=== PATIENT | male | born 1965 | race Caucasian/White ===

== ENCOUNTER 2016-10-09 14:49 | Emergency (ER) | payer OTHER ==
[~2016-10-09 14:49] MED LIST: *ANUSOI RE; /CELE20CA PO; /DIVA50TA PO; /OXAZ10CA OR; /QUET10TA PO; /QUET25TA PO; ACET65TA OR; ADVI200C5 PO; ADVI200T PO; ALBU17IN INH; ALBU17IN2 INH; ALBU83IN INH; ALBU83IN NEB; ALDA25TA2 PO; ASPI324T PO; ASPI325T OR; ASPI81TA85 PO; ASTE137S; ATIV0.5T3 PO; AUGM875T27 PO; BABY81CH OR; BACT800T5 PO; BACTDSTA PO; BREO1INH INH; CETI10TA PO; CHLO125TA PO; CHLO25TA PO; CHLO25TA3 PO; CIPR250T2 PO; COLACE PO; CYMB1CAP PO; DEMA20TA6 PO; DEPA250T32 PO; DEPA500T2 PO; DULE100A IN; EFFEXOR PO; EFFEXOR XR PO; FLUT1SPR2; FOLI1TAB2 PO; FOLI1TAB86 PO; FOLITAB11 PO; FURO20TA2 PO; GABA-283 PO; HYDR10EL PO; HYDRO50TAB PO; IBUP600T OR; IMODIUM PO; K-TA1TAB PO; KETO0.05 TOP; LASI20TA PO; LIDO1DIS2 TD; LISI2.5T OR; LISI40TA OR; LISI5TAB PO; LISIPOW PO; LOPR50TA OR; LORA2TA PO; MAG-400T7 PO; MAGN200T3 PO; METO25TA2 PO; METO50TA2 PO; MICR10CA PO; MOTR200T44 PO; NEOSOINT EXT; NEUR300C PO; NICO4LOZ MT; NIZO2SHA TOP; OMEP20CA3 PO; OXAZ15CA2 OR; OXAZ30CA OR; PERCOCET 10-325MG PO; PERCOCET FT; PERCOCET PO; PRIL20CA PO; PRIL40CA PO; QUET1TAB9 PO; REME15TA OR; SERO200T PO; SOMA250T OR; SOMA250T PO; SOMA350T PO; SPIR25TA2 PO; SYMB16INH INH; THERTAB30 PO; THIA100T PO; TOPR25TA PO; TRAZ100T2 PO; TRAZODONE PO; TYLE500T78 PO; TYLETAB15 PO; ULTR50TA PO; VENL50TA2 PO; VENL75CA PO; VENL75TA2 PO; VENL75TA3 PO; VICO5TA PO; VIST50CA PO; VITA100T2 PO; VITMTA PO; ZOLO100T PO; ZOLO25TA OR; ZOLO50TA OR; ZOLOFT PO; [UNRECOGNIZED DRUG - OTHER] PO; [UNRECOGNIZED DRUG - OTHER] PO
[2016-10-09] MEDS ORDERED: MORPHINE 4 MG/ML 1ML SYRINGE As Ordered ONE ×3 (17:52→20:24)
[2016-10-09] MEDS ORDERED: GASTROGRAFIN SOLUTION 30ML (Q9963) As Ordered ONE (17:52)
[2016-10-09] MEDS ORDERED: ONDANSETRON 4MG/2ML VIAL (J2405) As Ordered ONE (17:52)
[2016-10-09 18:17] LABS: BASO # 0.1 K/mm3 (0.0-0.2); BASO % 1.1 % (0.0-1.0); EOS # 0.5 K/mm3 (0.0-0.50); EOS % 5.9 % (0.0-3.0); LARGE UNSTAINED CELL # 0.2 K/mm3 (0.0-0.4); LARGE UNSTAINED CELL % 2.3 % (0.0-4.0); LYMPH # 1.9 K/mm3 (1.5-4.5); LYMPH % 21.1 % (24.0-44.0); MEAN CORPUSCULAR HEMOGLOBIN 34.9 pg (27.0-33.0); MEAN CORPUSCULAR HGB CONC 35.4 g/dl (32.0-36.5); MEAN CORPUSCULAR VOLUME 98.4 fl (80.0-96.0); MONO # 0.8 K/mm3 (0.0-0.8); MONO % 8.8 % (0.0-5.0); NEUTROPHILS # 5.3 K/mm3 (1.8-7.7); NEUTROPHILS % 60.8 % (36.0-66.0); PLATELET COUNT, AUTOMATED 220 k/mm3 (150-450); RED CELL DISTRIBUTION WIDTH 12.5 % (11.5-14.5); WHITE BLOOD COUNT 8.8 K/mm3 (4.0-10.0)
[2016-10-09 18:31] LABS: ALBUMIN 4.1 GM/DL (3.2-5.2); ALBUMIN/GLOBULIN RATIO 1.05 (1.00-1.93); ALKALINE PHOSPHATASE 97 U/L (45-117); ALT/SGPT 288 U/L (12-78); ANION GAP 10 MEQ/L (8-16); AST/SGOT 136 U/L (15-37); BILIRUBIN,DIRECT 0.4 MG/DL (0.0-0.2); BILIRUBIN,TOTAL 0.8 MG/DL (0.2-1.0); BLOOD UREA NITROGEN 14 MG/DL (7-18); CALCIUM LEVEL 9.4 MG/DL (8.5-10.1); CARBON DIOXIDE LEVEL 25 MEQ/L (21-32); CHLORIDE LEVEL 107 MEQ/L (98-107); CREATININE FOR GFR 0.85 MG/DL (0.70-1.30); GLOMERULAR FILTRATION RATE > 60.0 (>56); GLUCOSE, FASTING 99 MG/DL (70-105); POTASSIUM SERUM 4.1 MEQ/L (3.5-5.1); SODIUM LEVEL 142 MEQ/L (136-145)
[2016-10-09] MEDS ORDERED: ISOVUE-370 76% 100ML VIAL (Q9967) As Ordered ONE (19:19)
--- NOTE | 2016-10-09 20:30 | REPUSA ---
CT of the abdomen and pelvis with contrast Clinical statement: Pain. Technique: Multiple axial CT images were obtained from the base of the lungs through the floor of the pelvis utilizing 5 mm axial slices after administration of oral and nonionic intravenous contrast. C oronal and sagittal reconstructions were also obtained. Comparison: 07/12/2016. Findings: Chest: The visualized lung bases are clear. Abdomen: The spleen, pancreas, kidneys, gallbladder, and adrenal glands are unremarkable. There is an enhancing solid lesion in segment IV of the liver measuring 3.7 x 2.5 cm, which is stable since the prior study. Mild fatty infiltration of the liver remains. The liver is otherwise unremarkable. The a carline is within normal limits. There is no evidence of abdominal lymphadenopathy or ascites. Pelvis: The bowel is unremarkable, with no obstructive or inflammatory changes. The urinary bladder i s within normal limits. The other pelvic structures appear grossly intact. There is no evidence of pe lvic lymphadenopathy or ascites. Bones: There are no suspicious osseous abnormalities seen. Moderate degenerative disc disease is appr eciated at L4/L5 and L5/S1. Bilateral hip arthroplasties are intact. Impression: 1. No acute abnormality to explain the patient's pain. 2. Stable enhancing lesion in the liver consistent with a hepatic hemangioma. Stable fatty infiltrati on of the liver. 3. No obstructive or inflammatory bowel changes.
--- NOTE | 2016-10-09 21:24 | EDDOCDS ---
Physician Documentation [facility] Name: Donato Collier Age: 50 yrs Sex: Male : 1965 Arrival Date: 10/09/2016 Time: 14:49 Bed I7 Private MD: [facility] Disposition: 10/09/16 21:10 Discharged to Home/Self Care. Impression: Upper abdominal pain, unspecified - unclear etiology. - Condition is Stable. - Discharge Instructions: Abdominal Pain, Adult, Pain Without a Known Cause. - Medication Reconciliation, Local Pharmacy Hours form. - Follow up: [facility]; When: Call to arrange an appointment; Reason: Recheck today's complaints, Continuance of care. - Problem is an ongoing problem. - Symptoms have improved. - Notes: Keep hydrated Return to the ED For any further concerns Historical: - Allergies: Diflucan PO; - Home Meds: 1. albuterol sulfate 2.5 mg /3 mL (0.083 %) Inhl nebu as needed (Last dose: 10/05/2016) 2. aspirin 81 mg Oral tab 1 tab once daily (Last dose: 10/09/2016) 3. Gabapentin 300mg in am, afternoon and 600mg at hs Oral (Last dose: 10/09/2016 08:00) 4. Lasix 20 mg Oral tab 1 tab 2 times per day (Last dose: 10/09/2016) 5. metoprolol tartrate 25 mg Oral tab 1 tab 2 times per day (Last dose: 10/09/2016 08:00) 6. Motrin 800 mg Oral tab as needed (Last dose: 10/08/2016 20:00) 7. potassium chloride 20 mEq Oral TbER 1 tab 2 times per day (Last dose: 10/09/2016 08:00) 8. Prilosec 20 mg Oral cpDR 1 cap once daily (Last dose: 10/09/2016 08:00) 9. Proventil Inhl 2.5 mg as needed (Last dose: 10/09/2016) 10. Seroquel 400 mg oral tab 1 tab hs 11. spironolactone 25 mg Oral tab 1 tab once daily (Last dose: 10/09/2016 08:00) 12. venlafaxine 225 mg oral tr24 once daily (Last dose: 10/09/2016 08:00) 13. Zyrtec 10 mg Oral tab 1 tab once daily (Last dose: 10/09/2016 08:00) 14. nicotine lozenges as needed - PMHx: Asthma; Bipolar disorder; CHF; Depression; GERD; Hepatitis C; Hypertension; Left knee pain; - PSHx: Diaphramatic hernia repair 2013; Appendectomy; Vasectomy; Inguinal hernia repair; - Social history: Smoking status: Patient uses tobacco products, light tobacco smoker. No barriers to communication noted, The patient speaks fluent Zimbabwean. - Family history: Not pertinent. - : The pt / caregiver states he / she is not on anticoagulants. Home medication list is obtained from the patient. - Exposure Risk Screening:: None identified. Vital Signs: 10/09 14:51 BP 165 / 98; Pulse 66; Resp 16; Temp 97.5(O); Pulse Ox 98% ; Weight 131.09 kg / 289 cmb lbs; Height 6 ft. 0 in. (182.88 cm); Pain 5/10; 18:41 BP 147 / 86; Pulse 66; Resp 20; Temp 98.0; Pulse Ox 98% ; Pain 7/10; jam1 20:05 BP 124 / 72; Pulse 72; Resp 18; Temp 98.6; Pulse Ox 96% ; Pain 8/10; ajs 21:18 BP 136 / 99; Pulse 70; Resp 20; Temp 97.5(O); Pulse Ox 95% on R/A; Pain 5/10; dsf 21:20 Pain 5/10; dsf 14:51 Body Mass Index 39.20 (131.09 kg, 182.88 cm) cmb MDM: 17:26 NS 0.9% 1000 ml IV at 100 mL/hr continuous ordered. le 17:26 Ondansetron 4 mg IVP once ordered. le 17:26 morphine 4 mg IVP every 30 minutes; Document pain score/vitals after each dose (Hold if le SBP < 90mmHg) x2 ordered. 17:26 IV Saline Lock ordered. le 17:26 Undress patient appropriately for examination ordered. le 17:27 Basic Metabolic Profile Ordered. EDMS 17:27 CBC with Diff Ordered. EDMS 17:27 Lipase Ordered. EDMS 17:27 Liver Profile Ordered. EDMS 17:28 CT ABD & PELVIS: IV and Oral Contrast Ordered. EDMS 17:28 NOTHING BY MOUTH+DIET ordered. EDMS 17:28 Lactic Acid (Claudio tube on ice) Ordered. EDMS 17:50 Diatrizoate Meglumine & Sodium Liquid 10 ml PO once; mix in 290cc of water 1st cup 1800 dsf 1830 ordered. 17:50 Diatrizoate Meglumine & Sodium Liquid 10 ml PO once; mix in 290cc of water 1st cup 1800 dsf 1830 ordered. 18:19 Financial registration complete. [email or web address] 18:19 [facility] [place] Agreement was scanned into [employer] and attached to record. [email or web address] 18:39 CBC with Diff Reviewed. le 18:39 Lipase Reviewed. le 18:39 Liver Profile Reviewed. le 18:39 Basic Metabolic Profile Reviewed. le 20:10 morphine 4 mg IVP every 15 minutes; Document pain score/vitals after each dose (Hold if le SBP < 90mmHg) x2 ordered. 20:10 Lactic Acid (Claudio tube on ice) Reviewed. le Administered Medications: 18:00 Drug: Diatrizoate Meglumine & Sodium 10 ml [diatrizoate meglumine and diat.sodium 66 dsf %-10 % oral solution (10 mL)] Route: PO; 18:01 Drug: NS 0.9% 1000 ml [sodium chloride 0.9 % injection solution] Route: IV; Rate: 100 dsf mL/hr; Site: right antecubital; 18:01 Drug: Ondansetron 4 mg [ondansetron HCl 2 mg/mL intravenous solution (2 mL)] Route: dsf IVP; Site: right antecubital; 18:01 Drug: morphine 4 mg [morphine 4 mg/mL intravenous cartridge (1 mL)] Route: IVP; Site: dsf right antecubital; 18:30 Drug: Diatrizoate Meglumine & Sodium 10 ml [diatrizoate meglumine and diat.sodium 66 dsf %-10 % oral solution (10 mL)] Route: PO; 20:26 Drug: morphine 4 mg [morphine 4 mg/mL intravenous cartridge (1 mL)] Route: IVP; Site: dsf right antecubital; 21:20 Follow up: Pain 5/10 Adult; Response: Confirmed pt not driving.; see charted VS dsf Signatures: Dispatcher [employer] EDMS Yrn Russ, RN RN Lois Tyler, CHUCKING AND BORING MACHINE OPERATOR CHUCKING AND BORING MACHINE OPERATOROlga Shipley RN RN dsBelem Patrick, Reg Reg [email or web address] The chart was reviewed and I authenticate all verbal orders and agree with the evaluation and treatment provided.Attachments: 18:19 [facility] Payment Agreement [email or web address] MTDD
--- NOTE | 2016-10-09 21:24 | EDDOCDS ---
Nurse's Notes [facility] Name: Donato Collier Age: 50 yrs Sex: Male : 1965 Arrival Date: 10/09/2016 Time: 14:49 Bed I7 / 29 Private MD: [facility] Diagnosis: Upper abdominal pain, unspecified-unclear etiology Presentation: 10/09 14:52 Presenting complaint: Patient states: LUQ pain for 3 days, no injury. Adult Sepsis dwg Screening: The patient does not have new or worsening altered mentation. Patient's respiratory rate is less than 22. Systolic blood pressure is greater than 100. Patient has a qSOFA score of 0- Negative Sepsis Screen. Suicide/Homicide risk assessment- the patient denies having any suicidal and/or homicidal ideations and does not present with any other emotional, behavioral or mental health complaints. Status: Patient is not a director of career services or dependent. Transition of care: patient was not received from another setting of care. 14:52 Acuity: ABEL Level 3 dwg 14:52 Method Of Arrival: Walkin/Carried/Asstd dwg Triage Assessment: 14:58 General: Appears in no apparent distress. Pain: Pain currently is 7 out of 10 on a pain dwg scale. HIV screening NA for this visit Offered previously. Historical: - Allergies: Diflucan PO; - Home Meds: 1. albuterol sulfate 2.5 mg /3 mL (0.083 %) Inhl nebu as needed (Last dose: 10/05/2016) 2. aspirin 81 mg Oral tab 1 tab once daily (Last dose: 10/09/2016) 3. Gabapentin 300mg in am, afternoon and 600mg at hs Oral (Last dose: 10/09/2016 08:00) 4. Lasix 20 mg Oral tab 1 tab 2 times per day (Last dose: 10/09/2016) 5. metoprolol tartrate 25 mg Oral tab 1 tab 2 times per day (Last dose: 10/09/2016 08:00) 6. Motrin 800 mg Oral tab as needed (Last dose: 10/08/2016 20:00) 7. potassium chloride 20 mEq Oral TbER 1 tab 2 times per day (Last dose: 10/09/2016 08:00) 8. Prilosec 20 mg Oral cpDR 1 cap once daily (Last dose: 10/09/2016 08:00) 9. Proventil Inhl 2.5 mg as needed (Last dose: 10/09/2016) 10. Seroquel 400 mg oral tab 1 tab hs 11. spironolactone 25 mg Oral tab 1 tab once daily (Last dose: 10/09/2016 08:00) 12. venlafaxine 225 mg oral tr24 once daily (Last dose: 10/09/2016 08:00) 13. Zyrtec 10 mg Oral tab 1 tab once daily (Last dose: 10/09/2016 08:00) 14. nicotine lozenges as needed - PMHx: Asthma; Bipolar disorder; CHF; Depression; GERD; Hepatitis C; Hypertension; Left knee pain; - PSHx: Diaphramatic hernia repair 2013; Appendectomy; Vasectomy; Inguinal hernia repair; - Social history: Smoking status: Patient uses tobacco products, light tobacco smoker. No barriers to communication noted, The patient speaks fluent Burkinan. - Family history: Not pertinent. - : The pt / caregiver states he / she is not on anticoagulants. Home medication list is obtained from the patient. - Exposure Risk Screening:: None identified. Screenin:18 Screening information is obtained from the patient. Fall risk: No risks identified. dsf Assistance ADL's: requires no assistance with activities of daily living. Abuse/DV Screen: The patient / caregiver reports he/she is: not in a situation that causes fear, pain or injury. Nutritional screening: No deficits noted. Advance Directives: Currently, there is no health care proxy. home support is adequate. Assessment: 18:01 Adult Sepsis Screening: The patient does not have new or worsening altered mentation. dsf Patient's respiratory rate is less than 22. Systolic blood pressure is greater than 100. Patient has a qSOFA score of 0- Negative Sepsis Screen. General: Appears in no apparent distress, uncomfortable, Behavior is appropriate for age, cooperative. Pain: Location: epigastric area and left upper quadrant Pain currently is 8 out of 10 on a pain scale. Quality of pain is described as sharp. Neurological: Level of Consciousness is awake, alert, Oriented to person, place, time. Cardiovascular: Capillary refill < 3 seconds Heart tones S1 S2 present. Respiratory: Airway is patent Respiratory effort is even, unlabored, Respiratory pattern is regular, symmetrical, Breath sounds are clear bilaterally. GI: Abdomen is obese, Bowel sounds hyperactive in right upper quadrant, left upper quadrant, right lower quadrant and left lower quadrant Abd is soft X 4 quads Abd is tender to palpation in epigastric area and left upper quadrant bulge LUQ. Derm: Skin is pink, warm & dry. 19:41 General: Appears uncomfortable, Behavior is appropriate for age, cooperative. Pain: dsf Pain currently is 8 out of 10 on a pain scale. Neurological: Level of Consciousness is awake, alert. Cardiovascular: Capillary refill < 3 seconds. Respiratory: Airway is patent Respiratory effort is even, unlabored, Respiratory pattern is regular, symmetrical. Derm: Skin is pink, warm & dry. 19:56 General: pt ambulated back from CT without difficulty . af2 21:19 General: Appears in no apparent distress, comfortable, Behavior is appropriate for age, dsf cooperative. Pain: Location: left upper quadrant and epigastric area Pain currently is 5 out of 10 on a pain scale. Neurological: Level of Consciousness is awake, alert. Cardiovascular: No deficits noted. Respiratory: No deficits noted. Derm: Skin is pink, warm & dry. Vital Signs: 14:51 BP 165 / 98; Pulse 66; Resp 16; Temp 97.5(O); Pulse Ox 98% ; Weight 131.09 kg; Height 6 cmb ft. 0 in. (182.88 cm); Pain 5/10; 18:41 BP 147 / 86; Pulse 66; Resp 20; Temp 98.0; Pulse Ox 98% ; Pain 7/10; jam1 20:05 BP 124 / 72; Pulse 72; Resp 18; Temp 98.6; Pulse Ox 96% ; Pain 8/10; ajs 21:18 BP 136 / 99; Pulse 70; Resp 20; Temp 97.5(O); Pulse Ox 95% on R/A; Pain 5/10; dsf 21:20 Pain 5/10; dsf 14:51 Body Mass Index 39.20 (131.09 kg, 182.88 cm) [facility] Vitals: 14:51 Log In Time: October 09, 2016 at 14:49. [facility] ED Course: 14:51 Patient visited by Luz Thompson. b 14:51 [facility] is Private Physician. cmb 14:51 Patient moved to Waiting cmb 14:52 Patient moved to Pre RCE cmb 14:54 Triage Initiated dwg 16:24 Patient moved to Triage 1 srm 17:16 [facility] le 17:19 Patient visited by Lois Rubio FNP. le 17:28 Patient visited by Lois Rubio FNP. le 17:42 Patient moved to I6 / 28 srm 17:44 Patient moved to I7 / 29 srm 17:50 Inserted saline lock: 20 gauge in right antecubital area The patient tolerated the kcs procedure well. 18:00 Lactic Acid (Claudio tube on ice) Sent. kcs 18:00 Basic Metabolic Profile Sent. kcs 18:00 CBC with Diff Sent. kcs 18:00 Lipase Sent. kcs 18:00 Liver Profile Sent. kcs 18:03 Patient visited by Olga Deutsch RN. dsf 18:19 [facility] Payment Agreement was scanned into [employer] and attached to record. ks16 19:42 Patient visited by Olga Deutsch RN. dsf 20:00 Patient visited by Dania Ortiz RN. af2 20:06 Patient visited by Sarah Murrell. ajs 21:10 [facility] is Referral Physician. le 21:13 Patient visited by Sarah Murrell. ajs 21:13 CT ABD & PELVIS: IV and Oral Contrast Returned. EDMS 21:18 Discontinued lock intact, bleeding controlled, pressure dressing applied, No dsf redness/swelling at site. No procedures done that require assistance. 21:19 The patient / caregiver is instructed regarding the plan of care and ED course. Patient dsf has correct armband on for positive identification. Administered Medications: 18:00 Drug: Diatrizoate Meglumine & Sodium 10 ml [diatrizoate meglumine and diat.sodium 66 dsf %-10 % oral solution (10 mL)] Route: PO; 18:01 Drug: NS 0.9% 1000 ml [sodium chloride 0.9 % injection solution] Route: IV; Rate: 100 dsf mL/hr; Site: right antecubital; 18:01 Drug: Ondansetron 4 mg [ondansetron HCl 2 mg/mL intravenous solution (2 mL)] Route: dsf IVP; Site: right antecubital; 18:01 Drug: morphine 4 mg [morphine 4 mg/mL intravenous cartridge (1 mL)] Route: IVP; Site: dsf right antecubital; 18:30 Drug: Diatrizoate Meglumine & Sodium 10 ml [diatrizoate meglumine and diat.sodium 66 dsf %-10 % oral solution (10 mL)] Route: PO; 20:26 Drug: morphine 4 mg [morphine 4 mg/mL intravenous cartridge (1 mL)] Route: IVP; Site: dsf right antecubital; 21:20 Follow up: Pain 01/30 Adult; Response: Confirmed pt not driving.; see charted VS dsf Intake: Order Results: Lab Order: Basic Metabolic Profile; SPEC'M 10/09/16 17:56 Test: GLUCOSE, FASTING; Value: 99; Range: 70-105; Units: MG/DL; Status: F Test: BLOOD UREA NITROGEN; Value: 14; Range: 7-18; Units: MG/DL; Status: F Test: CREATININE FOR GFR; Value: 0.85; Range: 0.70-1.30; Units: MG/DL; Status: F Test: GLOMERULAR FILTRATION RATE; Value: > 60.0; Range: >56; Status: F Test: SODIUM LEVEL; Value: 142; Range: 136-145; Units: MEQ/L; Status: F Test: POTASSIUM SERUM; Value: 4.1; Range: 3.5-5.1; Units: MEQ/L; Status: F Test: CHLORIDE LEVEL; Value: 107; Range: 98-107; Units: MEQ/L; Status: F Test: CARBON DIOXIDE LEVEL; Value: 25; Range: 21-32; Units: MEQ/L; Status: F Test: ANION GAP; Value: 10; Range: 8-16; Units: MEQ/L; Status: F Test: CALCIUM LEVEL; Value: 9.4; Range: 8.5-10.1; Units: MG/DL; Status: F Test Note: ; Units are mL/min/1.73 m2 Chronic Kidney Disease Staging per NKF: Stage I & II GFR >=60 Normal to Mildly Decreased Stage III GFR 30-59 Moderately Decreased Stage IV GFR 15-29 Severely Decreased Stage V GFR <15 Very Little GFR Left ESRD GFR <15 on DEVICE ENGINEER Lab Order: CBC with Diff; SPEC'M 10/09/16 17:56 Test: WHITE BLOOD COUNT; Value: 8.8; Range: 4.0-10.0; Units: K/mm3; Status: F Test: RED BLOOD COUNT; Value: 4.52; Range: 4.30-6.10; Units: M/mm3; Status: F Test: HEMOGLOBIN; Value: 15.8; Range: 14.0-18.0; Units: g/dl; Status: F Test: HEMATOCRIT; Value: 44.5; Range: 42.0-52.0; Units: %; Status: F Test: MEAN CORPUSCULAR VOLUME; Value: 98.4; Range: 80.0-96.0; Abnormal: Above high normal; Units: fl; Status: F Test: MEAN CORPUSCULAR HEMOGLOBIN; Value: 34.9; Range: 27.0-33.0; Abnormal: Above high normal; Units: pg; Status: F Test: MEAN CORPUSCULAR HGB CONC; Value: 35.4; Range: 32.0-36.5; Units: g/dl; Status: F Test: RED CELL DISTRIBUTION WIDTH; Value: 12.5; Range: 11.5-14.5; Units: %; Status: F Test: PLATELET COUNT, AUTOMATED; Value: 220; Range: 150-450; Units: k/mm3; Status: F Test: NEUTROPHILS %; Value: 60.8; Range: 36.0-66.0; Units: %; Status: F Test: LYMPH %; Value: 21.1; Range: 24.0-44.0; Abnormal: Below low normal; Units: %; Status: F Test: MONO %; Value: 8.8; Range: 0.0-5.0; Abnormal: Above high normal; Units: %; Status: F Test: EOS %; Value: 5.9; Range: 0.0-3.0; Abnormal: Above high normal; Units: %; Status: F Test: BASO %; Value: 1.1; Range: 0.0-1.0; Abnormal: Above high normal; Units: %; Status: F Test: LARGE UNSTAINED CELL %; Value: 2.3; Range: 0.0-4.0; Units: %; Status: F Test: NEUTROPHILS #; Value: 5.3; Range: 1.8-7.7; Units: K/mm3; Status: F Test: LYMPH #; Value: 1.9; Range: 1.5-4.5; Units: K/mm3; Status: F Test: MONO #; Value: 0.8; Range: 0.0-0.8; Units: K/mm3; Status: F Test: EOS #; Value: 0.5; Range: 0.0-0.50; Units: K/mm3; Status: F Test: BASO #; Value: 0.1; Range: 0.0-0.2; Units: K/mm3; Status: F Test: LARGE UNSTAINED CELL #; Value: 0.2; Range: 0.0-0.4; Units: K/mm3; Status: F Lab Order: Lipase; SPEC'M 10/09/16:56 Test: LIPASE; Value: 889; Range: 73-393; Abnormal: Above high normal; Units: U/L; Status: F Lab Order: Liver Profile; SPEC'M 10/09/16 17:56 Test: AST/SGOT; Value: 136; Range: 15-37; Abnormal: Above high normal; Units: U/L; Status: F Test: ALT/SGPT; Value: 288; Range: 12-78; Abnormal: Above high normal; Units: U/L; Status: F Test: ALKALINE PHOSPHATASE; Value: 97; Range: 45-117; Units: U/L; Status: F Test: BILIRUBIN,TOTAL; Value: 0.8; Range: 0.2-1.0; Units: MG/DL; Status: F Test: BILIRUBIN,DIRECT; Value: 0.4; Range: 0.0-0.2; Abnormal: Above high normal; Units: MG/DL; Status: F Test: TOTAL PROTEIN; Value: 8.0; Range: 6.4-8.2; Units: GM/DL; Status: F Test: ALBUMIN; Value: 4.1; Range: 3.2-5.2; Units: GM/DL; Status: F Test: ALBUMIN/GLOBULIN RATIO; Value: 1.05; Range: 1.00-1.93; Status: F Lab Order: Lactic Acid (Claudio tube on ice); SPEC'M 01/17/17 17:56 Test: LACTIC ACID LEVEL, LACTATE; Value: 1.2; Range: 0.4-2.0; Units: MMOL/L; Status: F Radiology Order: CT ABD & PELVIS: IV and Oral Contrast Test: CT ABD & PELVIS: IV and Oral Contrast REASON FOR EXAMINATION: LUQ abdominal pain, hernia; ; CT of the abdomen and pelvis with contrast; Clinical statement: Pain.; Technique: Multiple axial CT images were obtained from the base of the lungs through the floor of the; pelvis utilizing 5 mm axial slices after administration of oral and nonionic intravenous contrast. C; oronal and sagittal reconstructions were also obtained.; Comparison: 07/12/2016.; Findings:; Chest: The visualized lung bases are clear.; Abdomen: The spleen, pancreas, kidneys, gallbladder, and adrenal glands are unremarkable. There is an; enhancing solid lesion in segment IV of the liver measuring 3.7 x 2.5 cm, which is stable since the; prior study. Mild fatty infiltration of the liver remains. The liver is otherwise unremarkable. The a; carline is within normal limits. There is no evidence of abdominal lymphadenopathy or ascites.; Pelvis: The bowel is unremarkable, with no obstructive or inflammatory changes. The urinary bladder i; s within normal limits. The other pelvic structures appear grossly intact. There is no evidence of pe; lvic lymphadenopathy or ascites.; Bones: There are no suspicious osseous abnormalities seen. Moderate degenerative disc disease is appr; eciated at L4/L5 and L5/S1. Bilateral hip arthroplasties are intact.; Impression:; 1. No acute abnormality to explain the patient's pain.; 2. Stable enhancing lesion in the liver consistent with a hepatic hemangioma. Stable fatty infiltrati; on of the liver.; 3. No obstructive or inflammatory bowel changes.; ; Outcome: 21:10 Discharge ordered by Provider. le 21:19 Discharge Assessment: Patient awake, alert and oriented x 3. No cognitive and/or dsf functional deficits noted. Patient verbalized understanding of disposition instructions. patient administered narcotics - yes. Pt provided with safe discharge. The following High Risk Discharge criteria are identified: None. Discharged to home ambulatory. Condition: stable. Discharge instructions given to patient, Instructed on discharge instructions, follow up and referral plans. Demonstrated understanding of instructions, Pt was receptive of discharge instructions/ teaching. CT Study completed. Property sent home with patient. 21:23 Patient left the ED. dsf Signatures: Dispatcher [employer] EDDivya Griffith, RN RN Yrn Moody RN RN dwg Michelson, Staci RN RN blanca Anuradha Palomo, HISTOTECHNICIAN HISTOTECHNICIAN [email or web address] Lois Rubio, WINCH RUNNER WINCH RUNNER Olga Whitaker RN RN dsf Sarah Murrell [place] cmb [place], Amber, RN RN af2 Belem Sandhu, Reg Reg [email or web address] Corrections: (The following items were deleted from the chart) 19:23 18:54 morphine 4 mg IVP in right antecubital dsf dsf 21:13 21:12 BP 126 / 80; Pulse 60bpm; Resp 18bpm; Pulse Ox 99%; Temp 98.8F; Pain 2/10; ajs karin MTDD
--- NOTE | 2016-10-11 22:24 | EDDOCDS ---
Physician Documentation [facility] Name: Donato Collier Age: 50 yrs Sex: Male : 1965 Arrival Date: 10/09/2016 Time: 14:49 Bed I7 Private MD: [facility] - Adults Disposition: 10/09/16 21:10 Discharged to Home/Self Care. Impression: Upper abdominal pain, unspecified - unclear etiology. - Condition is Stable. - Discharge Instructions: Abdominal Pain, Adult, Pain Without a Known Cause. - Medication Reconciliation, Local Pharmacy Hours form. - Follow up: [facility] - Adults; When: Call to arrange an appointment; Reason: Recheck today's complaints, Continuance of care. - Problem is an ongoing problem. - Symptoms have improved. - Notes: Keep hydrated Return to the ED For any further concerns Historical: - Allergies: Diflucan PO; - Home Meds: 1. albuterol sulfate 2.5 mg /3 mL (0.083 %) Inhl nebu as needed (Last dose: 10/05/2016) 2. aspirin 81 mg Oral tab 1 tab once daily (Last dose: 10/09/2016) 3. Gabapentin 300mg in am, afternoon and 600mg at hs Oral (Last dose: 10/09/2016 08:00) 4. Lasix 20 mg Oral tab 1 tab 2 times per day (Last dose: 10/09/2016) 5. metoprolol tartrate 25 mg Oral tab 1 tab 2 times per day (Last dose: 10/09/2016 08:00) 6. Motrin 800 mg Oral tab as needed (Last dose: 10/08/2016 20:00) 7. potassium chloride 20 mEq Oral TbER 1 tab 2 times per day (Last dose: 10/09/2016 08:00) 8. Prilosec 20 mg Oral cpDR 1 cap once daily (Last dose: 10/09/2016 08:00) 9. Proventil Inhl 2.5 mg as needed (Last dose: 10/09/2016) 10. Seroquel 400 mg oral tab 1 tab hs 11. spironolactone 25 mg Oral tab 1 tab once daily (Last dose: 10/09/2016 08:00) 12. venlafaxine 225 mg oral tr24 once daily (Last dose: 10/09/2016 08:00) 13. Zyrtec 10 mg Oral tab 1 tab once daily (Last dose: 10/09/2016 08:00) 14. nicotine lozenges as needed - PMHx: Asthma; Bipolar disorder; CHF; Depression; GERD; Hepatitis C; Hypertension; Left knee pain; - PSHx: Diaphramatic hernia repair 2013; Appendectomy; Vasectomy; Inguinal hernia repair; - Social history: Smoking status: Patient uses tobacco products, light tobacco smoker. No barriers to communication noted, The patient speaks fluent Ethiopian. - Family history: Not pertinent. - : The pt / caregiver states he / she is not on anticoagulants. Home medication list is obtained from the patient. - Exposure Risk Screening:: None identified. Vital Signs: 10/09 14:51 BP 165 / 98; Pulse 66; Resp 16; Temp 97.5(O); Pulse Ox 98% ; Weight 131.09 kg / 289 cmb lbs; Height 6 ft. 0 in. (182.88 cm); Pain 5/10; 18:41 BP 147 / 86; Pulse 66; Resp 20; Temp 98.0; Pulse Ox 98% ; Pain 7/10; jam1 20:05 BP 124 / 72; Pulse 72; Resp 18; Temp 98.6; Pulse Ox 96% ; Pain 8/10; ajs 21:18 BP 136 / 99; Pulse 70; Resp 20; Temp 97.5(O); Pulse Ox 95% on R/A; Pain 5/10; dsf 21:20 Pain 5/10; dsf 14:51 Body Mass Index 39.20 (131.09 kg, 182.88 cm) cmb MDM: 17:26 NS 0.9% 1000 ml IV at 100 mL/hr continuous ordered. le 17:26 Ondansetron 4 mg IVP once ordered. le 17:26 morphine 4 mg IVP every 30 minutes; Document pain score/vitals after each dose (Hold if le SBP < 90mmHg) x2 ordered. 17:26 IV Saline Lock ordered. le 17:26 Undress patient appropriately for examination ordered. le 17:27 Basic Metabolic Profile Ordered. EDMS 17:27 CBC with Diff Ordered. EDMS 17:27 Lipase Ordered. EDMS 17:27 Liver Profile Ordered. EDMS 17:28 CT ABD & PELVIS: IV and Oral Contrast Ordered. EDMS 17:28 NOTHING BY MOUTH+DIET ordered. EDMS 17:28 Lactic Acid (Claudio tube on ice) Ordered. EDMS 17:50 Diatrizoate Meglumine & Sodium Liquid 10 ml PO once; mix in 290cc of water 1st cup 1800 dsf 1830 ordered. 17:50 Diatrizoate Meglumine & Sodium Liquid 10 ml PO once; mix in 290cc of water 1st cup 1800 dsf 1830 ordered. 18:19 Financial registration complete. [email or web address] 18:19 [place] [place] Agreement was scanned into [employer] and attached to record. [email or web address] 18:39 CBC with Diff Reviewed. le 18:39 Lipase Reviewed. le 18:39 Liver Profile Reviewed. le 18:39 Basic Metabolic Profile Reviewed. le 20:10 morphine 4 mg IVP every 15 minutes; Document pain score/vitals after each dose (Hold if le SBP < 90mmHg) x2 ordered. 20:10 Lactic Acid (Claudio tube on ice) Reviewed. le 10/10 11:53 T-Sheet-- Draft Copy was scanned into [employer] and attached to record. gb Administered Medications: 10/09 18:00 Drug: Diatrizoate Meglumine & Sodium 10 ml [diatrizoate meglumine and diat.sodium 66 dsf %-10 % oral solution (10 mL)] Route: PO; 18:01 Drug: NS 0.9% 1000 ml [sodium chloride 0.9 % injection solution] Route: IV; Rate: 100 dsf mL/hr; Site: right antecubital; 18:01 Drug: Ondansetron 4 mg [ondansetron HCl 2 mg/mL intravenous solution (2 mL)] Route: dsf IVP; Site: right antecubital; 18:01 Drug: morphine 4 mg [morphine 4 mg/mL intravenous cartridge (1 mL)] Route: IVP; Site: dsf right antecubital; 18:30 Drug: Diatrizoate Meglumine & Sodium 10 ml [diatrizoate meglumine and diat.sodium 66 dsf %-10 % oral solution (10 mL)] Route: PO; 20:26 Drug: morphine 4 mg [morphine 4 mg/mL intravenous cartridge (1 mL)] Route: IVP; Site: dsf right antecubital; 21:20 Follow up: Pain 5/10 Adult; Response: Confirmed pt not driving.; see charted VS dsf Signatures: Dispatcher [employer] Yrn Merida, RN RN dwg Vaishnavi Urias, Reg Reg gb Lois Rubio, LOGISTICS CLERK LOGISTICS CLERKOlga Shipley RN RN dsf Belem Sandhu, Reg Reg [email or web address] The chart was reviewed and I authenticate all verbal orders and agree with the evaluation and treatment provided.Attachments: 18:19 [facility] Payment Agreement [email or web address] 10/10 11:53 T-Sheet-- Draft Copy gb Chart Complete MTDD
--- NOTE | 2016-10-11 22:24 | EDDOCDS ---
Physician Documentation [facility] Name: Donato Collier Age: 50 yrs Sex: Male : 1965 Arrival Date: 10/09/2016 Time: 14:49 Bed I7 Private MD: [facility] - Adults Disposition: 10/09/16 21:10 Discharged to Home/Self Care. Impression: Upper abdominal pain, unspecified - unclear etiology. - Condition is Stable. - Discharge Instructions: Abdominal Pain, Adult, Pain Without a Known Cause. - Medication Reconciliation, Local Pharmacy Hours form. - Follow up: [facility] - Adults; When: Call to arrange an appointment; Reason: Recheck today's complaints, Continuance of care. - Problem is an ongoing problem. - Symptoms have improved. - Notes: Keep hydrated Return to the ED For any further concerns Historical: - Allergies: Diflucan PO; - Home Meds: 1. albuterol sulfate 2.5 mg /3 mL (0.083 %) Inhl nebu as needed (Last dose: 10/05/2016) 2. aspirin 81 mg Oral tab 1 tab once daily (Last dose: 10/09/2016) 3. Gabapentin 300mg in am, afternoon and 600mg at hs Oral (Last dose: 10/09/2016 08:00) 4. Lasix 20 mg Oral tab 1 tab 2 times per day (Last dose: 10/09/2016) 5. metoprolol tartrate 25 mg Oral tab 1 tab 2 times per day (Last dose: 10/09/2016 08:00) 6. Motrin 800 mg Oral tab as needed (Last dose: 10/08/2016 20:00) 7. potassium chloride 20 mEq Oral TbER 1 tab 2 times per day (Last dose: 10/09/2016 08:00) 8. Prilosec 20 mg Oral cpDR 1 cap once daily (Last dose: 10/09/2016 08:00) 9. Proventil Inhl 2.5 mg as needed (Last dose: 10/09/2016) 10. Seroquel 400 mg oral tab 1 tab hs 11. spironolactone 25 mg Oral tab 1 tab once daily (Last dose: 10/09/2016 08:00) 12. venlafaxine 225 mg oral tr24 once daily (Last dose: 10/09/2016 08:00) 13. Zyrtec 10 mg Oral tab 1 tab once daily (Last dose: 10/09/2016 08:00) 14. nicotine lozenges as needed - PMHx: Asthma; Bipolar disorder; CHF; Depression; GERD; Hepatitis C; Hypertension; Left knee pain; - PSHx: Diaphramatic hernia repair 2013; Appendectomy; Vasectomy; Inguinal hernia repair; - Social history: Smoking status: Patient uses tobacco products, light tobacco smoker. No barriers to communication noted, The patient speaks fluent Algerian. - Family history: Not pertinent. - : The pt / caregiver states he / she is not on anticoagulants. Home medication list is obtained from the patient. - Exposure Risk Screening:: None identified. Vital Signs: 10/09 14:51 BP 165 / 98; Pulse 66; Resp 16; Temp 97.5(O); Pulse Ox 98% ; Weight 131.09 kg / 289 cmb lbs; Height 6 ft. 0 in. (182.88 cm); Pain 5/10; 18:41 BP 147 / 86; Pulse 66; Resp 20; Temp 98.0; Pulse Ox 98% ; Pain 7/10; jam1 20:05 BP 124 / 72; Pulse 72; Resp 18; Temp 98.6; Pulse Ox 96% ; Pain 8/10; ajs 21:18 BP 136 / 99; Pulse 70; Resp 20; Temp 97.5(O); Pulse Ox 95% on R/A; Pain 5/10; dsf 21:20 Pain 5/10; dsf 14:51 Body Mass Index 39.20 (131.09 kg, 182.88 cm) cmb MDM: 17:26 NS 0.9% 1000 ml IV at 100 mL/hr continuous ordered. le 17:26 Ondansetron 4 mg IVP once ordered. le 17:26 morphine 4 mg IVP every 30 minutes; Document pain score/vitals after each dose (Hold if le SBP < 90mmHg) x2 ordered. 17:26 IV Saline Lock ordered. le 17:26 Undress patient appropriately for examination ordered. le 17:27 Basic Metabolic Profile Ordered. EDMS 17:27 CBC with Diff Ordered. EDMS 17:27 Lipase Ordered. EDMS 17:27 Liver Profile Ordered. EDMS 17:28 CT ABD & PELVIS: IV and Oral Contrast Ordered. EDMS 17:28 NOTHING BY MOUTH+DIET ordered. EDMS 17:28 Lactic Acid (Claudio tube on ice) Ordered. EDMS 17:50 Diatrizoate Meglumine & Sodium Liquid 10 ml PO once; mix in 290cc of water 1st cup 1800 dsf 1830 ordered. 17:50 Diatrizoate Meglumine & Sodium Liquid 10 ml PO once; mix in 290cc of water 1st cup 1800 dsf 1830 ordered. 18:19 Financial registration complete. [email or web address] 18:19 [facility] [place] Payment Agreement was scanned into [employer] and attached to record. [email or web address] 18:39 CBC with Diff Reviewed. le 18:39 Lipase Reviewed. le 18:39 Liver Profile Reviewed. le 18:39 Basic Metabolic Profile Reviewed. le 20:10 morphine 4 mg IVP every 15 minutes; Document pain score/vitals after each dose (Hold if le SBP < 90mmHg) x2 ordered. 20:10 Lactic Acid (Claudio tube on ice) Reviewed. le 10/10 11:53 T-Sheet-- Draft Copy was scanned into [employer] and attached to record. gb Administered Medications: 10/09 18:00 Drug: Diatrizoate Meglumine & Sodium 10 ml [diatrizoate meglumine and diat.sodium 66 dsf %-10 % oral solution (10 mL)] Route: PO; 18:01 Drug: NS 0.9% 1000 ml [sodium chloride 0.9 % injection solution] Route: IV; Rate: 100 dsf mL/hr; Site: right antecubital; 18:01 Drug: Ondansetron 4 mg [ondansetron HCl 2 mg/mL intravenous solution (2 mL)] Route: dsf IVP; Site: right antecubital; 18:01 Drug: morphine 4 mg [morphine 4 mg/mL intravenous cartridge (1 mL)] Route: IVP; Site: dsf right antecubital; 18:30 Drug: Diatrizoate Meglumine & Sodium 10 ml [diatrizoate meglumine and diat.sodium 66 dsf %-10 % oral solution (10 mL)] Route: PO; 20:26 Drug: morphine 4 mg [morphine 4 mg/mL intravenous cartridge (1 mL)] Route: IVP; Site: dsf right antecubital; 21:20 Follow up: Pain 5/10 Adult; Response: Confirmed pt not driving.; see charted VS dsf Signatures: Dispatcher [employer] Yrn Merida, RN RN dwg Vaishnavi Urias, Reg Reg gb Lois Rubio, COMMERCIAL REAL ESTATE PARALEGAL COMMERCIAL REAL ESTATE PARALEGALOlga Shipley RN RN dsf Belem Sandhu, Reg Reg [email or web address] The chart was reviewed and I authenticate all verbal orders and agree with the evaluation and treatment provided.Attachments: 18:19 [facility] Payment Agreement [email or web address] 10/10 11:53 T-Sheet-- Draft Copy gb Chart Complete MTDD
--- NOTE | 2016-10-11 22:24 | EDDOCDS ---
Nurse's Notes [facility] Name: Donato Collier Age: 50 yrs Sex: Male : 1965 Arrival Date: 10/09/2016 Time: 14:49 Bed I7 / 29 Private MD: [facility] Diagnosis: Upper abdominal pain, unspecified-unclear etiology Presentation: 10/09 14:52 Presenting complaint: Patient states: LUQ pain for 3 days, no injury. Adult Sepsis dwg Screening: The patient does not have new or worsening altered mentation. Patient's respiratory rate is less than 22. Systolic blood pressure is greater than 100. Patient has a qSOFA score of 0- Negative Sepsis Screen. Suicide/Homicide risk assessment- the patient denies having any suicidal and/or homicidal ideations and does not present with any other emotional, behavioral or mental health complaints. Status: Patient is not a environmental services tech or dependent. Transition of care: patient was not received from another setting of care. 14:52 Acuity: ABEL Level 3 dwg 14:52 Method Of Arrival: Walkin/Carried/Asstd dwg Triage Assessment: 14:58 General: Appears in no apparent distress. Pain: Pain currently is 7 out of 10 on a pain dwg scale. HIV screening NA for this visit Offered previously. Historical: - Allergies: Diflucan PO; - Home Meds: 1. albuterol sulfate 2.5 mg /3 mL (0.083 %) Inhl nebu as needed (Last dose: 10/05/2016) 2. aspirin 81 mg Oral tab 1 tab once daily (Last dose: 10/09/2016) 3. Gabapentin 300mg in am, afternoon and 600mg at hs Oral (Last dose: 10/09/2016 08:00) 4. Lasix 20 mg Oral tab 1 tab 2 times per day (Last dose: 10/09/2016) 5. metoprolol tartrate 25 mg Oral tab 1 tab 2 times per day (Last dose: 10/09/2016 08:00) 6. Motrin 800 mg Oral tab as needed (Last dose: 10/08/2016 20:00) 7. potassium chloride 20 mEq Oral TbER 1 tab 2 times per day (Last dose: 10/09/2016 08:00) 8. Prilosec 20 mg Oral cpDR 1 cap once daily (Last dose: 10/09/2016 08:00) 9. Proventil Inhl 2.5 mg as needed (Last dose: 10/09/2016) 10. Seroquel 400 mg oral tab 1 tab hs 11. spironolactone 25 mg Oral tab 1 tab once daily (Last dose: 10/09/2016 08:00) 12. venlafaxine 225 mg oral tr24 once daily (Last dose: 10/09/2016 08:00) 13. Zyrtec 10 mg Oral tab 1 tab once daily (Last dose: 10/09/2016 08:00) 14. nicotine lozenges as needed - PMHx: Asthma; Bipolar disorder; CHF; Depression; GERD; Hepatitis C; Hypertension; Left knee pain; - PSHx: Diaphramatic hernia repair 2013; Appendectomy; Vasectomy; Inguinal hernia repair; - Social history: Smoking status: Patient uses tobacco products, light tobacco smoker. No barriers to communication noted, The patient speaks fluent Lebanese. - Family history: Not pertinent. - : The pt / caregiver states he / she is not on anticoagulants. Home medication list is obtained from the patient. - Exposure Risk Screening:: None identified. Screenin:18 Screening information is obtained from the patient. Fall risk: No risks identified. dsf Assistance ADL's: requires no assistance with activities of daily living. Abuse/DV Screen: The patient / caregiver reports he/she is: not in a situation that causes fear, pain or injury. Nutritional screening: No deficits noted. Advance Directives: Currently, there is no health care proxy. home support is adequate. Assessment: 18:01 Adult Sepsis Screening: The patient does not have new or worsening altered mentation. dsf Patient's respiratory rate is less than 22. Systolic blood pressure is greater than 100. Patient has a qSOFA score of 0- Negative Sepsis Screen. General: Appears in no apparent distress, uncomfortable, Behavior is appropriate for age, cooperative. Pain: Location: epigastric area and left upper quadrant Pain currently is 8 out of 10 on a pain scale. Quality of pain is described as sharp. Neurological: Level of Consciousness is awake, alert, Oriented to person, place, time. Cardiovascular: Capillary refill < 3 seconds Heart tones S1 S2 present. Respiratory: Airway is patent Respiratory effort is even, unlabored, Respiratory pattern is regular, symmetrical, Breath sounds are clear bilaterally. GI: Abdomen is obese, Bowel sounds hyperactive in right upper quadrant, left upper quadrant, right lower quadrant and left lower quadrant Abd is soft X 4 quads Abd is tender to palpation in epigastric area and left upper quadrant bulge LUQ. Derm: Skin is pink, warm & dry. 19:41 General: Appears uncomfortable, Behavior is appropriate for age, cooperative. Pain: dsf Pain currently is 8 out of 10 on a pain scale. Neurological: Level of Consciousness is awake, alert. Cardiovascular: Capillary refill < 3 seconds. Respiratory: Airway is patent Respiratory effort is even, unlabored, Respiratory pattern is regular, symmetrical. Derm: Skin is pink, warm & dry. 19:56 General: pt ambulated back from CT without difficulty . af2 21:19 General: Appears in no apparent distress, comfortable, Behavior is appropriate for age, dsf cooperative. Pain: Location: left upper quadrant and epigastric area Pain currently is 5 out of 10 on a pain scale. Neurological: Level of Consciousness is awake, alert. Cardiovascular: No deficits noted. Respiratory: No deficits noted. Derm: Skin is pink, warm & dry. Vital Signs: 14:51 BP 165 / 98; Pulse 66; Resp 16; Temp 97.5(O); Pulse Ox 98% ; Weight 131.09 kg; Height 6 cmb ft. 0 in. (182.88 cm); Pain 5/10; 18:41 BP 147 / 86; Pulse 66; Resp 20; Temp 98.0; Pulse Ox 98% ; Pain 7/10; jam1 20:05 BP 124 / 72; Pulse 72; Resp 18; Temp 98.6; Pulse Ox 96% ; Pain 8/10; ajs 21:18 BP 136 / 99; Pulse 70; Resp 20; Temp 97.5(O); Pulse Ox 95% on R/A; Pain 5/10; dsf 21:20 Pain 5/10; dsf 14:51 Body Mass Index 39.20 (131.09 kg, 182.88 cm) [facility] Vitals: 14:51 Log In Time: October 09, 2016 at 14:49. [facility] ED Course: 14:51 Patient visited by Luz Thompson. b 14:51 [facility] is Private Physician. cmb 14:51 Patient moved to Waiting cmb 14:52 Patient moved to Pre RCE cmb 14:54 Triage Initiated dwg 16:24 Patient moved to Triage 1 srm 17:16 [facility] Rubio FNP [facility]. le 17:19 Patient visited by Lois Rubio FNP. le 17:28 Patient visited by Lois Rubio FNP. le 17:42 Patient moved to I6 / 28 srm 17:44 Patient moved to I7 / 29 srm 17:50 Inserted saline lock: 20 gauge in right antecubital area The patient tolerated the kcs procedure well. 18:00 Lactic Acid (Claudio tube on ice) Sent. kcs 18:00 Basic Metabolic Profile Sent. kcs 18:00 CBC with Diff Sent. kcs 18:00 Lipase Sent. kcs 18:00 Liver Profile Sent. kcs 18:03 Patient visited by Olga Deutsch RN. dsf 18:19 [facility] Payment Agreement was scanned into [employer] and attached to record. ks16 19:42 Patient visited by Olga Deutsch RN. dsf 20:00 Patient visited by Dania Ortiz RN. af2 20:06 Patient visited by Sarah Murrell. ajs 21:10 [facility] is Referral Physician. le 21:13 Patient visited by Sarah Murrell. ajs 21:13 CT ABD & PELVIS: IV and Oral Contrast Returned. EDMS 21:18 Discontinued lock intact, bleeding controlled, pressure dressing applied, No dsf redness/swelling at site. No procedures done that require assistance. 21:19 The patient / caregiver is instructed regarding the plan of care and ED course. Patient dsf has correct armband on for positive identification. 10/10 11:53 T-Sheet-- Draft Copy was scanned into [employer] and attached to record. gb Administered Medications: 10/09 18:00 Drug: Diatrizoate Meglumine & Sodium 10 ml [diatrizoate meglumine and diat.sodium 66 dsf %-10 % oral solution (10 mL)] Route: PO; 18:01 Drug: NS 0.9% 1000 ml [sodium chloride 0.9 % injection solution] Route: IV; Rate: 100 dsf mL/hr; Site: right antecubital; 18:01 Drug: Ondansetron 4 mg [ondansetron HCl 2 mg/mL intravenous solution (2 mL)] Route: dsf IVP; Site: right antecubital; 18:01 Drug: morphine 4 mg [morphine 4 mg/mL intravenous cartridge (1 mL)] Route: IVP; Site: dsf right antecubital; 18:30 Drug: Diatrizoate Meglumine & Sodium 10 ml [diatrizoate meglumine and diat.sodium 66 dsf %-10 % oral solution (10 mL)] Route: PO; 20:26 Drug: morphine 4 mg [morphine 4 mg/mL intravenous cartridge (1 mL)] Route: IVP; Site: dsf right antecubital; 21:20 Follow up: Pain 01/30 Adult; Response: Confirmed pt not driving.; see charted VS dsf Intake: Order Results: Lab Order: Basic Metabolic Profile; SPEC'M 10/09/16 17:56 Test: GLUCOSE, FASTING; Value: 99; Range: 70-105; Units: MG/DL; Status: F Test: BLOOD UREA NITROGEN; Value: 14; Range: 7-18; Units: MG/DL; Status: F Test: CREATININE FOR GFR; Value: 0.85; Range: 0.70-1.30; Units: MG/DL; Status: F Test: GLOMERULAR FILTRATION RATE; Value: > 60.0; Range: >56; Status: F Test: SODIUM LEVEL; Value: 142; Range: 136-145; Units: MEQ/L; Status: F Test: POTASSIUM SERUM; Value: 4.1; Range: 3.5-5.1; Units: MEQ/L; Status: F Test: CHLORIDE LEVEL; Value: 107; Range: 98-107; Units: MEQ/L; Status: F Test: CARBON DIOXIDE LEVEL; Value: 25; Range: 21-32; Units: MEQ/L; Status: F Test: ANION GAP; Value: 10; Range: 8-16; Units: MEQ/L; Status: F Test: CALCIUM LEVEL; Value: 9.4; Range: 8.5-10.1; Units: MG/DL; Status: F Test Note: ; Units are mL/min/1.73 m2 Chronic Kidney Disease Staging per NKF: Stage I & II GFR >=60 Normal to Mildly Decreased Stage III GFR 30-59 Moderately Decreased Stage IV GFR 15-29 Severely Decreased Stage V GFR <15 Very Little GFR Left ESRD GFR <15 on CLINICAL OPERATIONS SPECIALIST Lab Order: CBC with Diff; SPEC'M 10/09/16 17:56 Test: WHITE BLOOD COUNT; Value: 8.8; Range: 4.0-10.0; Units: K/mm3; Status: F Test: RED BLOOD COUNT; Value: 4.52; Range: 4.30-6.10; Units: M/mm3; Status: F Test: HEMOGLOBIN; Value: 15.8; Range: 14.0-18.0; Units: g/dl; Status: F Test: HEMATOCRIT; Value: 44.5; Range: 42.0-52.0; Units: %; Status: F Test: MEAN CORPUSCULAR VOLUME; Value: 98.4; Range: 80.0-96.0; Abnormal: Above high normal; Units: fl; Status: F Test: MEAN CORPUSCULAR HEMOGLOBIN; Value: 34.9; Range: 27.0-33.0; Abnormal: Above high normal; Units: pg; Status: F Test: MEAN CORPUSCULAR HGB CONC; Value: 35.4; Range: 32.0-36.5; Units: g/dl; Status: F Test: RED CELL DISTRIBUTION WIDTH; Value: 12.5; Range: 11.5-14.5; Units: %; Status: F Test: PLATELET COUNT, AUTOMATED; Value: 220; Range: 150-450; Units: k/mm3; Status: F Test: NEUTROPHILS %; Value: 60.8; Range: 36.0-66.0; Units: %; Status: F Test: LYMPH %; Value: 21.1; Range: 24.0-44.0; Abnormal: Below low normal; Units: %; Status: F Test: MONO %; Value: 8.8; Range: 0.0-5.0; Abnormal: Above high normal; Units: %; Status: F Test: EOS %; Value: 5.9; Range: 0.0-3.0; Abnormal: Above high normal; Units: %; Status: F Test: BASO %; Value: 1.1; Range: 0.0-1.0; Abnormal: Above high normal; Units: %; Status: F Test: LARGE UNSTAINED CELL %; Value: 2.3; Range: 0.0-4.0; Units: %; Status: F Test: NEUTROPHILS #; Value: 5.3; Range: 1.8-7.7; Units: K/mm3; Status: F Test: LYMPH #; Value: 1.9; Range: 1.5-4.5; Units: K/mm3; Status: F Test: MONO #; Value: 0.8; Range: 0.0-0.8; Units: K/mm3; Status: F Test: EOS #; Value: 0.5; Range: 0.0-0.50; Units: K/mm3; Status: F Test: BASO #; Value: 0.1; Range: 0.0-0.2; Units: K/mm3; Status: F Test: LARGE UNSTAINED CELL #; Value: 0.2; Range: 0.0-0.4; Units: K/mm3; Status: F Lab Order: Lipase; SPEC'M 10/09/16 17:56 Test: LIPASE; Value: 889; Range: 73-393; Abnormal: Above high normal; Units: U/L; Status: F Lab Order: Liver Profile; SPEC'M 10/09/16 17:56 Test: AST/SGOT; Value: 136; Range: 15-37; Abnormal: Above high normal; Units: U/L; Status: F Test: ALT/SGPT; Value: 288; Range: 12-78; Abnormal: Above high normal; Units: U/L; Status: F Test: ALKALINE PHOSPHATASE; Value: 97; Range: 45-117; Units: U/L; Status: F Test: BILIRUBIN,TOTAL; Value: 0.8; Range: 0.2-1.0; Units: MG/DL; Status: F Test: BILIRUBIN,DIRECT; Value: 0.4; Range: 0.0-0.2; Abnormal: Above high normal; Units: MG/DL; Status: F Test: TOTAL PROTEIN; Value: 8.0; Range: 6.4-8.2; Units: GM/DL; Status: F Test: ALBUMIN; Value: 4.1; Range: 3.2-5.2; Units: GM/DL; Status: F Test: ALBUMIN/GLOBULIN RATIO; Value: 1.05; Range: 1.00-1.93; Status: F Lab Order: Lactic Acid (Claudio tube on ice); SPEC'M 10/09/16 17:56 Test: LACTIC ACID LEVEL, LACTATE; Value: 1.2; Range: 0.4-2.0; Units: MMOL/L; Status: F Radiology Order: CT ABD & PELVIS: IV and Oral Contrast Test: CT ABD & PELVIS: IV and Oral Contrast REASON FOR EXAMINATION: LUQ abdominal pain, hernia; ; CT of the abdomen and pelvis with contrast; Clinical statement: Pain.; Technique: Multiple axial CT images were obtained from the base of the lungs through the floor of the; pelvis utilizing 5 mm axial slices after administration of oral and nonionic intravenous contrast. C; oronal and sagittal reconstructions were also obtained.; Comparison: 07/12/2016.; Findings:; Chest: The visualized lung bases are clear.; Abdomen: The spleen, pancreas, kidneys, gallbladder, and adrenal glands are unremarkable. There is an; enhancing solid lesion in segment IV of the liver measuring 3.7 x 2.5 cm, which is stable since the; prior study. Mild fatty infiltration of the liver remains. The liver is otherwise unremarkable. The a; carline is within normal limits. There is no evidence of abdominal lymphadenopathy or ascites.; Pelvis: The bowel is unremarkable, with no obstructive or inflammatory changes. The urinary bladder i; s within normal limits. The other pelvic structures appear grossly intact. There is no evidence of pe; lvic lymphadenopathy or ascites.; Bones: There are no suspicious osseous abnormalities seen. Moderate degenerative disc disease is appr; eciated at L4/L5 and L5/S1. Bilateral hip arthroplasties are intact.; Impression:; 1. No acute abnormality to explain the patient's pain.; 2. Stable enhancing lesion in the liver consistent with a hepatic hemangioma. Stable fatty infiltrati; on of the liver.; 3. No obstructive or inflammatory bowel changes.; ; Outcome: 21:10 Discharge ordered by Provider. le 21:19 Discharge Assessment: Patient awake, alert and oriented x 3. No cognitive and/or dsf functional deficits noted. Patient verbalized understanding of disposition instructions. patient administered narcotics - yes. Pt provided with safe discharge. The following High Risk Discharge criteria are identified: None. Discharged to home ambulatory. Condition: stable. Discharge instructions given to patient, Instructed on discharge instructions, follow up and referral plans. Demonstrated understanding of instructions, Pt was receptive of discharge instructions/ teaching. CT Study completed. Property sent home with patient. 21:23 Patient left the ED. dsf Signatures: Dispatcher [employer] EDDivya Griffith RN RN kcs Greene, Daniel, RN RN dwg Michelson, Staci, RN RN srm Anuradha Palomo, CAN REFORMING MACHINE OPERATOR CAN REFORMING MACHINE OPERATOR [email or web address] Vaishnavi Urias, Reg Reg gb Lois Rubio, SIZING MACHINE OPERATOR SIZING MACHINE OPERATOR Olga Whitaker RN RN dsf Sarah Murrell Chelsea cmDania Ansari RN RN af2 Belem Sandhu, Reg Reg [email or web address] Corrections: (The following items were deleted from the chart) 19:23 18:54 morphine 4 mg IVP in right antecubital dsf dsf 21:13 21:12 BP 126 / 80; Pulse 60bpm; Resp 18bpm; Pulse Ox 99%; Temp 98.8F; Pain 2/10; ajs ajs Chart Complete MTDD
== END 2016-10-09 21:23 | disposition home or self-care (01) ==
LOC: M ED 14:49
DX: I10 Essential (primary) hypertension (principal); I50.9 Heart failure, unspecified; J45.909 Unspecified asthma, uncomplicated; B19.20 Unspecified viral hepatitis C without hepatic coma; K21.9 Gastro-esophageal reflux disease without esophagitis; F31.9 Bipolar disorder, unspecified; M25.562 Pain in left knee; F17.200 Nicotine dependence, unspecified, uncomplicated; Z79.899 Other long term (current) drug therapy; Z79.82 Long term (current) use of aspirin; Z88.3 Allergy status to other anti-infective agents
CPT/HCPCS: 74177; 80048; 80076; 83605; 83690; 85025; 96374; 96375; 96376; 99284; J2405; Q9963; Q9967

== ENCOUNTER 2016-12-01 00:29 | Inpatient (IN) | payer OTHER ==
[~2016-12-01] VITALS: Ht 182.9 cm; Wt 127.0 kg
[2016-12-01] MEDS ORDERED: ONDANSETRON 4MG/2ML VIAL (J2405) IV ONE (01:30)
[2016-12-01 01:40] LABS: BASO # 0.1 K/mm3 (0.0-0.2); BASO % 0.8 % (0.0-1.0); EOS # 0.2 K/mm3 (0.0-0.50); EOS % 2.4 % (0.0-3.0); LARGE UNSTAINED CELL # 0.2 K/mm3 (0.0-0.4); LARGE UNSTAINED CELL % 3.2 % (0.0-4.0); LYMPH % 27.5 % (24.0-44.0); MEAN CORPUSCULAR HEMOGLOBIN 33.4 pg (27.0-33.0); MEAN CORPUSCULAR HGB CONC 34.1 g/dl (32.0-36.5); MEAN CORPUSCULAR VOLUME 97.9 fl (80.0-96.0); MONO # 0.4 K/mm3 (0.0-0.8); MONO % 6.1 % (0.0-5.0); NEUTROPHILS # 4.3 K/mm3 (1.8-7.7); NEUTROPHILS % 59.9 % (36.0-66.0); PLATELET COUNT, AUTOMATED 119 k/mm3 (150-450); RED CELL DISTRIBUTION WIDTH 12.5 % (11.5-14.5); WHITE BLOOD COUNT 7.2 K/mm3 (4.0-10.0)
[2016-12-01] MEDS: MORPHINE 4 MG/ML 1ML SYRINGE IV PRN ×2 (01:46→02:12)
[2016-12-01 01:53] LABS: ANION GAP 14 MEQ/L (8-16); BLOOD UREA NITROGEN 12 MG/DL (7-18); CALCIUM LEVEL 8.7 MG/DL (8.5-10.1); CARBON DIOXIDE LEVEL 21 MEQ/L (21-32); CHLORIDE LEVEL 104 MEQ/L (98-107); CREATININE FOR GFR 0.92 MG/DL (0.70-1.30); GLOMERULAR FILTRATION RATE > 60.0 (>56); GLUCOSE, FASTING 108 MG/DL (70-105); POTASSIUM SERUM 3.5 MEQ/L (3.5-5.1); SODIUM LEVEL 139 MEQ/L (136-145)
[2016-12-01] MEDS ORDERED: ISOVUE-370 76% 100ML VIAL (Q9967) As Ordered ONE (02:34)
--- NOTE | 2016-12-01 03:30 | REPUSA ---
CLINICAL HISTORY: Dyspnea, exclude PE. TECHNIQUE: Multiple incremental axial, coronal and oblique images are obtained from the thoracic inle t to the upper abdomen. Intravenous contrast material was administered as per pulmonary embolism prot ocol. COMMENTS: Bilateral basilar atelectatic pulmonary changes. Moderate centrilobular pulmonary emphysema. Moderate changes of chronic bronchitis. There is excellent opacification of pulmonary arterial system without evidence for pulmonary embolism . Aorta is of normal caliber without evidence for dissection or aneurysm. There is no evidence of pleural or parenchymal mass. There are no pleural effusions. There is no evid ence of hilar or mediastinal lymphadenopathy. The heart and great vessels are within normal limits. Images of the upper abdomen demonstrate no evidence of adrenal mass. The bony structures are free of lytic or blastic lesions. Multilevel degenerative changes are seen in volving the visualized thoracolumbar spine. Scattered calcifications are seen involving the aorta and major branches compatible with atherosclero sis. Chronic deformities of the ribs from healed fractures. IMPRESSION: No evidence for pulmonary embolism. Chronic bronchitis. Pulmonary emphysema. Findings deformities of the ribs from healed fractures. Thank you for your kind referral of this patient.
--- NOTE | 2016-12-01 04:00 | REPUSA ---
CLINICAL HISTORY: Abdominal pain. TECHNIQUE: Multiple axial, sagittal and coronal CT images were obtained through the abdomen and pelvi s after administration of oral and intravenous contrast material. COMMENTS: 1.3 cm enhancing lesion in the segment 4B of the liver. Moderate hepatomegaly with fatty liver infilt ration. Fluid-filled distended stomach suggestive of gastroparesis. Bilateral perinephric fat strandi ng. There is no intra or extrahepatic biliary ductal dilatation. The spleen is normal. The gallbladder is within normal limits. The pancreas is of normal contour and attenuation characteristics. There is no evidence of adrenal mass. Both kidneys demonstrate prompt and equal nephrograms. The kidneys are normal in size, shape and conf iguration. There is no evidence of renal or ureteral mass. No renal or ureteral calculi are identifie d. There is no hydroureter or hydronephrosis. No evidence for appendicitis. There is no bowel wall thickening. No evidence for small or large bowel obstruction. There is no evidence of abdominal ascites or lymphadenopathy. There is no evidence of intrinsic or extrinsic bladder mass. There is no pelvic ascites or lymphadeno jimmy. Mild diffuse thickening of the wall of the bladder. Fluid-filled small bowels. Images of the lung bases show no evidence of pleural or parenchymal mass. There are no pleural effusi ons. The bony structures are free of lytic or blastic lesions. Multilevel degenerative changes are seen in volving the thoracolumbar spine. Scattered calcifications are seen involving the aorta and major bran ches compatible with atherosclerosis. IMPRESSION: Gastroparesis. Fluid-filled bowel suspicious for mild antritis. Enhancing lesion in the segment IVb of the liver. This is unchanged since prior exam on 10/09/2016. Hepatomegaly with fatty liver infiltration. Mild irregularity of hepatic contour. Bilateral perinephric fat stranding. Nonspecific finding which can be secondary to patient's age, abn ormal renal function or an infection. Please correlate with creatinine level and urinalysis. Thank you for your kind referral of this patient.
[2016-12-01] MEDS ORDERED: GI COCKTAIL 50ML BTL(HYOSCYAMINE/MAALOX/LIDOCAINE VISCOUS)(1:3:1) PO ONE (04:45)
[2016-12-01] MEDS ORDERED: HYDROmorphone HCL 1 MG/ML SYRINGE (J1170) IV PRN (05:30)
[2016-12-01] MEDS ORDERED: NICOTINE POLACRILEX 2 MG GUM PO PRN (06:00)
[2016-12-01] MEDS ORDERED: QUET1TAB11 PO (06:05)
[2016-12-01] MEDS ORDERED: VITMTA PO (06:05)
[2016-12-01] MEDS ORDERED: FOLI1TAB2 PO (06:05)
[2016-12-01] MEDS ORDERED: METO12TA PO (06:05)
[2016-12-01] MEDS ORDERED: ALBUTEROL SULFATE 2.5 MG/0.5 ML INH NEB SOLN NEB PRN ×2 (06:15→20:15)
[2016-12-01] MEDS ORDERED: ACETAMINOPHEN TAB 650MG DOSE (2X325MG) PO PRN (06:15)
[2016-12-01] MEDS ORDERED: METOCLOPRAMIDE 5 MG TAB PO PRN (06:15)
[2016-12-01] MEDS ORDERED: ONDANSETRON 4MG/2ML VIAL (J2405) IV PRN (06:15)
[2016-12-01] MEDS ORDERED: BISACODYL 5 MG TAB PO PRN (06:15)
[2016-12-01] MEDS ORDERED: ALBUTEROL 90 MCG/ACT 8GM HFA INHALER INH PRN (06:15)
[2016-12-01] MEDS: PERCOCET 5MG/325MG TAB PO PRN ×3 (06:23→20:49)
[2016-12-01] MEDS: HEPARIN SOD (PORCINE) 5000 UNITS/ML VIAL SC SCH ×3 (06:38→22:03)
--- NOTE | 2016-12-01 07:21 | HPE ---
DATE OF ADMISSION: 12/01/2016 PRIMARY CARE PROVIDER: Dr. Jackson NURSING MANAGER: Dr. Mendoza CHIEF COMPLAINT: Left-sided chest pain. HISTORY OF PRESENT ILLNESS: The patient is a 50-year-old man with a long history of chronic pain on the left side of his chest and left upper quadrant of his abdomen. He has a history of diaphragmatic hernia status post repair. He has had also a pneumothorax after an episode trauma in the past and required chest tube placement in the left side in the same area as well. 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 The patient says that he was in his usual state of health but for the last 2 days he has noticed progressively worsening pain in his left upper quadrant and left side of his chest radiating to his shoulder. He was worried that it was his heart. He has had a cardiac catheterization many years ago. emergency room. The patient denies lightheadedness, shortness of breath, fevers , chills, sick contacts, change in diet or appetite. At the present time, he is feeling better with intravenous (IV) narcotics, which he has received in the emergency room. He is not having any associated nausea or vomiting. PAST MEDICAL HISTORY: 1. Asthma. 2. Bipolar. 3. Posttraumatic stress disorder (PTSD). 4. Depression. 5. Documented diastolic congestive heart failure. 6. Gastroesophageal reflux disease. 7. Hepatitis C believed to be secondary needlestick at work versus tattoos. 8. Hypertension. 9. Alcohol abuse. 10. Obstructive sleep apnea on continuous positive airway pressure (CPAP). 11. Tetrahydrocannabinol (THC) abuse. 12. Subarachnoid hemorrhage after fall 13. Tobacco abuse. 14. Medical noncompliance. PAST SURGICAL HISTORY: 1. Bilateral hip replacement. 2. Appendectomy. 3. Repair of diaphragmatic hernia. SOCIAL HISTORY: The patient is an active drinker and active tobacco user. FAMILY HISTORY: Noncontributory. REVIEW OF SYSTEMS: Negative other than history of present illness (HPI). ALLERGIES: BEE VENOM and FLUCONAZOLE. HOME MEDICATIONS: - folic acid 1 mg daily - Neurontin 300 mg twice a day and 600 mg nightly - metoprolol tartrate 25 mg twice a day - multivitamin one tablet daily - omeprazole 20 mg daily - potassium chloride 20 mEq twice a day - Seroquel 400 mg nightly - venlafaxine 225 mg daily - albuterol sulfate 2.5 mg nebulizer every 6 hours as needed, shortness of breath - Proventil HFA one puff inhaled every 6 hours as needed, shortness of breath - aspirin 81 mg daily - cetirizine 10 mg daily - Lasix 20 mg by mouth twice a day - aldactone 25 mg daily PHYSICAL EXAMINATION: Temperature 97.8, pulse 88, respiratory rate 18, blood pressure (BP) 159/106, oxygen saturation 92% on room air. General: He was a somewhat disheveled, middle aged, obese, man laying on a stretcher. He appears to be comfortable, in no distress whatsoever. HEENT: He is disheveled. He has moist mucous membranes. No elevation in central venous pressure (CVP). Cranial nerves II-XII are grossly intact. Cardiovascular exam: S1, S2. Regular. He is not tachycardic. Respiratory exam is clear: Abdominal exam: His chest pain is not reproducible in the intercostal areas; however, he describes it as pleuritic in nature, is into the left upper quadrant. Patient has a well-healed surgical scar. Extremities: No clubbing, cyanosis or edema. LABORATORY STUDIES: WBC 7.2, hemoglobin 16.7, hematocrit 49, platelet count 119. Chemistry panel: Sodium 139, potassium 3.5, chloride 104, bicarbonate 21, BUN 12, creatinine 0.9. IMAGING: The patient did have a CT angiography of the chest that revealed no pulmonary embolism (PE), chronic bronchitis, pulmonary emphysema, deformities of healed rib fractures. Patient also had a CT of the abdomen and pelvis, which revealed gastroparesis, fluid filled bowel suspicious for mild enteritis, and enhancing lesion in the liver unchanged from the prior exam, hepatomegaly with fatty liver infiltrate. No perinephric fat stranding. ASSESSMENT AND PLAN: This is a 50-year-old man with left upper quadrant and left-sided chest pain of unclear etiology. PROBLEMS: 1. Left upper quadrant and left-sided chest pain. The patient has a long history of pain and trauma to this area from his diaphragmatic hernia repair to his chest placement. He carries a diagnosis of intercostal neuralgia. He also has a history of coronary artery disease and has had a cardiac catheterization in the past. For the time being, we are going to admit him to the progressive care unit. We will chest a lipase, leave him nothing by mouth, provide him with oral and intravenous (IV) narcotics as needed. We will place a pain management consult, trend his cardiac enzymes and see if his symptoms do karen. The patient is chronically on gabapentin for his pain in the left side. We will continue with this. Gastroparesis is documented on the scan of his abdomen and pelvis. We will provide him Reglan, keep him nothing by mouth and see if this improve. 2. Tobacco abuse. Smoking cessation offered. We will provide him Nicorette gum. 3. Alcohol abuse. The patient is on folic acid and a multivitamin. We will provide him with thiamine and monitor for withdrawal symptoms. He is not exhibiting any at this time. 4. Diastolic congestive heart failure. Continue with his home diuretic, continue with his Lasix. Continue with antihypertensives, including metoprolol and spironolactone. 5. Coronary artery disease. The patient is on aspirin and a beta-edna. He follows with Dr. Mendoza. He is not a statin likely related to his hepatitis C. 7. Chronic constipation. Use his home bowel regimen. 8. Perinephric stranding. We will check a urinalysis (UA). 9. Tetrahydrocannabinol abuse. Cessation counseling offered. We will check a urine toxicology. 10. Hypertension. He will be continued on aldactone, metoprolol and Lasix. 11. Asthma. Continue with his home inhalers and nebulizers. 12. Deep venous thrombosis (DVT) prophylaxis. The patient is on heparin. DISPOSITION: The patient is admitted to the progressive care unit to Dr. Coughlin's service, who will continue following the patient at 7 a.m. [facility]
[2016-12-01] MEDS: SENOKOT S TAB PO SCH ×2 (09:00→21:56)
[2016-12-01] MEDS ORDERED: PANTOPRAZOLE 40MG INJ (PROTONIX) (C9113) IV SCH (09:00)
--- NOTE | 2016-12-01 09:14 | ECGEPIP ---
Stationary ECG Study [facility] - ED Test Date: 2016-12-01 Pat Name: ARTHUR BLANC Department: Room: [place] [address] Gender: M Claim Review Medical Director: trini : 1965 Requested By: MILTON Fink Order Number: [id number] Reading MD: Dennise Tinoco Measurements Intervals [place] Rate: 101 P: 76 VA: 183 QRS: -75 QRSD: 102 T: 51 QT: 322 QTc: 418 Interpretive Statements SINUS TACHYCARDIA PATTERN CONSISTENT WITH PULMONARY DISEASE INFERIOR MYOCARDIAL INFARCTION, OF INDETERMINATE AGE PRWP INCREASED RATE Electronically Signed On 12-01-2016 9:14:04 EST by Dennise Tinoco
[2016-12-01] MEDS: GABAPENTIN 300 MG CAP PO SCH ×3 (10:38→21:56)
[2016-12-01] MEDS: ASPIRIN 81 MG ENTERIC TAB PO SCH (10:39)
[2016-12-01] MEDS: SPIRONOLACTONE 25 MG TAB PO SCH (10:39)
[2016-12-01] MEDS: VENLAFAXINE **XR** 75MG CAPSULE PO SCH (10:40)
[2016-12-01] MEDS: FUROSEMIDE 20 MG TAB PO SCH ×2 (10:41→17:43)
[2016-12-01] MEDS: FOLIC ACID 1 MG TAB PO SCH (10:41)
[2016-12-01] MEDS: METOPROLOL TART 25 MG TABLET PO SCH ×2 (10:42→21:58)
[2016-12-01] MEDS: POTASSIUM CHLORIDE 10 MEQ SR TABLET PO SCH ×2 (10:43→21:57)
[2016-12-01] MEDS: OMEPRAZOLE 20 MG CAP PO SCH (10:44)
[2016-12-01] MEDS: THIAMINE 100 MG TAB PO SCH (10:46)
[2016-12-01] MEDS: MULTIVITAMINS/MINERALS THERAP 1 TAB PO SCH (10:46)
[2016-12-01] MEDS: CETIRIZINE (ZyrTEC) 10 MG TAB PO SCH (10:46)
[2016-12-01] MEDS: MORPHINE 2 MG/ML 1ML SYRINGE IV PRN ×2 (10:47→17:40)
[2016-12-01 16:31] LABS: INR 1.04
[2016-12-01 16:55] LABS: ALBUMIN 3.8 GM/DL (3.2-5.2); ALKALINE PHOSPHATASE 118 U/L (45-117); ALT/SGPT 476 U/L (12-78); AST/SGOT 383 U/L (15-37); BILIRUBIN,DIRECT 0.2 MG/DL (0.0-0.2); BILIRUBIN,TOTAL 0.7 MG/DL (0.2-1.0); ERYTHROCYTE SEDIMENTATION RATE 4 mm/hr (0-20)
[2016-12-01 18:00] VITALS: BP 133/90
[2016-12-01 20:00] VITALS: BP 164/99
--- NOTE | 2016-12-01 20:29 | IPNPDOC ---
Subjective Date Seen The patient was seen on 12/01/16. Subjective Chief Complaint/HPI The patient is a 50-year-old male admitted with a reason for visit of Intractable Abdominal Pain. Events since last encounter complaining of persistent cough , congestion and shortness of breath along with severe left sided chest pain dull and intermittently sharp radiating from front to back worse with coughing and deep breaths. Objective Physical Examination General Exam: Positive: Alert, No Acute Distress Eye Exam: Positive: Conjunctiva & lids normal, EOMI, PERRLA, Negative: Sclera icteric ENT Exam: Positive: Atraumatic, Mucous membr. moist/pink, Pharynx Normal Neck Exam: Positive: Supple, Negative: JVD, thyromegaly Chest Exam: Positive: Rhonchi, Wheezing Heart Exam: Positive: Normal S1, Normal S2, Rate Normal, Regular Rhythm, Negative: Murmurs, Rubs Telemetry: Positive: No significant arrhythmia Abdomen Exam: Positive: Normal bowel sounds, Soft, Tenderness Extremity Exam: Positive: Normal pulses, Negative: Clubbing, Cyanosis, Edema Skin Exam: Positive: Nl turgor and temperature, Negative: Breakdown, Rash Assessment /Plan Problems (1) Chest pain Status: Acute Problem Text: History of traumatic rib fracture in jul 2014 after he slipped and fell in his kitchen with pneumothorax and diaphragmatic hernia requiring chest tube and hernia repair. Since then has chronic chest pain. diagnosed with intercostal neuralgia and has seen pain management in the past. non cardiac , no abnormality in cardiac markers of ekg. seems like intercostal neuralgia now worse due to excessive coughing for the past few days. will continue pain control with Percocet. (2) COPD with emphysema Status: Chronic Response to Treatment: Worse Problem Text: now seems to have some exacerbation will give routine nebulizations, tiotropium , albuterol, budesonide and cefuroxime . (3) Hepatitis C Status: Chronic (4) Transaminitis Status: Chronic Problem Text: possibly due to chronic hepatitis C , however may also have some hepatic congestion from chronic CHF. May have pulmonary hypertension and corpulmonale form copd and emphysema will check echo. (5) Liver hemangioma Status: Chronic Problem Text: liver mass unchanged from last year. (6) GERD (gastroesophageal reflux disease) Status: Chronic Problem Text: has history of diagrammatic hernia repair in the past. will continue ppi, gi cocktail, reglan (7) HTN (hypertension) Status: Chronic (8) Hx of bipolar disorder Status: Chronic (9) History of depression Status: Chronic (10) History of alcohol abuse Status: Chronic Problem Text: went to rehab in sep 2014. (11) Obesity Status: Chronic (12) Diastolic CHF Status: Chronic Plan/VTE VTE Prophylaxis Ordered?: Yes VS, I&O, 24H, Fishbone Vital Signs/I&O Vital Signs Date Time Temp Pulse Resp B/P Pulse Ox O2 Delivery O2 Flow Rate FiO2 12/01/16 18:00 Nasal Cannula 2.0 12/01/16 18:00 96.0 84 20 133/90 96 Laboratory Data 24H LABS Laboratory Tests 2 12/01/16 00:59: Aspartate Amino Transf (AST/SGOT) 383H, Alanine Aminotransferase (ALT/SGPT) 476H , Alkaline Phosphatase 118H, Total Bilirubin 0.7, Direct Bilirubin 0.2, Albumin 3.8, Albumin/Globulin Ratio 0.90L, Anion Gap 14, White Blood Count 7.2, Red Blood Count 5.01, Hemoglobin 16.7, Hematocrit 49.0, Mean Corpuscular Volume 97.9H, Mean Corpuscular Hemoglobin 33.4H, Mean Corpuscular Hemoglobin Concent 34.1, Red Cell Distribution Width 12.5, Platelet Count 119L, Neutrophils (%) ( Auto) 59.9, Lymphocytes (%) (Auto) 27.5, Monocytes (%) (Auto) 6.1H, Eosinophils (%) (Auto) 2.4, Basophils (%) (Auto) 0.8, Neutrophils # (Auto) 4.3, Lymphocytes # (Auto) 2.0, Monocytes # (Auto) 0.4, Eosinophils # (Auto) 0.2, Basophils # ( Auto) 0.1, C-Reactive Protein, Quantitative 1.23H, Calcium Level 8.7, Creatine Kinase MB 5.6H, Creatine Kinase MB Relative Index 1.97, Erythrocyte Sedimentation Rate 4, Glomerular Filtration Rate > 60.0, Large Unclassified Cells # 0.2, Large Unclassified Cells % 3.2, Lipase 459H, Prothromb Time International Ratio 1.04, Prothrombin Time 13.7, Total Creatine Kinase 283, Total Protein 8.0, Troponin I 0.02 CBC/BMP Laboratory Tests 12/01/16 00:59 Red Blood Count 5.01, Mean Corpuscular Volume 97.9 H, Mean Corpuscular Hemoglobin 33.4 H, Mean Corpuscular Hemoglobin Concent 34.1, Red Cell Distribution Width 12.5, Neutrophils (%) (Auto) 59.9, Lymphocytes (%) (Auto) 27.5, Monocytes (%) (Auto) 6.1 H, Eosinophils (%) (Auto) 2.4, Basophils (%) ( Auto) 0.8, Neutrophils # (Auto) 4.3, Lymphocytes # (Auto) 2.0, Monocytes # (Auto ) 0.4, Eosinophils # (Auto) 0.2, Basophils # (Auto) 0.1 TAMIA PORTER MD Dec 01, 2016 20:28
[2016-12-01] MEDS: BUDESONIDE 0.5 MG/2 ML INHALATION SUSPENSION INH SCH (20:44)
[2016-12-01] MEDS ORDERED: DOXYCYCLINE HYCLATE 100 MG TAB PO SCH (21:00)
[2016-12-01] MEDS: QUEtiapine FUMARATE 200 MG TAB PO SCH (21:56)
[2016-12-01] MEDS: amLODIPine 5 MG TAB PO SCH (21:57)
[2016-12-01] MEDS: METOCLOPRAMIDE 5 MG TAB PO SCH (21:57)
[2016-12-01] MEDS: CEFUROXIME 500 MG TAB PO SCH (22:38)
[2016-12-01 23:59] VITALS: BP 103/56
[2016-12-02] MEDS: IPRATROPIUM 0.5MG/ALBUTEROL 2.5MG INH SOL UD 3ML (DUONEB)(J7620) NEB SCH ×4 (02:00→19:47)
[2016-12-02 04:00] VITALS: BP 133/95
[2016-12-02 05:33] LABS: MEAN CORPUSCULAR HEMOGLOBIN 35.4 pg (27.0-33.0); MEAN CORPUSCULAR HGB CONC 34.9 g/dl (32.0-36.5); MEAN CORPUSCULAR VOLUME 101.4 fl (80.0-96.0); WHITE BLOOD COUNT 6.7 K/mm3 (4.0-10.0)
[2016-12-02 05:48] LABS: ALBUMIN 3.5 GM/DL (3.2-5.2); ALBUMIN/GLOBULIN RATIO 0.83 (1.00-1.93); ALKALINE PHOSPHATASE 106 U/L (45-117); ALT/SGPT 478 U/L (12-78); ANION GAP 7 MEQ/L (8-16); AST/SGOT 304 U/L (15-37); BILIRUBIN,TOTAL 1.1 MG/DL (0.2-1.0); BLOOD UREA NITROGEN 15 MG/DL (7-18); CALCIUM LEVEL 8.3 MG/DL (8.5-10.1); CARBON DIOXIDE LEVEL 29 MEQ/L (21-32); CHLORIDE LEVEL 103 MEQ/L (98-107); CREATININE FOR GFR 0.96 MG/DL (0.70-1.30); GLOMERULAR FILTRATION RATE > 60.0 (>56); GLUCOSE, FASTING 91 MG/DL (70-105); POTASSIUM SERUM 4.4 MEQ/L (3.5-5.1); SODIUM LEVEL 139 MEQ/L (136-145); TOTAL PROTEIN 7.7 GM/DL (6.4-8.2)
[2016-12-02] MEDS: HEPARIN SOD (PORCINE) 5000 UNITS/ML VIAL SC SCH ×2 (06:19→13:27)
[2016-12-02] MEDS: TIOTROPIUM INHALER/CAPSULE (SPIRIVA) INH SCH (07:06)
[2016-12-02] MEDS: BUDESONIDE 0.5 MG/2 ML INHALATION SUSPENSION INH SCH ×2 (07:06→19:47)
[2016-12-02] MEDS: PERCOCET 5MG/325MG TAB PO PRN ×4 (07:21→20:56)
[2016-12-02] MEDS: METOCLOPRAMIDE 5 MG TAB PO SCH ×4 (07:23→20:58)
[2016-12-02] MEDS: GABAPENTIN 300 MG CAP PO SCH ×3 (07:23→20:58)
[2016-12-02 07:30] VITALS: BP 133/94
[2016-12-02] MEDS: amLODIPine 5 MG TAB PO SCH ×2 (08:56→20:59)
[2016-12-02] MEDS: CEFUROXIME 500 MG TAB PO SCH ×2 (08:56→20:59)
[2016-12-02] MEDS: MULTIVITAMINS/MINERALS THERAP 1 TAB PO SCH (08:56)
[2016-12-02] MEDS: POTASSIUM CHLORIDE 10 MEQ SR TABLET PO SCH ×2 (08:56→20:57)
[2016-12-02] MEDS: SENOKOT S TAB PO SCH ×2 (08:56→20:58)
[2016-12-02] MEDS: SPIRONOLACTONE 25 MG TAB PO SCH (08:56)
[2016-12-02] MEDS: METOPROLOL TART 25 MG TABLET PO SCH ×2 (08:57→20:59)
[2016-12-02] MEDS: OMEPRAZOLE 20 MG CAP PO SCH (08:57)
[2016-12-02] MEDS: VENLAFAXINE **XR** 75MG CAPSULE PO SCH (08:57)
[2016-12-02] MEDS: THIAMINE 100 MG TAB PO SCH (08:57)
[2016-12-02] MEDS: CETIRIZINE (ZyrTEC) 10 MG TAB PO SCH (08:57)
[2016-12-02] MEDS: ASPIRIN 81 MG ENTERIC TAB PO SCH (08:57)
[2016-12-02] MEDS: FOLIC ACID 1 MG TAB PO SCH (08:57)
[2016-12-02] MEDS: FUROSEMIDE 20 MG TAB PO SCH ×2 (08:57→17:21)
--- NOTE | 2016-12-02 10:24 | IPNPDOC ---
Subjective Date Seen The patient was seen on 12/02/16. Subjective Chief Complaint/HPI The patient is a 50-year-old male admitted with a reason for visit of Intractable Abdominal Pain. Events since last encounter still with left lower chest wall pain and epigastric pain and left upper quadrant abdominal pain worse with coughing or deep breaths, no fever or chills , no nausea or vomiting or diarrhea, cough and SOB improving. Objective Physical Examination General Exam: Positive: Alert, No Acute Distress Eye Exam: Positive: Conjunctiva & lids normal, EOMI, PERRLA, Negative: Sclera icteric ENT Exam: Positive: Atraumatic, Mucous membr. moist/pink, Pharynx Normal Neck Exam: Positive: Supple, Negative: JVD, thyromegaly Chest Exam: Positive: Diminished, Rales, Rhonchi, Wheezing Heart Exam: Positive: Normal S1, Normal S2, Rate Normal, Regular Rhythm, Negative: Murmurs, Rubs Telemetry: Positive: No significant arrhythmia Abdomen Exam: Positive: Normal bowel sounds, Soft, Tenderness Extremity Exam: Positive: Normal pulses, Negative: Clubbing, Cyanosis, Edema Skin Exam: Negative: Breakdown, Lesion, Nl turgor and temperature, Other skin issue, Pruritus, Rash Assessment /Plan Problems (1) Chest pain Status: Acute Problem Text: History of traumatic rib fracture in jul 2014 after he slipped and fell in his kitchen with pneumothorax and diaphragmatic hernia requiring chest tube and hernia repair. Since then has chronic chest pain. diagnosed with intercostal neuralgia and has seen pain management in the past. non cardiac , no abnormality in cardiac markers of ekg. seems like intercostal neuralgia now worse due to excessive coughing for the past few days. will continue pain control with Percocet. (2) COPD with emphysema Status: Chronic Response to Treatment: Worse Problem Text: now seems to have some exacerbation will give routine nebulizations, tiotropium , albuterol, budesonide and cefuroxime . (3) Hepatitis C Status: Chronic (4) Transaminitis Status: Chronic Problem Text: possibly due to chronic hepatitis C , however may also have some hepatic congestion from chronic CHF. May have pulmonary hypertension and corpulmonale form copd and emphysema will check echo. (5) Liver hemangioma Status: Chronic Problem Text: liver mass unchanged from last year. (6) GERD (gastroesophageal reflux disease) Status: Chronic Problem Text: has history of diagrammatic hernia repair in the past. will continue ppi, gi cocktail, reglan (7) HTN (hypertension) Status: Chronic (8) Hx of bipolar disorder Status: Chronic (9) History of depression Status: Chronic (10) History of alcohol abuse Status: Chronic Problem Text: went to rehab in sep 2014. (11) Obesity Status: Chronic (12) Diastolic CHF Status: Chronic Plan/VTE VTE Prophylaxis Ordered?: Yes VS, I&O, 24H, Fishbone Vital Signs/I&O Vital Signs Date Time Temp Pulse Resp B/P Pulse Ox O2 Delivery O2 Flow Rate FiO2 12/02/16 08:57 62 133/94 12/02/16 07:51 18 12/02/16 07:35 Room Air 12/02/16 07:30 96.5 90 12/02/16 00:00 2.0 I&O- Last 24 Hours up to 6 AM 12/02/16 06:00 Intake Total 400 ml Output Total 500 ml Balance -100 ml Laboratory Data 24H LABS Laboratory Tests 2 12/02/16 05:02: Blood Urea Nitrogen 15, Creatinine 0.96, Sodium Level 139, Potassium Level 4.4# , Chloride Level 103, Carbon Dioxide Level 29, Calcium Level 8.3L, Aspartate Amino Transf (AST/SGOT) 304H, Alanine Aminotransferase (ALT/SGPT) 478H, Alkaline Phosphatase 106, Total Bilirubin 1.1#H, Total Protein 7.7, Albumin 3.5 , Albumin/Globulin Ratio 0.83L, Anion Gap 7L, B-Type Natriuretic Peptide 13.9, Glomerular Filtration Rate > 60.0 CBC/BMP Laboratory Tests 12/02/16 05:02 Calcium Level 8.3 L, Aspartate Amino Transf (AST/SGOT) 304 H, Alanine Aminotransferase (ALT/SGPT) 478 H, Alkaline Phosphatase 106, Total Bilirubin 1.1 #H, Total Protein 7.7, Albumin 3.5, Red Blood Count 4.56, Mean Corpuscular Volume 101.4 H, Mean Corpuscular Hemoglobin 35.4 H, Mean Corpuscular Hemoglobin Concent 34.9, Red Cell Distribution Width 13.0 TAMIA PORTER MD Dec 02, 2016 10:24
--- NOTE | 2016-12-02 14:02 | ECHO ---
DATE OF PROCEDURE: 12/02/2016 HEIGHT: 72 inches. WEIGHT: 289 pounds. BODY SURFACE AREA: 2.49 meters squared REFERRING PHYSICIAN: Dr. Naomy Coughlin. INDICATION: Dyspnea. MEASUREMENTS: 2D Measurements: RV - 4.8 cm LV - 5.5 cm Septum - 1.2 cm Posterior wall - 1.2 cm Aortic root - 3.9 cm LA - 5.1 cm LVEF - 55% Doppler Measurements: AV - 1.4 meters per second LVOT - 1.2 meters per second LVOT diameter 2.3 cm MV - E 49, A 60, E/A ratio 0.8 Early mitral deceleration time - 271 milliseconds E prime 7.5, A prime 12, E/E prime ratio 6.5 PV - 0.95 meters per second Pulmonary artery acceleration time - 123 milliseconds RVSP - 37 mmHg IVC - 2.0 cm COMMENTS: Normal sinus rhythm without intraventricular conduction disturbance. Somewhat challenging study in light of the patient's body habitus but diagnostically useful information was still obtained. Prominently dilated left atrium with left ventricle upper limits of normal in size. Right heart chamber sizes were at least mild to moderately dilated. LV wall thickness was borderline increased symmetrically. On real-time imaging from the parasternal and apical projections, there was localized inferoseptal/inferior hypo to akinesis but other wall motion was normal. Normal-appearing mitral valvular apparatus and leaflet thickness and excursion with no posterior systolic buckling. Three equal size aortic cusps of normal thickness and cusp separation. Mildly dilated aortic root but normal proximal ascending aortic diameter. No apparent intracardiac mass or pericardial effusion. Color flow Doppler study taken from the parasternal and apical projection showed trace mitral and mild tricuspid with a very mild pulmonic insufficiency but no aortic insufficiency. Guided continuous wave Doppler of his aortic valve showed a normal peak systolic velocity against LV outflow tract obstruction. Pulsed and continuous wave Doppler of his LV inflow tract taken from the apical four-chamber projection showed normal diastolic filling velocities against mitral stenosis. There was more prominent late diastolic/atrial dependent filling pattern. Diastolic dysfunction was further confirmed by a prolonged early mitral deceleration time and tissue Doppler of his mitral annulus. However, his current estimated mean left atrial pressure was within normal limits. Pulsed and continuous wave Doppler of his pulmonary trunk showed a normal peak systolic velocity. His pulmonary artery acceleration time was also normal against an elevated pulmonary vascular resistance. Guided continuous wave Doppler of his tricuspid valve allowed our estimation of his right ventricular systolic pressure (mildly increased). His inferior vena cava was upper limits of normal in size with normal respiratory collapse against an elevated central venous pressure. CONCLUSIONS: Borderline dilated and mildly hypertrophied left ventricle with localized inferior wall motion abnormality in keeping with prior infarction. Preserved global resting systolic function. Prominently dilated left atrium with Doppler evidence of an impairment of LV diastolic function but currently normal estimated mean left atrial pressure. Mild to moderately dilated right heart chambers with current Doppler evidence of no more than mild pulmonary hypertension. IVC size upper limits of normal with normal respiratory collapse against an elevated central venous pressure at this time.
[2016-12-02 15:55] VITALS: BP 139/83
[2016-12-02] MEDS: QUEtiapine FUMARATE 200 MG TAB PO SCH (20:58)
[2016-12-02 22:00] VITALS: BP 154/88
[2016-12-03] MEDS: IPRATROPIUM 0.5MG/ALBUTEROL 2.5MG INH SOL UD 3ML (DUONEB)(J7620) NEB SCH ×2 (01:30→08:10)
[2016-12-03] MEDS: PERCOCET 5MG/325MG TAB PO PRN ×2 (01:38→08:04)
[2016-12-03 06:00] VITALS: BP 127/80
[2016-12-03 06:09] LABS: MEAN CORPUSCULAR HEMOGLOBIN 32.9 pg (27.0-33.0); MEAN CORPUSCULAR HGB CONC 33.3 g/dl (32.0-36.5); MEAN CORPUSCULAR VOLUME 98.7 fl (80.0-96.0); RED CELL DISTRIBUTION WIDTH 12.7 % (11.5-14.5); WHITE BLOOD COUNT 4.2 K/mm3 (4.0-10.0)
[2016-12-03 06:16] LABS: ALBUMIN 3.1 GM/DL (3.2-5.2); ALBUMIN/GLOBULIN RATIO 0.84 (1.00-1.93); ALKALINE PHOSPHATASE 108 U/L (45-117); ALT/SGPT 406 U/L (12-78); ANION GAP 8 MEQ/L (8-16); AST/SGOT 195 U/L (15-37); BILIRUBIN,TOTAL 0.5 MG/DL (0.2-1.0); BLOOD UREA NITROGEN 14 MG/DL (7-18); CALCIUM LEVEL 8.3 MG/DL (8.5-10.1); CARBON DIOXIDE LEVEL 29 MEQ/L (21-32); CHLORIDE LEVEL 103 MEQ/L (98-107); CREATININE FOR GFR 0.81 MG/DL (0.70-1.30); GLOMERULAR FILTRATION RATE > 60.0 (>56); GLUCOSE, FASTING 142 MG/DL (70-105); POTASSIUM SERUM 3.6 MEQ/L (3.5-5.1); SODIUM LEVEL 140 MEQ/L (136-145); TOTAL PROTEIN 6.8 GM/DL (6.4-8.2)
[2016-12-03] MEDS: MULTIVITAMINS/MINERALS THERAP 1 TAB PO SCH (08:01)
[2016-12-03] MEDS: SPIRONOLACTONE 25 MG TAB PO SCH (08:01)
[2016-12-03] MEDS: THIAMINE 100 MG TAB PO SCH (08:01)
[2016-12-03] MEDS: GABAPENTIN 300 MG CAP PO SCH ×2 (08:01→11:13)
[2016-12-03] MEDS: FOLIC ACID 1 MG TAB PO SCH (08:01)
[2016-12-03] MEDS: FUROSEMIDE 20 MG TAB PO SCH (08:02)
[2016-12-03] MEDS: OMEPRAZOLE 20 MG CAP PO SCH (08:02)
[2016-12-03] MEDS: POTASSIUM CHLORIDE 10 MEQ SR TABLET PO SCH (08:02)
[2016-12-03] MEDS: ASPIRIN 81 MG ENTERIC TAB PO SCH (08:02)
[2016-12-03] MEDS: METOCLOPRAMIDE 5 MG TAB PO SCH ×2 (08:02→11:12)
[2016-12-03] MEDS: SENOKOT S TAB PO SCH (08:03)
[2016-12-03] MEDS: CETIRIZINE (ZyrTEC) 10 MG TAB PO SCH (08:03)
[2016-12-03] MEDS: VENLAFAXINE **XR** 75MG CAPSULE PO SCH (08:03)
[2016-12-03] MEDS: CEFUROXIME 500 MG TAB PO SCH (08:03)
[2016-12-03 08:06] VITALS: BP 121/71
[2016-12-03] MEDS: METOPROLOL TART 25 MG TABLET PO SCH (08:06)
[2016-12-03] MEDS: amLODIPine 5 MG TAB PO SCH (08:06)
[2016-12-03] MEDS: BUDESONIDE 0.5 MG/2 ML INHALATION SUSPENSION INH SCH (08:10)
[2016-12-03] MEDS: TIOTROPIUM INHALER/CAPSULE (SPIRIVA) INH SCH (08:10)
[2016-12-03 10:20] LABS: FOLATE 13.6 NG/ML (>5.4)
[2016-12-03] MEDS ORDERED: DULE100A IN (10:43)
[2016-12-03] MEDS ORDERED: CEFT500T3 PO (10:43)
[2016-12-03] MEDS ORDERED: AMLO5TAB2 PO (10:43)
[2016-12-03] MEDS ORDERED: IPRA2IN INH (10:43)
[2016-12-03] MEDS ORDERED: ROXI1TAB2 PO (10:43)
[2016-12-03] MEDS ORDERED: INCR1INH IN (10:43)
--- NOTE | 2016-12-04 10:16 | DSES ---
DATE OF ADMISSION: 12/01/2016 DATE OF DISCHARGE: 12/03/2016 PRIMARY CARE PROVIDER: Dr. Jackson. INSURANCE LAW SPECIALIST: Dr. Mendoza. DISCHARGE DIAGNOSES: 1. Intercostal neuralgia. 2. Chronic obstructive pulmonary disease (COPD) with emphysema with exacerbation. 3. Chronic hepatitis C. 4. Transaminitis. 5. Liver hemangioma. 6. Gastroesophageal reflux disease (GERD). 7. Hypertension. 8. Bipolar disorder. 9. Depression. 10. Obesity. 11. Diastolic congestive heart failure. 12. History of alcohol abuse, went to rehabilitation in September 2014. 13. History of traumatic rib fractures, pneumothorax and diaphragmatic hernia requiring chest tube and hernia repair in July 2014 after a fall in his kitchen. 14. Obstructive sleep apnea (EUGENIA) uses CPAP at home. 15. Gastroparesis. DISCHARGE MEDICATIONS: - amlodipine 5 mg by mouth twice daily - cefuroxime 500 mg by mouth twice daily - Dulera 100/5 one inhalation twice daily - Incruse Ellipta 62.5 mcg one inhalation daily - ipratropium nebulizer solution one four times daily as needed - albuterol nebulizer solution one four times daily as needed - oxycodone 5 mg tablet one to two tablets by mouth every 8 hours as needed chest pain - albuterol sulfate HFA one puff inhalation every 6 hours as needed - aspirin 81 mg daily - cetirizine 10 mg daily - folic acid 1 mg daily - Lasix 20 mg twice daily - gabapentin 300 mg by mouth twice daily - gabapentin 600 mg at bedtime - metoprolol 25 mg by mouth twice daily - multivitamins one tablet by mouth daily - omeprazole 20 mg by mouth daily - potassium 20 mg by mouth twice daily - quetiapine 400 mg at bedtime - spironolactone 25 mg by mouth daily - venlafaxine 225 mg by mouth daily HOSPITAL COURSE: This is a 50-year-old male who has long history of chronic pain on his left lower chest since his traumatic injury to the left ribs causing rib fractures, pneumothorax and diaphragmatic hernia in 2013 which at that time was repaired. Patient was diagnosed with intercostal neuralgia and had pain management in the past, presented to the hospital with worsening pain in the left upper chest and the left shoulder which made him concerned about cardiac related pain, who presented to the hospital. In the ED, patient had an EKG which did not show any signs of acute ischemia. He also had three sets of cardiac enzymes which were negative. However, patient was noted to be mildly tachypneic, short of breath and wheezy and coughing and it was felt that patient's chest pain had worsened due to his cough and tachypnea which was related to his chronic obstructive pulmonary disease (COPD) exacerbation. In the hospital, patient was started on oxycodone. His gabapentin was continued. He had moderately good response to oxycodone. He was also started on treatment for chronic obstructive pulmonary disease (COPD) exacerbation with nebulizers, albuterol, ipratropium, budesonide and Spiriva with good response to treatment. Patient had an echocardiogram done which showed severe diastolic dysfunction, mild pulmonary hypertension. Patient had a normal left ventricular ejection fraction. Patient responded well to treatment. On the day of discharge, his pain was well controlled. He was functionally at baseline. Vitals were stable. PHYSICAL EXAMINATION: Vital signs: Temperature 97.8, pulse 74, respiratory rate 18, blood pressure 121/71, pulse oximetry 96% on room air. General: Patient awake, alert, oriented times three, sitting up in bed in no acute distress. HEENT: Normocephalic, atraumatic. Moist mucous membranes. Anicteric eyes. Chest: Mild diffuse rhonchi present but good air entry. Cardiovascular: S1, S2, regular. No rales, murmur or gallop. Abdomen: Obese, soft, nontender. Bowel sounds present. Extremities: No edema. LABORATORY DATA: WBC 4.2, hemoglobin 13.4, platelets 87. Sodium 140, potassium 3.6, chloride 103, bicarbonate 29, BUN 14, creatinine 0.8. Glucose 142. Calcium 8.3, total bilirubin 0.5, AST 195, ALT 406. Albumin 3.1. CT abdomen and pelvis showed gastroparesis, possible mild enteritis, enhancing in the segment 4b of liver, unchanged from prior exam in 2016. Hepatomegaly with fatty infiltration with mild irregularity of hepatic contour. Nonspecific bilateral perinephric stranding. CT angio of the chest was negative for pulmonary embolism. It did show chronic bronchitis, pulmonary emphysema, deformity of the ribs from healed fractures. DISPOSITION: Patient is discharged home in stable condition. DISCHARGE INSTRUCTIONS: Patient to followup with primary care provider in 1-2 weeks. Regular diet. Activity as tolerated.
== END 2016-12-03 12:38 | disposition home or self-care (01) | DRG 48 ==
LOC: M ED 02:29 → M ED INP 06:02 → M PCU 17:55 → M MSPAV 12-02 15:52
PROVIDERS: ADMIT Internal Medicine; ATTEND Internal Medicine Nephrology
DX: G58.0 Intercostal neuropathy (principal); I50.30 Unspecified diastolic (congestive) heart failure; J44.1 Chronic obstructive pulmonary disease with (acute) exacerbation; K21.9 Gastro-esophageal reflux disease without esophagitis; I10 Essential (primary) hypertension; E66.9 Obesity, unspecified; G47.33 Obstructive sleep apnea (adult) (pediatric); B18.2 Chronic viral hepatitis C; D18.00 Hemangioma unspecified site; F10.10 Alcohol abuse, uncomplicated; K31.84 Gastroparesis; I25.10 Atherosclerotic heart disease of native coronary artery without angina pectoris; J45.909 Unspecified asthma, uncomplicated; K59.09 Other constipation; F31.9 Bipolar disorder, unspecified; R74.0 Nonspecific elevation of levels of transaminase and lactic acid dehydrogenase [LDH]; Z99.89 Dependence on other enabling machines and devices; Z79.82 Long term (current) use of aspirin; Z79.899 Other long term (current) drug therapy; Z72.0 Tobacco use; Z96.643 Presence of artificial hip joint, bilateral; Z88.8 Allergy status to other drugs, medicaments and biological substances; Z91.030 Bee allergy status

== ENCOUNTER 2017-02-11 10:36 | Emergency (ER) | payer OTHER ==
[~2017-02-11] VITALS: Ht 182.9 cm; Wt 129.3 kg
[~2017-02-11 10:36] MED LIST changes: +AMLO5TAB2 PO; +CEFT500T3 PO; +INCR1INH IN; +IPRA2IN INH; +METO12TA PO; +QUET1TAB11 PO; +ROXI1TAB2 PO
[2017-02-11] MEDS ORDERED: ASPIRIN 81 MG CHEW TABLET PO ONE (11:00)
[2017-02-11 11:16] LABS: BASO % 0.7 % (0.0-1.0); EOS # 0.2 K/mm3 (0.0-0.50); EOS % 3.2 % (0.0-3.0); LARGE UNSTAINED CELL # 0.1 K/mm3 (0.0-0.4); LARGE UNSTAINED CELL % 1.7 % (0.0-4.0); LYMPH # 0.9 K/mm3 (1.5-4.5); LYMPH % 13.8 % (24.0-44.0); MEAN CORPUSCULAR HEMOGLOBIN 35.1 pg (27.0-33.0); MEAN CORPUSCULAR HGB CONC 34.7 g/dl (32.0-36.5); MEAN CORPUSCULAR VOLUME 101.2 fl (80.0-96.0); MONO # 0.5 K/mm3 (0.0-0.8); MONO % 8.2 % (0.0-5.0); NEUTROPHILS # 4.3 K/mm3 (1.8-7.7); NEUTROPHILS % 72.3 % (36.0-66.0); PLATELET COUNT, AUTOMATED 134 k/mm3 (150-450); WHITE BLOOD COUNT 5.9 K/mm3 (4.0-10.0)
--- NOTE | 2017-02-11 11:19 | REP ---
Clinical: Chest pain. Comparison: 07/11/2016. Findings: Blunting of the left costophrenic angle and subpleural density along the lateral aspect affect of the left mid lung zone is unchanged and corresponds to pleural thickening and old rib fractures along with prior postoperative changes. The lung roland are clear and without acute consolidation, effusion, or pneumothorax. Mediastinum and cardiac silhouette normal. Impression: No acute cardiopulmonary process appreciated. Signed by Faheem Nassar MD 02/11/2017 11:11 A
[2017-02-11 11:24] LABS: INR 1.06
[2017-02-11 11:55] LABS: ALBUMIN 2.8 GM/DL (3.2-5.2); ALBUMIN/GLOBULIN RATIO 0.74 (1.00-1.93); ALKALINE PHOSPHATASE 117 U/L (45-117); ALT/SGPT 275 U/L (12-78); ANION GAP 9 MEQ/L (8-16); AST/SGOT 183 U/L (15-37); BILIRUBIN,TOTAL 1.6 MG/DL (0.2-1.0); BLOOD UREA NITROGEN 4 MG/DL (7-18); CALCIUM LEVEL 8.5 MG/DL (8.5-10.1); CARBON DIOXIDE LEVEL 28 MEQ/L (21-32); CHLORIDE LEVEL 101 MEQ/L (98-107); GLOMERULAR FILTRATION RATE > 60.0 (>56); GLUCOSE, FASTING 137 MG/DL (70-105); POTASSIUM SERUM 3.1 MEQ/L (3.5-5.1); SODIUM LEVEL 138 MEQ/L (136-145); TOTAL PROTEIN 6.6 GM/DL (6.4-8.2)
[2017-02-11] MEDS ORDERED: POTASSIUM CHLORIDE 10 MEQ SR TABLET PO ONE (12:15)
[2017-02-11] MEDS: NITROGLYCERIN 0.4 MG SUBL TABLET SL PRN ×3 (12:19→12:39)
[2017-02-11] MEDS ORDERED: ISOVUE-370 76% 100ML VIAL (Q9967) As Ordered ONE (12:24)
[2017-02-11 12:39] VITALS: BP 158/83
[2017-02-11] MEDS ORDERED: GI COCKTAIL 50ML BTL(HYOSCYAMINE/MAALOX/LIDOCAINE VISCOUS)(1:3:1) PO ONE (12:45)
--- NOTE | 2017-02-11 12:56 | REP ---
Clinical: Acute chest pain. Technique: Axial contrast enhanced images from the thoracic inlet to the upper abdomen using 100 ml Isovue 370 intravenous contrast material with coronal and sagittal re-formations. Findings: Satisfactory enhancement of the pulmonary vasculature is achieved and no filling defects are identified to suggest pulmonary embolus. Chronic stable pleuroparenchymal changes involving the left hemithorax and left base are unchanged from prior examination. Thoracic aorta is normal caliber without aneurysm or dissection. Heart and pericardium are normal. Bilateral lung roland are well aerated and clear without acute pulmonary parenchymal consolidation or atelectasis. No nodule or mass lesion. No pleural effusion/reaction. No pneumothorax. No adenopathy. Impression: No evidence for pulmonary embolus. No acute pleuroparenchymal or mediastinal process. Stable chronic pleuroparenchymal changes involving the left hemithorax. Signed by Faheem Nassar MD 02/11/2017 12:47 P
--- NOTE | 2017-02-11 13:02 | REP ---
Clinical: Acute epigastric pain. Technique: Axial contrast enhanced images from the lung bases to the pubic symphysis using 100 ml Isovue 370 intravenous contrast material with coronal and sagittal re-formations. Comparison: 07/12/2016, 02/10/2008. Findings: Fatty infiltration to the liver is appreciated with stable 3 cm hemangioma in the medial segment left lobe. Spleen, pancreas, gallbladder, bilateral adrenal glands and kidneys are normal. The enteric system is without obstruction or acute inflammatory process. Evidence for prior appendectomy noted. Pelvis demonstrates normal bladder and prostate gland. No ascites. No free air. No adenopathy. Abdominal aorta demonstrates mild atherosclerotic changes without aneurysm. Surrounding musculoskeletal structures demonstrate multiple bilateral rib fractures and postsurgical changes at the left lateral chest wall. Bilateral hip prosthesis noted. Impression: 1. Fatty infiltration to the liver with 3 cm stable benign hemangioma. 2. No further acute intra-abdominal or pelvic pathology appreciated. Signed by Faheem Nassar MD 02/11/2017 12:54 P
[2017-02-11] MEDS ORDERED: MORPHINE 4 MG/ML 1ML SYRINGE IV ONE (14:45)
--- NOTE | 2017-02-11 15:01 | ECGEPIP ---
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
--- NOTE | 2017-02-11 15:02 | ECGEPIP ---
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
[2017-02-11 16:01] VITALS: BP 145/78
[2017-02-12] MEDS ORDERED: ALBU17IN INH (17:34)
[2017-02-12] MEDS ORDERED: AMLO5TAB2 PO (17:34)
[2017-02-12] MEDS ORDERED: ASPI81TA7 PO (17:34)
[2017-02-12] MEDS ORDERED: INCR1INH INH (17:37)
[2017-02-12] MEDS ORDERED: LASI20TA PO (17:37)
[2017-02-12] MEDS ORDERED: GABA-282 PO ×2 (17:37)
[2017-02-12] MEDS ORDERED: CETI10TA PO (17:37)
[2017-02-12] MEDS ORDERED: FOLI1TAB2 PO (17:37)
[2017-02-12] MEDS ORDERED: VITMTA PO (17:40)
[2017-02-12] MEDS ORDERED: ALBU83IN INH (17:40)
[2017-02-12] MEDS ORDERED: EXCETAB81 PO (17:40)
[2017-02-12] MEDS ORDERED: FLON1SPR (17:40)
[2017-02-12] MEDS ORDERED: METO25TAB PO (17:40)
[2017-02-12] MEDS ORDERED: IPRA2IN INH (17:40)
[2017-02-12] MEDS ORDERED: SPIR25TA2 PO (17:44)
[2017-02-12] MEDS ORDERED: POTA20TA PO (17:44)
[2017-02-12] MEDS ORDERED: SERO400T PO (17:44)
[2017-02-12] MEDS ORDERED: VENL75CA PO (17:44)
[2017-02-12] MEDS ORDERED: OMEP20CA3 PO (17:44)
== END 2017-02-11 16:22 | disposition home or self-care (01) ==
LOC: M ED 13:07
DX: R10.9 Unspecified abdominal pain (principal); I50.9 Heart failure, unspecified; I10 Essential (primary) hypertension; F10.10 Alcohol abuse, uncomplicated; K21.9 Gastro-esophageal reflux disease without esophagitis; F32.9 Major depressive disorder, single episode, unspecified; J45.909 Unspecified asthma, uncomplicated; F43.10 Post-traumatic stress disorder, unspecified; G47.30 Sleep apnea, unspecified; Z98.61 Coronary angioplasty status; Z86.19 Personal history of other infectious and parasitic diseases; F17.200 Nicotine dependence, unspecified, uncomplicated; K76.0 Fatty (change of) liver, not elsewhere classified; Z79.82 Long term (current) use of aspirin; Z79.899 Other long term (current) drug therapy; Z91.030 Bee allergy status; Z88.8 Allergy status to other drugs, medicaments and biological substances

== ENCOUNTER 2017-02-12 15:12 | Inpatient (IN) | payer OTHER ==
[~2017-02-12] VITALS: Ht 182.9 cm; Wt 132.9 kg
[2017-02-12] MEDS ORDERED: PERCOCET 5MG/325MG TAB PO ONE (15:30)
[2017-02-12 15:54] LABS: MEAN CORPUSCULAR HGB CONC 34.9 g/dl (32.0-36.5); MEAN CORPUSCULAR VOLUME 103.3 fl (80.0-96.0); RED CELL DISTRIBUTION WIDTH 13.9 % (11.5-14.5); WHITE BLOOD COUNT 5.5 K/mm3 (4.0-10.0)
[2017-02-12 16:14] LABS: METHADONE URINE NEGATIVE (NEGATIVE)
[2017-02-12 16:25] LABS: ALBUMIN/GLOBULIN RATIO 0.91 (1.00-1.93); ALKALINE PHOSPHATASE 119 U/L (45-117); ALT/SGPT 334 U/L (12-78); ANION GAP 8 MEQ/L (8-16); AST/SGOT 305 U/L (15-37); BILIRUBIN,TOTAL 1.4 MG/DL (0.2-1.0); BLOOD UREA NITROGEN 6 MG/DL (7-18); CALCIUM LEVEL 8.2 MG/DL (8.5-10.1); CARBON DIOXIDE LEVEL 26 MEQ/L (21-32); CHLORIDE LEVEL 105 MEQ/L (98-107); CREATININE FOR GFR 0.82 MG/DL (0.70-1.30); GLOMERULAR FILTRATION RATE > 60.0 (>56); GLUCOSE, FASTING 220 MG/DL (70-105); POTASSIUM SERUM 3.9 MEQ/L (3.5-5.1); SODIUM LEVEL 139 MEQ/L (136-145); TOTAL PROTEIN 6.3 GM/DL (6.4-8.2)
[2017-02-12] MEDS ORDERED: MOM 30ML SUSPENSION UDC PO PRN (17:15)
[2017-02-12] MEDS ORDERED: ALBUTEROL 90 MCG/ACT 8GM HFA INHALER INH PRN (17:15)
[2017-02-12] MEDS ORDERED: IPRATROPIUM 0.02% SOLN 0.5MG/2.5 ML NEB INH PRN (17:15)
[2017-02-12] MEDS ORDERED: ACETAMINOPHEN TAB 650MG DOSE (2X325MG) PO PRN (17:15)
[2017-02-12] MEDS ORDERED: ASPI81TA7 PO (17:34)
[2017-02-12] MEDS ORDERED: AMLO5TAB2 PO (17:34)
[2017-02-12] MEDS ORDERED: ALBU17IN INH (17:34)
[2017-02-12] MEDS ORDERED: INCR1INH INH (17:37)
[2017-02-12] MEDS ORDERED: GABA-282 PO ×2 (17:37)
[2017-02-12] MEDS ORDERED: FOLI1TAB2 PO (17:37)
[2017-02-12] MEDS ORDERED: CETI10TA PO (17:37)
[2017-02-12] MEDS ORDERED: LASI20TA PO (17:37)
[2017-02-12] MEDS ORDERED: FLON1SPR (17:40)
[2017-02-12] MEDS ORDERED: METO25TAB PO (17:40)
[2017-02-12] MEDS ORDERED: ALBU83IN INH (17:40)
[2017-02-12] MEDS ORDERED: IPRA2IN INH (17:40)
[2017-02-12] MEDS ORDERED: VITMTA PO (17:40)
[2017-02-12] MEDS ORDERED: EXCETAB81 PO (17:40)
[2017-02-12] MEDS ORDERED: SPIR25TA2 PO (17:44)
[2017-02-12] MEDS ORDERED: POTA20TA PO (17:44)
[2017-02-12] MEDS ORDERED: OMEP20CA3 PO (17:44)
[2017-02-12] MEDS ORDERED: SERO400T PO (17:44)
[2017-02-12] MEDS ORDERED: VENL75CA PO (17:44)
[2017-02-12 17:58] VITALS: BP 137/92
[2017-02-12] MEDS: IBUPROFEN 600 MG TAB PO PRN (18:54)
[2017-02-12] MEDS: FUROSEMIDE 20 MG TAB PO SCH (18:54)
[2017-02-12] MEDS: POTASSIUM CHLORIDE 10 MEQ SR TABLET PO SCH (21:35)
[2017-02-12] MEDS: QUEtiapine FUMARATE 200 MG TAB PO SCH (21:35)
[2017-02-12] MEDS: METOPROLOL TART 25 MG TABLET PO SCH (21:35)
[2017-02-12] MEDS: GABAPENTIN 300 MG CAP PO SCH (21:35)
[2017-02-12] MEDS: amLODIPine 5 MG TAB PO SCH (21:35)
[2017-02-12] MEDS: PERCOCET 5MG/325MG TAB PO PRN (21:37)
[2017-02-13] MEDS: PERCOCET 5MG/325MG TAB PO PRN ×3 (04:08→16:47)
[2017-02-13 06:39] VITALS: BP 121/77
[2017-02-13] MEDS ORDERED: IPRATROPIUM 0.5MG/ALBUTEROL 2.5MG INH SOL UD 3ML (DUONEB)(J7620) NEB SCH (08:00)
[2017-02-13] MEDS: VENLAFAXINE **XR** 75MG CAPSULE PO SCH (08:39)
[2017-02-13] MEDS: MULTIVITAMINS/MINERALS THERAP 1 TAB PO SCH (08:39)
[2017-02-13] MEDS: OMEPRAZOLE 20 MG CAP PO SCH (08:39)
[2017-02-13] MEDS: FOLIC ACID 1 MG TAB PO SCH (08:39)
[2017-02-13] MEDS: GABAPENTIN 300 MG CAP PO SCH ×3 (08:40→20:05)
[2017-02-13] MEDS: FUROSEMIDE 20 MG TAB PO SCH ×2 (08:40→16:00)
[2017-02-13] MEDS: METOPROLOL TART 25 MG TABLET PO SCH ×2 (08:40→20:07)
[2017-02-13] MEDS: POTASSIUM CHLORIDE 10 MEQ SR TABLET PO SCH ×2 (08:40→20:06)
[2017-02-13] MEDS: amLODIPine 5 MG TAB PO SCH ×2 (08:40→20:05)
[2017-02-13] MEDS: ASPIRIN 81 MG ENTERIC TAB PO SCH (08:40)
[2017-02-13] MEDS: CETIRIZINE (ZyrTEC) 10 MG TAB PO SCH (08:40)
[2017-02-13] MEDS: SPIRONOLACTONE 25 MG TAB PO SCH (08:41)
[2017-02-13] MEDS: NICOTINE 21MG/24HR 1 EA TRANSDERMAL TD SCH (08:43)
--- NOTE | 2017-02-13 08:45 | HPEPDOC ---
Medical History and Physical Date of Admission February 12, 2017 at 17:02 History and Physical PCP: Dr Jackson Doctor Of Medicine Dr Mendoza ATTENDING: Dr. Raul Christopher HPI: 51yoM admitted to COUNTS IN[facility] 234 BEDS AT THE [facility] for unspecified depressive disorder, being medically examined today. Patient reports some shortness of breath however he reports he has been out of incruse ellipta for the past week. He also reports some hoarseness which typically comes in the afternoon. He also reports he had been out of his Prilosec as well. He complains of dry mouth related to his Seroquel. He reports persistent chronic rib pain around his previous incisional site. He states he follows with [facility] pain management for this issue. He was admitted to [facility] from 12/01/16-12/03/16 also for treatment of intercostal neuralgia. He has a history of chronic pain in the left lower chest since previous traumatic injury to the left ribs resulting in rib fractures, pneumothorax, and related to diaphragmatic hernia repair in 2013. Denies any fevers, chills, weakness, fatigue, GALICIA, cough, palpitations, abdominal pain, N/V/D or changes in bowel or bladder habits. PMHx: Chronic pain/chronic intercostal pain left side. Intercostal neuralgia. Follows with [facility] pain management. COPD/emphysema Chronic hepatitis C. Follows with Dr Mcgrath. Liver hemangioma GERD Hypertension Bipolar disorder Depression Obesity. BMI 39.5. Diastolic CHF TTE 12/07 severe diastolic dysfunction, mild pulmonary hypertension, normal EF. History of alcohol use, status post rehabilitation September 2014. History of traumatic rib fracture (after a fall in his kitchen), pneumothorax, diaphragmatic hernia requiring chest tube and hernia repair 08/06. EUGENIA/CPAP Gastroparesis Allergic rhinitis Transaminitis PSHX: Tonsillectomy and adenoidectomy at age 7 Vasectomy 1996 Left total hip replacement 2012 Right hip resurfacing 2010 Chest tube and diaphragmatic hernia repair 08/06 SOCHX: Resides in: [place] Marital Status: 2 Kids: 3 Employment: Disabled. 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 Tobacco use: 5 per day ETOH: States he drinks a few times per week 1-2 drinks Illicit Drugs: Marijuana 2 times per week IV Drug Use: Denies Tattoos done unprofessionally: Denies FAMHX: Mother: Alive, history of lung cancer Maternal grandmother with history of stomach cancer Maternal great-grandmother with history of pancreatic cancer. Children: Alive, well Unexpected deaths due to medical reasons: None. ROS: As noted in HPI, otherwise 11pt ROS of systems reviewed and unremarkable. PE: GEN: 51yoM, appears stated age. Well-nourished, well developed. No acute distress. Alert and oriented x 3. Pleasant, interactive. HEENT: Normocephalic, atraumatic. Pupils are equal, round, and reactive to light. Extraocular movements are intact. No nystagmus appreciated. Sclera are nonicteric. Conjunctiva without injection. Nose midline. Nasal turbinates without bogginess. EACs both patent BL. TMs both visualized and [place] with good cone of light, no bulging or erythema. No facial asymmetry. Moist mucous membranes. Dentition fair. Pharynx pink and moist, no cobblestoning. Neck supple , trachea midline. No lymphadenopathy or thyromegaly appreciated. CHEST: Regular rate and rhythm, +S1, +S2 LUNGS: Get her to expiratory wheezes bilaterally. No rales, or rhonchi. Breathing appears symmetric and easy. Patient is speaking in full sentences. No accessory muscle use. ABD: Round, soft, non-tender, non-distended. +Bowel sounds throughout. No rebound or guarding. No costovertebral angle tenderness. EXT: Pulses 2+ bilaterally dorsalis pedis and radial. No lower extremity edema appreciated. SKIN: [place], dry, warm. Capillary refill <2sec. No rashes. NEURO: Alert and oriented x 3. Cranial nerves III-XII are intact. No focal deficits appreciated. There is TTP Left upper abdomen/rib area and around previous surgical scar left chest. EK02/11/17 SINUS RHYTHM WITH OCCASIONAL VENTRICULAR PREMATURE COMPLEXES LEFT AXIS DEVIATION PATTERN CONSISTENT WITH PULMONARY DISEASE PRWP SIMILAR TO 12/01/16 CXR 02/11/17 No acute cardiopulmonary process appreciated CTA 02/11/17 No evidence for pulmonary embolus. No acute pleuroparenchymal or mediastinal process. Stable chronic pleuroparenchymal changes involving the left hemithorax. CT A/P 02/11/17 Fatty infiltration to the liver with 3 cm stable benign hemangioma. 2. No further acute intra-abdominal or pelvic pathology appreciated. A&P: 51yoM admitted to COUNTS INCLUDE 234 BEDS AT THE [facility] for unspecified depressive disorder 1. Psych. Plan per Psychiatry. EKG on file. 2. Nicotine dependence. Patch available. 3. Borderline EKG. No cardiac signs or symptoms appreciated on exam, follow with PCP/cardiology. 4. Follow up with PCP on discharge. 5. Substance use. Per psychiatry. 6. COPD. DuoNeb every 2 hours as needed. Albuterol HFA Q4h as needed. Advair 250 /50 1 inhalation BID. 7. Chronic pain/intercostal neuralgia. Continue gabapentin 300 mg twice a day, 600 at bedtime. Percocet 5/325 every 6 hours as needed was added at admission. Advil 600 mg every 6 hours as needed. Will request opinion from pain management. ISTOP accessed with no results. 8. Hypertension. Continue aspirin 81 mg daily. Continue Lopressor 25 mg twice a day, Norvasc 5 mg twice a day. Blood pressure is noted to be 121/77. 9. Diastolic CHF. Continue Lasix 20 mg twice a day, potassium supplement 20 mEq twice a day, and Aldactone 25 mg daily. Patient appears compensated at this time. 10. EUGENIA. Continue CPAP from home. 11. GERD. Continue Prilosec 20 mg daily. 12. Allergic rhinitis. Continue Zyrtec 10 mg daily. 13. Chronic hepatitis C. Follows with Dr. Mcgrath. 14. Transaminitis. Recheck CMP in a.m. CT abdomen and pelvis indicates hemangioma which is stable from previous study. Fatty infiltration. Monitor. 15. Willian Staff member present throughout exam. Vital Signs Vital Signs Date Time Temp Pulse Resp B/P (MAP) Pulse Ox O2 Delivery O2 Flow Rate FiO2 02/13/17 06:39 96.6 82 18 121/77 (92) 02/12/17 17:11 94 02/12/17 15:13 Room Air Laboratory Data Labs 24H Laboratory Tests 2 02/12/17 15:40: Anion Gap 8, Glomerular Filtration Rate > 60.0, Calcium Level 8.2L, Aspartate Amino Transf (AST/SGOT) 305H, Alanine Aminotransferase (ALT/SGPT) 334H, Alkaline Phosphatase 119H, Total Bilirubin 1.4H, Direct Bilirubin 1.0H, Total Protein 6.3L, Albumin 3.0L, Albumin/Globulin Ratio 0.91L, Thyroid Stimulating Hormone (TSH) 0.383, Salicylates Level 2.5L, Urine Amphetamines Screen NEGATIVE , Urine Benzodiazepines Screen NEGATIVE, Urine Opiates Screen NEGATIVE, Urine Methadone Screen NEGATIVE, Acetaminophen Level 3.1L, Urine Barbiturates Screen NEGATIVE, Urine Phencyclidine Screen NEGATIVE, Urine Cocaine Metabolite Screen NEGATIVE, Urine Cannabinoids Screen POSITIVEH, Ethyl Alcohol Level 0.057H CBC/BMP Laboratory Tests 02/12/17 15:40 Red Blood Count 4.25 L, Mean Corpuscular Volume 103.3 H, Mean Corpuscular Hemoglobin 36.0 H, Mean Corpuscular Hemoglobin Concent 34.9, Red Cell Distribution Width 13.9 Home Medications Scheduled (Incruse Ellipta) 62.5 Mcg/Inh Inh, 62.5 MCG INH DAILY for . HAS BEEN OUT FOR ABOUT 1 MONTH (Flonase Allergy Relief) 50 Mcg/Act Spr, 1 SPRAY NA DAILY for NASAL CONGESTION Amlodipine Besylate (Amlodipine Besylate) 5 Mg Tab, 5 MG PO BID for BLOOD PRESSURE Aspirin (Aspirin) 81 Mg Tab, 81 MG PO DAILY for PROPHYLAXIS Cetirizine HCl (Cetirizine HCl) 10 Mg Tab, 10 MG PO DAILY for ALLERGIES Folic Acid (Folic Acid) 1 Mg Tab, 1 MG PO DAILY for . Furosemide (Lasix) 20 Mg Tab, 20 MG PO BID for . Gabapentin (Gabapentin) 300 Mg Cap, 300 MG PO BID for . Gabapentin (Gabapentin) 300 Mg Cap, 600 MG PO QHS for . Metoprolol Tartrate (Metoprolol Tartrate) 25 Mg Tab, 25 MG PO BID for BLOOD PRESSURE Multivitamins *[facility] STOCKED* (Thera M Plus *[facility] STOCKED*) 1 Tab Tab, 1 TAB PO DAILY for SUPPLEMENT Omeprazole (Omeprazole) 20 Mg Cap, 20 MG PO DAILY for GERD Potassium Chloride (Klor-Con M20) 20 Meq Tabcr, 20 MEQ PO BID for KCL DEFICIENCY Quetiapine Fumerate (Seroquel) 400 Mg Tab, 400 MG PO QHS for . Spironolactone (Spironolactone) 25 Mg Tab, 25 MG PO DAILY for . Venlafaxine HCl (Venlafaxine HCl ER) 75 Mg Cap, 225 MG PO DAILY for . Scheduled PRN (Excedrin Extra Strength 250-250-65 mg) 1 Tab Tab, 2 TAB PO BID PRN for PAIN Albuterol Sulfate (Ventolin Hfa) 200 Puff/8 Gm Aers, 2 PUFF INH QID PRN for SHORTNESS OF BREATH Albuterol Sulfate (Albuterol Sulfate) 2.5 Mg/3 Ml Nebu, 2.5 MG INH QID PRN for SHORTNESS OF BREATH MIXES WITH IPRATROPIUM IF REALLY NEEDED Ipratropium [place] (Ipratropium [place]) 0.5 Mg/2.5 Ml Soln, 0.5 MG INH QID PRN for SHORTNESS OF BREATH MIXES WITH ALBUTEROL IF REALLY NEEDED Allergies Coded Allergies: Bee Venom (Verified Allergy, Severe, ANAPHYLAXIS, 02/12/17) Fluconazole (Verified Allergy, Intermediate, REDNESS AND HIVES, 02/12/17) REDNESS ASSICIATED WUTH COMBO FLUCONAZOLE AND CEFPAHELIN QUESTIONABLE ALLERGY PER PATIENT 08/20/14 Jillian Guerra February 13, 2017 08:45
[2017-02-13] MEDS: ADVAIR DISKUS 250/50 INH PWD INH SCH ×2 (12:09→20:05)
--- NOTE | 2017-02-13 15:09 | MHHPEPDOC ---
[facility] History & Physical History and Physical DATE OF ADMISSION: February 12, 2017 at 17:02 LEGAL STATUS AT ADMISSION: 9.39 CHIEF COMPLAINT: 51 year old male with history of suicidal ideation and increased anxiety levels because he received a 30 days notice for him to leave his apartment. HISTORY OF THE PRESENT ILLNESS: Patient is a 51-year-old male, who is alert, oriented x3, cooperative with interview in no major distress who reports he is very anxious over a 30 days notice he received, to leave his apartment. He says his comp field case manager told him that he had received that notice because his landlord didn't like the way he has kept his home and he said "my home is not filthy, is cluttered but is not dirty....and, I'm not a hoarder." He also states he is sad because he feels alone since he lost both parents and he doesn't any close relative. he interacts mainly with his neighbor who comes to his house to watch TV and drink beer. Pt. minimizes his alcohol intake and he says "I don't drink beer everyday, it's only when we watch races". States that he has a sister but she lives 4.5 hours away from here and he has been willing to contact her over the phone, but she hasn't called back. He has three children from his frist marriage but he doesn't see them/talk to them often. He says he has dealt with anxiety and depression for a long time, he takes Venlafaxine and is the only medication that has been ab le to decrease some of his anxiety/depression symptoms. He attempted suicide several years ago by cutting himself over eeling lonely. PSYCHIATRIC REVIEW OF SYSTEMS: Affective: Helpless. Endorses passive suicidal ideation Anxiety: He states he has high levels of anxiety . Trauma: Denies. Psychosis: Denies. Personally: Nees further assessment, but probably, dependent/antisocial traits. PAST PSYCHIATRIC HISTORY: Prior Psychiatric Disorder: History of depression/anxiety treated with Zoloft, Paxil and other medications (couldn't recall its names). Currently treated with Venlafaxine 225 mgs. PO QD. Outpatient Treatment: . Suicidal/Self injurious: States that approximately 6 years ago he tried to kill himself by cutting his veins. He attempted this twice. States that he has suicidal ideation (passive) and he thinks when he wakes up: " I wish I would " or " I wish I wouldn't wake up". Psychotropic Medication History: History of taking Zoloft, Paxil and other antidepressants without a very good response. ALLERGIES: Please see below. FAMILY PSYCHIATRIC HISTORY: Denies SOCIAL HISTORY: Early Relations/development: Describes it as normal, happy. Sibling order: He has a sister. Paternal relationships: Describes it as good, he states both of them are and he misses them. Education: HS. Occupational: He lives on his SSI. Legal: he had to face legal problems in the past, but he denies current legal problems. Martial: twice. First marriage lasted 6 years and second 1.5 years. Economic: Financial strains. Supports: Poor family/social support. Abuse/trauma: Denies. SUBSTANCE ABUSE HISTORY: History of alcohol abuse and marijuana. PAST MEDICAL/SURGICAL HISTORY: 1. Bilateral hip replacement 2. Diaphragmatic hernia repair. VITAL SIGNS: Stable MENTAL STATUS EXAMINATION: General appearance: Patient is a 51-year old male, who is alert, dressed in hospital clothes, good eye contact, disheveled.. Speech: Raspy voice, normal speech. Thought processes: Intact. Thought content: Perseverates about feeling anxious, requests pain/anxiety medications several times. Abstract reasoning and computation: Intact. Description of associations: Not loose. Description of abnormal or psychotic thoughts: Not present. Judgment: Poor. Insight: Poor. Orientation: Oriented x 3. Recent and remote memory: Intact. Attention span and concentration: Fair. Fund of knowledge: Adequate. Mood: "I'm very anxious." Affect: Slightly anxious. DIAGNOSES: 1. Unspecified Depressive D/O. 2. Anxiety. 3. Substance abuse. ASSESSMENT: Patient has medication seeking behavior ( for benzodiazepines and opioid based painkillers), housing situation is a major concern and he's not coping well with that situation. He is not severely depressed although he says he has passive suicidal thoughts. PROBLEM LIST: 1. Risk for suicide. 2. Depression. 3. Anxiety 4. Ineffective coping 5. Substance abuse INITIAL TREATMENT PLAN: 1. Patient was admitted on a 9.39 2. Complete history was obtained. 3. With patients permission, family will be contacted and database will be expanded. 4. Patients medication regimen will be reviewed and changed accordingly. 5. Patient will be provided with protected environment. 6. Patient will be treated with individual, group, and milieu therapies. 7. Patient will receive supportive psych-education. 8. Discharge planning will commence immediately. 9. Outpatient follow-up treatment will be strongly recommended. 10. The initial treatment plan will focus initially on: * Depression. * Risk for suicide. * Substance abuse. ESTIMATED LENGTH OF STAY: 5-7 DAYS. TIME SPENT COUNSELING AND COORDINATING INITIAL CARE: 50 minutes. Laboratory Data 24H Labs Laboratory Tests 2 02/12/17 15:40: Anion Gap 8, Glomerular Filtration Rate > 60.0, Calcium Level 8.2L, Aspartate Amino Transf (AST/SGOT) 305H, Alanine Aminotransferase (ALT/SGPT) 334H, Alkaline Phosphatase 119H, Total Bilirubin 1.4H, Direct Bilirubin 1.0H, Total Protein 6.3L, Albumin 3.0L, Albumin/Globulin Ratio 0.91L, Thyroid Stimulating Hormone (TSH) 0.383, Salicylates Level 2.5L, Urine Amphetamines Screen NEGATIVE , Urine Benzodiazepines Screen NEGATIVE, Urine Opiates Screen NEGATIVE, Urine Methadone Screen NEGATIVE, Acetaminophen Level 3.1L, Urine Barbiturates Screen NEGATIVE, Urine Phencyclidine Screen NEGATIVE, Urine Cocaine Metabolite Screen NEGATIVE, Urine Cannabinoids Screen POSITIVEH, Ethyl Alcohol Level 0.057H CBC/BMP Laboratory Tests 02/12/17 15:40 Red Blood Count 4.25 L, Mean Corpuscular Volume 103.3 H, Mean Corpuscular Hemoglobin 36.0 H, Mean Corpuscular Hemoglobin Concent 34.9, Red Cell Distribution Width 13.9 Medications Scheduled (Incruse Ellipta) 62.5 Mcg/Inh Inh, 62.5 MCG INH DAILY for . , (Reported) HAS BEEN OUT FOR ABOUT 1 MONTH (Flonase Allergy Relief) 50 Mcg/Act Spr, 1 SPRAY NA DAILY for NASAL CONGESTION, (Reported) Amlodipine Besylate (Amlodipine Besylate) 5 Mg Tab, 5 MG PO BID for BLOOD PRESSURE, (Reported) Aspirin (Aspirin) 81 Mg Tab, 81 MG PO DAILY for PROPHYLAXIS, (Reported) Cetirizine HCl (Cetirizine HCl) 10 Mg Tab, 10 MG PO DAILY for ALLERGIES, ( Reported) Folic Acid (Folic Acid) 1 Mg Tab, 1 MG PO DAILY for . , (Reported) Furosemide (Lasix) 20 Mg Tab, 20 MG PO BID for . , (Reported) Gabapentin (Gabapentin) 300 Mg Cap, 300 MG PO BID for . , (Reported) Gabapentin (Gabapentin) 300 Mg Cap, 600 MG PO QHS for . , (Reported) Metoprolol Tartrate (Metoprolol Tartrate) 25 Mg Tab, 25 MG PO BID for BLOOD PRESSURE, (Reported) Multivitamins *[facility] STOCKED* (Thera M Plus *[facility] STOCKED*) 1 Tab Tab, 1 TAB PO DAILY for SUPPLEMENT, (Reported) Omeprazole (Omeprazole) 20 Mg Cap, 20 MG PO DAILY for GERD, (Reported) Potassium Chloride (Klor-Con M20) 20 Meq Tabcr, 20 MEQ PO BID for KCL DEFICIENCY , (Reported) Quetiapine Fumerate (Seroquel) 400 Mg Tab, 400 MG PO QHS for . , (Reported) Spironolactone (Spironolactone) 25 Mg Tab, 25 MG PO DAILY for . , (Reported) Venlafaxine HCl (Venlafaxine HCl ER) 75 Mg Cap, 225 MG PO DAILY for . , ( Reported) Scheduled PRN (Excedrin Extra Strength 250-250-65 mg) 1 Tab Tab, 2 TAB PO BID PRN for PAIN, ( Reported) Albuterol Sulfate (Ventolin Hfa) 200 Puff/8 Gm Aers, 2 PUFF INH QID PRN for SHORTNESS OF BREATH, (Reported) Albuterol Sulfate (Albuterol Sulfate) 2.5 Mg/3 Ml Nebu, 2.5 MG INH QID PRN for SHORTNESS OF BREATH, (Reported) MIXES WITH IPRATROPIUM IF REALLY NEEDED Ipratropium [place] (Ipratropium [place]) 0.5 Mg/2.5 Ml Soln, 0.5 MG INH QID PRN for SHORTNESS OF BREATH, (Reported) MIXES WITH ALBUTEROL IF REALLY NEEDED Allergies Coded Allergies: Bee Venom (Verified Allergy, Severe, ANAPHYLAXIS, 02/12/17) Fluconazole (Verified Allergy, Intermediate, REDNESS AND HIVES, 02/12/17) REDNESS ASSICIATED WUTH COMBO FLUCONAZOLE AND CEFPAHELIN QUESTIONABLE ALLERGY PER PATIENT 08/20/14 JENISE MCDONNELL MD February 13, 2017 15:09
[2017-02-13 18:00] VITALS: BP 129/71
--- NOTE | 2017-02-13 18:18 | CR.PDOC ---
[facility] Pain [facility] Consultation General Date of Consultation: 02/13/17 Consultation Report For: Jillian Guerra Chief Complaint The patient is a 51-year-old male admitted with a reason for visit of Unspecified Depressive Disorder. Pain management is asked to see for left ribs and upper abdominal pain History of Present Illness Donato Collier is a 51-year-old gentleman known to our practice with his last visit to the clinic on 07/21/2016. He has had a long-standing history of left upper quadrant abdominal and left rib pain status post multiple rib fractures and abdominal surgery. States that his pain has been slowly increasing over the last several months, but that the only medication he has been taking has been his gabapentin. He did come to the hospital for further evaluation and treatment of his increasing anxiety. He states he has not been drinking much alcohol at all, stating he has only had one beer in the last several days. Home Medications Scheduled (Incruse Ellipta) 62.5 Mcg/Inh Inh, 62.5 MCG INH DAILY for . , (Reported) HAS BEEN OUT FOR ABOUT 1 MONTH (Flonase Allergy Relief) 50 Mcg/Act Spr, 1 SPRAY NA DAILY for NASAL CONGESTION, (Reported) Amlodipine Besylate (Amlodipine Besylate) 5 Mg Tab, 5 MG PO BID for BLOOD PRESSURE, (Reported) Aspirin (Aspirin) 81 Mg Tab, 81 MG PO DAILY for PROPHYLAXIS, (Reported) Cetirizine HCl (Cetirizine HCl) 10 Mg Tab, 10 MG PO DAILY for ALLERGIES, ( Reported) Folic Acid (Folic Acid) 1 Mg Tab, 1 MG PO DAILY for . , (Reported) Furosemide (Lasix) 20 Mg Tab, 20 MG PO BID for . , (Reported) Gabapentin (Gabapentin) 300 Mg Cap, 300 MG PO BID for . , (Reported) Gabapentin (Gabapentin) 300 Mg Cap, 600 MG PO QHS for . , (Reported) Metoprolol Tartrate (Metoprolol Tartrate) 25 Mg Tab, 25 MG PO BID for BLOOD PRESSURE, (Reported) Multivitamins *[facility] STOCKED* (Thera M Plus *[facility] STOCKED*) 1 Tab Tab, 1 TAB PO DAILY for SUPPLEMENT, (Reported) Omeprazole (Omeprazole) 20 Mg Cap, 20 MG PO DAILY for GERD, (Reported) Potassium Chloride (Klor-Con M20) 20 Meq Tabcr, 20 MEQ PO BID for KCL DEFICIENCY , (Reported) Quetiapine Fumerate (Seroquel) 400 Mg Tab, 400 MG PO QHS for . , (Reported) Spironolactone (Spironolactone) 25 Mg Tab, 25 MG PO DAILY for . , (Reported) Venlafaxine HCl (Venlafaxine HCl ER) 75 Mg Cap, 225 MG PO DAILY for . , ( Reported) Scheduled PRN (Excedrin Extra Strength 250-250-65 mg) 1 Tab Tab, 2 TAB PO BID PRN for PAIN, ( Reported) Albuterol Sulfate (Ventolin Hfa) 200 Puff/8 Gm Aers, 2 PUFF INH QID PRN for SHORTNESS OF BREATH, (Reported) Albuterol Sulfate (Albuterol Sulfate) 2.5 Mg/3 Ml Nebu, 2.5 MG INH QID PRN for SHORTNESS OF BREATH, (Reported) MIXES WITH IPRATROPIUM IF REALLY NEEDED Ipratropium [place] (Ipratropium [place]) 0.5 Mg/2.5 Ml Soln, 0.5 MG INH QID PRN for SHORTNESS OF BREATH, (Reported) MIXES WITH ALBUTEROL IF REALLY NEEDED Allergies Coded Allergies: Bee Venom (Verified Allergy, Severe, ANAPHYLAXIS, 02/12/17) Fluconazole (Verified Allergy, Intermediate, REDNESS AND HIVES, 02/12/17) REDNESS ASSICIATED WUTH COMBO FLUCONAZOLE AND CEFPAHELIN QUESTIONABLE ALLERGY PER PATIENT 08/20/14 Past Medical History Medical History Past medical history includes COPD and emphysema, chronic hepatitis C following with Dr. Mcgrath, anxiety, depression and bipolar disorder, hypertension, obesity Social History Social History Lives alone. States has been using minimal alcohol. Has history of marijuana use. Review of Systems Subjective HEENT: Reports: nose congestion, difficulty swallowing, other (raspy voice) Skin: Reports: dryness, bruising Pulmonary: Reports: cough, shortness of breath, wheezing, dyspnea Cardiovascular: Reports: edema, Denies: chest pain, palpitations Gastrointestinal: Reports: normal bowel movements, abdominal pain (significant right upper quadrant abdominal pain), other (abdominal bloating), Denies: loss of bowel control Genitourinary: Denies: dysuria, hematuria, loss of bladder control Hematologic: Reports: easy bruising, other (history of hepatitis C) Neurological: Reports: seizures (denies) Psych: Reports: mood normal, anxiety (extreme anxiety reported), Denies: thoughts of self harm Physical Examination Physical Examination Vital Signs/I&O Vital Signs Date Time Temp Pulse Resp B/P (MAP) Pulse Ox O2 Delivery O2 Flow Rate FiO2 02/13/17 17:35 16 02/13/17 09:46 70 02/13/17 08:40 121/77 02/13/17 06:39 96.6 02/12/17 17:11 94 02/12/17 15:13 Room Air General Exam: Positive: alert, attentive, talkative, oriented times three ENT EXAM: Positive: other (raspy voice, sclera icteric) Neck Exam: Negative: Lymphadenopathy, Thyromegaly Chest Exam: Positive: Wheezing, Diminished, Other (tender with palpation over the lower rib and intercostal spaces from midaxillary line to the sternum.), Decreased resp. excursion Heart Exam: Positive: Regular rate and rhythm Abdominal Exam: Positive: Other (abdomen is firm, distended. Exquisite was tender along the left upper quadrant incision.) Extremity Exam: Positive: Edema (2+ bilateral lower extremities) Skin Exam: Positive: Warm, Dry, Negative: Rashes, Lesions Neuro Exam: Positive: Muscle Strength U/L Ext., Normal Tone, Reflexes 2+ Psych Exam: Positive: Mental status NL, Mood NL, Alert and oriented x [address] Studies CT scan of the abdomen and pelvis without IV contrast completed on 02/10/2017 demonstrates that he infiltration to the liver with a 3 cm stable benign hemangioma. No ascites, no free air. No adenopathy surrounding musculoskeletal structures demonstrate multiple bilateral rib fractures and postsurgical changes at the left lateral chest wall. Bilateral hip prosthesis is also noted. Assessment 1. Left intercostal neuralgia. 2. 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 3. Left upper quadrant abdominal distention and probable hernia. 4. Multiple medical problems including history of chronic hepatitis C, elevated liver enzymes, history of polysubstance use, COPD and emphysema, obesity Recommendation and Plan Currently Donato is being given small doses of Percocet which she is finding helpful. This is not a good medicine for him to be on at home and he is understanding of that. Would have him continue with his gabapentin as Thaddeus ordered. Would recommend that he come back to the clinic and we look to do some trigger point injections versus scar neuroma to the painful area. We'll plan to see him as outpatient. Thank you Jillian CONNOR , for allowing us to participate in the care of your patient, Donato Collier. Should you have any questions we will be glad to discuss this with you at any time please contact us here at the pain center at [phone]. Zoe Correa February 13, 2017 18:18
[2017-02-13] MEDS: oxyCODONE 5MG TAB PO PRN (20:06)
[2017-02-13] MEDS: QUEtiapine FUMARATE 200 MG TAB PO SCH (20:07)
[2017-02-13] MEDS: IPRATROPIUM 0.5MG/ALBUTEROL 2.5MG INH SOL UD 3ML (DUONEB)(J7620) NEB PRN (21:33)
[2017-02-14] MEDS: oxyCODONE 5MG TAB PO PRN ×3 (05:28→17:59)
[2017-02-14] MEDS: MAALOX 30 ML SUSP *UDC PO PRN (05:49)
[2017-02-14 06:30] VITALS: BP 116/65
[2017-02-14 08:22] LABS: ALBUMIN 2.9 GM/DL (3.2-5.2); ALBUMIN/GLOBULIN RATIO 0.94 (1.00-1.93); ALKALINE PHOSPHATASE 131 U/L (45-117); ALT/SGPT 287 U/L (12-78); ANION GAP 7 MEQ/L (8-16); AST/SGOT 215 U/L (15-37); BILIRUBIN,TOTAL 0.8 MG/DL (0.2-1.0); BLOOD UREA NITROGEN 8 MG/DL (7-18); CALCIUM LEVEL 8.4 MG/DL (8.5-10.1); CARBON DIOXIDE LEVEL 29 MEQ/L (21-32); CHLORIDE LEVEL 100 MEQ/L (98-107); CREATININE FOR GFR 0.89 MG/DL (0.70-1.30); GLOMERULAR FILTRATION RATE > 60.0 (>56); GLUCOSE, FASTING 280 MG/DL (70-105); POTASSIUM SERUM 3.9 MEQ/L (3.5-5.1); SODIUM LEVEL 136 MEQ/L (136-145)
[2017-02-14] MEDS: ADVAIR DISKUS 250/50 INH PWD INH SCH ×2 (09:31→20:49)
[2017-02-14] MEDS: FUROSEMIDE 20 MG TAB PO SCH ×2 (09:32→16:40)
[2017-02-14] MEDS: CETIRIZINE (ZyrTEC) 10 MG TAB PO SCH (09:32)
[2017-02-14] MEDS: ASPIRIN 81 MG ENTERIC TAB PO SCH (09:32)
[2017-02-14] MEDS: OMEPRAZOLE 20 MG CAP PO SCH (09:33)
[2017-02-14] MEDS: amLODIPine 5 MG TAB PO SCH ×2 (09:33→20:51)
[2017-02-14] MEDS: MULTIVITAMINS/MINERALS THERAP 1 TAB PO SCH (09:33)
[2017-02-14] MEDS: VENLAFAXINE **XR** 75MG CAPSULE PO SCH (09:34)
[2017-02-14] MEDS: GABAPENTIN 300 MG CAP PO SCH ×3 (09:35→20:50)
[2017-02-14] MEDS: POTASSIUM CHLORIDE 10 MEQ SR TABLET PO SCH ×2 (09:36→20:50)
[2017-02-14] MEDS: SPIRONOLACTONE 25 MG TAB PO SCH (09:38)
[2017-02-14] MEDS: FOLIC ACID 1 MG TAB PO SCH (09:38)
[2017-02-14] MEDS: NICOTINE 21MG/24HR 1 EA TRANSDERMAL TD SCH (09:39)
[2017-02-14] MEDS: METOPROLOL TART 25 MG TABLET PO SCH ×2 (09:40→20:50)
[2017-02-14 18:00] VITALS: BP 129/73
[2017-02-14] MEDS: IBUPROFEN 600 MG TAB PO PRN (19:04)
--- NOTE | 2017-02-14 19:52 | IPN ---
DATE: 02/14/2017 51-year-old male on his second day at the inpatient mental health unit after he came to the emergency room stating that he felt suicidal after he received a 30 day notice to leave his apartment. He was brought by his child welfare caseworker to the emergency room and he said that he felt extremely depressed and had thoughts about harming himself. According to history, his landlord walked into his room and realized that his place was very messy and for that reason he decided to ask him to leave. He says that he is not messy, that he is not filthy, just that he has a lot of things and his apartment is cluttered. But, he states "I am not a hoarder." The patient has medication seeking behavior, he has been at the unit several times and he is well known for seeking benzodiazepines and pain medications. On 02/12, the pain management team came to see him, recommended him some Percocet, and it was discontinued on 02/13. He has complaining of severe anxiety and that he is not able to sleep and for that reason today it was ordered Rozerem 8 mg by mouth at bedtime for him to help him with insomnia. The patient was seen today at the office, dressed in hospital clothes, with good eye contact, slight shortness of breath, disheveled, cooperative with medical seeking behavior. He is alert and oriented times three. His speech is normal, his thought process is intact, his thought content is redundant about his housing problem. His recent and remote memory are good, his attention and concentration are fair, his judgment, insight and impulse control are limited. He is not actively psychotic, he denies homicidal thoughts, suicidal thoughts, visual or auditory hallucinations or thought delusions. The patient has substance abuse besides his anxiety and depression, and this has been an ongoing problem. He seems to have poor control over his impulses about drinking and using marijuana. This afternoon, he received education about to control his thoughts, how to avoid negative thinking in order to be able to overcome symptoms of depression. We will follow up. SERGEY
[2017-02-14] MEDS: RAMELTEON 8 MG TAB (ROZEREM) PO SCH (20:50)
[2017-02-14] MEDS: QUEtiapine FUMARATE 200 MG TAB PO SCH (20:50)
[2017-02-15] MEDS: oxyCODONE 5MG TAB PO PRN ×4 (00:01→18:52)
[2017-02-15] MEDS: IPRATROPIUM 0.5MG/ALBUTEROL 2.5MG INH SOL UD 3ML (DUONEB)(J7620) NEB PRN ×2 (00:28→14:54)
[2017-02-15] MEDS: IBUPROFEN 600 MG TAB PO PRN ×2 (06:19→21:59)
[2017-02-15 06:45] VITALS: BP 127/79
[2017-02-15 07:35] LABS: ALBUMIN 2.9 GM/DL (3.2-5.2); ALBUMIN/GLOBULIN RATIO 0.94 (1.00-1.93); ALKALINE PHOSPHATASE 131 U/L (45-117); ALT/SGPT 290 U/L (12-78); ANION GAP 5 MEQ/L (8-16); AST/SGOT 244 U/L (15-37); BLOOD UREA NITROGEN 9 MG/DL (7-18); CALCIUM LEVEL 8.1 MG/DL (8.5-10.1); CARBON DIOXIDE LEVEL 30 MEQ/L (21-32); CHLORIDE LEVEL 104 MEQ/L (98-107); CREATININE FOR GFR 0.84 MG/DL (0.70-1.30); GLOMERULAR FILTRATION RATE > 60.0 (>56); GLUCOSE, FASTING 248 MG/DL (70-105); POTASSIUM SERUM 4.1 MEQ/L (3.5-5.1); SODIUM LEVEL 139 MEQ/L (136-145)
[2017-02-15] MEDS: VENLAFAXINE **XR** 75MG CAPSULE PO SCH (08:16)
[2017-02-15] MEDS: NICOTINE 21MG/24HR 1 EA TRANSDERMAL TD SCH (08:16)
[2017-02-15] MEDS: MULTIVITAMINS/MINERALS THERAP 1 TAB PO SCH (08:17)
[2017-02-15] MEDS: METOPROLOL TART 25 MG TABLET PO SCH ×2 (08:17→21:59)
[2017-02-15] MEDS: FUROSEMIDE 20 MG TAB PO SCH ×2 (08:17→17:31)
[2017-02-15] MEDS: GABAPENTIN 300 MG CAP PO SCH ×3 (08:17→22:00)
[2017-02-15] MEDS: SPIRONOLACTONE 25 MG TAB PO SCH (08:17)
[2017-02-15] MEDS: ASPIRIN 81 MG ENTERIC TAB PO SCH (08:17)
[2017-02-15] MEDS: POTASSIUM CHLORIDE 10 MEQ SR TABLET PO SCH ×2 (08:17→21:58)
[2017-02-15] MEDS: CETIRIZINE (ZyrTEC) 10 MG TAB PO SCH (08:17)
[2017-02-15] MEDS: OMEPRAZOLE 20 MG CAP PO SCH (08:18)
[2017-02-15] MEDS: amLODIPine 5 MG TAB PO SCH ×2 (08:18→21:58)
[2017-02-15] MEDS: FOLIC ACID 1 MG TAB PO SCH (08:18)
[2017-02-15] MEDS: ADVAIR DISKUS 250/50 INH PWD INH SCH ×2 (08:18→22:00)
[2017-02-15] MEDS: MAALOX 30 ML SUSP *UDC PO PRN (14:27)
--- NOTE | 2017-02-15 14:30 | MHIPNPDOC ---
[facility] Progress Note Progress Note DATE OF SERVICE: 02/15/17 INTERVAL HISTORY: Medication Side effects: Patient states he was able to sleep better last night after medication was changed. Behavior: He hasn't been violent or aggressive, has complied with rules, complies with medications, interacts appropriately with peers and staff Group Attendance: Has been attending groups Psychiatric Symptom change: Has been able to sleep better VITAL SIGNS: See below. NEW TEST RESULTS: See below CURRENT MEDICATIONS: See below. MENTAL STATUS EXAMINATION: General: Dressed in hospital clothes, disheveled, good eye contact, cooperative Speech: Normal Thought processes: Intact Thought content: Redundant about anxiety. Abstract reasoning, and computation: Fair Description of associations: Not loose Description of abnormal or psychotic thoughts: Denies homicidal ideation, denies auditory and visual hallucinations, denies paranoid, persecutory, grandiose delusional thoughts but admits to passive suicidal ideation Judgment: Poor Insight: Poor Orientation: Oriented 3 Recent and remote memory: Intact Attention span and concentration: Fair Fund of knowledge: Adequate Mood: "An anxious"' Affect: Slightly anxious DIAGNOSES: 1. Major depressive disorder. 2. Generalized anxiety disorder. 3. Insomnia. ASSESSMENT: Patient seems less anxious than yesterday although he continues seeking for stronger medications such as benzodiazepines and pain killers. His mood is slightly brighter. MANAGEMENT PLAN: Medications: Will continue with current medications Psychotherapy: Will continue to encourage him to attend groups Social: -- Misc: -- Disposition: The patient is to stay a little bit longer to decrease his levels of anxiety and then he will be able to go home. His outsole caser is working on his housing issues. TIME SPENT: 25 minutes. Vital Signs Vital Signs Date Time Temp Pulse Resp B/P (MAP) Pulse Ox O2 Delivery O2 Flow Rate FiO2 02/15/17 13:40 18 02/15/17 08:17 81 131/74 02/15/17 06:45 97.5 02/13/17 18:00 Room Air 02/12/17 17:11 94 Laboratory Data 24H Labs Laboratory Tests 2 02/15/17 06:55: Anion Gap 5L, Glomerular Filtration Rate > 60.0, Blood Urea Nitrogen 9, Creatinine 0.84, Sodium Level 139, Potassium Level 4.1, Chloride Level 104, Carbon Dioxide Level 30, Calcium Level 8.1L, Aspartate Amino Transf (AST/SGOT) 244H, Alanine Aminotransferase (ALT/SGPT) 290H, Alkaline Phosphatase 131H, Total Bilirubin 1.0, Total Protein 6.0L, Albumin 2.9L, Albumin/Globulin Ratio 0.94L CBC/BMP Laboratory Tests 02/15/17 06:55 Calcium Level 8.1 L, Aspartate Amino Transf (AST/SGOT) 244 H, Alanine Aminotransferase (ALT/SGPT) 290 H, Alkaline Phosphatase 131 H, Total Bilirubin 1.0, Total Protein 6.0 L, Albumin 2.9 L Current Medications Current Medications Acetaminophen (Tylenol Tab) 650 mg Q6HP PRN PO HEADACHE or DISCOMFORT; Start at 17:15; Stop 02/12/17 at 18:47; Status DC Al Hydrox/Mg Hydrox/Simethicone (Mylanta) 30 ml Q4HP PRN PO HEARTBURN/ INDIGESTION Last administered on 02/14/17 05:49; Start 02/12/17 at 17:15; Stop 03/14/17 at 17:14 Albuterol Sulfate (Proventil, Ventolin Hfa) 1 puff Q6HP PRN INH SHORTNESS OF BREATH Last administered on 02/12/17 21:33; Start 02/12/17 at 17:15; Stop 03/14 at 17:14 Albuterol/ Ipratropium (Duoneb (Ipr 0.5mg/Alb 2.5mg)) 3 ml Q2HP PRN NEB SOB/ WHEEZING Last administered on 02/15/17 00:28; Start 02/13/17 at 08:45; Stop at 08:44 Albuterol/ Ipratropium (Duoneb (Ipr 0.5mg/Alb 2.5mg)) 3 ml RQ6H NEB Last administered on 02/13/17 08:00; Start 02/13/17 at 08:00; Stop 02/13/17 at 11:03 ; Status DC Amlodipine Besylate (Norvasc) 5 mg BID PO Last administered on 02/15/17 08:18 ; Start 02/12/17 at 21:00; Stop 03/14/17 at 20:59 Aspirin (Ecotrin) 81 mg DAILY PO Last administered on 02/15/17 08:17; Start at 09:00; Stop 03/15/17 at 08:59 Cetirizine HCl (ZyrTEC) 10 mg DAILY PO Last administered on 02/15/17 08:17; Start 02/13/17 at 09:00; Stop 03/15/17 at 08:59 Folic Acid (Folic Acid) 1 mg DAILY PO Last administered on 02/15/17 08:18; Start 02/13/17 at 09:00; Stop 03/15/17 at 08:59 Furosemide (Lasix) 20 mg BID@0900,1700 PO Last administered on 02/15/17 08:17 ; Start 02/12/17 at 17:00; Stop 03/14/17 at 16:59 Gabapentin (Neurontin) 300 mg BID@0900,1200 PO Last administered on 02/15/17 12:29; Start 02/13/17 at 09:00; Stop 03/15/17 at 08:59 Gabapentin (Neurontin) 600 mg QHS PO Last administered on 02/14/17 20:50; Start 02/12/17 at 21:00; Stop 03/14/17 at 20:59 Home Med (Med Rec Complete!) ASDIRECTED XX ; Start 02/12/17 at 17:45; Stop at 17:57; Status DC Ibuprofen (Advil) 600 mg Q6HP PRN PO MODERATE PAIN (PS 5-7) Last administered on 02/15/17 06:19; Start 02/12/17 at 18:45; Stop 03/14/17 at 18:44 Ipratropium [place] (Atrovent 0.02%) 0.5 mg QIDP PRN INH SHORTNESS OF BREATH; Start 02/12/17 at 17:15; Stop 02/13/17 at 08:43; Status DC Magnesium Hydroxide (Milk Of Magnesia) 30 ml DAILYPRN PRN PO CONSTIPATION; Start 02/12/17 at 17:15; Stop 03/14/17 at 17:14 Metoprolol Tartrate (Lopressor) 25 mg BID PO Last administered on 02/15/17 08: 17; Start 02/12/17 at 21:00; Stop 03/14/17 at 20:59 Multivitamins (Theragram-M) 1 tab DAILY PO Last administered on 02/15/17 08:17 ; Start 02/13/17 at 09:00; Stop 03/15/17 at 08:59 Nicotine (Nicoderm Cq 21mg) 1 patch DAILY TD Last administered on 02/15/17 08: 16; Start 02/13/17 at 09:00; Stop 03/15/17 at 08:59 Omeprazole (PriLOSEC) 20 mg DAILY PO Last administered on 02/15/17 08:18; Start 02/13/17 at 09:00; Stop 03/15/17 at 08:59 Oxycodone HCl (Roxicodone, Oxyir) 5 mg Q6HP PRN PO PAIN Last administered on 12:45; Start 02/13/17 at 18:30; Stop 02/20/17 at 18:29 Oxycodone/ Acetaminophen (Percocet 5mg/ 325mg Tablet) 1 tab Q6HP PRN PO MILD/ MODERATE PAIN (PS 1-7) Last administered on 02/13/17 16:47; Start 02/12/17 at 18:45; Stop 02/13/17 at 18:21; Status DC Potassium Chloride (Micro-K Extencaps) 20 meq BID PO Last administered on 08:17; Start 02/12/17 at 21:00; Stop 03/14/17 at 20:59 Quetiapine Fumarate (SEROquel) 400 mg QHS PO Last administered on 02/14/17 20: 50; Start 02/12/17 at 21:00; Stop 03/14/17 at 20:59 Ramelteon (Rozerem) 8 mg QHS PO Last administered on 02/14/17 20:50; Start at 21:00; Stop 03/16/17 at 20:59 Salmeterol Xinafoate/ Fluticasone (Advair Diskus 250/50) 1 puff BID INH Last administered on 02/15/17 08:18; Start 02/13/17 at 09:00; Stop 03/15/17 at 08:59 Spironolactone (Aldactone) 25 mg DAILY PO Last administered on 02/15/17 08:17 ; Start 02/13/17 at 09:00; Stop 03/15/17 at 08:59 Venlafaxine HCl (Effexor Xr) 225 mg DAILY PO Last administered on 09:34; Start 02/13/17 at 09:00; Stop 02/14/17 at 16:59; Status DC Venlafaxine HCl (Effexor Xr) 300 mg DAILY PO Last administered on 08:16; Start 02/15/17 at 09:00; Stop 03/17/17 at 08:59 Allergies Coded Allergies: Bee Venom (Verified Allergy, Severe, ANAPHYLAXIS, 02/12/17) Fluconazole (Verified Allergy, Intermediate, REDNESS AND HIVES, 02/12/17) REDNESS ASSICIATED WUTH COMBO FLUCONAZOLE AND CEFPAHELIN QUESTIONABLE ALLERGY PER PATIENT 08/20/14 JENISE MCDONNELL MD February 15, 2017 14:30
[2017-02-15 18:00] VITALS: BP 125/73
[2017-02-15] MEDS: QUEtiapine FUMARATE 200 MG TAB PO SCH (22:00)
[2017-02-15] MEDS: RAMELTEON 8 MG TAB (ROZEREM) PO SCH (22:03)
[2017-02-16] MEDS: oxyCODONE 5MG TAB PO PRN ×3 (02:04→21:23)
[2017-02-16 06:21] VITALS: BP 112/68
[2017-02-16] MEDS: FOLIC ACID 1 MG TAB PO SCH (07:53)
[2017-02-16] MEDS: ADVAIR DISKUS 250/50 INH PWD INH SCH ×2 (07:53→21:19)
[2017-02-16] MEDS: FUROSEMIDE 20 MG TAB PO SCH ×2 (07:54→16:06)
[2017-02-16] MEDS: ASPIRIN 81 MG ENTERIC TAB PO SCH (07:54)
[2017-02-16] MEDS: METOPROLOL TART 25 MG TABLET PO SCH ×2 (07:55→21:22)
[2017-02-16] MEDS: OMEPRAZOLE 20 MG CAP PO SCH (07:55)
[2017-02-16] MEDS: GABAPENTIN 300 MG CAP PO SCH ×3 (07:55→21:20)
[2017-02-16] MEDS: CETIRIZINE (ZyrTEC) 10 MG TAB PO SCH (07:56)
[2017-02-16] MEDS: MULTIVITAMINS/MINERALS THERAP 1 TAB PO SCH (07:56)
[2017-02-16] MEDS: POTASSIUM CHLORIDE 10 MEQ SR TABLET PO SCH ×2 (07:56→21:23)
[2017-02-16] MEDS: VENLAFAXINE **XR** 75MG CAPSULE PO SCH (07:57)
[2017-02-16] MEDS: amLODIPine 5 MG TAB PO SCH ×2 (07:57→21:26)
[2017-02-16] MEDS: SPIRONOLACTONE 25 MG TAB PO SCH (07:59)
[2017-02-16] MEDS: NICOTINE 21MG/24HR 1 EA TRANSDERMAL TD SCH (09:11)
[2017-02-16 18:00] VITALS: BP 117/74
[2017-02-16] MEDS: RAMELTEON 8 MG TAB (ROZEREM) PO SCH (21:19)
[2017-02-16] MEDS: QUEtiapine FUMARATE 200 MG TAB PO SCH (21:20)
[2017-02-16] MEDS: IBUPROFEN 600 MG TAB PO PRN (21:21)
[2017-02-17] MEDS: IBUPROFEN 600 MG TAB PO PRN ×2 (05:39→21:48)
[2017-02-17] MEDS: oxyCODONE 5MG TAB PO PRN ×3 (05:40→21:45)
[2017-02-17 06:49] VITALS: BP 113/76
[2017-02-17] MEDS: ADVAIR DISKUS 250/50 INH PWD INH SCH ×2 (08:25→21:47)
[2017-02-17] MEDS: METOPROLOL TART 25 MG TABLET PO SCH ×2 (08:25→21:46)
[2017-02-17] MEDS: GABAPENTIN 300 MG CAP PO SCH ×3 (08:25→21:46)
[2017-02-17] MEDS: MULTIVITAMINS/MINERALS THERAP 1 TAB PO SCH (08:25)
[2017-02-17] MEDS: SPIRONOLACTONE 25 MG TAB PO SCH (08:25)
[2017-02-17] MEDS: VENLAFAXINE **XR** 75MG CAPSULE PO SCH (08:26)
[2017-02-17] MEDS: FOLIC ACID 1 MG TAB PO SCH (08:26)
[2017-02-17] MEDS: POTASSIUM CHLORIDE 10 MEQ SR TABLET PO SCH ×2 (08:26→21:46)
[2017-02-17] MEDS: FUROSEMIDE 20 MG TAB PO SCH ×2 (08:26→16:04)
[2017-02-17] MEDS: ASPIRIN 81 MG ENTERIC TAB PO SCH (08:26)
[2017-02-17] MEDS: OMEPRAZOLE 20 MG CAP PO SCH (08:27)
[2017-02-17] MEDS: NICOTINE 21MG/24HR 1 EA TRANSDERMAL TD SCH (08:27)
[2017-02-17] MEDS: CETIRIZINE (ZyrTEC) 10 MG TAB PO SCH (08:27)
[2017-02-17] MEDS: amLODIPine 5 MG TAB PO SCH ×2 (08:27→21:47)
[2017-02-17 18:00] VITALS: BP 147/85
[2017-02-17] MEDS: RAMELTEON 8 MG TAB (ROZEREM) PO SCH (21:44)
[2017-02-17 21:46] VITALS: BP 122/64
[2017-02-17] MEDS: QUEtiapine FUMARATE 200 MG TAB PO SCH (21:47)
[2017-02-18] MEDS: IBUPROFEN 600 MG TAB PO PRN ×2 (05:50→21:14)
[2017-02-18] MEDS: oxyCODONE 5MG TAB PO PRN ×3 (05:50→21:12)
[2017-02-18 06:00] VITALS: BP 112/70
[2017-02-18] MEDS: FUROSEMIDE 20 MG TAB PO SCH ×2 (08:24→17:06)
[2017-02-18] MEDS: MULTIVITAMINS/MINERALS THERAP 1 TAB PO SCH (08:24)
[2017-02-18] MEDS: CETIRIZINE (ZyrTEC) 10 MG TAB PO SCH (08:24)
[2017-02-18] MEDS: FOLIC ACID 1 MG TAB PO SCH (08:24)
[2017-02-18] MEDS: SPIRONOLACTONE 25 MG TAB PO SCH (08:24)
[2017-02-18] MEDS: ADVAIR DISKUS 250/50 INH PWD INH SCH ×2 (08:24→21:11)
[2017-02-18] MEDS: ASPIRIN 81 MG ENTERIC TAB PO SCH (08:24)
[2017-02-18] MEDS: POTASSIUM CHLORIDE 10 MEQ SR TABLET PO SCH ×2 (08:24→21:13)
[2017-02-18] MEDS: NICOTINE 21MG/24HR 1 EA TRANSDERMAL TD SCH (08:24)
[2017-02-18] MEDS: GABAPENTIN 300 MG CAP PO SCH ×3 (08:24→21:13)
[2017-02-18] MEDS: OMEPRAZOLE 20 MG CAP PO SCH (08:24)
[2017-02-18] MEDS: VENLAFAXINE **XR** 75MG CAPSULE PO SCH (08:24)
[2017-02-18 08:46] VITALS: BP 112/79
[2017-02-18 08:48] VITALS: BP 112/79
[2017-02-18] MEDS: amLODIPine 5 MG TAB PO SCH ×2 (09:25→21:13)
[2017-02-18] MEDS: METOPROLOL TART 25 MG TABLET PO SCH ×2 (09:25→21:12)
[2017-02-18 18:00] VITALS: BP 115/70
--- NOTE | 2017-02-18 19:52 | IPN ---
DATE: 02/18/2017 Evaluated 51-year-old male with history of unspecified depressive disorder who was admitted to the inpatient mental health unit on 02/12/2017, with history of suicidal ideation and increased anxiety because he received a 30 day notice for him to leave his apartment. According to history, patient has been several times at the inpatient mental health unit with always complaining of pain and history of medication seeking behavior (benzodiazepine and pain medication). MENTAL STATUS EXAMINATION: The patient was seen sleepy, cooperative, with poor eye contact, poor hygiene, disheveled, dressed in hospital clothes. His speech was soft spoken and sparse. His mood and affect were normal, euthymic. No anxiety or depression were observed today. His thought process is intact, his thought content is negative for suicidal ideation, negative for homicidal ideation, negative for auditory or visual hallucinations, and negative for delusional thoughts. His memory, recent and remote, are fair, his attention and concentration are fair. His insight and judgment are poor. His impulse control has been fair while he has been at the inpatient mental health unit. The patient denies current suicidal or homicidal thoughts. The pain management team has been taking care of him with oxycodone that he is supposed to receive until 02/20/2017, although this author's opinion about that is that he should have never received that type of medication because that is exactly what he comes in seeking at the hospital. In regards to his anxiety levels, they are lower at this time, he continues to be mildly to moderately depressed but he is not severely depressed, has no suicidal thoughts, and for that reason tomorrow we will make arrangements with psychiatric social worker (home health care case manager) to evaluate the possibility of discharge. At the time of this evaluation, the patient was stable and was not a danger to himself or others. Will followup.
[2017-02-18] MEDS: RAMELTEON 8 MG TAB (ROZEREM) PO SCH (21:13)
[2017-02-18] MEDS: QUEtiapine FUMARATE 200 MG TAB PO SCH (21:14)
[2017-02-19] MEDS: oxyCODONE 5MG TAB PO PRN ×3 (06:02→18:34)
[2017-02-19] MEDS: IBUPROFEN 600 MG TAB PO PRN ×3 (06:03→18:35)
[2017-02-19 06:22] VITALS: BP 102/64
[2017-02-19 07:00] LABS: ALBUMIN 2.9 GM/DL (3.2-5.2); ALBUMIN/GLOBULIN RATIO 0.81 (1.00-1.93); ALKALINE PHOSPHATASE 167 U/L (45-117); ALT/SGPT 429 U/L (12-78); ANION GAP 7 MEQ/L (8-16); AST/SGOT 279 U/L (15-37); BILIRUBIN,TOTAL 1.3 MG/DL (0.2-1.0); BLOOD UREA NITROGEN 11 MG/DL (7-18); CALCIUM LEVEL 8.2 MG/DL (8.5-10.1); CARBON DIOXIDE LEVEL 26 MEQ/L (21-32); CHLORIDE LEVEL 106 MEQ/L (98-107); GLOMERULAR FILTRATION RATE > 60.0 (>56); GLUCOSE, FASTING 220 MG/DL (70-105); POTASSIUM SERUM 4.4 MEQ/L (3.5-5.1); SODIUM LEVEL 139 MEQ/L (136-145); TOTAL PROTEIN 6.5 GM/DL (6.4-8.2)
[2017-02-19] MEDS: GABAPENTIN 300 MG CAP PO SCH ×3 (08:46→21:15)
[2017-02-19] MEDS: OMEPRAZOLE 20 MG CAP PO SCH (08:46)
[2017-02-19] MEDS: MULTIVITAMINS/MINERALS THERAP 1 TAB PO SCH (08:46)
[2017-02-19] MEDS: FOLIC ACID 1 MG TAB PO SCH (08:46)
[2017-02-19] MEDS: FUROSEMIDE 20 MG TAB PO SCH ×2 (08:46→17:02)
[2017-02-19] MEDS: VENLAFAXINE **XR** 75MG CAPSULE PO SCH (08:46)
[2017-02-19] MEDS: ASPIRIN 81 MG ENTERIC TAB PO SCH (08:46)
[2017-02-19] MEDS: ADVAIR DISKUS 250/50 INH PWD INH SCH ×2 (08:46→21:16)
[2017-02-19] MEDS: METOPROLOL TART 25 MG TABLET PO SCH ×2 (08:46→21:15)
[2017-02-19] MEDS: amLODIPine 5 MG TAB PO SCH ×2 (08:47→21:16)
[2017-02-19] MEDS: POTASSIUM CHLORIDE 10 MEQ SR TABLET PO SCH ×2 (08:47→21:16)
[2017-02-19] MEDS: NICOTINE 21MG/24HR 1 EA TRANSDERMAL TD SCH (08:47)
[2017-02-19] MEDS: SPIRONOLACTONE 25 MG TAB PO SCH (08:47)
[2017-02-19] MEDS: CETIRIZINE (ZyrTEC) 10 MG TAB PO SCH (08:47)
[2017-02-19 18:18] VITALS: BP 98/58
[2017-02-19] MEDS: RAMELTEON 8 MG TAB (ROZEREM) PO SCH (21:15)
[2017-02-19] MEDS: QUEtiapine FUMARATE 200 MG TAB PO SCH (21:15)
--- NOTE | 2017-02-19 21:46 | MHIPNPDOC ---
[facility] Progress Note Progress Note DATE OF SERVICE: 02/19/17 HISTORY: Evaluated 51 year old man with history of depression and personal problems regarding housing problems. The patient has medical problems and he has been receiving PRN medications (Oxycodone) for pain as it was recommended by the Pain Management Team. As of tomorrow the patient wont be taking it anymore because he has problems with substance abuse and he has displayed medication seeking behavior. he was seen extremely sleepy, like yesterday, is hard for him to maintain his eyes opened, but cooperates with interview. Speech is soft,sparse. Mood is slightly anxious. Thought process is organized, thought content is positive for anxious thoughts regarding housing- Attention and concentration are fair, memory , recent and remote, are fair. Insight and judgment are poor, impulse control is fair. DIAGNOSES: 1. Major Depression 2. Substance abuse. 3. . ASSESSMENT: Pt. is less depressed, less anxious. If he continues like this, he could be discharged home soon. MANAGEMENT PLAN: As above. TIME SPENT: 25 minutes. Vital Signs Vital Signs Date Time Temp Pulse Resp B/P (MAP) Pulse Ox O2 Delivery O2 Flow Rate FiO2 02/19/17 21:16 132/76 02/19/17 19:12 20 02/19/17 18:18 97.1 70 02/18/17 08:48 95 Room Air Laboratory Data 24H Labs Laboratory Tests 2 02/19/17 06:23: Anion Gap 7L, Glomerular Filtration Rate > 60.0, Blood Urea Nitrogen 11, Creatinine 0.80, Sodium Level 139, Potassium Level 4.4, Chloride Level 106, Carbon Dioxide Level 26, Calcium Level 8.2L, Aspartate Amino Transf (AST/SGOT) 279H, Alanine Aminotransferase (ALT/SGPT) 429H, Alkaline Phosphatase 167H, Total Bilirubin 1.3H, Total Protein 6.5, Albumin 2.9L, Albumin/Globulin Ratio 0.81L CBC/BMP Laboratory Tests 02/19/17 06:23 Calcium Level 8.2 L, Aspartate Amino Transf (AST/SGOT) 279 H, Alanine Aminotransferase (ALT/SGPT) 429 H, Alkaline Phosphatase 167 H, Total Bilirubin 1.3 H, Total Protein 6.5, Albumin 2.9 L Current Medications Current Medications Acetaminophen (Tylenol Tab) 650 mg Q6HP PRN PO HEADACHE or DISCOMFORT; Start at 17:15; Stop 02/12/17 at 18:47; Status DC Al Hydrox/Mg Hydrox/Simethicone (Mylanta) 30 ml Q4HP PRN PO HEARTBURN/ INDIGESTION Last administered on 02/15/17 14:27; Start 02/12/17 at 17:15; Stop 03/14/17 at 17:14 Albuterol Sulfate (Proventil, Ventolin Hfa) 1 puff Q6HP PRN INH SHORTNESS OF BREATH Last administered on 02/12/17 21:33; Start 02/12/17 at 17:15; Stop 03/14 at 17:14 Albuterol/ Ipratropium (Duoneb (Ipr 0.5mg/Alb 2.5mg)) 3 ml Q2HP PRN NEB SOB/ WHEEZING Last administered on 02/15/17 14:54; Start 02/13/17 at 08:45; Stop at 08:44 Albuterol/ Ipratropium (Duoneb (Ipr 0.5mg/Alb 2.5mg)) 3 ml RQ6H NEB Last administered on 02/13/17 08:00; Start 02/13/17 at 08:00; Stop 02/13/17 at 11:03 ; Status DC Amlodipine Besylate (Norvasc) 5 mg BID PO Last administered on 02/19/17 21:16 ; Start 02/12/17 at 21:00; Stop 03/14/17 at 20:59 Aspirin (Ecotrin) 81 mg DAILY PO Last administered on 02/19/17 08:46; Start at 09:00; Stop 03/15/17 at 08:59 Cetirizine HCl (ZyrTEC) 10 mg DAILY PO Last administered on 02/19/17 08:47; Start 02/13/17 at 09:00; Stop 03/15/17 at 08:59 Folic Acid (Folic Acid) 1 mg DAILY PO Last administered on 02/19/17 08:46; Start 02/13/17 at 09:00; Stop 03/15/17 at 08:59 Furosemide (Lasix) 20 mg BID@0900,1700 PO Last administered on 02/19/17 17:02 ; Start 02/12/17 at 17:00; Stop 03/14/17 at 16:59 Gabapentin (Neurontin) 300 mg BID@0900,1200 PO Last administered on 02/19/17 11:45; Start 02/13/17 at 09:00; Stop 03/15/17 at 08:59 Gabapentin (Neurontin) 600 mg QHS PO Last administered on 02/19/17 21:15; Start 02/12/17 at 21:00; Stop 03/14/17 at 20:59 Home Med (Med Rec Complete!) ASDIRECTED XX ; Start 02/12/17 at 17:45; Stop at 17:57; Status DC Ibuprofen (Advil) 600 mg Q6HP PRN PO MODERATE PAIN (PS 5-7) Last administered on 02/19/17 18:35; Start 02/12/17 at 18:45; Stop 03/14/17 at 18:44 Ipratropium [place] (Atrovent 0.02%) 0.5 mg QIDP PRN INH SHORTNESS OF BREATH; Start 02/12/17 at 17:15; Stop 02/13/17 at 08:43; Status DC Magnesium Hydroxide (Milk Of Magnesia) 30 ml DAILYPRN PRN PO CONSTIPATION; Start 02/12/17 at 17:15; Stop 03/14/17 at 17:14 Metoprolol Tartrate (Lopressor) 25 mg BID PO Last administered on 02/19/17 21: 15; Start 02/12/17 at 21:00; Stop 03/14/17 at 20:59 Multivitamins (Theragram-M) 1 tab DAILY PO Last administered on 02/19/17 08:46 ; Start 02/13/17 at 09:00; Stop 03/15/17 at 08:59 Nicotine (Nicoderm Cq 21mg) 1 patch DAILY TD Last administered on 02/19/17 08: 47; Start 02/13/17 at 09:00; Stop 03/15/17 at 08:59 Omeprazole (PriLOSEC) 20 mg DAILY PO Last administered on 02/19/17 08:46; Start 02/13/17 at 09:00; Stop 03/15/17 at 08:59 Oxycodone HCl (Roxicodone, Oxyir) 5 mg Q6HP PRN PO PAIN Last administered on 18:34; Start 02/13/17 at 18:30; Stop 02/19/17 at 18:58; Status DC Oxycodone/ Acetaminophen (Percocet 5mg/ 325mg Tablet) 1 tab Q6HP PRN PO MILD/ MODERATE PAIN (PS 1-7) Last administered on 02/13/17 16:47; Start 02/12/17 at 18:45; Stop 02/13/17 at 18:21; Status DC Potassium Chloride (Micro-K Extencaps) 20 meq BID PO Last administered on 21:16; Start 02/12/17 at 21:00; Stop 03/14/17 at 20:59 Quetiapine Fumarate (SEROquel) 400 mg QHS PO Last administered on 02/19/17 21: 15; Start 02/12/17 at 21:00; Stop 03/14/17 at 20:59 Ramelteon (Rozerem) 8 mg QHS PO Last administered on 02/19/17 21:15; Start at 21:00; Stop 03/16/17 at 20:59 Salmeterol Xinafoate/ Fluticasone (Advair Diskus 250/50) 1 puff BID INH Last administered on 02/19/17 21:16; Start 02/13/17 at 09:00; Stop 03/15/17 at 08:59 Spironolactone (Aldactone) 25 mg DAILY PO Last administered on 02/19/17 08:47 ; Start 02/13/17 at 09:00; Stop 03/15/17 at 08:59 Venlafaxine HCl (Effexor Xr) 225 mg DAILY PO Last administered on 09:34; Start 02/13/17 at 09:00; Stop 02/14/17 at 16:59; Status DC Venlafaxine HCl (Effexor Xr) 300 mg DAILY PO Last administered on 08:46; Start 02/15/17 at 09:00; Stop 03/17/17 at 08:59 Allergies Coded Allergies: Bee Venom (Verified Allergy, Severe, ANAPHYLAXIS, 02/12/17) Fluconazole (Verified Allergy, Intermediate, REDNESS AND HIVES, 02/12/17) REDNESS ASSICIATED WUTH COMBO FLUCONAZOLE AND CEFPAHELIN QUESTIONABLE ALLERGY PER PATIENT 08/20/14 JENISE MCDONNELL MD February 19, 2017 21:46
[2017-02-20] MEDS: IBUPROFEN 600 MG TAB PO PRN (06:17)
[2017-02-20 06:21] VITALS: BP 112/60
[2017-02-20] MEDS: GABAPENTIN 300 MG CAP PO SCH ×3 (09:13→21:21)
[2017-02-20] MEDS: POTASSIUM CHLORIDE 10 MEQ SR TABLET PO SCH ×2 (09:13→21:22)
[2017-02-20] MEDS: FOLIC ACID 1 MG TAB PO SCH (09:13)
[2017-02-20] MEDS: FUROSEMIDE 20 MG TAB PO SCH ×2 (09:14→16:59)
[2017-02-20] MEDS: amLODIPine 5 MG TAB PO SCH ×2 (09:14→21:22)
[2017-02-20] MEDS: ASPIRIN 81 MG ENTERIC TAB PO SCH (09:14)
[2017-02-20] MEDS: METOPROLOL TART 25 MG TABLET PO SCH ×2 (09:14→21:21)
[2017-02-20] MEDS: NICOTINE 21MG/24HR 1 EA TRANSDERMAL TD SCH (09:15)
[2017-02-20] MEDS: OMEPRAZOLE 20 MG CAP PO SCH (09:15)
[2017-02-20] MEDS: ADVAIR DISKUS 250/50 INH PWD INH SCH ×2 (09:15→21:21)
[2017-02-20] MEDS: MULTIVITAMINS/MINERALS THERAP 1 TAB PO SCH (09:15)
[2017-02-20] MEDS: CETIRIZINE (ZyrTEC) 10 MG TAB PO SCH (09:15)
[2017-02-20] MEDS: SPIRONOLACTONE 25 MG TAB PO SCH (09:15)
[2017-02-20] MEDS: VENLAFAXINE **XR** 75MG CAPSULE PO SCH (09:15)
[2017-02-20 18:41] VITALS: BP 135/75
--- NOTE | 2017-02-20 19:38 | MHIPNPDOC ---
[facility] Progress Note Progress Note DATE OF SERVICE: 02/20/17 HISTORY: Evaluate this 51-year-old male with history of depression who was admitted for suicidal ideation and who has been on venlafaxine 300 mg by mouth daily (when he was admitted he was on 225 mg of this medication). He is taking Rozerem for sleep and multiple medications for his medical problems. One of the major triggers for this episode was the 30 days notice to leave his apartment that he recently received. The patient has a history of medication seeking behavior especially benzodiazepines and pain killers. Pain management was consulted and they gave him oxycodone of these author has discontinued his medication. Patient was angry about the discontinuation of oxycodone. Patient will be discharged tomorrow because he is depression and anxiety have improved, he has no longer suicidal thoughts and he contracts for safety. His housing problem has been resolved because his case manager specialist has found him a place to live. He continues to be apathetic about life in general, he continues to be in denial of his alcohol abuse and minimizes the problem. His speech is normal, his thought process is intact, his thought content is negative for suicidal thoughts, negative for homicidal thoughts, negative for delusional thoughts and negative for auditory or visual hallucinations. His judgment has had little improvement and so has his insight. Patient is not really motivated to make positive changes in his life. His impulse control is fair DIAGNOSES: 1. Substance abuse. 2. Major depression, mild to moderate. 3. Rule out malingering. ASSESSMENT: Patient doesn't need hospitalization anymore, he is stable enough to go home, is not a danger to self or others. MANAGEMENT PLAN: As above. TIME SPENT: 20 minutes. Vital Signs Vital Signs Date Time Temp Pulse Resp B/P (MAP) Pulse Ox O2 Delivery O2 Flow Rate FiO2 02/20/17 18:41 98.6 67 20 135/75 (95) 02/18/17 08:48 95 Room Air Laboratory Data 24H Labs Laboratory Tests 2 02/20/17 17:01: Bedside Glucose (Misc Panel) 225H Current Medications Current Medications Acetaminophen (Tylenol Tab) 650 mg Q6HP PRN PO HEADACHE or DISCOMFORT; Start at 17:15; Stop 02/12/17 at 18:47; Status DC Al Hydrox/Mg Hydrox/Simethicone (Mylanta) 30 ml Q4HP PRN PO HEARTBURN/ INDIGESTION Last administered on 02/15/17 14:27; Start 02/12/17 at 17:15; Stop 03/14/17 at 17:14 Albuterol Sulfate (Proventil, Ventolin Hfa) 1 puff Q6HP PRN INH SHORTNESS OF BREATH Last administered on 02/12/17 21:33; Start 02/12/17 at 17:15; Stop 03/14 at 17:14 Albuterol/ Ipratropium (Duoneb (Ipr 0.5mg/Alb 2.5mg)) 3 ml Q2HP PRN NEB SOB/ WHEEZING Last administered on 02/15/17 14:54; Start 02/13/17 at 08:45; Stop at 08:44 Albuterol/ Ipratropium (Duoneb (Ipr 0.5mg/Alb 2.5mg)) 3 ml RQ6H NEB Last administered on 02/13/17 08:00; Start 02/13/17 at 08:00; Stop 02/13/17 at 11:03 ; Status DC Amlodipine Besylate (Norvasc) 5 mg BID PO Last administered on 02/20/17 09:14 ; Start 02/12/17 at 21:00; Stop 03/14/17 at 20:59 Aspirin (Ecotrin) 81 mg DAILY PO Last administered on 02/20/17 09:14; Start at 09:00; Stop 03/15/17 at 08:59 Cetirizine HCl (ZyrTEC) 10 mg DAILY PO Last administered on 02/20/17 09:15; Start 02/13/17 at 09:00; Stop 03/15/17 at 08:59 Folic Acid (Folic Acid) 1 mg DAILY PO Last administered on 02/20/17 09:13; Start 02/13/17 at 09:00; Stop 03/15/17 at 08:59 Furosemide (Lasix) 20 mg BID@0900,1700 PO Last administered on 02/20/17 16:59 ; Start 02/12/17 at 17:00; Stop 03/14/17 at 16:59 Gabapentin (Neurontin) 300 mg BID@0900,1200 PO Last administered on 02/20/17 12:15; Start 02/13/17 at 09:00; Stop 03/15/17 at 08:59 Gabapentin (Neurontin) 600 mg QHS PO Last administered on 02/19/17 21:15; Start 02/12/17 at 21:00; Stop 03/14/17 at 20:59 Home Med (Med Rec Complete!) ASDIRECTED XX ; Start 02/12/17 at 17:45; Stop at 17:57; Status DC Ibuprofen (Advil) 600 mg Q6HP PRN PO MODERATE PAIN (PS 5-7) Last administered on 02/20/17 06:17; Start 02/12/17 at 18:45; Stop 03/14/17 at 18:44 Ipratropium [place] (Atrovent 0.02%) 0.5 mg QIDP PRN INH SHORTNESS OF BREATH; Start 02/12/17 at 17:15; Stop 02/13/17 at 08:43; Status DC Magnesium Hydroxide (Milk Of Magnesia) 30 ml DAILYPRN PRN PO CONSTIPATION; Start 02/12/17 at 17:15; Stop 03/14/17 at 17:14 Metoprolol Tartrate (Lopressor) 25 mg BID PO Last administered on 02/20/17 09: 14; Start 02/12/17 at 21:00; Stop 03/14/17 at 20:59 Multivitamins (Theragram-M) 1 tab DAILY PO Last administered on 02/20/17 09:15 ; Start 02/13/17 at 09:00; Stop 03/15/17 at 08:59 Nicotine (Nicoderm Cq 21mg) 1 patch DAILY TD Last administered on 02/20/17 09: 15; Start 02/13/17 at 09:00; Stop 03/15/17 at 08:59 Omeprazole (PriLOSEC) 20 mg DAILY PO Last administered on 02/20/17 09:15; Start 02/13/17 at 09:00; Stop 03/15/17 at 08:59 Oxycodone HCl (Roxicodone, Oxyir) 5 mg Q6HP PRN PO PAIN Last administered on 18:34; Start 02/13/17 at 18:30; Stop 02/19/17 at 18:58; Status DC Oxycodone/ Acetaminophen (Percocet 5mg/ 325mg Tablet) 1 tab Q6HP PRN PO MILD/ MODERATE PAIN (PS 1-7) Last administered on 02/13/17 16:47; Start 02/12/17 at 18:45; Stop 02/13/17 at 18:21; Status DC Potassium Chloride (Micro-K Extencaps) 20 meq BID PO Last administered on 09:13; Start 02/12/17 at 21:00; Stop 03/14/17 at 20:59 Quetiapine Fumarate (SEROquel) 400 mg QHS PO Last administered on 02/19/17 21: 15; Start 02/12/17 at 21:00; Stop 03/14/17 at 20:59 Ramelteon (Rozerem) 8 mg QHS PO Last administered on 02/19/17 21:15; Start at 21:00; Stop 03/16/17 at 20:59 Salmeterol Xinafoate/ Fluticasone (Advair Diskus 250/50) 1 puff BID INH Last administered on 02/20/17 09:15; Start 02/13/17 at 09:00; Stop 03/15/17 at 08:59 Spironolactone (Aldactone) 25 mg DAILY PO Last administered on 02/20/17 09:15 ; Start 02/13/17 at 09:00; Stop 03/15/17 at 08:59 Venlafaxine HCl (Effexor Xr) 225 mg DAILY PO Last administered on 09:34; Start 02/13/17 at 09:00; Stop 02/14/17 at 16:59; Status DC Venlafaxine HCl (Effexor Xr) 300 mg DAILY PO Last administered on 09:15; Start 02/15/17 at 09:00; Stop 03/17/17 at 08:59 Allergies Coded Allergies: Bee Venom (Verified Allergy, Severe, ANAPHYLAXIS, 02/12/17) Fluconazole (Verified Allergy, Intermediate, REDNESS AND HIVES, 02/12/17) REDNESS ASSICIATED WUTH COMBO FLUCONAZOLE AND CEFPAHELIN QUESTIONABLE ALLERGY PER PATIENT 08/20/14 JENISE MCDONNELL MD February 20, 2017 19:38
[2017-02-20] MEDS ORDERED: ROZE8TAB9 PO (19:41)
[2017-02-20] MEDS ORDERED: QUET1TAB9 PO (19:41)
[2017-02-20] MEDS ORDERED: GABA-282 PO ×2 (19:59)
[2017-02-20] MEDS ORDERED: METO25TAB PO (19:59)
[2017-02-20] MEDS ORDERED: FURO20TA2 PO (19:59)
[2017-02-20] MEDS ORDERED: OMEP20CA3 PO (19:59)
[2017-02-20] MEDS ORDERED: ASPI81TAEC PO (19:59)
[2017-02-20] MEDS ORDERED: ADV250INH INH (19:59)
[2017-02-20] MEDS ORDERED: VENL75CA PO (19:59)
[2017-02-20] MEDS ORDERED: AMLO5TAB2 PO (19:59)
[2017-02-20] MEDS ORDERED: SPIR25TA2 PO (19:59)
[2017-02-20] MEDS ORDERED: ALBU17IN INH (19:59)
[2017-02-20] MEDS ORDERED: CETI10TA PO (19:59)
[2017-02-20] MEDS: RAMELTEON 8 MG TAB (ROZEREM) PO SCH (21:22)
[2017-02-20] MEDS: QUEtiapine FUMARATE 200 MG TAB PO SCH (21:22)
[2017-02-21 07:07] VITALS: BP 105/66
[2017-02-21] MEDS: MULTIVITAMINS/MINERALS THERAP 1 TAB PO SCH (08:10)
[2017-02-21] MEDS: CETIRIZINE (ZyrTEC) 10 MG TAB PO SCH (08:10)
[2017-02-21] MEDS: ADVAIR DISKUS 250/50 INH PWD INH SCH (08:10)
[2017-02-21] MEDS: FOLIC ACID 1 MG TAB PO SCH (08:10)
[2017-02-21] MEDS: VENLAFAXINE **XR** 75MG CAPSULE PO SCH (08:10)
[2017-02-21] MEDS: SPIRONOLACTONE 25 MG TAB PO SCH (08:10)
[2017-02-21] MEDS: OMEPRAZOLE 20 MG CAP PO SCH (08:10)
[2017-02-21 08:11] VITALS: BP 125/70
[2017-02-21] MEDS: METOPROLOL TART 25 MG TABLET PO SCH (08:11)
[2017-02-21] MEDS: ASPIRIN 81 MG ENTERIC TAB PO SCH (08:11)
[2017-02-21] MEDS: POTASSIUM CHLORIDE 10 MEQ SR TABLET PO SCH (08:11)
[2017-02-21] MEDS: GABAPENTIN 300 MG CAP PO SCH (08:11)
[2017-02-21] MEDS: amLODIPine 5 MG TAB PO SCH (08:11)
[2017-02-21] MEDS: FUROSEMIDE 20 MG TAB PO SCH (08:12)
[2017-02-21] MEDS: NICOTINE 21MG/24HR 1 EA TRANSDERMAL TD SCH (08:12)
--- NOTE | 2017-02-21 21:59 | MHDSPDOC ---
[facility] Discharge Summary Discharge Summary DATE OF ADMISSION: February 12, 2017 at 17:02 DATE OF DISCHARGE: Feb 21, 2017 at 09:10 DISCHARGE DIAGNOSES: 1. Unspecified Depressive Disorder 2. Generalized Anxiety Disorder REASON FOR ADMISSION: Patient came to the ER and stated that he had SI and felt very depressed because he had received a 30 days notice to leave his apartment. CONSULTANTS INVOLVED: Pain Management TREATMENT AND PROGRESS ON THE UNIT : received treatment with Oxycodone for pain, form the [facility]. Mr Guzman has been hospitalized previously at the [facility] and he has been noticed to have benzodiazepines and pain medication seeking behavior. During his stay, his dose of Gabapentin was increased to 300 mgs. po QD, received Rozerum 8 mgs. for sleep,received Gabapentin, that had been prescribed previously from an outside provider. HOSPITAL COURSE: The patients symptoms of anxiety and depression improved with the medications adjustments and with psychotherapy, because he attended some of the groups at the Unit. Unfortunately he continues to be in denial regarding his problem with alcohol abuse. His behavioral health case manager met with him and communicated that he could move to an apartment and she said that she had three options to present him and that his landlord had allowed him to stay at his previous apartment until the February 25. This notice helped him to calm down and reduce his anxiety levels. DISCHARGE ASSESSMENT: At the time of discharge, the patient was not in danger to self or others. He still was mildly depressed and mildly anxious but didnt have any suicidal thoughts. MENTAL STATUS EXAMINATION ON DISCHARGE: Patient is a -year old male, who is alert, cooperative with interview, dressed in hospital clothes, discheveled with fair eye contact. Speech is Normal. Language skills are Fair. Thought processes including: Intact. Thought content: About moving into his new apartment. Abstract reasoning, and computation: Fair Description of associations: Not loose. Description of abnormal or psychotic thoughts: Not present. Judgment: Improving. Insight: Improving. Orientation to Oriented x 3. Recent and remote memory: Fair. Attention span and concentration: Fair. Language: Normal. Fund of knowledge: Adequate. Mood: Anxious. Affect: Less anxious than when he was admitted. MEDICATIONS ON DISCHARGE: - Venlafaxine 300 mgs. Po QD for anxiety and depression for, Rozerem 8 mgs Po QHS for sleep, Seroquel 400 mgs. PO QHS, Gabapentin 1200 mgs. po QD in divided doses. PLAN/FOLLOWUP ARRANGEMENTS: Will follow up as an outpatient for medication control and psychotherapy The amount of time spent in the coordination of care for this patient was approximately 30 minutes. Vital Signs/I&Os Vital Signs Date Time Temp Pulse Resp B/P (MAP) Pulse Ox O2 Delivery O2 Flow Rate FiO2 02/21/17 08:11 72 125/70 02/21/17 07:07 98.1 16 Room Air 02/18/17 08:48 95 Laboratory Data Labs 24H Laboratory Tests 2 02/21/17 06:07: Bedside Glucose (Misc Panel) 143H Medications Scheduled (Flonase Allergy Relief) 50 Mcg/Act Spr, 1 SPRAY NA DAILY for NASAL CONGESTION, (Reported) Amlodipine Besylate (Amlodipine Besylate) 5 Mg Tab, 5 MG PO BID for BLOOD PRESSURE, (Reported) Amlodipine Besylate (Amlodipine Besylate) 5 Mg Tab, 5 MG PO BID for allergies, # 14 Aspirin (Aspirin) 81 Mg Tab, 81 MG PO DAILY for PROPHYLAXIS, (Reported) Aspirin (Aspirin EC) 81 Mg Tabec, 81 MG PO DAILY for CAD, #10 Cetirizine HCl (Cetirizine HCl) 10 Mg Tab, 10 MG PO DAILY for ALLERGIES, ( Reported) Cetirizine HCl (Cetirizine HCl) 10 Mg Tab, 10 MG PO DAILY for allergies, #10 Folic Acid (Folic Acid) 1 Mg Tab, 1 MG PO DAILY for . , (Reported) Furosemide (Lasix) 20 Mg Tab, 20 MG PO BID for . , (Reported) Furosemide (Furosemide) 20 Mg Tab, 20 MG PO BID@0900,1700 for diuretic, #10 Gabapentin (Gabapentin) 300 Mg Cap, 300 MG PO BID for . , (Reported) Gabapentin (Gabapentin) 300 Mg Cap, 600 MG PO QHS for . , (Reported) Gabapentin (Gabapentin) 300 Mg Cap, 300 MG PO BID@0900,1200 for MOOD, #14 Gabapentin (Gabapentin) 300 Mg Cap, 600 MG PO QHS for MOOD, #14 Metoprolol Tartrate (Metoprolol Tartrate) 25 Mg Tab, 25 MG PO BID for BLOOD PRESSURE, (Reported) Metoprolol Tartrate (Metoprolol Tartrate) 25 Mg Tab, 25 MG PO BID for hypertension, #14 Multivitamins *[facility] STOCKED* (Thera M Plus *[facility] STOCKED*) 1 Tab Tab, 1 TAB PO DAILY for SUPPLEMENT, (Reported) Omeprazole (Omeprazole) 20 Mg Cap, 20 MG PO DAILY for GERD, (Reported) Omeprazole (Omeprazole) 20 Mg Cap, 20 MG PO DAILY for GERD, #10 Potassium Chloride (Klor-Con M20) 20 Meq Tabcr, 20 MEQ PO BID for KCL DEFICIENCY , (Reported) Quetiapine Fumerate (Seroquel) 400 Mg Tab, 400 MG PO QHS for . , (Reported) Quetiapine Fumerate (Quetiapine Fumarate) 200 Mg Tab, 400 MG PO QHS for MOOD, # 14 Ramelteon (Rozerem) 8 Mg Tab, 8 MG PO QHS for Insomnia, #10 Salmeterol/Fluticasone (Advair Diskus 250-50 Mcg/Dose) 14 Puff/Inhaler Aerp, 1 PUFF INH BID for COPD, #1 Spironolactone (Spironolactone) 25 Mg Tab, 25 MG PO DAILY for . , (Reported) Spironolactone (Spironolactone) 25 Mg Tab, 25 MG PO DAILY for Diuretic, #10 Venlafaxine HCl (Venlafaxine HCl ER) 75 Mg Cap, 300 MG PO DAILY for Depression/ anxiety, #28 Scheduled PRN (Excedrin Extra Strength 250-250-65 mg) 1 Tab Tab, 2 TAB PO BID PRN for PAIN, ( Reported) Albuterol Sulfate (Ventolin Hfa) 200 Puff/8 Gm Aers, 2 PUFF INH QID PRN for SHORTNESS OF BREATH, (Reported) Albuterol Sulfate (Albuterol Sulfate) 2.5 Mg/3 Ml Nebu, 2.5 MG INH QID PRN for SHORTNESS OF BREATH, (Reported) MIXES WITH IPRATROPIUM IF REALLY NEEDED Albuterol Sulfate (Ventolin Hfa) 200 Puff/8 Gm Aers, 1 PUFF INH Q6HP PRN for SHORTNESS OF BREATH, #1 Ipratropium [place] (Ipratropium [place]) 0.5 Mg/2.5 Ml Soln, 0.5 MG INH QID PRN for SHORTNESS OF BREATH, (Reported) MIXES WITH ALBUTEROL IF REALLY NEEDED Allergies Coded Allergies: Bee Venom (Verified Allergy, Severe, ANAPHYLAXIS, 02/12/17) Fluconazole (Verified Allergy, Intermediate, REDNESS AND HIVES, 02/12/17) REDNESS ASSICIATED WUTH COMBO FLUCONAZOLE AND CEFPAHELIN QUESTIONABLE ALLERGY PER PATIENT 08/20/14 JENISE MCDONNELL MD Feb 21, 2017 21:59
== END 2017-02-21 09:10 | disposition home or self-care (01) | DRG 754 ==
LOC: M ED 16:04 → M ED INP 17:02 → M PSY 17:27
PROVIDERS: ADMIT Psychiatry & Neurology Psychiatry; ATTEND Psychiatry & Neurology Psychiatry
DX: F32.9 Major depressive disorder, single episode, unspecified (principal); I50.32 Chronic diastolic (congestive) heart failure; I27.2 Other secondary pulmonary hypertension; J44.9 Chronic obstructive pulmonary disease, unspecified; F41.1 Generalized anxiety disorder; Z79.899 Other long term (current) drug therapy; Z79.82 Long term (current) use of aspirin; Z88.8 Allergy status to other drugs, medicaments and biological substances; Z91.038 Other insect allergy status; K21.9 Gastro-esophageal reflux disease without esophagitis; I11.9 Hypertensive heart disease without heart failure; G47.33 Obstructive sleep apnea (adult) (pediatric); B18.2 Chronic viral hepatitis C; E66.9 Obesity, unspecified; Z68.39 Body mass index [BMI] 39.0-39.9, adult; F17.200 Nicotine dependence, unspecified, uncomplicated; M79.2 Neuralgia and neuritis, unspecified

== ENCOUNTER 2017-07-21 18:53 | Emergency (ER) | payer MEDICARE, MEDICAID ==
[~2017-07-21] VITALS: Ht 182.9 cm; Wt 129.5 kg
[~2017-07-21 18:53] MED LIST changes: +ADV250INH INH; +ASPI1TAB15 PO; +ASPI81TAEC PO; -AUGM875T27 PO; +AUGM875T28 PO; +EXCETAB81 PO; +FLON1SPR; -FOLI1TAB2 PO; +FOLI1TAB4 PO; +GABA-282 PO; +INCR1INH INH; -METO12TA PO; +METO1TAB87 PO; +METO25TA4 PO; +METO50TA7 PO; +POTA20TA PO; -QUET1TAB11 PO; +QUET400T PO; +ROZE8TAB16 PO; +SERO400T PO; +VENL75CA2 PO
--- NOTE | 2017-07-21 20:30 | REPUSA ---
CT of the facial bones without contrast Clinical history: Pain, injury. Technique: Multiple axial CT images were obtained through the facial bones and paranasal sinuses util izing 3 mm axial slices without administration of contrast. Coronal and sagittal reconstructions were also obtained. Findings: The visualized paranasal sinuses are clear. The osteomeatal complexes are patent bilaterall y. The nasal septum is midline. The visualized mastoid air cells are clear. Moderate soft tissue swel ling around the nasal region is noted. There are acute nondisplaced bilateral nasal bone fractures. T he other osseous structures do not demonstrate any acute abnormalities. Impression: Acute, nondisplaced bilateral nasal bone fractures.
--- NOTE | 2017-07-21 20:30 | REPUSA ---
CT of the abdomen and pelvis without contrast Clinical statement: Pain. Technique: Multiple axial CT images were obtained from the base of the lungs to the floor of the pelv is utilizing 5 mm axial slices without administration of contrast. Coronal and sagittal reconstructio ns were also obtained. Comparison: 12/01/2016. Findings: Chest: The visualized lung bases are clear. Abdomen: The kidneys are normal in size bilaterally. There is no evidence of hydronephrosis or nephro lithiasis. Vascular calcifications are seen in the renal arteries bilaterally. The liver, spleen, tripp creas, gallbladder and adrenal glands are unremarkable. The aorta demonstrates normal caliber and con tour. There is no abdominal lymphadenopathy or ascites. Pelvis: The bowel is unremarkable, with no obstructive or inflammatory changes. The urinary bladder i s within normal limits. There is no pelvic lymphadenopathy or ascites. The other pelvic structures ap pear unremarkable. Bones: There are no suspicious osseous abnormalities seen. Bilateral hip arthroplasties are in place. There is moderate degenerative disc disease with disc osteophyte complex at L5/S1. Impression: 1. No focal acute abnormality to explain the patient's pain. 2. The enhancing mass seen within the liver on the prior study is not seen on this noncontrast study. The fatty infiltration of the liver has resolved. 3. No evidence of hydronephrosis or nephrolithiasis. 4. No obstructive or inflammatory bowel changes. 5. Moderately severe degenerative disc disease at L5/S1, grossly stable.
[2017-07-21] MEDS ORDERED: NORCO 5/325MG TABLET (BULK FOR ED) PO ONE (20:45)
[2017-07-21] MEDS ORDERED: NORCO, ANEXSIA 5/325MG TABLET (HYDROcodone/ACETAMINOPHEN) PO ONE (20:45)
[2017-07-21] MEDS ORDERED: NORCOTAB PO (20:52)
[2017-07-21 23:11] VITALS: BP 129/81
== END 2017-07-21 23:12 | disposition home or self-care (01) ==
LOC: M ED 18:53 → EDBD 18:53 → M ED 23:12
DX: S02.2XXA Fracture of nasal bones, initial encounter for closed fracture (principal); Y04.8XXA Assault by other bodily force, initial encounter; Y92.099 Unspecified place in other non-institutional residence as the place of occurrence of the external cause; Y93.9 Activity, unspecified; Y99.9 Unspecified external cause status; I51.9 Heart disease, unspecified; I10 Essential (primary) hypertension; B17.10 Acute hepatitis C without hepatic coma; F17.200 Nicotine dependence, unspecified, uncomplicated; Z79.82 Long term (current) use of aspirin; Z79.899 Other long term (current) drug therapy; Z91.030 Bee allergy status; Z88.8 Allergy status to other drugs, medicaments and biological substances

== ENCOUNTER 2017-09-11 01:59 | Emergency (ER) | payer MEDICARE, MEDICAID ==
[~2017-09-11] VITALS: Ht 182.9 cm; Wt 113.0 kg
[~2017-09-11 01:59] MED LIST changes: +NORCOTAB PO
[2017-09-11 02:56] LABS: BASO # 0.1 10^3/uL (0.0-0.2); EOS # 0.2 10^3/uL (0.0-0.50); IMMATURE GRANULOCYTE % 0.3 % (0-0); LYMPH # 1.8 10^3/uL (1.5-4.5); LYMPH % 23.6 % (24.0-44.0); MEAN CORPUSCULAR HEMOGLOBIN 33.5 pg (27.0-33.0); MEAN CORPUSCULAR HGB CONC 35.2 g/dl (32.0-36.5); MEAN CORPUSCULAR VOLUME 95.3 fl (80.0-96.0); MONO # 1.3 10^3/uL (0.0-0.8); MONO % 16.5 % (0.0-5.0); NEUTROPHILS # 4.3 10^3/uL (1.8-7.7); NEUTROPHILS % 55.6 % (36.0-66.0); PLATELET COUNT, AUTOMATED 172 10^3/uL (150-450); RED CELL DISTRIBUTION WIDTH 13.1 % (11.5-14.5); WHITE BLOOD COUNT 7.7 10^3/uL (4.0-10.0)
[2017-09-11 03:26] LABS: ANION GAP 13 MEQ/L (8-16); BLOOD UREA NITROGEN 9 MG/DL (7-18); CALCIUM LEVEL 7.7 MG/DL (8.5-10.1); CARBON DIOXIDE LEVEL 21 MEQ/L (21-32); CHLORIDE LEVEL 100 MEQ/L (98-107); CREATININE FOR GFR 0.77 MG/DL (0.70-1.30); FREE T4 1.52 NG/DL (0.76-1.46); GLOMERULAR FILTRATION RATE > 60.0 (>56); GLUCOSE, FASTING 112 MG/DL (70-105); POTASSIUM SERUM 3.6 MEQ/L (3.5-5.1); SODIUM LEVEL 134 MEQ/L (136-145)
--- NOTE | 2017-09-11 04:00 | REPUSA ---
CLINICAL HISTORY: Edema. COMMENTS: Real time sonography with duplex doppler of the extremities bilaterally was performed with attention to the major deep venous structures. Evaluation reveals the common femoral, superficial femoral and popliteal veins bilaterally to be comp letely compressible without intraluminal thrombus. There is normal spontaneous phasic flow and augmen tation in all deep veins. The greater saphenous/common femoral vein junctions are patent bilaterally. IMPRESSION: No evidence of DVT in the lower extremities bilaterally. Thank you for your kind referral of this patient.
[2017-09-11 04:05] VITALS: BP 121/58
--- NOTE | 2017-09-11 04:10 | REPUSA ---
CLINICAL HISTORY: Neck pain. TECHNIQUE: Multiple axial images were obtained through the cervical spine. Images were also reconstru cted in coronal and sagittal planes. The study was performed without IV contrast. COMMENTS: Grade I anterolisthesis of C3 on C4. There is no fracture or spondylolisthesis visualized. The paraspinal soft tissues are unremarkable. T here are no lytic or blastic lesions. Straightening of cervical lordosis is seen, suggesting muscular spasm. There is evidence of moderate multilevel disk disease, demonstrated by osteophytosis and endplate sclerosis. Moderate multilevel degenerative disc disease. IMPRESSION: 1. No fracture or spondylolisthesis. 2. Straightening of cervical lordosis is seen, suggesting muscular spasm. 3. Multilevel spondylosis. Thank you for your kind referral of this patient.
[2017-09-11] MEDS ORDERED: SERO400T PO (10:55)
[2017-09-11] MEDS ORDERED: ASPI1TAB PO (13:52)
[2017-09-11] MEDS ORDERED: PATIENT COMMENT (13:52)
[2017-09-11] MEDS ORDERED: VENL150C43 PO (13:52)
--- NOTE | 2017-09-11 17:43 | REP ---
Chest x-ray: Two views. History: Lower extremity edema. Question CHF. Comparison study: February 11, 2017. Findings: There is benign pleural plaquing again noted bilaterally. On the left is associated with multiple displaced healed rib fractures. Post surgical sutures are seen in the rib cage inferiorly and laterally on the left. Many of these are interrupted. There are old healed rib fractures on the right as well. EKG monitoring electrodes overlie the chest. The heart is not enlarged. Pulmonary vasculature is not increased. No free pleural effusion or pulmonary edema is seen. There are degenerative disc changes in the thoracic spine. Impression: No active disease. Multiple old healed rib fractures bilaterally. Signed by Valentino Ogden MD 09/12/2017 08:02 A
--- NOTE | 2017-09-11 19:24 | ECGEPIP ---
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
== END 2017-09-11 04:18 | disposition home or self-care (01) ==
LOC: M ED 01:59
DX: S09.90XA Unspecified injury of head, initial encounter (principal); T76.11XA Adult physical abuse, suspected, initial encounter; Y04.8XXA Assault by other bodily force, initial encounter; Y92.009 Unspecified place in unspecified non-institutional (private) residence as the place of occurrence of the external cause; Y93.89 Activity, other specified; Y99.8 Other external cause status; I50.9 Heart failure, unspecified; I11.0 Hypertensive heart disease with heart failure; J44.9 Chronic obstructive pulmonary disease, unspecified; G47.33 Obstructive sleep apnea (adult) (pediatric); B18.2 Chronic viral hepatitis C; F33.9 Major depressive disorder, recurrent, unspecified; F41.9 Anxiety disorder, unspecified; F17.210 Nicotine dependence, cigarettes, uncomplicated; Z79.899 Other long term (current) drug therapy; Z79.82 Long term (current) use of aspirin; Z79.51 Long term (current) use of inhaled steroids; Z87.19 Personal history of other diseases of the digestive system

== ENCOUNTER 2017-09-11 10:40 | Inpatient (IN) | payer MEDICARE, MEDICAID ==
[2017-09-11] MEDS: NICOTINE 14 MG/24 HR TRANSDERMAL TD (09:00)
[2017-09-11 11:33] LABS: BEDSIDE GLUCOSE 107 MG/DL (70-105)
[2017-09-11 11:45] LABS: HEMOGLOBIN 14.5 g/dl (14.0-18.0); MEAN CORPUSCULAR HEMOGLOBIN 32.5 pg (27.0-33.0); MEAN CORPUSCULAR HGB CONC 34.5 g/dl (32.0-36.5); MEAN CORPUSCULAR VOLUME 94.2 fl (80.0-96.0); PLATELET COUNT, AUTOMATED 192 10^3/uL (150-450); RED BLOOD COUNT 4.46 10^6/uL (4.30-6.10); RED CELL DISTRIBUTION WIDTH 13.1 % (11.5-14.5); WHITE BLOOD COUNT 6.8 10^3/uL (4.0-10.0)
[2017-09-11 11:51] LABS: APPEARANCE, URINE CLEAR (CLEAR); BACTERIA, URINE AUTO NEGATIVE (NEGATIVE); BILIRUBIN, URINE AUTO NEGATIVE (NEGATIVE); BLOOD, URINE BLOOD NEGATIVE (NEGATIVE); COLOR, URINE YELLOW (YELLOW); GLUCOSE, URINE (UA) AUTO NEGATIVE (NEGATIVE); KETONE, URINE AUTO TRACE mg/dL (NEGATIVE); LEUKOCYTE ESTERASE, URINE AUTO NEGATIVE (NEGATIVE); NITRITE, URINE AUTO NEGATIVE (NEGATIVE); PROTEIN, URINE AUTO NEGATIVE (NEGATIVE); RBC, URINE AUTO 0 /HPF (0-3); SPECIFIC GRAVITY URINE AUTO 1.015 (1.002-1.035); SQUAMOUS EPITHELIAL CELL UR AU 1 /HPF (0-6); WBC, URINE AUTO 0 /HPF (0-3)
[2017-09-11 12:14] LABS: AMPHETAMINES LEVEL URINE POSITIVE (NEGATIVE); BARBITURATES URINE NEGATIVE (NEGATIVE); BENZODIAZEPINES URINE NEGATIVE (NEGATIVE); CANNABINOIDS URINE POSITIVE (NEGATIVE); COCAINE METABOLITE URINE NEGATIVE (NEGATIVE); METHADONE URINE NEGATIVE (NEGATIVE); OPIATES URINE NEGATIVE (NEGATIVE); PHENCYCLIDINE URINE NEGATIVE (NEGATIVE)
[2017-09-11 12:22] LABS: ALBUMIN 3.5 GM/DL (3.2-5.2); ALKALINE PHOSPHATASE 125 U/L (45-117); ALT/SGPT 255 U/L (12-78); ANION GAP 9 MEQ/L (8-16); AST/SGOT 272 U/L (7-37); BILIRUBIN,DIRECT 0.7 MG/DL (0.0-0.2); BILIRUBIN,TOTAL 1.3 MG/DL (0.2-1.0); BLOOD UREA NITROGEN 10 MG/DL (7-18); CALCIUM LEVEL 8.5 MG/DL (8.5-10.1); CARBON DIOXIDE LEVEL 24 MEQ/L (21-32); CHLORIDE LEVEL 107 MEQ/L (98-107); CREATININE FOR GFR 0.84 MG/DL (0.70-1.30); ETHYL ALCOHOL (ETHANOL) 0.026 % (0.000-0.010); GLOMERULAR FILTRATION RATE > 60.0 (>56); GLUCOSE, FASTING 98 MG/DL (70-105); POTASSIUM SERUM 4.1 MEQ/L (3.5-5.1); SALICYLATE LEVEL < 1.7 MG/DL (5.0-30.0); SODIUM LEVEL 140 MEQ/L (136-145); TOTAL PROTEIN 7.9 GM/DL (6.4-8.2)
[2017-09-11 12:27] LABS: ACETAMINOPHEN LEVEL < 2.0 UG/ML (10.0-30.0)
[2017-09-11] MEDS: OXAZEPAM 15 MG CAP PO (14:20)
[2017-09-11] MEDS ORDERED: MAALOX 30 ML SUSP *UDC PO (18:45)
[2017-09-11] MEDS ORDERED: ACETAMINOPHEN TAB 650MG DOSE (2X325MG) PO (18:45)
[2017-09-11] MEDS ORDERED: MOM 30ML SUSPENSION UDC PO (18:45)
[2017-09-11] MEDS: FOLIC ACID 1 MG TAB PO (22:32)
[2017-09-11] MEDS: MULTIVITAMINS/MINERALS THERAP 1 TAB PO (22:32)
[2017-09-11] MEDS: THIAMINE 100 MG TAB PO (22:32)
[2017-09-11] MEDS: ASPIRIN 81 MG ENTERIC TAB PO (22:32)
[2017-09-11] MEDS: QUEtiapine FUMARATE 200 MG TAB PO (22:32)
[2017-09-11] MEDS: VENLAFAXINE **XR** 75MG CAPSULE PO (22:32)
[2017-09-12] MEDS: VENLAFAXINE **XR** 75MG CAPSULE PO (08:31)
[2017-09-12] MEDS: NICOTINE 14 MG/24 HR TRANSDERMAL TD (08:31)
[2017-09-12] MEDS: ASPIRIN 81 MG ENTERIC TAB PO (08:31)
[2017-09-12] MEDS: FOLIC ACID 1 MG TAB PO (08:31)
[2017-09-12] MEDS: MULTIVITAMINS/MINERALS THERAP 1 TAB PO (08:31)
[2017-09-12] MEDS: THIAMINE 100 MG TAB PO ×2 (08:31→21:26)
[2017-09-12] MEDS ORDERED: IPRATROPIUM 0.5MG/ALBUTEROL 2.5MG INH SOL UD 3ML (DUONEB)(J7620) NEB (09:00)
[2017-09-12] MEDS: ADVAIR HFA 115/21MCG INHALER INH ×2 (09:00→21:00)
[2017-09-12] MEDS: FUROSEMIDE 20 MG TAB PO ×2 (09:00→17:00)
[2017-09-12] MEDS: AUGMENTIN 875 MG TAB PO ×2 (09:00→21:23)
[2017-09-12] MEDS: POTASSIUM CHLORIDE 10 MEQ SR TABLET PO ×2 (09:00→21:23)
[2017-09-12] MEDS ORDERED: ASPIRIN 81 MG ENTERIC TAB PO (09:00)
[2017-09-12] MEDS: METOPROLOL TART 25 MG TABLET PO ×2 (09:00→21:24)
[2017-09-12] MEDS: NYSTATIN 500,000 U/5 ML SUSP UDC SS ×4 (09:00→21:23)
[2017-09-12] MEDS: LORazepam 2 MG TAB PO (09:43)
[2017-09-12] MEDS: FLUTICASONE PROP 0.05% NASAL SPRAY 16 GM (FLONASE) (17:00)
[2017-09-12] MEDS: CETIRIZINE (ZyrTEC) 10 MG TAB PO (17:00)
[2017-09-12] MEDS: OMEPRAZOLE 20 MG CAP PO (17:00)
[2017-09-12] MEDS: QUEtiapine FUMARATE 200 MG TAB PO (21:23)
[2017-09-12] MEDS: GABAPENTIN 300 MG CAP PO (21:23)
[2017-09-12] MEDS: IBUPROFEN 400 MG TAB PO (21:24)
[2017-09-12] MEDS: PRAZOSIN 1 MG CAP PO (21:25)
[2017-09-13 08:31] LABS: HEMATOCRIT 41.5 % (42.0-52.0); MEAN CORPUSCULAR HEMOGLOBIN 33.1 pg (27.0-33.0); MEAN CORPUSCULAR HGB CONC 33.7 g/dl (32.0-36.5); MEAN CORPUSCULAR VOLUME 98.1 fl (80.0-96.0); PLATELET COUNT, AUTOMATED 173 10^3/uL (150-450); RED BLOOD COUNT 4.23 10^6/uL (4.30-6.10); WHITE BLOOD COUNT 5.3 10^3/uL (4.0-10.0)
[2017-09-13] MEDS: VENLAFAXINE **XR** 75MG CAPSULE PO (08:35)
[2017-09-13] MEDS: POTASSIUM CHLORIDE 10 MEQ SR TABLET PO ×2 (08:35→21:25)
[2017-09-13] MEDS: THIAMINE 100 MG TAB PO ×2 (08:35→21:26)
[2017-09-13] MEDS: ADVAIR HFA 115/21MCG INHALER INH ×2 (08:35→21:33)
[2017-09-13] MEDS: GABAPENTIN 300 MG CAP PO ×3 (08:35→21:22)
[2017-09-13] MEDS: MULTIVITAMINS/MINERALS THERAP 1 TAB PO (08:36)
[2017-09-13] MEDS: OMEPRAZOLE 20 MG CAP PO (08:36)
[2017-09-13] MEDS: NYSTATIN 500,000 U/5 ML SUSP UDC SS ×4 (08:36→21:27)
[2017-09-13] MEDS: CETIRIZINE (ZyrTEC) 10 MG TAB PO (08:36)
[2017-09-13] MEDS: ASPIRIN 81 MG ENTERIC TAB PO (08:36)
[2017-09-13] MEDS: METOPROLOL TART 25 MG TABLET PO ×2 (08:36→21:24)
[2017-09-13] MEDS: FUROSEMIDE 20 MG TAB PO ×2 (08:36→16:04)
[2017-09-13] MEDS: AUGMENTIN 875 MG TAB PO ×2 (08:36→21:22)
[2017-09-13] MEDS: FLUTICASONE PROP 0.05% NASAL SPRAY 16 GM (FLONASE) (08:36)
[2017-09-13] MEDS: FOLIC ACID 1 MG TAB PO (08:36)
[2017-09-13] MEDS: NICOTINE 14 MG/24 HR TRANSDERMAL TD (08:37)
[2017-09-13] MEDS: INFLUENZA QUADRIVALENT PF VACCINE 0.5ML SYRINGE (90686) IM (08:39)
[2017-09-13 09:00] LABS: ALBUMIN 3.2 GM/DL (3.2-5.2); ALBUMIN/GLOBULIN RATIO 0.74 (1.00-1.93); ALKALINE PHOSPHATASE 117 U/L (45-117); ALT/SGPT 251 U/L (12-78); ANION GAP 8 MEQ/L (8-16); AST/SGOT 227 U/L (7-37); BILIRUBIN,TOTAL 1.3 MG/DL (0.2-1.0); BLOOD UREA NITROGEN 17 MG/DL (7-18); CALCIUM LEVEL 8.3 MG/DL (8.5-10.1); CARBON DIOXIDE LEVEL 26 MEQ/L (21-32); CHLORIDE LEVEL 105 MEQ/L (98-107); CREATININE FOR GFR 1.17 MG/DL (0.70-1.30); GLOMERULAR FILTRATION RATE > 60.0 (>56); GLUCOSE, FASTING 194 MG/DL (70-105); POTASSIUM SERUM 4.1 MEQ/L (3.5-5.1); SODIUM LEVEL 139 MEQ/L (136-145); TOTAL PROTEIN 7.5 GM/DL (6.4-8.2)
[2017-09-13] MEDS: IBUPROFEN 400 MG TAB PO (14:29)
[2017-09-13] MEDS: QUEtiapine FUMARATE 200 MG TAB PO (21:22)
[2017-09-13] MEDS: PRAZOSIN 1 MG CAP PO (21:25)
[2017-09-14] MEDS: THIAMINE 100 MG TAB PO (08:32)
[2017-09-14] MEDS: FLUTICASONE PROP 0.05% NASAL SPRAY 16 GM (FLONASE) (08:32)
[2017-09-14] MEDS: ASPIRIN 81 MG ENTERIC TAB PO (08:32)
[2017-09-14] MEDS: VENLAFAXINE **XR** 75MG CAPSULE PO (08:32)
[2017-09-14] MEDS: OMEPRAZOLE 20 MG CAP PO (08:32)
[2017-09-14] MEDS: FOLIC ACID 1 MG TAB PO (08:32)
[2017-09-14] MEDS: MULTIVITAMINS/MINERALS THERAP 1 TAB PO (08:32)
[2017-09-14] MEDS: AUGMENTIN 875 MG TAB PO ×2 (08:33→21:02)
[2017-09-14] MEDS: POTASSIUM CHLORIDE 10 MEQ SR TABLET PO ×2 (08:33→21:02)
[2017-09-14] MEDS: CETIRIZINE (ZyrTEC) 10 MG TAB PO (08:33)
[2017-09-14] MEDS: NYSTATIN 500,000 U/5 ML SUSP UDC SS ×4 (08:33→21:02)
[2017-09-14] MEDS: METOPROLOL TART 25 MG TABLET PO ×2 (08:33→21:05)
[2017-09-14] MEDS: GABAPENTIN 300 MG CAP PO ×3 (08:33→21:27)
[2017-09-14] MEDS: FUROSEMIDE 20 MG TAB PO ×2 (08:33→16:05)
[2017-09-14] MEDS: NICOTINE 14 MG/24 HR TRANSDERMAL TD (08:34)
[2017-09-14] MEDS: ADVAIR HFA 115/21MCG INHALER INH ×2 (09:27→21:15)
[2017-09-14] MEDS: QUEtiapine FUMARATE 200 MG TAB PO (21:02)
[2017-09-14] MEDS: PRAZOSIN 1 MG CAP PO (21:25)
[2017-09-15] MEDS: FLUTICASONE PROP 0.05% NASAL SPRAY 16 GM (FLONASE) (09:16)
[2017-09-15] MEDS: ADVAIR HFA 115/21MCG INHALER INH ×2 (09:16→21:16)
[2017-09-15] MEDS: NYSTATIN 500,000 U/5 ML SUSP UDC SS ×4 (09:16→21:15)
[2017-09-15] MEDS: ASPIRIN 81 MG ENTERIC TAB PO (09:17)
[2017-09-15] MEDS: NICOTINE 14 MG/24 HR TRANSDERMAL TD (09:17)
[2017-09-15] MEDS: AUGMENTIN 875 MG TAB PO ×2 (09:17→21:18)
[2017-09-15] MEDS: OMEPRAZOLE 20 MG CAP PO (09:17)
[2017-09-15] MEDS: MULTIVITAMINS/MINERALS THERAP 1 TAB PO (09:17)
[2017-09-15] MEDS: FOLIC ACID 1 MG TAB PO (09:17)
[2017-09-15] MEDS: POTASSIUM CHLORIDE 10 MEQ SR TABLET PO ×2 (09:17→21:14)
[2017-09-15] MEDS: VENLAFAXINE **XR** 75MG CAPSULE PO (09:17)
[2017-09-15] MEDS: GABAPENTIN 300 MG CAP PO ×2 (09:18→21:14)
[2017-09-15] MEDS: METOPROLOL TART 25 MG TABLET PO ×2 (09:18→21:15)
[2017-09-15] MEDS: FUROSEMIDE 20 MG TAB PO ×2 (09:18→17:16)
[2017-09-15] MEDS: CETIRIZINE (ZyrTEC) 10 MG TAB PO (09:18)
[2017-09-15] MEDS: PRAZOSIN 1 MG CAP PO (21:15)
[2017-09-15] MEDS: QUEtiapine FUMARATE 200 MG TAB PO (21:15)
[2017-09-15] MEDS: IBUPROFEN 400 MG TAB PO (21:16)
[2017-09-16] MEDS: ADVAIR HFA 115/21MCG INHALER INH ×2 (08:26→21:15)
[2017-09-16] MEDS: FLUTICASONE PROP 0.05% NASAL SPRAY 16 GM (FLONASE) (08:26)
[2017-09-16] MEDS: NYSTATIN 500,000 U/5 ML SUSP UDC SS ×4 (08:26→21:12)
[2017-09-16] MEDS: MULTIVITAMINS/MINERALS THERAP 1 TAB PO (08:27)
[2017-09-16] MEDS: OMEPRAZOLE 20 MG CAP PO (08:27)
[2017-09-16] MEDS: ASPIRIN 81 MG ENTERIC TAB PO (08:27)
[2017-09-16] MEDS: CETIRIZINE (ZyrTEC) 10 MG TAB PO (08:27)
[2017-09-16] MEDS: FOLIC ACID 1 MG TAB PO (08:27)
[2017-09-16] MEDS: POTASSIUM CHLORIDE 10 MEQ SR TABLET PO ×2 (08:27→21:16)
[2017-09-16] MEDS: AUGMENTIN 875 MG TAB PO ×2 (08:27→21:13)
[2017-09-16] MEDS: VENLAFAXINE **XR** 75MG CAPSULE PO (08:28)
[2017-09-16] MEDS: METOPROLOL TART 25 MG TABLET PO ×2 (08:28→21:17)
[2017-09-16] MEDS: GABAPENTIN 300 MG CAP PO ×2 (08:28→21:15)
[2017-09-16] MEDS: FUROSEMIDE 20 MG TAB PO ×2 (08:28→16:04)
[2017-09-16] MEDS: NICOTINE 14 MG/24 HR TRANSDERMAL TD (08:29)
[2017-09-16] MEDS: QUEtiapine FUMARATE 200 MG TAB PO (21:13)
[2017-09-16] MEDS: traZODone 50 MG TAB PO (21:14)
[2017-09-16] MEDS: PRAZOSIN 1 MG CAP PO (21:17)
[2017-09-17] MEDS: FLUTICASONE PROP 0.05% NASAL SPRAY 16 GM (FLONASE) (09:18)
[2017-09-17] MEDS: NYSTATIN 500,000 U/5 ML SUSP UDC SS ×4 (09:18→21:31)
[2017-09-17] MEDS: VENLAFAXINE **XR** 75MG CAPSULE PO (09:19)
[2017-09-17] MEDS: ADVAIR HFA 115/21MCG INHALER INH ×2 (09:19→21:34)
[2017-09-17] MEDS: GABAPENTIN 300 MG CAP PO ×2 (09:19→21:33)
[2017-09-17] MEDS: CETIRIZINE (ZyrTEC) 10 MG TAB PO (09:19)
[2017-09-17] MEDS: FOLIC ACID 1 MG TAB PO (09:19)
[2017-09-17] MEDS: AUGMENTIN 875 MG TAB PO ×2 (09:19→21:32)
[2017-09-17] MEDS: METOPROLOL TART 25 MG TABLET PO ×2 (09:20→21:32)
[2017-09-17] MEDS: POTASSIUM CHLORIDE 10 MEQ SR TABLET PO ×2 (09:20→21:34)
[2017-09-17] MEDS: OMEPRAZOLE 20 MG CAP PO (09:20)
[2017-09-17] MEDS: NICOTINE 14 MG/24 HR TRANSDERMAL TD (09:20)
[2017-09-17] MEDS: MULTIVITAMINS/MINERALS THERAP 1 TAB PO (09:20)
[2017-09-17] MEDS: ASPIRIN 81 MG ENTERIC TAB PO (09:20)
[2017-09-17] MEDS: FUROSEMIDE 20 MG TAB PO ×2 (09:20→17:57)
[2017-09-17] MEDS: QUEtiapine FUMARATE 200 MG TAB PO (21:33)
[2017-09-17] MEDS: PRAZOSIN 1 MG CAP PO (21:34)
[2017-09-17] MEDS: traZODone 50 MG TAB PO (21:35)
[2017-09-18] MEDS: METOPROLOL TART 25 MG TABLET PO ×2 (09:29→21:05)
[2017-09-18] MEDS: ADVAIR HFA 115/21MCG INHALER INH ×2 (09:29→21:14)
[2017-09-18] MEDS: NYSTATIN 500,000 U/5 ML SUSP UDC SS ×4 (09:30→21:03)
[2017-09-18] MEDS: FLUTICASONE PROP 0.05% NASAL SPRAY 16 GM (FLONASE) (09:30)
[2017-09-18] MEDS: AUGMENTIN 875 MG TAB PO ×2 (09:30→21:04)
[2017-09-18] MEDS: ASPIRIN 81 MG ENTERIC TAB PO (09:30)
[2017-09-18] MEDS: FUROSEMIDE 20 MG TAB PO ×2 (09:30→17:54)
[2017-09-18] MEDS: FOLIC ACID 1 MG TAB PO (09:30)
[2017-09-18] MEDS: VENLAFAXINE **XR** 75MG CAPSULE PO (09:30)
[2017-09-18] MEDS: OMEPRAZOLE 20 MG CAP PO (09:30)
[2017-09-18] MEDS: CETIRIZINE (ZyrTEC) 10 MG TAB PO (09:30)
[2017-09-18] MEDS: MULTIVITAMINS/MINERALS THERAP 1 TAB PO (09:31)
[2017-09-18] MEDS: GABAPENTIN 300 MG CAP PO (09:31)
[2017-09-18] MEDS: POTASSIUM CHLORIDE 10 MEQ SR TABLET PO ×2 (11:39→21:09)
[2017-09-18] MEDS: NICOTINE 14 MG/24 HR TRANSDERMAL TD (11:44)
[2017-09-18] MEDS: PRAZOSIN 1 MG CAP PO (21:10)
[2017-09-18] MEDS: GABAPENTIN 400 MG CAP PO (21:10)
[2017-09-18] MEDS: QUEtiapine FUMARATE 200 MG TAB PO (21:10)
[2017-09-19] MEDS: FLUTICASONE PROP 0.05% NASAL SPRAY 16 GM (FLONASE) (08:07)
[2017-09-19] MEDS: OMEPRAZOLE 20 MG CAP PO (08:07)
[2017-09-19] MEDS: ADVAIR HFA 115/21MCG INHALER INH ×2 (08:07→21:32)
[2017-09-19] MEDS: AUGMENTIN 875 MG TAB PO ×2 (08:08→21:33)
[2017-09-19] MEDS: CETIRIZINE (ZyrTEC) 10 MG TAB PO (08:08)
[2017-09-19] MEDS: METOPROLOL TART 25 MG TABLET PO ×2 (08:08→21:33)
[2017-09-19] MEDS: FUROSEMIDE 20 MG TAB PO ×2 (08:08→16:02)
[2017-09-19] MEDS: MULTIVITAMINS/MINERALS THERAP 1 TAB PO (08:08)
[2017-09-19] MEDS: NYSTATIN 500,000 U/5 ML SUSP UDC SS ×4 (08:08→21:32)
[2017-09-19] MEDS: GABAPENTIN 400 MG CAP PO ×2 (08:08→21:33)
[2017-09-19] MEDS: ASPIRIN 81 MG ENTERIC TAB PO (08:08)
[2017-09-19] MEDS: POTASSIUM CHLORIDE 10 MEQ SR TABLET PO ×2 (08:08→21:34)
[2017-09-19] MEDS: VENLAFAXINE **XR** 75MG CAPSULE PO (08:08)
[2017-09-19] MEDS: FOLIC ACID 1 MG TAB PO (08:08)
[2017-09-19] MEDS: NICOTINE 14 MG/24 HR TRANSDERMAL TD (08:09)
[2017-09-19] MEDS: EUCERIN 120GM CREAM TOP (18:25)
[2017-09-19] MEDS: RAMELTEON 8 MG TAB (ROZEREM) PO (21:33)
[2017-09-19] MEDS: traZODone 50 MG TAB PO (21:33)
[2017-09-19] MEDS: QUEtiapine FUMARATE 200 MG TAB PO (21:34)
[2017-09-19] MEDS: PRAZOSIN 1 MG CAP PO (21:34)
[2017-09-20] MEDS: CETIRIZINE (ZyrTEC) 10 MG TAB PO (08:23)
[2017-09-20] MEDS: ADVAIR HFA 115/21MCG INHALER INH ×2 (08:23→21:15)
[2017-09-20] MEDS: FLUTICASONE PROP 0.05% NASAL SPRAY 16 GM (FLONASE) (08:23)
[2017-09-20] MEDS: NYSTATIN 500,000 U/5 ML SUSP UDC SS ×4 (08:23→21:12)
[2017-09-20] MEDS: AUGMENTIN 875 MG TAB PO ×2 (08:23→21:12)
[2017-09-20] MEDS: MULTIVITAMINS/MINERALS THERAP 1 TAB PO (08:24)
[2017-09-20] MEDS: FOLIC ACID 1 MG TAB PO (08:24)
[2017-09-20] MEDS: VENLAFAXINE **XR** 75MG CAPSULE PO (08:24)
[2017-09-20] MEDS: OMEPRAZOLE 20 MG CAP PO (08:24)
[2017-09-20] MEDS: ASPIRIN 81 MG ENTERIC TAB PO (08:24)
[2017-09-20] MEDS: METOPROLOL TART 25 MG TABLET PO ×2 (08:24→21:14)
[2017-09-20] MEDS: FUROSEMIDE 20 MG TAB PO ×2 (08:24→16:05)
[2017-09-20] MEDS: GABAPENTIN 400 MG CAP PO ×2 (08:24→21:16)
[2017-09-20] MEDS: NICOTINE 14 MG/24 HR TRANSDERMAL TD (08:24)
[2017-09-20] MEDS: POTASSIUM CHLORIDE 10 MEQ SR TABLET PO ×2 (08:25→21:15)
[2017-09-20 10:27] LABS: BASO # 0.1 10^3/uL (0.0-0.2); BASO % 1.1 % (0.0-1.0); EOS # 0.2 10^3/uL (0.0-0.50); EOS % 2.5 % (0.0-3.0); HEMATOCRIT 39.9 % (42.0-52.0); HEMOGLOBIN 13.5 g/dl (14.0-18.0); IMMATURE GRANULOCYTE % 0.3 % (0-0); LYMPH # 1.1 10^3/uL (1.5-4.5); LYMPH % 17.9 % (24.0-44.0); MEAN CORPUSCULAR HEMOGLOBIN 33.4 pg (27.0-33.0); MEAN CORPUSCULAR HGB CONC 33.8 g/dl (32.0-36.5); MEAN CORPUSCULAR VOLUME 98.8 fl (80.0-96.0); MONO # 0.8 10^3/uL (0.0-0.8); MONO % 12.8 % (0.0-5.0); NEUTROPHILS # 4.1 10^3/uL (1.8-7.7); NEUTROPHILS % 65.4 % (36.0-66.0); PLATELET COUNT, AUTOMATED 155 10^3/uL (150-450); RED BLOOD COUNT 4.04 10^6/uL (4.30-6.10); RED CELL DISTRIBUTION WIDTH 12.8 % (11.5-14.5); WHITE BLOOD COUNT 6.3 10^3/uL (4.0-10.0)
[2017-09-20 10:47] LABS: ALBUMIN 3.3 GM/DL (3.2-5.2); ALBUMIN/GLOBULIN RATIO 0.79 (1.00-1.93); ALKALINE PHOSPHATASE 128 U/L (45-117); ALT/SGPT 242 U/L (12-78); ANION GAP 6 MEQ/L (8-16); AST/SGOT 160 U/L (7-37); BILIRUBIN,TOTAL 0.8 MG/DL (0.2-1.0); BLOOD UREA NITROGEN 14 MG/DL (7-18); CALCIUM LEVEL 8.8 MG/DL (8.5-10.1); CARBON DIOXIDE LEVEL 30 MEQ/L (21-32); CHLORIDE LEVEL 100 MEQ/L (98-107); CREATININE FOR GFR 1.06 MG/DL (0.70-1.30); GLOMERULAR FILTRATION RATE > 60.0 (>56); MAGNESIUM LEVEL 1.9 MG/DL (1.8-2.4); POTASSIUM SERUM 4.3 MEQ/L (3.5-5.1); SODIUM LEVEL 136 MEQ/L (136-145); TOTAL PROTEIN 7.5 GM/DL (6.4-8.2)
[2017-09-20 10:58] LABS: GLUCOSE, FASTING 436 MG/DL (70-105)
[2017-09-20 11:32] LABS: ESTIMATED AVERAGE GLUCOSE 146 MG/DL (60-110); HEMOGLOBIN A1c 6.7 %
[2017-09-20] MEDS: QUEtiapine FUMARATE 200 MG TAB PO (21:14)
[2017-09-20] MEDS: traZODone 50 MG TAB PO (21:16)
[2017-09-20] MEDS: PRAZOSIN 1 MG CAP PO (21:16)
[2017-09-20] MEDS: RAMELTEON 8 MG TAB (ROZEREM) PO (21:17)
[2017-09-21 07:20] LABS: ALBUMIN 3.3 GM/DL (3.2-5.2); ALKALINE PHOSPHATASE 127 U/L (45-117); ALT/SGPT 242 U/L (12-78); ANION GAP 6 MEQ/L (8-16); AST/SGOT 151 U/L (7-37); BILIRUBIN,TOTAL 0.7 MG/DL (0.2-1.0); BLOOD UREA NITROGEN 13 MG/DL (7-18); CALCIUM LEVEL 8.7 MG/DL (8.5-10.1); CARBON DIOXIDE LEVEL 30 MEQ/L (21-32); CHLORIDE LEVEL 103 MEQ/L (98-107); CREATININE FOR GFR 0.93 MG/DL (0.70-1.30); GLOMERULAR FILTRATION RATE > 60.0 (>56); GLUCOSE, FASTING 332 MG/DL (70-105); POTASSIUM SERUM 4.2 MEQ/L (3.5-5.1); SODIUM LEVEL 139 MEQ/L (136-145); TOTAL PROTEIN 7.4 GM/DL (6.4-8.2)
[2017-09-21] MEDS: NICOTINE 14 MG/24 HR TRANSDERMAL TD (08:06)
[2017-09-21] MEDS: AUGMENTIN 875 MG TAB PO ×2 (08:06→20:49)
[2017-09-21] MEDS: POTASSIUM CHLORIDE 10 MEQ SR TABLET PO ×2 (08:06→20:49)
[2017-09-21] MEDS: CETIRIZINE (ZyrTEC) 10 MG TAB PO (08:06)
[2017-09-21] MEDS: MULTIVITAMINS/MINERALS THERAP 1 TAB PO (08:06)
[2017-09-21] MEDS: FLUTICASONE PROP 0.05% NASAL SPRAY 16 GM (FLONASE) (08:06)
[2017-09-21] MEDS: METOPROLOL TART 25 MG TABLET PO ×2 (08:06→20:49)
[2017-09-21] MEDS: GABAPENTIN 400 MG CAP PO ×2 (08:06→20:48)
[2017-09-21] MEDS: ASPIRIN 81 MG ENTERIC TAB PO (08:06)
[2017-09-21] MEDS: OMEPRAZOLE 20 MG CAP PO (08:07)
[2017-09-21] MEDS: VENLAFAXINE **XR** 75MG CAPSULE PO (08:07)
[2017-09-21] MEDS: FUROSEMIDE 20 MG TAB PO ×2 (08:07→17:06)
[2017-09-21] MEDS: FOLIC ACID 1 MG TAB PO (08:07)
[2017-09-21] MEDS: NYSTATIN 500,000 U/5 ML SUSP UDC SS ×4 (08:07→20:49)
[2017-09-21] MEDS: ADVAIR HFA 115/21MCG INHALER INH ×2 (08:07→20:49)
[2017-09-21] MEDS: traZODone 50 MG TAB PO (20:48)
[2017-09-21] MEDS: PRAZOSIN 1 MG CAP PO (20:48)
[2017-09-21] MEDS: QUEtiapine FUMARATE 200 MG TAB PO (20:49)
[2017-09-21] MEDS: RAMELTEON 8 MG TAB (ROZEREM) PO (20:49)
[2017-09-22] MEDS: IBUPROFEN 400 MG TAB PO (05:11)
[2017-09-22 06:45] LABS: BEDSIDE GLUCOSE 284 MG/DL (70-105)
[2017-09-22] MEDS: ADVAIR HFA 115/21MCG INHALER INH ×2 (09:09→21:29)
[2017-09-22] MEDS: FLUTICASONE PROP 0.05% NASAL SPRAY 16 GM (FLONASE) (09:09)
[2017-09-22] MEDS: OMEPRAZOLE 20 MG CAP PO (09:10)
[2017-09-22] MEDS: NICOTINE 14 MG/24 HR TRANSDERMAL TD (09:10)
[2017-09-22] MEDS: FUROSEMIDE 20 MG TAB PO ×2 (09:11→16:57)
[2017-09-22] MEDS: CETIRIZINE (ZyrTEC) 10 MG TAB PO (09:11)
[2017-09-22] MEDS: ASPIRIN 81 MG ENTERIC TAB PO (09:11)
[2017-09-22] MEDS: FOLIC ACID 1 MG TAB PO (09:12)
[2017-09-22] MEDS: MULTIVITAMINS/MINERALS THERAP 1 TAB PO (09:12)
[2017-09-22] MEDS: VENLAFAXINE **XR** 75MG CAPSULE PO (09:12)
[2017-09-22] MEDS: POTASSIUM CHLORIDE 10 MEQ SR TABLET PO ×2 (09:12→21:28)
[2017-09-22] MEDS: GABAPENTIN 400 MG CAP PO ×2 (09:12→21:27)
[2017-09-22] MEDS: METOPROLOL TART 25 MG TABLET PO ×2 (09:13→21:27)
[2017-09-22] MEDS: RAMELTEON 8 MG TAB (ROZEREM) PO (21:26)
[2017-09-22] MEDS: QUEtiapine FUMARATE 200 MG TAB PO (21:28)
[2017-09-22] MEDS: PRAZOSIN 1 MG CAP PO (21:28)
[2017-09-23 06:11] LABS: BEDSIDE GLUCOSE 312 MG/DL (70-105)
[2017-09-23] MEDS: FLUTICASONE PROP 0.05% NASAL SPRAY 16 GM (FLONASE) (08:09)
[2017-09-23] MEDS: NICOTINE 14 MG/24 HR TRANSDERMAL TD (08:10)
[2017-09-23] MEDS: MULTIVITAMINS/MINERALS THERAP 1 TAB PO (08:10)
[2017-09-23] MEDS: ADVAIR HFA 115/21MCG INHALER INH ×2 (08:10→21:10)
[2017-09-23] MEDS: FOLIC ACID 1 MG TAB PO (08:10)
[2017-09-23] MEDS: OMEPRAZOLE 20 MG CAP PO (08:10)
[2017-09-23] MEDS: GABAPENTIN 400 MG CAP PO ×2 (08:10→21:10)
[2017-09-23] MEDS: FUROSEMIDE 20 MG TAB PO ×2 (08:11→16:43)
[2017-09-23] MEDS: POTASSIUM CHLORIDE 10 MEQ SR TABLET PO ×2 (08:11→21:10)
[2017-09-23] MEDS: METOPROLOL TART 25 MG TABLET PO ×2 (08:11→21:10)
[2017-09-23] MEDS: CETIRIZINE (ZyrTEC) 10 MG TAB PO (08:11)
[2017-09-23] MEDS: ASPIRIN 81 MG ENTERIC TAB PO (08:11)
[2017-09-23] MEDS: VENLAFAXINE **XR** 75MG CAPSULE PO (08:12)
[2017-09-23] MEDS ORDERED: diphenhydrAMINE 50 MG CAP PO (12:00)
[2017-09-23 12:21] LABS: BEDSIDE GLUCOSE 339 MG/DL (70-105)
[2017-09-23 16:49] LABS: BEDSIDE GLUCOSE 328 MG/DL (70-105)
[2017-09-23] MEDS: RAMELTEON 8 MG TAB (ROZEREM) PO (21:09)
[2017-09-23] MEDS: PRAZOSIN 1 MG CAP PO (21:10)
[2017-09-23] MEDS: QUEtiapine FUMARATE 200 MG TAB PO (21:10)
[2017-09-23] MEDS: IBUPROFEN 400 MG TAB PO (21:11)
[2017-09-23 21:12] LABS: BEDSIDE GLUCOSE 259 MG/DL (70-105)
[2017-09-24 06:24] LABS: BEDSIDE GLUCOSE 216 MG/DL (70-105)
[2017-09-24] MEDS: ASPIRIN 81 MG ENTERIC TAB PO (08:31)
[2017-09-24] MEDS: FLUTICASONE PROP 0.05% NASAL SPRAY 16 GM (FLONASE) (08:31)
[2017-09-24] MEDS: ADVAIR HFA 115/21MCG INHALER INH ×2 (08:31→21:14)
[2017-09-24] MEDS: METOPROLOL TART 25 MG TABLET PO ×2 (08:31→21:19)
[2017-09-24] MEDS: GABAPENTIN 400 MG CAP PO ×2 (08:31→21:16)
[2017-09-24] MEDS: CETIRIZINE (ZyrTEC) 10 MG TAB PO (08:31)
[2017-09-24] MEDS: FOLIC ACID 1 MG TAB PO (08:31)
[2017-09-24] MEDS: OMEPRAZOLE 20 MG CAP PO (08:31)
[2017-09-24] MEDS: FUROSEMIDE 20 MG TAB PO ×2 (08:31→16:16)
[2017-09-24] MEDS: POTASSIUM CHLORIDE 10 MEQ SR TABLET PO ×2 (08:32→21:16)
[2017-09-24] MEDS: VENLAFAXINE **XR** 75MG CAPSULE PO (08:32)
[2017-09-24] MEDS: MULTIVITAMINS/MINERALS THERAP 1 TAB PO (08:32)
[2017-09-24] MEDS: NICOTINE 14 MG/24 HR TRANSDERMAL TD (08:32)
[2017-09-24] MEDS: IBUPROFEN 400 MG TAB PO (10:07)
[2017-09-24 12:07] LABS: BEDSIDE GLUCOSE 362 MG/DL (70-105)
[2017-09-24 16:32] LABS: BEDSIDE GLUCOSE 355 MG/DL (70-105)
[2017-09-24] MEDS: RAMELTEON 8 MG TAB (ROZEREM) PO (21:15)
[2017-09-24] MEDS: QUEtiapine FUMARATE 200 MG TAB PO (21:16)
[2017-09-24] MEDS: PRAZOSIN 1 MG CAP PO (21:19)
[2017-09-24 21:21] LABS: BEDSIDE GLUCOSE 366 MG/DL (70-105)
[2017-09-25 06:21] LABS: BEDSIDE GLUCOSE 239 MG/DL (70-105)
[2017-09-25] MEDS: FLUTICASONE PROP 0.05% NASAL SPRAY 16 GM (FLONASE) (09:02)
[2017-09-25] MEDS: ADVAIR HFA 115/21MCG INHALER INH (09:02)
[2017-09-25] MEDS: NICOTINE 14 MG/24 HR TRANSDERMAL TD (09:03)
[2017-09-25] MEDS: POTASSIUM CHLORIDE 10 MEQ SR TABLET PO (09:03)
[2017-09-25] MEDS: FOLIC ACID 1 MG TAB PO (09:03)
[2017-09-25] MEDS: MULTIVITAMINS/MINERALS THERAP 1 TAB PO (09:03)
[2017-09-25] MEDS: VENLAFAXINE **XR** 75MG CAPSULE PO (09:04)
[2017-09-25] MEDS: ASPIRIN 81 MG ENTERIC TAB PO (09:04)
[2017-09-25] MEDS: OMEPRAZOLE 20 MG CAP PO (09:04)
[2017-09-25] MEDS: FUROSEMIDE 20 MG TAB PO (09:04)
[2017-09-25] MEDS: CETIRIZINE (ZyrTEC) 10 MG TAB PO (09:04)
[2017-09-25] MEDS: GABAPENTIN 400 MG CAP PO (09:06)
[2017-09-25] MEDS: METOPROLOL TART 25 MG TABLET PO (09:06)
== END 2017-09-25 12:45 | disposition home or self-care (01) | DRG 885 ==
LOC: M PSY 09-13 16:11 → M ED 10:40 → M PSY 15:49
PROVIDERS: Psychiatry & Neurology Psychiatry
DX: F33.9 Major depressive disorder, recurrent, unspecified (principal); I50.32 Chronic diastolic (congestive) heart failure; S09.90XA Unspecified injury of head, initial encounter; F43.10 Post-traumatic stress disorder, unspecified; F10.10 Alcohol abuse, uncomplicated; J44.9 Chronic obstructive pulmonary disease, unspecified; G47.33 Obstructive sleep apnea (adult) (pediatric); B18.2 Chronic viral hepatitis C; F41.9 Anxiety disorder, unspecified; K21.9 Gastro-esophageal reflux disease without esophagitis; F17.210 Nicotine dependence, cigarettes, uncomplicated; I11.0 Hypertensive heart disease with heart failure; Y92.009 Unspecified place in unspecified non-institutional (private) residence as the place of occurrence of the external cause; Y93.89 Activity, other specified; Y99.8 Other external cause status; Z79.899 Other long term (current) drug therapy; Z79.82 Long term (current) use of aspirin; Z79.51 Long term (current) use of inhaled steroids; Z87.19 Personal history of other diseases of the digestive system; Y04.8XXA Assault by other bodily force, initial encounter; Z91.030 Bee allergy status; Z88.8 Allergy status to other drugs, medicaments and biological substances; Z98.52 Vasectomy status; Z96.642 Presence of left artificial hip joint

== ENCOUNTER 2017-10-01 07:45 | Inpatient (IN) | payer MEDICARE, MEDICAID ==
[2017-10-01 08:28] LABS: HEMATOCRIT 42.8 % (42.0-52.0); HEMOGLOBIN 14.5 g/dl (14.0-18.0); MEAN CORPUSCULAR HGB CONC 33.9 g/dl (32.0-36.5); MEAN CORPUSCULAR VOLUME 97.3 fl (80.0-96.0); PLATELET COUNT, AUTOMATED 100 10^3/uL (150-450); RED CELL DISTRIBUTION WIDTH 13.3 % (11.5-14.5); WHITE BLOOD COUNT 5.9 10^3/uL (4.0-10.0)
[2017-10-01] MEDS: NS 1,000 ML IV (08:36)
[2017-10-01 08:46] LABS: ALBUMIN 3.6 GM/DL (3.2-5.2); ALBUMIN/GLOBULIN RATIO 0.77 (1.00-1.93); ALKALINE PHOSPHATASE 146 U/L (45-117); ALT/SGPT 140 U/L (12-78); ANION GAP 14 MEQ/L (8-16); AST/SGOT 116 U/L (7-37); BILIRUBIN,DIRECT 0.5 MG/DL (0.0-0.2); BILIRUBIN,TOTAL 0.8 MG/DL (0.2-1.0); BLOOD UREA NITROGEN 8 MG/DL (7-18); CALCIUM LEVEL 8.1 MG/DL (8.5-10.1); CARBON DIOXIDE LEVEL 22 MEQ/L (21-32); CHLORIDE LEVEL 103 MEQ/L (98-107); CREATININE FOR GFR 0.89 MG/DL (0.70-1.30); ETHYL ALCOHOL (ETHANOL) 0.197 % (0.000-0.010); GLOMERULAR FILTRATION RATE > 60.0 (>56); GLUCOSE, FASTING 168 MG/DL (70-105); POTASSIUM SERUM 3.7 MEQ/L (3.5-5.1); SALICYLATE LEVEL 1.8 MG/DL (5.0-30.0); SODIUM LEVEL 139 MEQ/L (136-145); THYROID STIMULATING HORMONE 0.995 uIU/ML (0.358-3.740); TOTAL PROTEIN 8.3 GM/DL (6.4-8.2)
[2017-10-01 08:57] LABS: ACETAMINOPHEN LEVEL < 2.0 UG/ML (10.0-30.0)
[2017-10-01 09:55] LABS: AMPHETAMINES LEVEL URINE NEGATIVE (NEGATIVE); BARBITURATES URINE NEGATIVE (NEGATIVE); BENZODIAZEPINES URINE NEGATIVE (NEGATIVE); CANNABINOIDS URINE POSITIVE (NEGATIVE); COCAINE METABOLITE URINE NEGATIVE (NEGATIVE); METHADONE URINE NEGATIVE (NEGATIVE); OPIATES URINE NEGATIVE (NEGATIVE); PHENCYCLIDINE URINE NEGATIVE (NEGATIVE)
[2017-10-01 17:39] LABS: BEDSIDE GLUCOSE 131 MG/DL (70-105)
[2017-10-01] MEDS ORDERED: MOM 30ML SUSPENSION UDC PO (18:30)
[2017-10-01] MEDS: THIAMINE 100 MG TAB PO (18:55)
[2017-10-01] MEDS: FOLIC ACID 1 MG TAB PO (18:55)
[2017-10-01] MEDS: LORazepam 2 MG TAB PO (18:56)
[2017-10-01] MEDS: MULTIVITAMINS/MINERALS THERAP 1 TAB PO (18:56)
[2017-10-01] MEDS: FUROSEMIDE 20 MG TAB PO (18:56)
[2017-10-01] MEDS: GABAPENTIN 400 MG CAP PO (20:32)
[2017-10-01] MEDS: QUEtiapine FUMARATE 200 MG TAB PO (20:32)
[2017-10-01] MEDS: RAMELTEON 8 MG TAB (ROZEREM) PO (20:32)
[2017-10-01] MEDS: IBUPROFEN 400 MG TAB PO (20:32)
[2017-10-01] MEDS: PRAZOSIN 1 MG CAP PO (20:32)
[2017-10-01] MEDS: METOPROLOL TART 25 MG TABLET PO (20:33)
[2017-10-01] MEDS: ADVAIR HFA 230/21MCG INHALER INH (20:49)
[2017-10-01] MEDS: EUCERIN 120GM CREAM TOP (20:51)
[2017-10-01] MEDS ORDERED: QUEtiapine FUMARATE **XR** 200MG TABLET PO (21:00)
[2017-10-02 07:04] LABS: BEDSIDE GLUCOSE 215 MG/DL (70-105)
[2017-10-02] MEDS: EUCERIN 120GM CREAM TOP ×2 (08:37→20:28)
[2017-10-02] MEDS: ADVAIR HFA 230/21MCG INHALER INH ×2 (08:38→20:22)
[2017-10-02] MEDS: FUROSEMIDE 20 MG TAB PO ×2 (08:38→16:56)
[2017-10-02] MEDS: METOPROLOL TART 25 MG TABLET PO ×2 (08:38→20:22)
[2017-10-02] MEDS: THIAMINE 100 MG TAB PO ×2 (08:38→20:22)
[2017-10-02] MEDS: ASPIRIN 81 MG ENTERIC TAB PO (08:38)
[2017-10-02] MEDS: GABAPENTIN 400 MG CAP PO ×2 (08:38→20:19)
[2017-10-02] MEDS: VENLAFAXINE **XR** 75MG CAPSULE PO (08:38)
[2017-10-02] MEDS: FOLIC ACID 1 MG TAB PO (08:40)
[2017-10-02] MEDS: NICOTINE 21MG/24HR 1 EA TRANSDERMAL TD (08:40)
[2017-10-02] MEDS: MULTIVITAMINS/MINERALS THERAP 1 TAB PO (08:40)
[2017-10-02] MEDS ORDERED: IPRATROPIUM 0.5MG/ALBUTEROL 2.5MG INH SOL UD 3ML (DUONEB)(J7620) NEB (10:15)
[2017-10-02] MEDS: LIDOCAINE 5% (LIDODERM) PATCH TD (10:57)
[2017-10-02] MEDS: IBUPROFEN 400 MG TAB PO (13:21)
[2017-10-02 17:08] LABS: BEDSIDE GLUCOSE 134 MG/DL (70-105)
[2017-10-02] MEDS: QUEtiapine FUMARATE 200 MG TAB PO (20:19)
[2017-10-02] MEDS: RAMELTEON 8 MG TAB (ROZEREM) PO (20:19)
[2017-10-02] MEDS: PRAZOSIN 1 MG CAP PO (20:22)
[2017-10-02] MEDS: LORazepam 2 MG TAB PO (20:25)
[2017-10-02] MEDS: **NOTE PATIENT COMMENT** MISC XX (20:27)
[2017-10-03 06:21] LABS: BEDSIDE GLUCOSE 114 MG/DL (70-105)
[2017-10-03 07:43] LABS: HEMATOCRIT 39.2 % (42.0-52.0); HEMOGLOBIN 13.6 g/dl (14.0-18.0); MEAN CORPUSCULAR HEMOGLOBIN 32.9 pg (27.0-33.0); MEAN CORPUSCULAR HGB CONC 34.7 g/dl (32.0-36.5); MEAN CORPUSCULAR VOLUME 94.9 fl (80.0-96.0); PLATELET COUNT, AUTOMATED 100 10^3/uL (150-450); RED BLOOD COUNT 4.13 10^6/uL (4.30-6.10); RED CELL DISTRIBUTION WIDTH 13.2 % (11.5-14.5); WHITE BLOOD COUNT 6.4 10^3/uL (4.0-10.0)
[2017-10-03 08:03] LABS: ALBUMIN 3.2 GM/DL (3.2-5.2); ALBUMIN/GLOBULIN RATIO 0.73 (1.00-1.93); ALKALINE PHOSPHATASE 123 U/L (45-117); ALT/SGPT 130 U/L (12-78); ANION GAP 8 MEQ/L (8-16); AST/SGOT 110 U/L (7-37); BLOOD UREA NITROGEN 10 MG/DL (7-18); CALCIUM LEVEL 8.6 MG/DL (8.5-10.1); CARBON DIOXIDE LEVEL 28 MEQ/L (21-32); CHLORIDE LEVEL 104 MEQ/L (98-107); CREATININE FOR GFR 0.83 MG/DL (0.70-1.30); GLOMERULAR FILTRATION RATE > 60.0 (>56); GLUCOSE, FASTING 182 MG/DL (70-105); POTASSIUM SERUM 3.9 MEQ/L (3.5-5.1); SODIUM LEVEL 140 MEQ/L (136-145); TOTAL PROTEIN 7.6 GM/DL (6.4-8.2)
[2017-10-03] MEDS: ADVAIR HFA 230/21MCG INHALER INH ×2 (08:18→21:00)
[2017-10-03] MEDS: FOLIC ACID 1 MG TAB PO (08:19)
[2017-10-03] MEDS: MULTIVITAMINS/MINERALS THERAP 1 TAB PO (08:19)
[2017-10-03] MEDS: METOPROLOL TART 25 MG TABLET PO ×2 (08:19→20:03)
[2017-10-03] MEDS: VENLAFAXINE **XR** 75MG CAPSULE PO (08:19)
[2017-10-03] MEDS: FUROSEMIDE 20 MG TAB PO ×2 (08:19→17:07)
[2017-10-03] MEDS: GABAPENTIN 400 MG CAP PO ×2 (08:19→20:02)
[2017-10-03] MEDS: ASPIRIN 81 MG ENTERIC TAB PO (08:19)
[2017-10-03] MEDS: THIAMINE 100 MG TAB PO (08:19)
[2017-10-03] MEDS: NICOTINE 21MG/24HR 1 EA TRANSDERMAL TD (08:20)
[2017-10-03] MEDS: EUCERIN 120GM CREAM TOP ×2 (08:20→20:03)
[2017-10-03] MEDS: LIDOCAINE 5% (LIDODERM) PATCH TD (08:20)
[2017-10-03 09:17] LABS: ESTIMATED AVERAGE GLUCOSE 166 MG/DL (60-110); HEMOGLOBIN A1c 7.4 %
[2017-10-03] MEDS ORDERED: GLUCAGON FOR INJ 1 MG VIAL (J1610) SC (12:15)
[2017-10-03] MEDS ORDERED: GLUCOSE 4 GM CHEW TABLET PO (12:15)
[2017-10-03] MEDS ORDERED: DEXTROSE 50% 50 ML SYRINGE IV (12:15)
[2017-10-03] MEDS: HumaLOG INSULIN (NovoLOG) PER UNIT SC ×3 (12:25→21:00)
[2017-10-03 12:34] LABS: BEDSIDE GLUCOSE 194 MG/DL (70-105)
[2017-10-03 17:16] LABS: BEDSIDE GLUCOSE 108 MG/DL (70-105)
[2017-10-03] MEDS: IBUPROFEN 400 MG TAB PO (19:57)
[2017-10-03] MEDS: QUEtiapine FUMARATE 200 MG TAB PO (20:02)
[2017-10-03] MEDS: PRAZOSIN 1 MG CAP PO (20:03)
[2017-10-03] MEDS: RAMELTEON 8 MG TAB (ROZEREM) PO (20:03)
[2017-10-03 20:56] LABS: BEDSIDE GLUCOSE 188 MG/DL (70-105)
[2017-10-03] MEDS: **NOTE PATIENT COMMENT** MISC XX (21:00)
[2017-10-04 06:27] LABS: BEDSIDE GLUCOSE 126 MG/DL (70-105)
[2017-10-04] MEDS: HumaLOG INSULIN (NovoLOG) PER UNIT SC ×4 (07:07→21:00)
[2017-10-04 08:05] LABS: ALBUMIN 3.4 GM/DL (3.2-5.2); ALBUMIN/GLOBULIN RATIO 0.85 (1.00-1.93); ALKALINE PHOSPHATASE 130 U/L (45-117); ALT/SGPT 141 U/L (12-78); ANION GAP 8 MEQ/L (8-16); AST/SGOT 112 U/L (7-37); BLOOD UREA NITROGEN 12 MG/DL (7-18); CALCIUM LEVEL 8.6 MG/DL (8.5-10.1); CARBON DIOXIDE LEVEL 28 MEQ/L (21-32); CHLORIDE LEVEL 104 MEQ/L (98-107); CHOLESTEROL LEVEL 175 MG/DL (<200); CREATININE FOR GFR 0.86 MG/DL (0.70-1.30); GLOMERULAR FILTRATION RATE > 60.0 (>56); GLUCOSE, FASTING 133 MG/DL (70-105); HDL CHOLESTEROL 57 MG/DL (>40); LDL CHOLESTEROL 100.6 MG/DL (<100); NON-HDL-C 118 MG/DL; POTASSIUM SERUM 4.2 MEQ/L (3.5-5.1); SODIUM LEVEL 140 MEQ/L (136-145); TOTAL PROTEIN 7.4 GM/DL (6.4-8.2); TRIGLYCERIDES LEVEL 87 MG/DL (<150)
[2017-10-04] MEDS: ADVAIR HFA 230/21MCG INHALER INH ×2 (08:11→21:18)
[2017-10-04] MEDS: LIDOCAINE 5% (LIDODERM) PATCH TD (08:12)
[2017-10-04] MEDS: EUCERIN 120GM CREAM TOP ×2 (08:12→21:00)
[2017-10-04] MEDS: METOPROLOL TART 25 MG TABLET PO ×2 (08:13→21:13)
[2017-10-04] MEDS: NICOTINE 21MG/24HR 1 EA TRANSDERMAL TD (08:13)
[2017-10-04] MEDS: ASPIRIN 81 MG ENTERIC TAB PO (08:13)
[2017-10-04] MEDS: MULTIVITAMINS/MINERALS THERAP 1 TAB PO (08:13)
[2017-10-04] MEDS: FUROSEMIDE 20 MG TAB PO ×2 (08:14→17:08)
[2017-10-04] MEDS: FOLIC ACID 1 MG TAB PO (08:14)
[2017-10-04] MEDS: VENLAFAXINE **XR** 75MG CAPSULE PO (08:14)
[2017-10-04] MEDS: GABAPENTIN 400 MG CAP PO ×2 (08:14→21:13)
[2017-10-04 12:07] LABS: BEDSIDE GLUCOSE 144 MG/DL (70-105)
[2017-10-04 17:11] LABS: BEDSIDE GLUCOSE 192 MG/DL (70-105)
[2017-10-04] MEDS: RAMELTEON 8 MG TAB (ROZEREM) PO (21:12)
[2017-10-04] MEDS: PRAZOSIN 1 MG CAP PO (21:13)
[2017-10-04] MEDS: QUEtiapine FUMARATE 200 MG TAB PO (21:14)
[2017-10-04] MEDS: **NOTE PATIENT COMMENT** MISC XX (21:20)
[2017-10-04 21:21] LABS: BEDSIDE GLUCOSE 176 MG/DL (70-105)
[2017-10-05] MEDS: HumaLOG INSULIN (NovoLOG) PER UNIT SC ×4 (06:19→21:00)
[2017-10-05 06:21] LABS: BEDSIDE GLUCOSE 162 MG/DL (70-105)
[2017-10-05] MEDS: ADVAIR HFA 230/21MCG INHALER INH ×2 (08:38→21:10)
[2017-10-05] MEDS: LIDOCAINE 5% (LIDODERM) PATCH TD (08:38)
[2017-10-05] MEDS: NICOTINE 21MG/24HR 1 EA TRANSDERMAL TD (08:39)
[2017-10-05] MEDS: EUCERIN 120GM CREAM TOP ×2 (08:40→21:00)
[2017-10-05] MEDS: ASPIRIN 81 MG ENTERIC TAB PO (08:40)
[2017-10-05] MEDS: FUROSEMIDE 20 MG TAB PO ×2 (08:41→17:05)
[2017-10-05] MEDS: METOPROLOL TART 25 MG TABLET PO ×2 (08:41→21:08)
[2017-10-05] MEDS: GABAPENTIN 400 MG CAP PO ×2 (08:41→21:08)
[2017-10-05] MEDS: FOLIC ACID 1 MG TAB PO (08:41)
[2017-10-05] MEDS: MULTIVITAMINS/MINERALS THERAP 1 TAB PO (08:41)
[2017-10-05] MEDS: VENLAFAXINE **XR** 75MG CAPSULE PO (08:41)
[2017-10-05 12:12] LABS: BEDSIDE GLUCOSE 185 MG/DL (70-105)
[2017-10-05] MEDS: IBUPROFEN 400 MG TAB PO (17:06)
[2017-10-05 17:11] LABS: BEDSIDE GLUCOSE 204 MG/DL (70-105)
[2017-10-05] MEDS: QUEtiapine FUMARATE 200 MG TAB PO (21:08)
[2017-10-05] MEDS: RAMELTEON 8 MG TAB (ROZEREM) PO (21:08)
[2017-10-05] MEDS: PRAZOSIN 1 MG CAP PO (21:09)
[2017-10-05] MEDS: **NOTE PATIENT COMMENT** MISC XX (21:10)
[2017-10-05 21:11] LABS: BEDSIDE GLUCOSE 215 MG/DL (70-105)
[2017-10-06] MEDS: HumaLOG INSULIN (NovoLOG) PER UNIT SC ×4 (06:18→21:00)
[2017-10-06 06:23] LABS: BEDSIDE GLUCOSE 195 MG/DL (70-105)
[2017-10-06] MEDS: EUCERIN 120GM CREAM TOP ×2 (08:36→20:53)
[2017-10-06] MEDS: NICOTINE 21MG/24HR 1 EA TRANSDERMAL TD (08:36)
[2017-10-06] MEDS: LIDOCAINE 5% (LIDODERM) PATCH TD (08:37)
[2017-10-06] MEDS: METOPROLOL TART 25 MG TABLET PO ×2 (08:38→20:52)
[2017-10-06] MEDS: ADVAIR HFA 230/21MCG INHALER INH ×2 (08:38→20:52)
[2017-10-06] MEDS: MULTIVITAMINS/MINERALS THERAP 1 TAB PO (08:38)
[2017-10-06] MEDS: ASPIRIN 81 MG ENTERIC TAB PO (08:39)
[2017-10-06] MEDS: FOLIC ACID 1 MG TAB PO (08:39)
[2017-10-06] MEDS: VENLAFAXINE **XR** 75MG CAPSULE PO (08:39)
[2017-10-06] MEDS: GABAPENTIN 400 MG CAP PO ×2 (08:39→20:52)
[2017-10-06] MEDS: FUROSEMIDE 20 MG TAB PO ×2 (08:39→17:11)
[2017-10-06 11:56] LABS: BEDSIDE GLUCOSE 244 MG/DL (70-105)
[2017-10-06] MEDS: IBUPROFEN 400 MG TAB PO (16:02)
[2017-10-06 17:16] LABS: BEDSIDE GLUCOSE 124 MG/DL (70-105)
[2017-10-06] MEDS: RAMELTEON 8 MG TAB (ROZEREM) PO (20:52)
[2017-10-06] MEDS: QUEtiapine FUMARATE 200 MG TAB PO (20:52)
[2017-10-06] MEDS: PRAZOSIN 1 MG CAP PO (20:52)
[2017-10-06 20:56] LABS: BEDSIDE GLUCOSE 217 MG/DL (70-105)
[2017-10-06] MEDS: **NOTE PATIENT COMMENT** MISC XX (21:24)
[2017-10-07 06:31] LABS: BEDSIDE GLUCOSE 165 MG/DL (70-105)
[2017-10-07] MEDS: HumaLOG INSULIN (NovoLOG) PER UNIT SC ×4 (06:55→21:00)
[2017-10-07] MEDS: MULTIVITAMINS/MINERALS THERAP 1 TAB PO (08:50)
[2017-10-07] MEDS: FOLIC ACID 1 MG TAB PO (08:51)
[2017-10-07] MEDS: VENLAFAXINE **XR** 75MG CAPSULE PO (08:51)
[2017-10-07] MEDS: FUROSEMIDE 20 MG TAB PO ×2 (08:51→17:20)
[2017-10-07] MEDS: GABAPENTIN 400 MG CAP PO ×2 (08:51→21:20)
[2017-10-07] MEDS: ASPIRIN 81 MG ENTERIC TAB PO (08:51)
[2017-10-07] MEDS: METOPROLOL TART 25 MG TABLET PO ×2 (08:51→21:23)
[2017-10-07] MEDS: NICOTINE 21MG/24HR 1 EA TRANSDERMAL TD (08:52)
[2017-10-07] MEDS: LIDOCAINE 5% (LIDODERM) PATCH TD (08:55)
[2017-10-07] MEDS: ADVAIR HFA 230/21MCG INHALER INH ×2 (09:00→21:20)
[2017-10-07] MEDS: EUCERIN 120GM CREAM TOP ×2 (09:00→21:00)
[2017-10-07 11:59] LABS: BEDSIDE GLUCOSE 209 MG/DL (70-105)
[2017-10-07] MEDS: IBUPROFEN 400 MG TAB PO (14:34)
[2017-10-07 17:25] LABS: BEDSIDE GLUCOSE 206 MG/DL (70-105)
[2017-10-07] MEDS: RAMELTEON 8 MG TAB (ROZEREM) PO (21:20)
[2017-10-07] MEDS: QUEtiapine FUMARATE 200 MG TAB PO (21:22)
[2017-10-07] MEDS: PRAZOSIN 1 MG CAP PO (21:22)
[2017-10-07 21:27] LABS: BEDSIDE GLUCOSE 220 MG/DL (70-105)
[2017-10-07] MEDS: **NOTE PATIENT COMMENT** MISC XX (21:30)
[2017-10-08] MEDS: HumaLOG INSULIN (NovoLOG) PER UNIT SC ×4 (06:30→21:00)
[2017-10-08 06:46] LABS: BEDSIDE GLUCOSE 238 MG/DL (70-105)
[2017-10-08] MEDS: NICOTINE 21MG/24HR 1 EA TRANSDERMAL TD (08:49)
[2017-10-08] MEDS: ASPIRIN 81 MG ENTERIC TAB PO (08:50)
[2017-10-08] MEDS: VENLAFAXINE **XR** 75MG CAPSULE PO (08:50)
[2017-10-08] MEDS: LIDOCAINE 5% (LIDODERM) PATCH TD (08:50)
[2017-10-08] MEDS: FOLIC ACID 1 MG TAB PO (08:50)
[2017-10-08] MEDS: MULTIVITAMINS/MINERALS THERAP 1 TAB PO (08:50)
[2017-10-08] MEDS: ADVAIR HFA 230/21MCG INHALER INH ×2 (08:50→21:12)
[2017-10-08] MEDS: GABAPENTIN 400 MG CAP PO ×2 (08:50→21:08)
[2017-10-08] MEDS: FUROSEMIDE 20 MG TAB PO ×2 (08:53→17:11)
[2017-10-08] MEDS: METOPROLOL TART 25 MG TABLET PO ×2 (08:55→21:10)
[2017-10-08] MEDS: BACTRIM 160MG/800MG DS TAB PO ×3 (09:00→21:10)
[2017-10-08] MEDS: EUCERIN 120GM CREAM TOP ×2 (09:00→21:00)
[2017-10-08] MEDS: diphenhydrAMINE 50 MG CAP PO ×2 (09:32→21:11)
[2017-10-08] MEDS: PRAZOSIN 1 MG CAP PO (21:10)
[2017-10-08] MEDS: RAMELTEON 8 MG TAB (ROZEREM) PO (21:10)
[2017-10-08] MEDS: QUEtiapine FUMARATE 200 MG TAB PO (21:10)
[2017-10-08] MEDS: **NOTE PATIENT COMMENT** MISC XX (21:12)
[2017-10-08 21:15] LABS: BEDSIDE GLUCOSE 161 MG/DL (70-105)
[2017-10-08] MEDS ORDERED: CEPACOL LOZENGE PO (21:45)
[2017-10-09] MEDS: HumaLOG INSULIN (NovoLOG) PER UNIT SC ×4 (06:34→21:00)
[2017-10-09 06:36] LABS: BEDSIDE GLUCOSE 129 MG/DL (70-105)
[2017-10-09 08:34] LABS: BEDSIDE GLUCOSE 287 MG/DL (70-105)
[2017-10-09 08:34] LABS: BEDSIDE GLUCOSE 155 MG/DL (70-105)
[2017-10-09] MEDS: METOPROLOL TART 25 MG TABLET PO ×2 (08:40→21:06)
[2017-10-09] MEDS: VENLAFAXINE **XR** 75MG CAPSULE PO (08:40)
[2017-10-09] MEDS: ADVAIR HFA 230/21MCG INHALER INH ×2 (08:40→21:04)
[2017-10-09] MEDS: FOLIC ACID 1 MG TAB PO (08:41)
[2017-10-09] MEDS: BACTRIM 160MG/800MG DS TAB PO ×2 (08:41→21:03)
[2017-10-09] MEDS: MULTIVITAMINS/MINERALS THERAP 1 TAB PO (08:41)
[2017-10-09] MEDS: GABAPENTIN 400 MG CAP PO ×2 (08:41→21:04)
[2017-10-09] MEDS: LIDOCAINE 5% (LIDODERM) PATCH TD (08:41)
[2017-10-09] MEDS: FUROSEMIDE 20 MG TAB PO ×2 (08:41→16:44)
[2017-10-09] MEDS: ASPIRIN 81 MG ENTERIC TAB PO (08:41)
[2017-10-09] MEDS: diphenhydrAMINE 50 MG CAP PO ×2 (08:42→21:05)
[2017-10-09] MEDS: NICOTINE 21MG/24HR 1 EA TRANSDERMAL TD (08:42)
[2017-10-09] MEDS: IBUPROFEN 400 MG TAB PO ×2 (08:43→21:07)
[2017-10-09] MEDS: EUCERIN 120GM CREAM TOP ×2 (08:46→21:10)
[2017-10-09] MEDS: LEVEMIR (INSULIN DETEMIR) 1 UNITS/0.01ML SC (11:56)
[2017-10-09 12:36] LABS: BEDSIDE GLUCOSE 149 MG/DL (70-105)
[2017-10-09 17:03] LABS: BEDSIDE GLUCOSE 312 MG/DL (70-105)
[2017-10-09] MEDS: RAMELTEON 8 MG TAB (ROZEREM) PO (21:03)
[2017-10-09] MEDS: QUEtiapine FUMARATE 200 MG TAB PO (21:03)
[2017-10-09] MEDS: PRAZOSIN 1 MG CAP PO (21:05)
[2017-10-09] MEDS: **NOTE PATIENT COMMENT** MISC XX (21:07)
[2017-10-09 21:10] LABS: BEDSIDE GLUCOSE 196 MG/DL (70-105)
[2017-10-10] MEDS: HumaLOG INSULIN (NovoLOG) PER UNIT SC (06:35)
[2017-10-10 06:38] LABS: BEDSIDE GLUCOSE 114 MG/DL (70-105)
[2017-10-10] MEDS: ADVAIR HFA 230/21MCG INHALER INH (08:17)
[2017-10-10] MEDS: BACTRIM 160MG/800MG DS TAB PO (08:18)
[2017-10-10] MEDS: METOPROLOL TART 25 MG TABLET PO (08:18)
[2017-10-10] MEDS: ASPIRIN 81 MG ENTERIC TAB PO (08:18)
[2017-10-10] MEDS: NICOTINE 21MG/24HR 1 EA TRANSDERMAL TD (08:18)
[2017-10-10] MEDS: GABAPENTIN 400 MG CAP PO (08:18)
[2017-10-10] MEDS: MULTIVITAMINS/MINERALS THERAP 1 TAB PO (08:18)
[2017-10-10] MEDS: FUROSEMIDE 20 MG TAB PO (08:18)
[2017-10-10] MEDS: FOLIC ACID 1 MG TAB PO (08:18)
[2017-10-10] MEDS: VENLAFAXINE **XR** 75MG CAPSULE PO (08:18)
[2017-10-10] MEDS: LIDOCAINE 5% (LIDODERM) PATCH TD (08:19)
[2017-10-10] MEDS: EUCERIN 120GM CREAM TOP (08:19)
[2017-10-10] MEDS: LEVEMIR (INSULIN DETEMIR) 1 UNITS/0.01ML SC (08:41)
== END 2017-10-10 09:45 | disposition home or self-care (01) | DRG 885 ==
LOC: M PSY 10-03 22:41 → M ED 07:45 → M ED INP 14:43 → M PSY 16:48
DX: F33.9 Major depressive disorder, recurrent, unspecified (principal); I50.32 Chronic diastolic (congestive) heart failure; F10.10 Alcohol abuse, uncomplicated; F12.90 Cannabis use, unspecified, uncomplicated; Z79.899 Other long term (current) drug therapy; Z79.82 Long term (current) use of aspirin; Z88.8 Allergy status to other drugs, medicaments and biological substances; Z91.038 Other insect allergy status; J43.9 Emphysema, unspecified; I11.9 Hypertensive heart disease without heart failure; K21.9 Gastro-esophageal reflux disease without esophagitis; M79.2 Neuralgia and neuritis, unspecified; B18.2 Chronic viral hepatitis C; G89.29 Other chronic pain; E66.9 Obesity, unspecified; G47.33 Obstructive sleep apnea (adult) (pediatric); Z68.38 Body mass index [BMI] 38.0-38.9, adult; K31.84 Gastroparesis; J30.9 Allergic rhinitis, unspecified; K02.9 Dental caries, unspecified; I87.2 Venous insufficiency (chronic) (peripheral); D18.09 Hemangioma of other sites; I27.20 Pulmonary hypertension, unspecified; F17.200 Nicotine dependence, unspecified, uncomplicated

== ENCOUNTER → 2017-10-14 | Outpatient (REF) | payer MEDICARE, MEDICAID ==
[2017-10-14 19:45] LABS: ALBUMIN 4.1 GM/DL (3.2-5.2); ALBUMIN/GLOBULIN RATIO 0.91 (1.00-1.93); ALKALINE PHOSPHATASE 163 U/L (45-117); ALT/SGPT 375 U/L (12-78); ANION GAP 8 MEQ/L (8-16); AST/SGOT 227 U/L (7-37); BILIRUBIN,TOTAL 1.6 MG/DL (0.2-1.0); BLOOD UREA NITROGEN 16 MG/DL (7-18); CALCIUM LEVEL 8.7 MG/DL (8.5-10.1); CARBON DIOXIDE LEVEL 22 MEQ/L (21-32); CHLORIDE LEVEL 107 MEQ/L (98-107); CREATININE FOR GFR 0.79 MG/DL (0.70-1.30); GLOMERULAR FILTRATION RATE > 60.0 (>56); GLUCOSE, FASTING 119 MG/DL (70-100); POTASSIUM SERUM 3.8 MEQ/L (3.5-5.1); SODIUM LEVEL 137 MEQ/L (136-145); TOTAL PROTEIN 8.6 GM/DL (6.4-8.2)
[2017-10-16 12:10] LABS: HEPATITIS B SURFACE ANTIBODY POSITIVE (POSITIVE)
== END ==
LOC: M LAB REF 18:21
DX: B17.10 Acute hepatitis C without hepatic coma (principal); R73.09 Other abnormal glucose; Z79.899 Other long term (current) drug therapy
CPT/HCPCS: 80053

== ENCOUNTER → 2017-10-14 | Outpatient (REF) | payer MEDICARE, MEDICAID ==
[2017-10-14 19:27] LABS: APPEARANCE, URINE CLEAR (CLEAR); BACTERIA, URINE AUTO NEGATIVE (NEGATIVE); BILIRUBIN, URINE AUTO NEGATIVE (NEGATIVE); BLOOD, URINE BLOOD NEGATIVE (NEGATIVE); COLOR, URINE AMBER (YELLOW); GLUCOSE, URINE (UA) AUTO NEGATIVE (NEGATIVE); KETONE, URINE AUTO NEGATIVE (NEGATIVE); LEUKOCYTE ESTERASE, URINE AUTO NEGATIVE (NEGATIVE); MUCUS, URINE SMALL (NEGATIVE); NITRITE, URINE AUTO NEGATIVE (NEGATIVE); PROTEIN, URINE AUTO NEGATIVE (NEGATIVE); RBC, URINE AUTO 1 /HPF (0-3); SPECIFIC GRAVITY URINE AUTO 1.025 (1.002-1.035); SQUAMOUS EPITHELIAL CELL UR AU 1 /HPF (0-6); WBC, URINE AUTO 1 /HPF (0-3)
== END ==
LOC: M LAB REF 17:13
DX: R30.0 Dysuria (principal)

== ENCOUNTER → 2017-11-22 | Outpatient (CLI) | payer MEDICARE, MEDICAID ==
[2017-11-22 08:45] LABS: CHOLESTEROL LEVEL 143 MG/DL (<200); CHOLESTEROL RISK RATIO 3.042 (<5); HDL CHOLESTEROL 47 MG/DL (>40); LDL CHOLESTEROL 81.4 MG/DL (<100); NON-HDL-C 96 MG/DL; TRIGLYCERIDES LEVEL 73 MG/DL (<150)
[2017-11-22 09:05] LABS: MALB URINE SIEMENS 42.3 MG/L; MAU/CREAT RATIO 7.7 MCG/MG (0.0-30.0)
[2017-11-22 09:22] LABS: ESTIMATED AVERAGE GLUCOSE 143 MG/DL (60-110); HEMOGLOBIN A1c 6.6 %
[2017-11-22 11:37] LABS: HEPATITIS C VIRUS ABY INDEX > 11.0 INDEX (<0.8)
[2017-11-25 00:07] LABS: HEPATITIS C VIRUS GENOTYPE 3 (.)
[2017-11-26 00:07] LABS: HCV RNA NAA QUALITATIVE Positive (Negative)
== END ==
LOC: M LAB 07:48
DX: B17.10 Acute hepatitis C without hepatic coma (principal); E11.65 Type 2 diabetes mellitus with hyperglycemia
CPT/HCPCS: 76705

== ENCOUNTER → 2017-12-30 | Outpatient (REF) | payer MEDICARE, MEDICAID ==
[2017-12-30 13:05] LABS: ALBUMIN 3.6 GM/DL (3.2-5.2); ALBUMIN/GLOBULIN RATIO 1.03 (1.00-1.93); ALKALINE PHOSPHATASE 131 U/L (45-117); ALT/SGPT 77 U/L (12-78); ANION GAP 7 MEQ/L (8-16); AST/SGOT 66 U/L (7-37); BILIRUBIN,TOTAL 0.4 MG/DL (0.2-1.0); BLOOD UREA NITROGEN 9 MG/DL (7-18); CALCIUM LEVEL 8.5 MG/DL (8.5-10.1); CARBON DIOXIDE LEVEL 29 MEQ/L (21-32); CHLORIDE LEVEL 108 MEQ/L (98-107); CREATININE FOR GFR 1.02 MG/DL (0.70-1.30); GLOMERULAR FILTRATION RATE > 60.0 (>56); GLUCOSE, FASTING 89 MG/DL (70-100); IRON (FE) 80 UG/DL (65-175); POTASSIUM SERUM 4.1 MEQ/L (3.5-5.1); SODIUM LEVEL 144 MEQ/L (136-145); TOTAL IRON BINDING CAPACITY 334 UG/DL (250-450); TOTAL PROTEIN 7.1 GM/DL (6.4-8.2)
[2017-12-30 13:06] LABS: PROTHROMBIN TIME 14.4 SECONDS (12.4-14.5)
[2017-12-30 13:10] LABS: BASO # 0.1 10^3/uL (0.0-0.2); BASO % 0.6 % (0.0-1.0); EOS # 0.3 10^3/uL (0.0-0.50); EOS % 4.2 % (0.0-3.0); HEMATOCRIT 40.6 % (42.0-52.0); IMMATURE GRANULOCYTE % 0.5 % (0-3.0); LYMPH # 1.7 10^3/uL (1.5-4.5); LYMPH % 22.3 % (24.0-44.0); MEAN CORPUSCULAR HEMOGLOBIN 33.5 pg (27.0-33.0); MEAN CORPUSCULAR HGB CONC 34.5 g/dl (32.0-36.5); MEAN CORPUSCULAR VOLUME 97.1 fl (80.0-96.0); MONO % 13.1 % (0.0-5.0); NEUTROPHILS # 4.6 10^3/uL (1.8-7.7); NEUTROPHILS % 59.3 % (36.0-66.0); PLATELET COUNT, AUTOMATED 116 10^3/uL (150-450); RED BLOOD COUNT 4.18 10^6/uL (4.30-6.10); RED CELL DISTRIBUTION WIDTH 13.9 % (11.5-14.5); WHITE BLOOD COUNT 7.8 10^3/uL (4.0-10.0)
[2018-01-01 08:06] LABS: ALPHA 2-MACROGLOBULIN 255 mg/dL (110-276); ALT 73 IU/L (0-55); ANTINUCLEAR ANTIBODIES DIRECT Negative (Negative); APOLIPOPROTEIN A-1 142 mg/dL (101-178); CERULOPLASMIN 22.9 mg/dL (16.0-31.0); FIBROSIS SCORE 0.54 (0.00-0.21); GGT 371 IU/L (0-65); HAPTOGLOBIN 117 mg/dL (34-200); NECROINFLAM SCORE 0.52 (0.00-0.17); NECROINFLAMM GRADE A1-A2 (.); TOTAL BILIRUBIN 0.3 mg/dL (0.0-1.2)
[2018-01-01 08:06] LABS: ANTI-SMOOTH MUSCLE ANTIBODY 13 Units (0-19)
== END ==
LOC: M SFHCPLAZ 09:26
DX: B18.2 Chronic viral hepatitis C (principal); R94.5 Abnormal results of liver function studies
CPT/HCPCS: 84460

== ENCOUNTER → 2018-02-14 | Outpatient (REF) | payer MEDICARE, MEDICAID ==
[2018-02-14 11:44] LABS: BASO # 0.1 10^3/uL (0.0-0.2); BASO % 1.2 % (0.0-1.0); EOS # 0.5 10^3/uL (0.0-0.50); EOS % 4.7 % (0.0-3.0); HEMATOCRIT 42.3 % (42.0-52.0); HEMOGLOBIN 15.1 g/dl (13.5-17.5); IMMATURE GRANULOCYTE % 0.4 % (0-3.0); LYMPH # 2.1 10^3/uL (1.5-4.5); LYMPH % 21.6 % (24.0-44.0); MEAN CORPUSCULAR HEMOGLOBIN 33.4 pg (27.0-33.0); MEAN CORPUSCULAR HGB CONC 35.7 g/dl (32.0-36.5); MEAN CORPUSCULAR VOLUME 93.6 fl (80.0-96.0); MONO # 1.2 10^3/uL (0.0-0.8); MONO % 11.7 % (0.0-5.0); NEUTROPHILS # 5.9 10^3/uL (1.8-7.7); NEUTROPHILS % 60.4 % (36.0-66.0); PLATELET COUNT, AUTOMATED 197 10^3/uL (150-450); RED BLOOD COUNT 4.52 10^6/uL (4.30-6.10); RED CELL DISTRIBUTION WIDTH 12.7 % (11.5-14.5); WHITE BLOOD COUNT 9.8 10^3/uL (4.0-10.0)
[2018-02-14 12:52] LABS: ALBUMIN 3.9 GM/DL (3.2-5.2); ALBUMIN/GLOBULIN RATIO 1.03 (1.00-1.93); ALKALINE PHOSPHATASE 116 U/L (45-117); ALT/SGPT 87 U/L (12-78); AST/SGOT 43 U/L (7-37); BILIRUBIN,DIRECT 0.2 MG/DL (0.0-0.2); BILIRUBIN,TOTAL 0.4 MG/DL (0.2-1.0); TOTAL PROTEIN 7.7 GM/DL (6.4-8.2)
[2018-02-19 10:13] LABS: HEPATITIS C QUANTITATION 280 IU/mL (.)
== END ==
LOC: M SFHCPLAZ 10:06
DX: B18.2 Chronic viral hepatitis C (principal)
CPT/HCPCS: 80076

== ENCOUNTER → 2018-04-14 | Outpatient (REF) | payer MEDICARE, MEDICAID ==
[2018-04-14 13:32] LABS: BASO # 0.1 10^3/uL (0.0-0.2); BASO % 1.1 % (0.0-1.0); EOS # 0.3 10^3/uL (0.0-0.50); EOS % 3.9 % (0.0-3.0); HEMATOCRIT 40.3 % (42.0-52.0); HEMOGLOBIN 13.9 g/dl (13.5-17.5); LYMPH # 1.7 10^3/uL (1.5-4.5); LYMPH % 21.9 % (24.0-44.0); MEAN CORPUSCULAR HEMOGLOBIN 33.5 pg (27.0-33.0); MEAN CORPUSCULAR HGB CONC 34.5 g/dl (32.0-36.5); MEAN CORPUSCULAR VOLUME 97.1 fl (80.0-96.0); MONO % 13.1 % (0.0-5.0); NEUTROPHILS # 4.7 10^3/uL (1.8-7.7); PLATELET COUNT, AUTOMATED 167 10^3/uL (150-450); RED BLOOD COUNT 4.15 10^6/uL (4.30-6.10); RED CELL DISTRIBUTION WIDTH 13.1 % (11.5-14.5)
[2018-04-14 13:56] LABS: ESTIMATED AVERAGE GLUCOSE 128 MG/DL (60-110); HEMOGLOBIN A1c 6.1 %
[2018-04-14 13:57] LABS: ALBUMIN 3.7 GM/DL (3.2-5.2); ALKALINE PHOSPHATASE 92 U/L (45-117); ALT/SGPT 39 U/L (12-78); ANION GAP 9 MEQ/L (8-16); AST/SGOT 23 U/L (7-37); BILIRUBIN,TOTAL 0.4 MG/DL (0.2-1.0); BLOOD UREA NITROGEN 11 MG/DL (7-18); CARBON DIOXIDE LEVEL 27 MEQ/L (21-32); CHLORIDE LEVEL 106 MEQ/L (98-107); CREATININE FOR GFR 0.93 MG/DL (0.70-1.30); GLOMERULAR FILTRATION RATE > 60.0 (>56); GLUCOSE, FASTING 113 MG/DL (70-100); POTASSIUM SERUM 4.3 MEQ/L (3.5-5.1); SODIUM LEVEL 142 MEQ/L (136-145); TOTAL PROTEIN 7.4 GM/DL (6.4-8.2)
[2018-04-17 15:06] LABS: HEPATITIS C QUANTITATION HCV Not Detected IU/mL (.)
== END ==
LOC: M SFHCPLAZ 10:39
DX: B18.2 Chronic viral hepatitis C (principal); E11.9 Type 2 diabetes mellitus without complications
CPT/HCPCS: 80053

== ENCOUNTER → 2018-04-16 | Outpatient (CLI) | payer MEDICARE, MEDICAID | LOC: M OUTALCOH 13:37 | DX: Z13.9 Encounter for screening, unspecified (principal); F12.20 Cannabis dependence, uncomplicated; F10.20 Alcohol dependence, uncomplicated | CPT/HCPCS: H0001 ==

== ENCOUNTER 2018-05-28 13:08 | Outpatient (RCR) | payer MEDICARE, MEDICAID | END 2018-06-22 | LOC: M OUTALCOH 13:08 | DX: F10.20 Alcohol dependence, uncomplicated (principal); F12.10 Cannabis abuse, uncomplicated | CPT/HCPCS: 90834 ==

== ENCOUNTER 2018-07-02 13:00 | Outpatient (RCR) | payer MEDICARE, MEDICAID | END 2018-07-23 | LOC: M OUTALCOH 07-09 13:00 | DX: F10.20 Alcohol dependence, uncomplicated (principal); F12.10 Cannabis abuse, uncomplicated | CPT/HCPCS: 90834 ==

== ENCOUNTER → 2018-07-09 | Outpatient (REF) | payer MEDICARE, MEDICAID ==
[2018-07-09 16:31] LABS: ALBUMIN/GLOBULIN RATIO 1.05 (1.00-1.93); ALKALINE PHOSPHATASE 113 U/L (45-117); ALT/SGPT 120 U/L (12-78); AST/SGOT 66 U/L (7-37); BILIRUBIN,DIRECT 0.3 MG/DL (0.0-0.2); BILIRUBIN,TOTAL 0.9 MG/DL (0.2-1.0); TOTAL PROTEIN 7.8 GM/DL (6.4-8.2)
[2018-07-16 00:11] LABS: HEPATITIS C QUANTITATION HCV Not Detected IU/mL (.)
== END ==
LOC: M SFHCPLAZ 14:04
DX: B18.2 Chronic viral hepatitis C (principal)
CPT/HCPCS: 80076

== ENCOUNTER 2018-07-17 14:00 | Emergency (ER) | payer MEDICARE, MEDICAID ==
[2018-07-17 15:52] LABS: BASO # 0.1 10^3/uL (0.0-0.2); BASO % 0.9 % (0.0-1.0); EOS # 0.4 10^3/uL (0.0-0.50); EOS % 3.7 % (0.0-3.0); HEMATOCRIT 45.5 % (42.0-52.0); HEMOGLOBIN 15.5 g/dl (13.5-17.5); IMMATURE GRANULOCYTE % 0.6 % (0-3.0); LYMPH # 1.9 10^3/uL (1.5-4.5); LYMPH % 18.3 % (24.0-44.0); MEAN CORPUSCULAR HEMOGLOBIN 33.3 pg (27.0-33.0); MEAN CORPUSCULAR HGB CONC 34.1 g/dl (32.0-36.5); MEAN CORPUSCULAR VOLUME 97.8 fl (80.0-96.0); MONO % 9.8 % (0.0-5.0); NEUTROPHILS # 6.9 10^3/uL (1.8-7.7); NEUTROPHILS % 66.7 % (36.0-66.0); PLATELET COUNT, AUTOMATED 206 10^3/uL (150-450); RED BLOOD COUNT 4.65 10^6/uL (4.30-6.10); RED CELL DISTRIBUTION WIDTH 13.4 % (11.5-14.5); WHITE BLOOD COUNT 10.4 10^3/uL (4.0-10.0)
[2018-07-17] MEDS: MORPHINE 4 MG/ML 1ML VIAL/SYRINGE (J2270) IV ×2 (15:59→18:42)
[2018-07-17 16:22] LABS: ANION GAP 5 MEQ/L (8-16); BLOOD UREA NITROGEN 22 MG/DL (7-18); CALCIUM LEVEL 8.8 MG/DL (8.5-10.1); CARBON DIOXIDE LEVEL 31 MEQ/L (21-32); CHLORIDE LEVEL 106 MEQ/L (98-107); CREATININE FOR GFR 1.04 MG/DL (0.70-1.30); GLOMERULAR FILTRATION RATE > 60.0 (>56); GLUCOSE, FASTING 91 MG/DL (70-100); NT-PRO BNP 14 PG/ML (<125); POTASSIUM SERUM 4.1 MEQ/L (3.5-5.1); SODIUM LEVEL 142 MEQ/L (136-145)
[2018-07-17] MEDS ORDERED: ISOVUE-370 76% 100ML VIAL (Q9967) As Ordered (17:04)
[2018-07-17 18:51] LABS: ALBUMIN 3.3 GM/DL (3.2-5.2); ALBUMIN/GLOBULIN RATIO 0.97 (1.00-1.93); ALKALINE PHOSPHATASE 91 U/L (45-117); ALT/SGPT 261 U/L (12-78); AST/SGOT 522 U/L (7-37); BILIRUBIN,DIRECT 0.2 MG/DL (0.0-0.2); BILIRUBIN,TOTAL 0.6 MG/DL (0.2-1.0); TOTAL PROTEIN 6.7 GM/DL (6.4-8.2)
[2018-07-17 18:57] LABS: APPEARANCE, URINE CLEAR (CLEAR); BACTERIA, URINE AUTO NEGATIVE (NEGATIVE); BILIRUBIN, URINE AUTO NEGATIVE (NEGATIVE); BLOOD, URINE BLOOD NEGATIVE (NEGATIVE); COLOR, URINE YELLOW (YELLOW); GLUCOSE, URINE (UA) AUTO NEGATIVE (NEGATIVE); KETONE, URINE AUTO NEGATIVE (NEGATIVE); LEUKOCYTE ESTERASE, URINE AUTO NEGATIVE (NEGATIVE); MUCUS, URINE SMALL (NEGATIVE); NITRITE, URINE AUTO NEGATIVE (NEGATIVE); PROTEIN, URINE AUTO NEGATIVE (NEGATIVE); RBC, URINE AUTO 1 /HPF (0-3); SPECIFIC GRAVITY URINE AUTO 1.044 (1.002-1.035); SQUAMOUS EPITHELIAL CELL UR AU 1 /HPF (0-6); UROBILINOGEN, URINE AUTO 0.2 mg/dL (0.0-2.0); WBC, URINE AUTO 0 /HPF (0-3)
[2018-07-17] MEDS: oxyCODONE 5MG TAB PO (22:21)
== END 2018-07-17 22:26 | disposition home or self-care (01) ==
LOC: M ED 14:00
DX: R60.9 Edema, unspecified (principal); R94.5 Abnormal results of liver function studies; R52 Pain, unspecified; I11.0 Hypertensive heart disease with heart failure; J44.9 Chronic obstructive pulmonary disease, unspecified; E11.9 Type 2 diabetes mellitus without complications; I50.9 Heart failure, unspecified; K21.9 Gastro-esophageal reflux disease without esophagitis; F33.9 Major depressive disorder, recurrent, unspecified; F41.9 Anxiety disorder, unspecified; I25.2 Old myocardial infarction; B19.20 Unspecified viral hepatitis C without hepatic coma; Z79.899 Other long term (current) drug therapy; Z79.82 Long term (current) use of aspirin; Z79.4 Long term (current) use of insulin; Z88.8 Allergy status to other drugs, medicaments and biological substances; Z91.030 Bee allergy status; F17.210 Nicotine dependence, cigarettes, uncomplicated
CPT/HCPCS: J2270

== ENCOUNTER 2018-08-08 11:17 | Inpatient (IN) | payer MEDICARE, MEDICAID ==
[2018-08-08 12:27] LABS: BASO % 0.6 % (0.0-1.0); EOS # 0.2 10^3/uL (0.0-0.50); EOS % 3.9 % (0.0-3.0); HEMATOCRIT 34.3 % (42.0-52.0); IMMATURE GRANULOCYTE % 0.4 % (0-3.0); LYMPH # 0.7 10^3/uL (1.5-4.5); LYMPH % 13.9 % (24.0-44.0); MEAN CORPUSCULAR HEMOGLOBIN 34.6 pg (27.0-33.0); MEAN CORPUSCULAR VOLUME 98.8 fl (80.0-96.0); MONO # 0.5 10^3/uL (0.0-0.8); MONO % 10.4 % (0.0-5.0); NEUTROPHILS # 3.7 10^3/uL (1.8-7.7); NEUTROPHILS % 70.8 % (36.0-66.0); RED BLOOD COUNT 3.47 10^6/uL (4.30-6.10); RED CELL DISTRIBUTION WIDTH 15.2 % (11.5-14.5); WHITE BLOOD COUNT 5.2 10^3/uL (4.0-10.0)
[2018-08-08 12:29] LABS: KETONE, URINE AUTO RFX NEGATIVE (NEGATIVE); LEUKOCYTE ESTERASE UR AUTO RFX NEGATIVE (NEGATIVE); NITRITE, URINE AUTO RFX NEGATIVE (NEGATIVE); RBC, URINE AUTO RFX 2 /HPF (0-3); SPECIFIC GRAVITY UR AUTO RFX 1.011 (1.002-1.035); SQUAM EPITHELIAL CELL UR AURFX 0 /HPF (0-6); WBC, URINE AUTO RFX 2 /HPF (0-3)
[2018-08-08 12:50] LABS: PLATELET COUNT, AUTOMATED 70 10^3/uL (150-450)
[2018-08-08 12:51] LABS: AMMONIA 43 uMOL/L (<32)
[2018-08-08 12:54] LABS: AMPHETAMINES LEVEL URINE NEGATIVE (NEGATIVE); BARBITURATES URINE NEGATIVE (NEGATIVE); BENZODIAZEPINES URINE NEGATIVE (NEGATIVE); CANNABINOIDS URINE NEGATIVE (NEGATIVE); COCAINE METABOLITE URINE NEGATIVE (NEGATIVE); METHADONE URINE NEGATIVE (NEGATIVE); OPIATES URINE NEGATIVE (NEGATIVE); PHENCYCLIDINE URINE NEGATIVE (NEGATIVE)
[2018-08-08 13:07] LABS: ALKALINE PHOSPHATASE 102 U/L (45-117); ALT/SGPT 87 U/L (12-78); ANION GAP 10 MEQ/L (8-16); AST/SGOT 75 U/L (7-37); BLOOD UREA NITROGEN 18 MG/DL (7-18); CALCIUM LEVEL 8.8 MG/DL (8.5-10.1); CARBON DIOXIDE LEVEL 25 MEQ/L (21-32); CHLORIDE LEVEL 109 MEQ/L (98-107); CPK CREATINE PHOSPHOKINASE 279 U/L (39-308); CREATININE FOR GFR 1.05 MG/DL (0.70-1.30); GLOMERULAR FILTRATION RATE > 60.0 (>56); GLUCOSE, FASTING 118 MG/DL (70-100); POTASSIUM SERUM 3.4 MEQ/L (3.5-5.1); SODIUM LEVEL 144 MEQ/L (136-145)
[2018-08-08 13:08] LABS: ACETAMINOPHEN LEVEL < 2.0 UG/ML (10.0-30.0); ALBUMIN 3.3 GM/DL (3.2-5.2); ALBUMIN/GLOBULIN RATIO 1.06 (1.00-1.93); BILIRUBIN,DIRECT 0.2 MG/DL (0.0-0.2); BILIRUBIN,TOTAL 0.5 MG/DL (0.2-1.0); ETHYL ALCOHOL (ETHANOL) < 0.003 % (0.000-0.010); LIPASE 180 U/L (73-393); SALICYLATE LEVEL 4.6 MG/DL (5.0-30.0); TOTAL PROTEIN 6.4 GM/DL (6.4-8.2); TROPONIN I < 0.02 NG/ML (< 0.10)
[2018-08-08] MEDS: NS 1,000 ML IV ×2 (13:32→15:16)
[2018-08-08] MEDS: THIAMINE HCL 200 MG/2 ML VIAL (J3411) IV (13:33)
[2018-08-08] MEDS: POTASSIUM CHLORIDE 10 MEQ SR TABLET PO (13:37)
[2018-08-08 14:35] LABS: REASON FOR REVIEW PLATELET MORPHOLOGY; SLIDE REVIEW Report; SOURCE PERIPHERAL SMEAR
[2018-08-08 14:36] LABS: MAGNESIUM LEVEL 1.7 MG/DL (1.8-2.4)
[2018-08-08] MEDS ORDERED: GLUCAGON FOR INJ 1 MG VIAL (J1610) SC (14:45)
[2018-08-08] MEDS ORDERED: GLUCOSE 4 GM CHEW TABLET PO (14:45)
[2018-08-08] MEDS ORDERED: DEXTROSE 50% 50 ML SYRINGE IV (14:45)
[2018-08-08 14:50] LABS: FERRITIN 206 NG/ML (26-388); IRON (FE) 51 UG/DL (65-175); TOTAL IRON BINDING CAPACITY 269 UG/DL (250-450)
[2018-08-08 14:58] LABS: FOLATE 5.8 NG/ML (>5.4); VITAMIN B12 LEVEL 307 PG/ML (247-911)
[2018-08-08 15:31] LABS: INR 1.11; PROTHROMBIN TIME 14.5 SECONDS (12.1-14.4)
[2018-08-08 15:38] LABS: BEDSIDE GLUCOSE 112 MG/DL (70-105)
[2018-08-08] MEDS: THIAMINE 100 MG TAB PO (15:43)
[2018-08-08] MEDS: OXAZEPAM 10 MG CAP PO (15:43)
[2018-08-08] MEDS: FOLIC ACID 1 MG TAB PO (15:43)
[2018-08-08] MEDS: MULTIVITAMINS/MINERALS THERAP 1 TAB PO (15:43)
[2018-08-08] MEDS: ALBUTEROL SULFATE 2.5 MG/0.5 ML INH NEB SOLN INH (16:57)
[2018-08-08] MEDS ORDERED: LORazepam 2 MG/ML VIAL (J2060) As Ordered (17:24)
[2018-08-08] MEDS: LORazepam 2 MG/ML VIAL (J2060) IV ×4 (17:30→21:01)
[2018-08-08] MEDS: HumaLOG INSULIN (NovoLOG) PER UNIT SC ×2 (17:30→22:00)
[2018-08-08 18:33] LABS: BEDSIDE GLUCOSE 121 MG/DL (70-105)
[2018-08-08 19:13] LABS: HEMATOCRIT 35.7 % (42.0-52.0); MEAN CORPUSCULAR HEMOGLOBIN 33.5 pg (27.0-33.0); MEAN CORPUSCULAR HGB CONC 33.6 g/dl (32.0-36.5); MEAN CORPUSCULAR VOLUME 99.7 fl (80.0-96.0); RED BLOOD COUNT 3.58 10^6/uL (4.30-6.10); RED CELL DISTRIBUTION WIDTH 15.5 % (11.5-14.5); WHITE BLOOD COUNT 5.5 10^3/uL (4.0-10.0)
[2018-08-08 19:25] LABS: PLATELET COUNT, AUTOMATED 76 10^3/uL (150-450)
[2018-08-08 19:31] LABS: ANION GAP 6 MEQ/L (8-16); BLOOD UREA NITROGEN 15 MG/DL (7-18); CARBON DIOXIDE LEVEL 28 MEQ/L (21-32); CHLORIDE LEVEL 110 MEQ/L (98-107); CPK CREATINE PHOSPHOKINASE 255 U/L (39-308); CREATININE FOR GFR 0.99 MG/DL (0.70-1.30); GLOMERULAR FILTRATION RATE > 60.0 (>56); GLUCOSE, FASTING 95 MG/DL (70-100); MB/CK RELATIVE INDEX 2.71 (< OR =4); POTASSIUM SERUM 3.8 MEQ/L (3.5-5.1); SODIUM LEVEL 144 MEQ/L (136-145); TROPONIN I 0.02 NG/ML (< 0.10)
[2018-08-08] MEDS: ADVAIR HFA 230/21MCG INHALER INH (20:45)
[2018-08-08] MEDS: METOPROLOL SUCC *XL* 25MG TAB (TopROL *XL*) PO (21:02)
[2018-08-08 21:51] LABS: BEDSIDE GLUCOSE 106 MG/DL (70-105)
[2018-08-09 02:55] LABS: CPK CREATINE PHOSPHOKINASE 221 U/L (39-308); MB/CK RELATIVE INDEX 2.44 (< OR =4); TROPONIN I < 0.02 NG/ML (< 0.10)
[2018-08-09 05:21] LABS: BASO % 0.5 % (0.0-1.0); EOS # 0.4 10^3/uL (0.0-0.50); EOS % 6.2 % (0.0-3.0); HEMATOCRIT 37.2 % (42.0-52.0); HEMOGLOBIN 12.4 g/dl (13.5-17.5); IMMATURE GRANULOCYTE % 0.5 % (0-3.0); LYMPH # 1.1 10^3/uL (1.5-4.5); LYMPH % 17.7 % (24.0-44.0); MEAN CORPUSCULAR HEMOGLOBIN 33.5 pg (27.0-33.0); MEAN CORPUSCULAR HGB CONC 33.3 g/dl (32.0-36.5); MEAN CORPUSCULAR VOLUME 100.5 fl (80.0-96.0); MONO # 0.7 10^3/uL (0.0-0.8); MONO % 10.7 % (0.0-5.0); NEUTROPHILS # 3.9 10^3/uL (1.8-7.7); NEUTROPHILS % 64.4 % (36.0-66.0); RED CELL DISTRIBUTION WIDTH 15.5 % (11.5-14.5); WHITE BLOOD COUNT 6.1 10^3/uL (4.0-10.0)
[2018-08-09 05:24] LABS: PLATELET COUNT, AUTOMATED 77 10^3/uL (150-450)
[2018-08-09 05:39] LABS: AMMONIA 39 uMOL/L (<32)
[2018-08-09 05:51] LABS: ALKALINE PHOSPHATASE 86 U/L (45-117); ALT/SGPT 105 U/L (12-78); ANION GAP 7 MEQ/L (8-16); AST/SGOT 86 U/L (7-37); BILIRUBIN,TOTAL 0.7 MG/DL (0.2-1.0); BLOOD UREA NITROGEN 12 MG/DL (7-18); CALCIUM LEVEL 8.8 MG/DL (8.5-10.1); CARBON DIOXIDE LEVEL 27 MEQ/L (21-32); CHLORIDE LEVEL 112 MEQ/L (98-107); CREATININE FOR GFR 0.83 MG/DL (0.70-1.30); GLOMERULAR FILTRATION RATE > 60.0 (>56); GLUCOSE, FASTING 109 MG/DL (70-100); POTASSIUM SERUM 3.6 MEQ/L (3.5-5.1); SODIUM LEVEL 146 MEQ/L (136-145)
[2018-08-09 05:52] LABS: ALBUMIN 3.5 GM/DL (3.2-5.2); ALBUMIN/GLOBULIN RATIO 1.13 (1.00-1.93); MAGNESIUM LEVEL 1.9 MG/DL (1.8-2.4); TOTAL PROTEIN 6.6 GM/DL (6.4-8.2)
[2018-08-09] MEDS: OXAZEPAM 10 MG CAP PO ×2 (08:31→17:37)
[2018-08-09] MEDS: FOLIC ACID 1 MG TAB PO (08:45)
[2018-08-09] MEDS: THIAMINE 100 MG TAB PO (08:45)
[2018-08-09] MEDS: LISINOPRIL 10 MG TAB PO (08:45)
[2018-08-09] MEDS: MULTIVITAMINS/MINERALS THERAP 1 TAB PO (08:46)
[2018-08-09] MEDS: HumaLOG INSULIN (NovoLOG) PER UNIT SC ×4 (09:18→21:54)
[2018-08-09 11:23] LABS: BEDSIDE GLUCOSE 173 MG/DL (70-105)
[2018-08-09] MEDS: ADVAIR HFA 230/21MCG INHALER INH ×2 (11:46→20:58)
[2018-08-09 12:05] LABS: CPK CREATINE PHOSPHOKINASE 178 U/L (39-308); MB/CK RELATIVE INDEX 3.03 (< OR =4); TROPONIN I < 0.02 NG/ML (< 0.10)
[2018-08-09] MEDS: ASPIRIN 81 MG ENTERIC TAB PO (14:25)
[2018-08-09] MEDS: LEVEMIR (INSULIN DETEMIR) 1 UNITS/0.01ML SC (14:26)
[2018-08-09] MEDS: FUROSEMIDE 20 MG/2 ML VIAL (J1940) IV (14:26)
[2018-08-09] MEDS: SLF 3 ML SYR IV ×2 (14:27→20:24)
[2018-08-09 16:51] LABS: BEDSIDE GLUCOSE 123 MG/DL (70-105)
[2018-08-09] MEDS: VENLAFAXINE **XR** 75MG CAPSULE PO (17:37)
[2018-08-09 20:19] LABS: BEDSIDE GLUCOSE 179 MG/DL (70-105)
[2018-08-09] MEDS: QUEtiapine FUMARATE 200 MG TAB PO (20:23)
[2018-08-09] MEDS: RAMELTEON 8 MG TAB (ROZEREM) PO (20:23)
[2018-08-09] MEDS: FUROSEMIDE 20 MG TAB PO (20:23)
[2018-08-09] MEDS: GABAPENTIN 400 MG CAP PO (20:24)
[2018-08-09] MEDS: PRAZOSIN 1 MG CAP PO (20:24)
[2018-08-09] MEDS: METOPROLOL SUCC *XL* 25MG TAB (TopROL *XL*) PO (20:24)
[2018-08-10] MEDS: OXAZEPAM 10 MG CAP PO ×3 (01:09→19:17)
[2018-08-10] MEDS: LORazepam 2 MG/ML VIAL (J2060) IV (04:04)
[2018-08-10] MEDS: SLF 3 ML SYR IV ×3 (04:04→21:07)
[2018-08-10 05:09] LABS: BASO % 0.5 % (0.0-1.0); EOS # 0.4 10^3/uL (0.0-0.50); EOS % 6.3 % (0.0-3.0); HEMATOCRIT 37.2 % (42.0-52.0); HEMOGLOBIN 12.5 g/dl (13.5-17.5); IMMATURE GRANULOCYTE % 0.3 % (0-3.0); LYMPH # 1.5 10^3/uL (1.5-4.5); LYMPH % 22.4 % (24.0-44.0); MEAN CORPUSCULAR HEMOGLOBIN 33.9 pg (27.0-33.0); MEAN CORPUSCULAR HGB CONC 33.6 g/dl (32.0-36.5); MEAN CORPUSCULAR VOLUME 100.8 fl (80.0-96.0); MONO # 0.7 10^3/uL (0.0-0.8); MONO % 9.8 % (0.0-5.0); NEUTROPHILS % 60.7 % (36.0-66.0); RED BLOOD COUNT 3.69 10^6/uL (4.30-6.10); RED CELL DISTRIBUTION WIDTH 15.6 % (11.5-14.5); WHITE BLOOD COUNT 6.7 10^3/uL (4.0-10.0)
[2018-08-10 05:14] LABS: PLATELET COUNT, AUTOMATED 80 10^3/uL (150-450)
[2018-08-10 05:15] LABS: IMMATURE PLATELET FRACTION % 4.7 % (0.0-10.9)
[2018-08-10 05:32] LABS: ALBUMIN 3.2 GM/DL (3.2-5.2); ALBUMIN/GLOBULIN RATIO 0.94 (1.00-1.93); ALKALINE PHOSPHATASE 89 U/L (45-117); ALT/SGPT 156 U/L (12-78); ANION GAP 6 MEQ/L (8-16); AST/SGOT 124 U/L (7-37); BILIRUBIN,TOTAL 0.6 MG/DL (0.2-1.0); BLOOD UREA NITROGEN 18 MG/DL (7-18); CALCIUM LEVEL 8.4 MG/DL (8.5-10.1); CARBON DIOXIDE LEVEL 30 MEQ/L (21-32); CHLORIDE LEVEL 108 MEQ/L (98-107); CREATININE FOR GFR 0.82 MG/DL (0.70-1.30); GLOMERULAR FILTRATION RATE > 60.0 (>56); GLUCOSE, FASTING 118 MG/DL (70-100); MAGNESIUM LEVEL 1.8 MG/DL (1.8-2.4); POTASSIUM SERUM 3.5 MEQ/L (3.5-5.1); SODIUM LEVEL 144 MEQ/L (136-145); TOTAL PROTEIN 6.6 GM/DL (6.4-8.2)
[2018-08-10] MEDS: ADVAIR HFA 230/21MCG INHALER INH ×2 (07:48→20:09)
[2018-08-10] MEDS: HumaLOG INSULIN (NovoLOG) PER UNIT SC ×4 (10:28→20:45)
[2018-08-10] MEDS: LEVEMIR (INSULIN DETEMIR) 1 UNITS/0.01ML SC (10:28)
[2018-08-10] MEDS: CYANOCOBALAMIN 1,000 MCG/ML VIAL (J3420) IM (10:29)
[2018-08-10] MEDS: ASPIRIN 81 MG ENTERIC TAB PO (10:29)
[2018-08-10] MEDS: VENLAFAXINE **XR** 75MG CAPSULE PO (10:29)
[2018-08-10] MEDS: GABAPENTIN 400 MG CAP PO ×2 (10:30→21:06)
[2018-08-10] MEDS: FUROSEMIDE 20 MG TAB PO ×2 (10:30→21:07)
[2018-08-10] MEDS: MULTIVITAMINS/MINERALS THERAP 1 TAB PO (10:30)
[2018-08-10] MEDS: THIAMINE 100 MG TAB PO (10:31)
[2018-08-10] MEDS: FOLIC ACID 1 MG TAB PO (10:31)
[2018-08-10] MEDS: LISINOPRIL 10 MG TAB PO (10:32)
[2018-08-10 12:29] LABS: BEDSIDE GLUCOSE 108 MG/DL (70-105)
[2018-08-10] MEDS: ALBUTEROL SULFATE 2.5 MG/0.5 ML INH NEB SOLN NEB ×2 (15:22→23:30)
[2018-08-10 17:02] LABS: BEDSIDE GLUCOSE 139 MG/DL (70-105)
[2018-08-10] MEDS: NICOTINE POLACRILEX 2 MG GUM PO (19:17)
[2018-08-10 20:28] LABS: BEDSIDE GLUCOSE 107 MG/DL (70-105)
[2018-08-10] MEDS: RAMELTEON 8 MG TAB (ROZEREM) PO (21:00)
[2018-08-10] MEDS: PRAZOSIN 1 MG CAP PO (21:07)
[2018-08-10] MEDS: METOPROLOL SUCC *XL* 25MG TAB (TopROL *XL*) PO (21:07)
[2018-08-10] MEDS: QUEtiapine FUMARATE 200 MG TAB PO (21:07)
[2018-08-10] MEDS: ACETAMINOPHEN TAB 650MG DOSE (2X325MG) PO (21:45)
[2018-08-11 05:28] LABS: BASO % 0.7 % (0.0-1.0); EOS # 0.4 10^3/uL (0.0-0.50); EOS % 6.5 % (0.0-3.0); HEMATOCRIT 36.4 % (42.0-52.0); HEMOGLOBIN 12.3 g/dl (13.5-17.5); IMMATURE GRANULOCYTE % 0.4 % (0-3.0); LYMPH # 1.3 10^3/uL (1.5-4.5); LYMPH % 22.8 % (24.0-44.0); MEAN CORPUSCULAR HEMOGLOBIN 33.7 pg (27.0-33.0); MEAN CORPUSCULAR HGB CONC 33.8 g/dl (32.0-36.5); MEAN CORPUSCULAR VOLUME 99.7 fl (80.0-96.0); MONO # 0.7 10^3/uL (0.0-0.8); MONO % 12.3 % (0.0-5.0); NEUTROPHILS # 3.3 10^3/uL (1.8-7.7); NEUTROPHILS % 57.3 % (36.0-66.0); RED BLOOD COUNT 3.65 10^6/uL (4.30-6.10); RED CELL DISTRIBUTION WIDTH 15.1 % (11.5-14.5); WHITE BLOOD COUNT 5.7 10^3/uL (4.0-10.0)
[2018-08-11 05:36] LABS: PLATELET COUNT, AUTOMATED 83 10^3/uL (150-450)
[2018-08-11] MEDS: SLF 3 ML SYR IV ×2 (05:38→07:59)
[2018-08-11 05:44] LABS: ALBUMIN 3.3 GM/DL (3.2-5.2); ALBUMIN/GLOBULIN RATIO 1.03 (1.00-1.93); ALKALINE PHOSPHATASE 85 U/L (45-117); ALT/SGPT 194 U/L (12-78); ANION GAP 6 MEQ/L (8-16); AST/SGOT 136 U/L (7-37); BILIRUBIN,TOTAL 0.6 MG/DL (0.2-1.0); BLOOD UREA NITROGEN 18 MG/DL (7-18); CALCIUM LEVEL 8.6 MG/DL (8.5-10.1); CARBON DIOXIDE LEVEL 30 MEQ/L (21-32); CHLORIDE LEVEL 107 MEQ/L (98-107); GLOMERULAR FILTRATION RATE > 60.0 (>56); GLUCOSE, FASTING 103 MG/DL (70-100); MAGNESIUM LEVEL 1.7 MG/DL (1.8-2.4); POTASSIUM SERUM 3.5 MEQ/L (3.5-5.1); SODIUM LEVEL 143 MEQ/L (136-145); TOTAL PROTEIN 6.5 GM/DL (6.4-8.2)
[2018-08-11] MEDS: MAG SULF 1GM/100ML (MAG RUN) 1 GM in APPROPRIATE DILUENT 1 EA IV (06:49)
[2018-08-11] MEDS: ADVAIR HFA 230/21MCG INHALER INH (07:39)
[2018-08-11] MEDS: ALBUTEROL SULFATE 2.5 MG/0.5 ML INH NEB SOLN NEB (07:39)
[2018-08-11] MEDS: HumaLOG INSULIN (NovoLOG) PER UNIT SC (07:59)
[2018-08-11] MEDS: LEVEMIR (INSULIN DETEMIR) 1 UNITS/0.01ML SC (09:08)
[2018-08-11] MEDS: CYANOCOBALAMIN 1,000 MCG/ML VIAL (J3420) IM (09:25)
[2018-08-11] MEDS: VENLAFAXINE **XR** 75MG CAPSULE PO (09:27)
[2018-08-11] MEDS: GABAPENTIN 400 MG CAP PO (09:27)
[2018-08-11] MEDS: ASPIRIN 81 MG ENTERIC TAB PO (09:28)
[2018-08-11] MEDS: LISINOPRIL 10 MG TAB PO (09:28)
[2018-08-11] MEDS: FOLIC ACID 1 MG TAB PO (09:28)
[2018-08-11] MEDS: MULTIVITAMINS/MINERALS THERAP 1 TAB PO (09:29)
[2018-08-11] MEDS: FUROSEMIDE 20 MG TAB PO (09:29)
[2018-08-11] MEDS: THIAMINE 100 MG TAB PO (09:29)
[2018-08-13 10:14] LABS: Methylmalonic Acid 511 nmol/L (0-378)
[2018-08-13 10:14] LABS: HOMOCYST(E)INE SERUM 13.9 umol/L (0.0-15.0)
== END 2018-08-11 11:50 | disposition home or self-care (01) | DRG 896 ==
LOC: M ED 11:17 → M ED INP 14:22 → M PCU 16:35
PROVIDERS: Hospitalist
DX: F10.239 Alcohol dependence with withdrawal, unspecified (principal); G93.41 Metabolic encephalopathy; E72.20 Disorder of urea cycle metabolism, unspecified; N17.9 Acute kidney failure, unspecified; Z68.41 Body mass index [BMI] 40.0-44.9, adult; I50.32 Chronic diastolic (congestive) heart failure; G31.2 Degeneration of nervous system due to alcohol; A08.4 Viral intestinal infection, unspecified; D69.6 Thrombocytopenia, unspecified; E87.6 Hypokalemia; J44.9 Chronic obstructive pulmonary disease, unspecified; E11.9 Type 2 diabetes mellitus without complications; F41.9 Anxiety disorder, unspecified; F32.9 Major depressive disorder, single episode, unspecified; E66.9 Obesity, unspecified; D53.9 Nutritional anemia, unspecified; M79.2 Neuralgia and neuritis, unspecified; G47.33 Obstructive sleep apnea (adult) (pediatric); I11.0 Hypertensive heart disease with heart failure; Z79.899 Other long term (current) drug therapy; Z79.4 Long term (current) use of insulin; Z88.8 Allergy status to other drugs, medicaments and biological substances; Z79.82 Long term (current) use of aspirin; Z91.038 Other insect allergy status; B18.2 Chronic viral hepatitis C; K21.9 Gastro-esophageal reflux disease without esophagitis; I87.9 Disorder of vein, unspecified; I27.20 Pulmonary hypertension, unspecified

== ENCOUNTER 2018-08-20 12:38 | Outpatient (RCR) | payer MEDICARE, MEDICAID | END 2018-08-22 | LOC: M OUTALCOH 12:38 | DX: F10.20 Alcohol dependence, uncomplicated (principal); F12.10 Cannabis abuse, uncomplicated | CPT/HCPCS: 90834 ==

== ENCOUNTER → 2018-08-27 | Outpatient (REF) | payer MEDICARE, MEDICAID ==
[2018-08-27 12:39] LABS: BASO # 0.2 10^3/uL (0.0-0.2); BASO % 1.9 % (0.0-1.0); EOS # 0.4 10^3/uL (0.0-0.50); EOS % 5.4 % (0.0-3.0); HEMATOCRIT 47.5 % (42.0-52.0); HEMOGLOBIN 16.8 g/dl (13.5-17.5); IMMATURE GRANULOCYTE % 0.5 % (0-3.0); LYMPH # 2.8 10^3/uL (1.5-4.5); LYMPH % 35.3 % (24.0-44.0); MEAN CORPUSCULAR HEMOGLOBIN 34.5 pg (27.0-33.0); MEAN CORPUSCULAR HGB CONC 35.4 g/dl (32.0-36.5); MEAN CORPUSCULAR VOLUME 97.5 fl (80.0-96.0); MONO # 0.7 10^3/uL (0.0-0.8); NEUTROPHILS # 3.8 10^3/uL (1.8-7.7); NEUTROPHILS % 47.9 % (36.0-66.0); PLATELET COUNT, AUTOMATED 273 10^3/uL (150-450); RED BLOOD COUNT 4.87 10^6/uL (4.30-6.10); RED CELL DISTRIBUTION WIDTH 14.3 % (11.5-14.5)
[2018-08-27 12:51] LABS: ALBUMIN 4.5 GM/DL (3.2-5.2); ALBUMIN/GLOBULIN RATIO 1.25 (1.00-1.93); ALKALINE PHOSPHATASE 110 U/L (45-117); ALT/SGPT 140 U/L (12-78); ANION GAP 10 MEQ/L (8-16); AST/SGOT 59 U/L (7-37); BILIRUBIN,TOTAL 0.4 MG/DL (0.2-1.0); BLOOD UREA NITROGEN 8 MG/DL (7-18); CALCIUM LEVEL 8.7 MG/DL (8.5-10.1); CARBON DIOXIDE LEVEL 24 MEQ/L (21-32); CHLORIDE LEVEL 110 MEQ/L (98-107); CHOLESTEROL LEVEL 186 MG/DL (<200); CHOLESTEROL RISK RATIO 2.657 (<5); CREATININE FOR GFR 0.76 MG/DL (0.70-1.30); GLOMERULAR FILTRATION RATE > 60.0 (>56); GLUCOSE, FASTING 131 MG/DL (70-100); HDL CHOLESTEROL 70 MG/DL (>40); LDL CHOLESTEROL 100 MG/DL (<100); NON-HDL-C 116 MG/DL; POTASSIUM SERUM 3.8 MEQ/L (3.5-5.1); SODIUM LEVEL 144 MEQ/L (136-145); TOTAL PROTEIN 8.1 GM/DL (6.4-8.2); TRIGLYCERIDES LEVEL 78 MG/DL (<150)
[2018-08-27 12:52] LABS: FOLATE 17.8 NG/ML
[2018-08-27 13:16] LABS: MAU/CREAT RATIO 39.2 MCG/MG (0.0-30.0)
[2018-08-27 13:45] LABS: VITAMIN B12 LEVEL 687 PG/ML
[2018-08-27 13:47] LABS: ESTIMATED AVERAGE GLUCOSE 117 MG/DL (60-110); HEMOGLOBIN A1c 5.7 %
[2018-08-27 16:05] LABS: THYROID STIMULATING HORMONE 0.578 uIU/ML (0.358-3.740)
== END ==
LOC: M LAB REF 12:07
DX: E11.65 Type 2 diabetes mellitus with hyperglycemia (principal); I11.0 Hypertensive heart disease with heart failure; I50.32 Chronic diastolic (congestive) heart failure
CPT/HCPCS: 82746

== ENCOUNTER → 2018-09-10 | Outpatient (REF) | payer MEDICARE, MEDICAID ==
[~2018-09-10] MED LIST changes: +ACCUKIT15 XX; +ADVA230A INH; -AMLO5TAB2 PO; +AMLO5TAB4 PO; +ASPI1TAB PO; +ASPI81CH PO; +B121000T PO; +CLEO300C2 PO; +EUCECRE3 TOP; -FOLI1TAB4 PO; +FOLI1TAB5 PO; -GABA-282 PO; -GABA-283 PO; +GABA-843 PO; +GABA-845 PO; +IBUP-1022 PO; +INSUDET SC; +KLOR20TA42 PO; +LISI10TA4 PO; +METO1TAB32 PO; +MINI1CAP PO; +OXYC-517 PO; +PATIENT COMMENT; -POTA20TA PO; +PRAZ1CAP PO; +SPIR-10 PO; +THIA100TA PO; +VENL150C43 PO; +VENL75CA47 PO; +[UNRECOGNIZED DRUG - CODE] XX
[2018-09-10 12:20] LABS: BLOOD UREA NITROGEN 13 MG/DL (7-18); GLOMERULAR FILTRATION RATE > 60.0 (>56)
== END ==
LOC: M LAB REF 11:38
PROVIDERS: ATTEND Nurse Practitioner Family
DX: R41.82 Altered mental status, unspecified (principal)

== ENCOUNTER → 2018-09-17 | Outpatient (CLI) | payer MEDICARE, MEDICAID ==
[~2018-09-17] MED LIST changes: -AMLO5TAB4 PO; +AMLO5TAB6 PO; +FOLI1TAB11 PO; -FOLI1TAB5 PO; -LASI20TA PO; +LASI20TA3 PO; +PROHANCE 279.3MG/ML 15ML VIAL (A9576) As Ordered ONE; +PROHANCE 279.3MG/ML 5ML VIAL (A9576) As Ordered ONE
--- NOTE | 2018-09-17 10:27 | REP ---
MRI BRAIN POST GADOLINIUM ENHANCEMENT: HISTORY: Abnormality on noncontrast MRI study of the brain dated August 09, 2018. Comparison brain CT studies are reviewed dating back to February 21, 2016. Recent MRI study showed a cystic area at the level of the Sylvian fissure possibly representing cavernoma. Gadolinium enhancement dose: 20 mL of intravenous ProHance. MRI FINDINGS: Sagittal, axial, and coronal post gadolinium enhanced images show no abnormal gadolinium enhancement associated with a focal area of encephalomalacia in the right frontal lobe just above the Sylvian fissure. There is some hemosiderin staining on gradient echo imaging in this location compatible with old hemorrhage possibly related to cavernoma. No other abnormal gadolinium enhancement is seen. IMPRESSION: No abnormal gadolinium enhancement. Small area of right frontal lobe encephalomalacia with hemosiderin staining may reflect old hemorrhage possibly related to a cavernoma versus old injury . No acute abnormality. Electronically Signed by Valentino Ogden MD 09/17/2018 10:31 A
== END ==
LOC: M RAD 08:29
PROVIDERS: ATTEND Nurse Practitioner Family
DX: R41.82 Altered mental status, unspecified (principal)
CPT/HCPCS: 70552; A9576

== ENCOUNTER 2018-09-18 12:35 | Outpatient (RCR) | payer MEDICARE, MEDICAID ==
[~2018-09-18 12:35] MED LIST changes: -PROHANCE 279.3MG/ML 15ML VIAL (A9576) As Ordered ONE; -PROHANCE 279.3MG/ML 5ML VIAL (A9576) As Ordered ONE
== END 2018-09-22 ==
LOC: M OUTALCOH 12:35
PROVIDERS: ATTEND Psychiatry & Neurology Psychiatry
DX: F10.20 Alcohol dependence, uncomplicated (principal); F12.10 Cannabis abuse, uncomplicated

== ENCOUNTER 2018-10-22 12:49 | Outpatient (RCR) | payer MEDICARE, MEDICAID | END 2018-10-23 | LOC: M OUTALCOH 12:49 | PROVIDERS: ATTEND Psychiatry & Neurology Psychiatry | DX: F10.20 Alcohol dependence, uncomplicated (principal); F12.10 Cannabis abuse, uncomplicated ==

== ENCOUNTER → 2018-11-20 | Outpatient (RCR) | payer MEDICARE, MEDICAID | LOC: M OUTALCOH 11-05 12:42 | PROVIDERS: ATTEND Psychiatry & Neurology Psychiatry | DX: F10.20 Alcohol dependence, uncomplicated (principal); F12.10 Cannabis abuse, uncomplicated ==

== ENCOUNTER 2018-12-04 12:46 | Outpatient (RCR) | payer MEDICARE, MEDICAID | END 2018-12-21 | LOC: M OUTALCOH 12:46 | PROVIDERS: ATTEND Psychiatry & Neurology Psychiatry | DX: F10.20 Alcohol dependence, uncomplicated (principal); F12.10 Cannabis abuse, uncomplicated ==

== ENCOUNTER → 2018-12-17 | Outpatient (REF) | payer MEDICARE, MEDICAID ==
[2018-12-17 12:39] LABS: BASO # 0.1 10^3/uL (0.0-0.2); BASO % 0.9 % (0.0-1.0); EOS # 0.4 10^3/uL (0.0-0.50); EOS % 4.6 % (0.0-3.0); HEMATOCRIT 43.3 % (42.0-52.0); HEMOGLOBIN 15.1 g/dl (13.5-17.5); LYMPH # 1.8 10^3/uL (1.5-4.5); LYMPH % 21.1 % (24.0-44.0); MEAN CORPUSCULAR HEMOGLOBIN 32.5 pg (27.0-33.0); MEAN CORPUSCULAR HGB CONC 34.9 g/dl (32.0-36.5); MEAN CORPUSCULAR VOLUME 93.1 fl (80.0-96.0); MONO # 0.9 10^3/uL (0.0-0.8); MONO % 10.8 % (0.0-5.0); NEUTROPHILS # 5.3 10^3/uL (1.8-7.7); NEUTROPHILS % 62.2 % (36.0-66.0); PLATELET COUNT, AUTOMATED 191 10^3/uL (150-450); RED BLOOD COUNT 4.65 10^6/uL (4.30-6.10); WHITE BLOOD COUNT 8.5 10^3/uL (4.0-10.0)
[2018-12-17 13:00] LABS: HEMOGLOBIN A1c 5.9 %
[2018-12-17 13:13] LABS: ALBUMIN 4.3 GM/DL (3.2-5.2); ALT/SGPT 39 U/L (12-78); BILIRUBIN,TOTAL 0.5 MG/DL (0.2-1.0); BLOOD UREA NITROGEN 21 MG/DL (7-18); CALCIUM LEVEL 9.3 MG/DL (8.5-10.1); CARBON DIOXIDE LEVEL 27 MEQ/L (21-32); CHLORIDE LEVEL 106 MEQ/L (98-107); CHOLESTEROL LEVEL 172 MG/DL (<200); GLOMERULAR FILTRATION RATE > 60.0 (>56); GLUCOSE, FASTING 114 MG/DL (70-100); HDL CHOLESTEROL 50 MG/DL (>40); LDL CHOLESTEROL 107 MG/DL (<100); NON-HDL-C 122 MG/DL; SODIUM LEVEL 140 MEQ/L (136-145); TOTAL PROTEIN 7.4 GM/DL (6.4-8.2); TRIGLYCERIDES LEVEL 76 MG/DL (<150); VITAMIN B12 LEVEL 412 PG/ML
== END ==
LOC: M LAB REF 11:57
PROVIDERS: ATTEND Nurse Practitioner Family
DX: I10 Essential (primary) hypertension (principal); Z13.9 Encounter for screening, unspecified; E11.9 Type 2 diabetes mellitus without complications

== ENCOUNTER 2018-12-27 19:14 | Emergency (ER) | payer MEDICARE, MEDICAID ==
[~2018-12-27] VITALS: Ht 182.9 cm; Wt 122.7 kg
[~2018-12-27 19:14] MED LIST changes: -/CELE20CA PO; -/DIVA50TA PO; -/OXAZ10CA OR; -/QUET10TA PO; -/QUET25TA PO; -ASPI1TAB PO; -ASPI81CH PO; +ASPI81CH49 PO; +ASPI81TA26 PO; +BACI1OIN4 EXT; -BACTDSTA PO; +CELE1CAP4 PO; -CHLO25TA PO; +DEPA1TAB3 PO; +HYDR-3715 PO; +HYDR-4274 PO; -HYDRO50TAB PO; +METO-1 PO; -NEOSOINT EXT; -NORCOTAB PO; +OXAZ10CA25 OR; +OXYC1TAB23 FT; -PERCOCET FT; +SERO1TAB PO; +SERO1TAB3 PO; +SULF1TAB23 PO; -TOPR25TA PO; +VENL-65 PO; -VENL75TA3 PO
--- NOTE | 2018-12-27 19:48 | REP ---
Clinical: Trauma . Comparison: 08/08/2018 . Findings: The ventricles, sulci, and cisterns are normal in position and appearance. Claudio-white differentiation is maintained. No acute intracranial hemorrhage, mass/mass effect, pathology or trauma/injury. No evidence for acute infarction. No extra-axial fluid collection. Calvarium is intact. Paranasal sinuses and mastoid air cells are clear. Subtle acute versus chronic nasal bone fracture should be correlated with mechanism of injury. Impression: No evidence for acute intracranial pathology or trauma/injury. Electronically Signed by Faheem Nassar MD 12/27/2018 07:40 P
[2018-12-27 20:13] VITALS: BP 147/67
--- NOTE | 2018-12-30 07:55 | REP ---
Clinical: Trauma. Technique: AP, lateral, bilateral oblique views of the left ankle. Findings: Acute nondisplaced oblique fracture of the distal fibular metadiaphysis appreciated with overlying soft tissue swelling. Old corticated medial malleolar fracture fragments are stable compared to 40 x-ray dated 05/14/2015. Underlying age-related degenerative changes noted. Impression: Acute oblique fracture of the distal fibular metadiaphysis. Electronically Signed by Faheem Nassar MD 12/27/2018 07:47 P
== END 2018-12-27 20:20 | disposition home or self-care (01) ==
LOC: EDBD 19:14 → M ED 19:14
DX: S82.65XA Nondisplaced fracture of lateral malleolus of left fibula, initial encounter for closed fracture (principal); S00.81XA Abrasion of other part of head, initial encounter; W01.198A Fall on same level from slipping, tripping and stumbling with subsequent striking against other object, initial encounter; Y92.090 Kitchen in other non-institutional residence as the place of occurrence of the external cause; I10 Essential (primary) hypertension; E10.9 Type 1 diabetes mellitus without complications; J44.9 Chronic obstructive pulmonary disease, unspecified; F10.220 Alcohol dependence with intoxication, uncomplicated; K70.10 Alcoholic hepatitis without ascites; Z91.030 Bee allergy status; Z88.3 Allergy status to other anti-infective agents; Z79.899 Other long term (current) drug therapy; Z79.51 Long term (current) use of inhaled steroids; Z79.82 Long term (current) use of aspirin

== ENCOUNTER → 2019-01-20 | Outpatient (RCR) | payer MEDICARE, MEDICAID | LOC: M OUTALCOH 12-30 12:39 | PROVIDERS: ATTEND Psychiatry & Neurology Psychiatry | DX: F10.20 Alcohol dependence, uncomplicated (principal); F12.10 Cannabis abuse, uncomplicated ==

== ENCOUNTER 2019-02-17 13:00 | Outpatient (RCR) | payer MEDICARE, MEDICAID | END 2019-02-20 | LOC: M OUTALCOH 13:00 | PROVIDERS: ATTEND Psychiatry & Neurology Psychiatry | DX: F10.20 Alcohol dependence, uncomplicated (principal); F12.10 Cannabis abuse, uncomplicated ==

== ENCOUNTER 2019-02-26 20:04 | Emergency (ER) | payer MEDICARE, MEDICAID ==
[~2019-02-26] VITALS: Ht 182.9 cm; Wt 118.2 kg
[2019-02-26] MEDS ORDERED: HYDR50TA70 (20:21)
[2019-02-26] MEDS ORDERED: PRAZ1CAP (20:21)
[2019-02-26 20:50] LABS: BASO # 0.1 10^3/uL (0.0-0.2); BASO % 0.9 % (0.0-1.0); EOS # 0.5 10^3/uL (0.0-0.50); EOS % 5.7 % (0.0-3.0); HEMATOCRIT 35.9 % (42.0-52.0); HEMOGLOBIN 12.5 g/dl (13.5-17.5); MEAN CORPUSCULAR HEMOGLOBIN 33.4 pg (27.0-33.0); MEAN CORPUSCULAR HGB CONC 34.8 g/dl (32.0-36.5); MONO # 0.8 10^3/uL (0.0-0.8); MONO % 8.2 % (0.0-5.0); NEUTROPHILS % 63.7 % (36.0-66.0); PLATELET COUNT, AUTOMATED 184 10^3/uL (150-450); RED BLOOD COUNT 3.74 10^6/uL (4.30-6.10); WHITE BLOOD COUNT 9.3 10^3/uL (4.0-10.0)
[2019-02-26 21:08] LABS: INR 1.04; PROTHROMBIN TIME 13.7 SECONDS (12.1-14.4)
[2019-02-26 21:19] LABS: ALBUMIN 3.3 GM/DL (3.2-5.2); ALT/SGPT 40 U/L (12-78); BILIRUBIN,TOTAL 0.2 MG/DL (0.2-1.0); BLOOD UREA NITROGEN 14 MG/DL (7-18); CALCIUM LEVEL 7.8 MG/DL (8.5-10.1); CARBON DIOXIDE LEVEL 21 MEQ/L (21-32); CHLORIDE LEVEL 104 MEQ/L (98-107); CPK CREATINE PHOSPHOKINASE 266 U/L (39-308); CREATININE FOR GFR 1.26 MG/DL (0.70-1.30); ETHYL ALCOHOL (ETHANOL) 0.233 % (0.000-0.010); GLOMERULAR FILTRATION RATE > 60.0 (>56); GLUCOSE, FASTING 117 MG/DL (70-100); LIPASE 300 U/L (73-393); MB/CK RELATIVE INDEX 1.02 (< OR =4); POTASSIUM SERUM 3.4 MEQ/L (3.5-5.1); SODIUM LEVEL 138 MEQ/L (136-145); TOTAL PROTEIN 6.5 GM/DL (6.4-8.2); TROPONIN I < 0.02 NG/ML (< 0.10)
[2019-02-26 23:01] VITALS: BP 107/62
[2019-02-26] MEDS ORDERED: SUCR1TA PO (23:01)
[2019-02-26] MEDS ORDERED: PRIL20TA2 PO (23:01)
[2019-02-26] MEDS ORDERED: GI COCKTAIL 50ML BTL(HYOSCYAMINE/MAALOX/LIDOCAINE VISCOUS)(1:3:1) PO ONE (23:15)
--- NOTE | 2019-02-27 08:53 | REP ---
PORTABLE CHEST: AP portable view of the chest is performed and compared to prior study 08/08/2018. There are post traumatic changes on the left with old rib fractures and pleural thickening. No acute infiltrate is seen. Heart is mildly enlarged. There are degenerative changes of the spine. Electronically Signed by Yrn Claudio MD 03/02/2019 05:01 P
--- NOTE | 2019-02-28 08:22 | ECGEPIP ---
[facility] - ED Test Date: 2019-02-26 Pat Name: ARTHUR BLANC Department: Room: - Gender: Male Phone Representative: RHIANNON : 1965 Requested By: HALLE Albright Order Number: [id number] Reading MD: Raul Christopher Measurements Intervals [place] Rate: 60 P: 30 MI: 188 QRS: QRSD: 138 T: 33 QT: 489 QTc: 490 Interpretive Statements Normal sinus rhythm Left axis deviation Anteroseptal myocardial infarction of indeterminate age Nonspecific Q-wave abnormalities Apart from rate, no significant change since prior tracing of 08-08-18 Electronically Signed on 02-28-2019 8:22:37 EDT by Raul Christopher
== END 2019-02-26 23:18 | disposition home or self-care (01) ==
LOC: M ED 20:04
DX: K21.0 Gastro-esophageal reflux disease with esophagitis (principal); R07.89 Other chest pain; F10.129 Alcohol abuse with intoxication, unspecified; S40.861A Insect bite (nonvenomous) of right upper arm, initial encounter; S40.862A Insect bite (nonvenomous) of left upper arm, initial encounter; S30.861A Insect bite (nonvenomous) of abdominal wall, initial encounter; W57.XXXA Bitten or stung by nonvenomous insect and other nonvenomous arthropods, initial encounter; Y92.9 Unspecified place or not applicable; Y93.9 Activity, unspecified; Y99.9 Unspecified external cause status; I50.9 Heart failure, unspecified; E11.9 Type 2 diabetes mellitus without complications; I10 Essential (primary) hypertension; J44.9 Chronic obstructive pulmonary disease, unspecified; G40.909 Epilepsy, unspecified, not intractable, without status epilepticus; Z91.14 Patient's other noncompliance with medication regimen; K21.9 Gastro-esophageal reflux disease without esophagitis; F41.9 Anxiety disorder, unspecified; F31.9 Bipolar disorder, unspecified; G47.30 Sleep apnea, unspecified; Z72.0 Tobacco use; Z79.82 Long term (current) use of aspirin; Z79.4 Long term (current) use of insulin; Z79.899 Other long term (current) drug therapy; Z91.030 Bee allergy status; Z88.8 Allergy status to other drugs, medicaments and biological substances
CPT/HCPCS: 71045; 80053; 82550; 82553; 83690; 84484; 85025; 85610; 93005; 93041; 94760; 99285; G0480

== ENCOUNTER 2019-03-17 12:50 | Outpatient (RCR) | payer MEDICARE, MEDICAID ==
[~2019-03-17 12:50] MED LIST changes: +HYDR50TA70; +PRAZ1CAP; +PRIL20TA2 PO; +SUCR1TA PO
== END 2019-03-22 ==
LOC: M OUTALCOH 12:50
PROVIDERS: ATTEND Psychiatry & Neurology Psychiatry
DX: F10.20 Alcohol dependence, uncomplicated (principal); F12.10 Cannabis abuse, uncomplicated

== ENCOUNTER 2019-04-13 10:34 | Outpatient (RCR) | payer MEDICARE, MEDICAID ==
[~2019-04-13 10:34] MED LIST changes: -OMEP20CA3 PO; +OMEP20CA4 PO
== END 2019-04-22 ==
LOC: M OUTALCOH 10:34
PROVIDERS: ATTEND Psychiatry & Neurology Psychiatry
DX: F10.20 Alcohol dependence, uncomplicated (principal); F12.10 Cannabis abuse, uncomplicated

== ENCOUNTER 2019-04-23 15:53 | Emergency (ER) | payer MEDICARE, MEDICAID ==
[~2019-04-23] VITALS: Ht 182.9 cm; Wt 121.8 kg
[~2019-04-23 15:53] MED LIST changes: -HYDR50TA70; +HYDR50TA70 PO; +OMEP1CAP73 PO; -OMEP20CA4 PO; -PRAZ1CAP; +PROV108A INH; -QUET1TAB9 PO; +QUET200T2 PO
[2019-04-23] MEDS ORDERED: LIDOCAINE 2% 5ML JELLY UROJET TOP ONE (16:15)
[2019-04-23] MEDS ORDERED: NS 1,000 ML IV ONE (16:15)
[2019-04-23 16:17] LABS: BASO # 0.1 10^3/uL (0.0-0.2); BASO % 1.1 % (0.0-1.0); EOS # 0.2 10^3/uL (0.0-0.50); EOS % 2.1 % (0.0-3.0); HEMATOCRIT 43.7 % (42.0-52.0); HEMOGLOBIN 14.5 g/dl (13.5-17.5); LYMPH # 2.2 10^3/uL (1.5-4.5); LYMPH % 19.4 % (24.0-44.0); MEAN CORPUSCULAR HEMOGLOBIN 30.9 pg (27.0-33.0); MEAN CORPUSCULAR HGB CONC 33.2 g/dl (32.0-36.5); MEAN CORPUSCULAR VOLUME 93.2 fl (80.0-96.0); MONO # 1.3 10^3/uL (0.0-0.8); NEUTROPHILS # 7.6 10^3/uL (1.8-7.7); PLATELET COUNT, AUTOMATED 265 10^3/uL (150-450); RED BLOOD COUNT 4.69 10^6/uL (4.30-6.10); WHITE BLOOD COUNT 11.5 10^3/uL (4.0-10.0)
[2019-04-23 16:29] LABS: INR 1.31
[2019-04-23 16:31] LABS: PARTIAL THROMBOPLASTIN TIME 26.4 SECONDS (25.0-38.4)
--- NOTE | 2019-04-23 16:42 | REP ---
Clinical: Trauma. Comparison: 12/27/2018 Findings: Claudio-white differentiation is maintained. There is no evidence for acute intracranial hemorrhage, mass/mass effect, pathology or infarction. No extra-axial fluid collection. Calvarium is intact. Paranasal sinuses and mastoid air cells are clear. Acute on chronic left nasal bone fracture is suggested when compared to prior examination. Impression: Age related changes. No acute intracranial hemorrhage, infarction, or mass/mass effect. Acute on chronic nondisplaced left nasal bone fracture. Electronically Signed by Faheem Nassar MD 04/23/2019 04:33 P
[2019-04-23 16:44] LABS: ALBUMIN 4.2 GM/DL (3.2-5.2); ALT/SGPT 52 U/L (12-78); AMYLASE 172 U/L (25-115); BILIRUBIN,DIRECT 0.1 MG/DL (0.0-0.2); BILIRUBIN,TOTAL 0.4 MG/DL (0.2-1.0); BLOOD UREA NITROGEN 8 MG/DL (7-18); CALCIUM LEVEL 9.1 MG/DL (8.5-10.1); CARBON DIOXIDE LEVEL 14 MEQ/L (21-32); CHLORIDE LEVEL 105 MEQ/L (98-107); CK-MB VALUE MASS 1.5 NG/ML (<3.6); CPK CREATINE PHOSPHOKINASE 108 U/L (39-308); CREATININE FOR GFR 1.33 MG/DL (0.70-1.30); ETHYL ALCOHOL (ETHANOL) 0.163 % (0.000-0.010); GLOMERULAR FILTRATION RATE 59.6 (>56); GLUCOSE, FASTING 120 MG/DL (70-100); LIPASE 2054 U/L (73-393); MB/CK RELATIVE INDEX 1.39 (< OR =4); POTASSIUM SERUM 3.6 MEQ/L (3.5-5.1); SODIUM LEVEL 140 MEQ/L (136-145); TOTAL PROTEIN 8.1 GM/DL (6.4-8.2); TROPONIN I < 0.02 NG/ML (< 0.10)
--- NOTE | 2019-04-23 16:53 | REP ---
Clinical: Trauma. Technique: Axial noncontrast images of the thoracic spine with coronal and sagittal re-formations. Findings: Alignment and kyphosis maintained. No acute fracture / compression injury or subluxation. Bridging osteophytes noted throughout the thoracic spine. Disc spaces are relatively well maintained. Spinal canal is patent. Posterior elements and spinous processes are intact. Paravertebral soft tissues are normal. Impression: Degenerative changes including multilevel bridging osteophytes. No acute fracture / compression injury or subluxation. Electronically Signed by Faheem Nassar MD 04/23/2019 04:45 P
--- NOTE | 2019-04-23 16:57 | REP ---
Clinical: Trauma. Technique: Axial noncontrast images from mid T12 through mid sacrum with coronal and sagittal re-formations. Findings: Alignment and lordosis maintained. There is no evidence for acute fracture / compression injury or subluxation. Moderate/advanced multilevel degenerative changes include osteophytosis, endplate sclerosis, disc space narrowing, and vacuum phenomenon at multiple disc levels. Findings are most pronounced at the L5-S1 level. The spinal canal is patent. The posterior elements appear patent. Spinous processes are intact. Impression: Moderate to advanced multilevel degenerative spondylosis. No acute fracture / compression injury or subluxation. Electronically Signed by Faheem Nassar MD 04/23/2019 04:48 P
--- NOTE | 2019-04-23 16:59 | REP ---
CT study of the cervical spine without contrast: History: Trauma. Comparison study is from August 08, 2018. Technique: Helical scanning is acquired and overlapping 2 mm high resolution axial images were generated and reviewed at bone and soft tissue window settings. Coronal and sagittal multiplanar re-formations images are generated. CT findings: There is no evidence of cervical spine element fracture. No skull base fracture is seen. Cervical vertebral body heights are preserved. Alignment is normal. Facet joints are normally aligned bilaterally at each cervical level on multiplanar re-formations images. There is no evidence of intraspinal or paraspinal hematoma. No extra vertebral abnormality is seen. There is fairly advanced degenerative spondylosis with degenerative disc disease at each level from C3-4 through C6-7. Prominent anterior osteophytes are formed at these levels particularly C4-5 and C5-6 unchanged from the comparison CT study. There is uncovertebral spurring bilaterally producing neural foraminal narrowing most pronounced at the C4-5 level. Biapical bullae are noted in the lung apices. Impression: Fairly advanced degenerative spondylosis changes stable from August 08, 2018. Otherwise negative CT study of the cervical spine without contrast. No fracture seen. Electronically Signed by Valentino Ogden MD 04/23/2019 04:51 P
--- NOTE | 2019-04-23 17:12 | REP ---
Maxillofacial CT study: History: Trauma. Comparison CT study is from July 21, 2017. Findings: There is a depressed fracture of the nasal bone. The inferior maxillary spine is intact. The bony nasal septum is deviated somewhat to the left, but at no evidence of fracture. There is a leftward beak in the posterior nasal septum. No orbital fracture is appreciated. The paranasal sinuses are clear. There is vascular calcification in the carotid siphons bilaterally. No mandibular or other maxillary fracture is appreciated. No intraorbital soft tissue lesion is seen. There is evidence of a fracture of the right maxillary incisor which is missing. There are some carious mandibular teeth as well. Impression: Partially missing right maxillary incisor. Question tooth fracture. Depressed fracture of the nasal bone. No other fractures seen. Electronically Signed by Valentino Ogden MD 04/24/2019 09:40 A
[2019-04-23 17:41] LABS: AMPHETAMINES LEVEL URINE NEGATIVE (NEGATIVE); BARBITURATES URINE NEGATIVE (NEGATIVE); BENZODIAZEPINES URINE NEGATIVE (NEGATIVE); CANNABINOIDS URINE NEGATIVE (NEGATIVE); COCAINE METABOLITE URINE POSITIVE (NEGATIVE); METHADONE URINE NEGATIVE (NEGATIVE); OPIATES URINE NEGATIVE (NEGATIVE); PHENCYCLIDINE URINE NEGATIVE (NEGATIVE)
--- NOTE | 2019-04-23 18:02 | REP ---
Clinical: Trauma . Technique: AP, lateral, bilateral oblique views of the right elbow. Findings: No acute fracture or dislocation is appreciated. Joint spaces and surrounding soft tissues appear normal. Lateral view demonstrates normal positioning to the anterior and posterior fat pads without evidence for effusion/hemarthrosis. No subcutaneous emphysema or foreign body identified. Impression: Normal right elbow radiographs. Electronically Signed by Faheem Nassar MD 04/23/2019 05:54 P
--- NOTE | 2019-04-23 18:41 | REP ---
Clinical: Trauma . Comparison: 02/26/2019 . Technique: PA and lateral. Findings: The mediastinum and cardiac silhouette are normal. The lung roland demonstrate chronic stable changes without acute consolidation, effusion, or pneumothorax. The skeletal structures demonstrate old healed fractures. Impression: 1. No acute cardiopulmonary process. Electronically Signed by Faheem Nassar MD 04/23/2019 06:33 P
--- NOTE | 2019-04-23 18:42 | REP ---
Clinical: Trauma. Technique: AP, lateral, bilateral oblique and sunrise views of the right knee . Findings: Mild tricompartmental degenerative changes. There is no evidence for acute fracture or dislocation. No joint effusion is appreciated. Surrounding soft tissues are unremarkable. No subcutaneous emphysema or radiodense foreign body. Impression: No acute fracture or dislocation. Electronically Signed by Faheem Nassar MD 04/23/2019 06:34 P
[2019-04-23 19:00] VITALS: BP 155/94
[2019-04-23] MEDS ORDERED: ADACEL/BOOSTRIX VACCINE (DIPHTH/PERTUSS/ACELL/TETANUS)0.5ML SYR (90715) IM ONE (19:00)
[2019-06-29] MEDS ORDERED: METF-839 PO (13:14)
== END 2019-04-23 19:25 | disposition home or self-care (01) ==
LOC: M ED 15:53
DX: S02.2XXA Fracture of nasal bones, initial encounter for closed fracture (principal); T14.8XXA Other injury of unspecified body region, initial encounter; Y04.8XXA Assault by other bodily force, initial encounter; Y92.410 Unspecified street and highway as the place of occurrence of the external cause; Z79.899 Other long term (current) drug therapy; Z79.4 Long term (current) use of insulin; Z79.82 Long term (current) use of aspirin; Z88.8 Allergy status to other drugs, medicaments and biological substances; Z91.030 Bee allergy status
CPT/HCPCS: 36415; 51701; 70450; 70486; 71045; 72125; 72128; 72131; 73080; 73564; 80048; 80076; 80307; 81001; 82150; 82550; 82553; 83605; 83690; 84484; 85025; 85610; 85730; 86850; 86900; 86901; 90471; 90715; 93041; 94760; 99285; G0480

== ENCOUNTER 2019-04-27 16:26 | Emergency (ER) | payer MEDICARE, MEDICAID ==
[~2019-04-27] VITALS: Ht 182.9 cm; Wt 120.5 kg
--- NOTE | 2019-04-27 17:31 | REPVR ---
EXAM: CT Head Without Contrast EXAM DATE/TIME: 04/27/2019 4:52 PM CLINICAL HISTORY: 53 years old, male; Injury or trauma; Fall; Initial encounter; Blunt trauma (contusions or hematomas); Additional info: Head trauma/loc TECHNIQUE: Imaging protocol: Computed tomography images of the head without contrast. Radiation optimization: All CT scans at this facility use at least one of these dose optimization techniques: automated exposure control; mA and/or kV adjustment per patient size (includes targeted exams where dose is matched to clinical indication); or iterative reconstruction. COMPARISON: CT Head without contrast 04/23/2019 4:11 PM FINDINGS: Brain: Focal area of right frontal encephalomalacia, consistent with remote ischemia. Patchy areas of hypoattenuation in the periventricular and subcortical white matter, consistent with chronic small vessel ischemic disease. No CT evidence of acute intracranial hemorrhage or acute territorial infarction. No significant mass effect or midline shift. Basal cisterns patent. Ventricles: Prominence of the cortical sulci, cisterns and ventricular system, consistent with cerebral and cerebellar volume loss. Bones/joints: No acute osseous abnormality. Chronic deformity of the left nasal bone. Sinuses: Minimal ethmoid mucosal thickening. Mastoid air cells: Grossly unremarkable. Soft tissues: Grossly unremarkable. Vasculature: Calcific atherosclerotic disease in the cavernous internal carotid arteries. IMPRESSION: 1. No CT evidence of acute intracranial pathology. 2. Additional findings, as above. Electronically signed by: Dennis Kat On 04/27/2019 17:31:34 PM
--- NOTE | 2019-04-27 17:34 | REPVR ---
EXAM: CT Cervical Spine Without Contrast EXAM DATE/TIME: 04/27/2019 5:03 PM CLINICAL HISTORY: 53 years old, male; Injury or trauma; Fall; Initial encounter; Blunt trauma; Additional info: Fall, head trauma TECHNIQUE: Imaging protocol: Computed tomography images of the cervical spine without contrast. Coronal and sagittal reformatted images were created and reviewed. Radiation optimization: All CT scans at this facility use at least one of these dose optimization techniques: automated exposure control; mA and/or kV adjustment per patient size (includes targeted exams where dose is matched to clinical indication); or iterative reconstruction. COMPARISON: CT Spine,cervical w/o contrast 04/23/2019 4:11 PM FINDINGS: Vertebrae: Osteopenia. Straightening of the normal cervical lordosis. Alignment anatomic. No CT evidence of acute fracture, dislocation or subluxation. Vertebral body heights maintained. Discs/Spinal canal/Neural foramina: Mild multilevel degenerative changes, characterized by disc space narrowing, osteophytosis and uncovertebral and facet joint hypertrophy. Mild multilevel spinal canal and neural foraminal narrowing. Soft tissues: Grossly unremarkable. Lungs: Biapical pleural thickening and paraseptal emphysematous change. IMPRESSION: 1. No CT evidence of acute cervical spine traumatic injury. 2. Additional findings, as above. Electronically signed by: Dennis Kat On 04/27/2019 17:34:07 PM
--- NOTE | 2019-04-27 17:42 | REPVR ---
EXAM: CT Maxillofacial Without Contrast EXAM DATE/TIME: 04/27/2019 5:10 PM CLINICAL HISTORY: 53 years old, male; Injury or trauma; Fall; Initial encounter; Blunt trauma (contusions or hematomas) TECHNIQUE: Imaging protocol: Computed tomography images of the face without contrast. Coronal and sagittal reformatted images were created and reviewed. Radiation optimization: All CT scans at this facility use at least one of these dose optimization techniques: automated exposure control; mA and/or kV adjustment per patient size (includes targeted exams where dose is matched to clinical indication); or iterative reconstruction. COMPARISON: CT Maxilofacial w/out contrast 04/23/2019 4:11 PM FINDINGS: Orbits: No acute intraorbital abnormality. Globes intact. Sinuses: Minimal ethmoid mucosal thickening. No air-fluid levels. Bones/joints: Unchanged deformity of the left greater than right nasal bones and sigmoid deviation of the nasal septum. Soft tissues: Paranasal soft tissue swelling. IMPRESSION: 1. Unchanged deformity of the left greater than right nasal bones and sigmoid deviation of the nasal septum. 2. Additional findings, as above. Electronically signed by: Dennis Kat On 04/27/2019 17:41:55 PM
[2019-04-27] MEDS ORDERED: NS 1,000 ML IV ONE (18:00)
[2019-04-27 18:06] LABS: HEMATOCRIT 35.9 % (42.0-52.0); HEMOGLOBIN 12.3 g/dl (13.5-17.5); MEAN CORPUSCULAR HEMOGLOBIN 31.9 pg (27.0-33.0); MEAN CORPUSCULAR HGB CONC 34.3 g/dl (32.0-36.5); MEAN CORPUSCULAR VOLUME 93.2 fl (80.0-96.0); PLATELET COUNT, AUTOMATED 147 10^3/uL (150-450); RED BLOOD COUNT 3.85 10^6/uL (4.30-6.10); WHITE BLOOD COUNT 6.6 10^3/uL (4.0-10.0)
[2019-04-27 18:35] LABS: ACETAMINOPHEN LEVEL < 2.0 UG/ML (10.0-30.0); ALBUMIN 3.4 GM/DL (3.2-5.2); ALT/SGPT 29 U/L (12-78); BILIRUBIN,DIRECT 0.2 MG/DL (0.0-0.2); BILIRUBIN,TOTAL 0.4 MG/DL (0.2-1.0); CK-MB VALUE MASS 3.5 NG/ML (<3.6); CPK CREATINE PHOSPHOKINASE 471 U/L (39-308); ETHYL ALCOHOL (ETHANOL) 0.156 % (0.000-0.010); MB/CK RELATIVE INDEX 0.74 (< OR =4); SALICYLATE LEVEL 4.6 MG/DL (5.0-30.0); TOTAL PROTEIN 6.6 GM/DL (6.4-8.2); TROPONIN I 0.02 NG/ML (< 0.10)
[2019-04-27] MEDS ORDERED: ISOVUE-370 76% 100ML VIAL (Q9967) As Ordered ONE (18:47)
--- NOTE | 2019-04-27 19:29 | REPVR ---
EXAM: CT Chest With Contrast EXAM DATE/TIME: 04/27/2019 6:47 PM CLINICAL HISTORY: 53 years old, male; Injury or trauma; Fall; Initial encounter; Blunt trauma (contusions or hematomas) TECHNIQUE: Imaging protocol: Axial computed tomography images of the chest with intravenous contrast. Coronal and sagittal reformatted images were created and reviewed. Radiation optimization: All CT scans at this facility use at least one of these dose optimization techniques: automated exposure control; mA and/or kV adjustment per patient size (includes targeted exams where dose is matched to clinical indication); or iterative reconstruction. Contrast material: ISOVUE 370;Contrast volume: 100 ml;Contrast route: IV; COMPARISON: No relevant prior studies available. FINDINGS: Lungs: Mild biapical paraseptal emphysematous change. Mild central peribronchial thickening, suggestive of airway inflammation. Mild linear stranding and groundglass, likely due to atelectasis and/or scarring. No focal consolidation. Pleural space: Unremarkable. No pneumothorax. No pleural effusion. Heart: Unremarkable. No cardiomegaly. No pericardial effusion. Mediastinum: Small hiatal hernia. Aorta: Minimal atherosclerotic disease. No aneurysm or dissection. Lymph nodes: Small mediastinal and hilar lymph nodes, nonspecific in appearance. No pathologically enlarged lymph nodes. Bones/joints: No acute osseous abnormality. Osteopenia. Degenerative changes. Old bilateral rib fractures. Postoperative changes along the left inferolateral chest wall. Soft tissues: Grossly unremarkable. Diaphragm: Elevated left hemidiaphragm. IMPRESSION: 1. No CT evidence of acute intrathoracic traumatic injury. 2. Additional findings, as above. Electronically signed by: Dennis Kat On 04/27/2019 19:29:19 PM
--- NOTE | 2019-04-27 19:36 | REPVR ---
EXAM: CT Abdomen and Pelvis With Contrast EXAM DATE/TIME: 04/27/2019 6:47 PM CLINICAL HISTORY: 53 years old, male; Injury or trauma; Fall; Initial encounter; Blunt; Generalized TECHNIQUE: Imaging protocol: Axial computed tomography images of the abdomen and pelvis with intravenous contrast. Coronal and sagittal reformatted images were created and reviewed. Radiation optimization: All CT scans at this facility use at least one of these dose optimization techniques: automated exposure control; mA and/or kV adjustment per patient size (includes targeted exams where dose is matched to clinical indication); or iterative reconstruction. Contrast material: ISOVUE 370;Contrast volume: 100 ml;Contrast route: IV; COMPARISON: CT PEL W/IV CONTRAST ONLY 07/17/2018 5:04 PM FINDINGS: Liver: Subtle nodularity of the hepatic contour, suggesting cirrhosis. 2.5 x 1.9 cm lobular, hypervascular hepatic lesion, adjacent to the gallbladder fossa. Gallbladder and bile ducts: No radiodense gallstones. No biliary ductal dilatation. Pancreas: Unremarkable. Spleen: Unremarkable. Adrenals: Unremarkable. Kidneys and ureters: 2 mm nonobstructing left renal calculus. No hydronephrosis. Stomach and bowel: Moderate amount of retained stool in the colon. Scattered colonic diverticula without evidence of diverticulitis. No obstruction. No bowel wall thickening. No pneumatosis. Appendix: Findings suggestive of prior appendectomy. Intraperitoneal space: No free fluid. No organized fluid collection. No free air. Vasculature: Mild atherosclerotic disease. No aneurysm or dissection. Lymph nodes: No pathologically enlarged lymph nodes. Bladder: Moderate urinary bladder distention. Reproductive: Unremarkable. Bones/joints: No acute osseous abnormality. Soft tissues: Unremarkable. IMPRESSION: 1. No CT evidence of acute intra-abdominal or pelvic traumatic injury. 2. Moderate urinary bladder distention. Query bladder outlet obstruction. 3. 2.5 x 1.9 cm lobular, hypervascular hepatic lesion, adjacent to the gallbladder fossa, possibly a flash filling hemangioma. If clinically indicated, ultrasound and/or multiphasic CT scan/MRI may be obtained. 4. Additional findings, as above. Electronically signed by: Dennis Kat On 04/27/2019 19:36:32 PM
[2019-04-27 19:55] LABS: AMPHETAMINES LEVEL URINE NEGATIVE (NEGATIVE); BARBITURATES URINE NEGATIVE (NEGATIVE); BENZODIAZEPINES URINE NEGATIVE (NEGATIVE); CANNABINOIDS URINE POSITIVE (NEGATIVE); COCAINE METABOLITE URINE NEGATIVE (NEGATIVE); METHADONE URINE NEGATIVE (NEGATIVE); OPIATES URINE NEGATIVE (NEGATIVE); PHENCYCLIDINE URINE NEGATIVE (NEGATIVE)
--- NOTE | 2019-04-27 20:16 | ECGEPIP ---
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
[2019-04-27 20:51] VITALS: BP 124/73
--- NOTE | 2019-04-28 07:14 | REP ---
REASON: Pain. COMPARISON: 04/23/2019 The technique utilized in obtaining the radiograph has magnified the cardiac silhouette and accentuated the interstitial markings. There is no change from the prior exam. There are chronic lung field changes status quo. Multiple old rib fractures are seen on the left status quo. There is cardiomegaly accentuated by technique, unchanged. There is basilar fibrotic change and chronic scarring particularly on the left, status quo. No new abnormal opacities have developed. IMPRESSION: No change from 04/23/2019. Chronic changes as described above. Electronically Signed by Rajinder Garg DO 04/28/2019 10:06 A
--- NOTE | 2019-04-28 07:22 | REP ---
REASON: Pain after trauma. COMPARISON: 04/23/2019 There is mild degenerative change seen with minimal tricompartmental marginal osteophytosis and minimal medial compartment narrowing. There is no acute fracture. IMPRESSION: Stable chronic changes. Electronically Signed by Rajinder Garg DO 04/28/2019 10:11 A
--- NOTE | 2019-04-28 16:22 | ED PDOC ---
Post-Departure Follow-Up tobias wall faxed formal report of ct abd/p for fu jenniferg Emilia Green MD Apr 28, 2019 16:22
[2019-06-29] MEDS ORDERED: METF-839 PO (13:14)
== END 2019-04-27 20:58 | disposition home or self-care (01) ==
LOC: M ED 16:26
DX: S09.90XA Unspecified injury of head, initial encounter (principal); S80.211A Abrasion, right knee, initial encounter; S13.9XXA Sprain of joints and ligaments of unspecified parts of neck, initial encounter; S20.319A Abrasion of unspecified front wall of thorax, initial encounter; I45.4 Nonspecific intraventricular block; W10.9XXA Fall (on) (from) unspecified stairs and steps, initial encounter; Y92.099 Unspecified place in other non-institutional residence as the place of occurrence of the external cause; Y93.9 Activity, unspecified; Y99.9 Unspecified external cause status; I25.10 Atherosclerotic heart disease of native coronary artery without angina pectoris; I10 Essential (primary) hypertension; F41.9 Anxiety disorder, unspecified; F32.9 Major depressive disorder, single episode, unspecified; F43.10 Post-traumatic stress disorder, unspecified; Z72.0 Tobacco use; M25.761 Osteophyte, right knee; R93.2 Abnormal findings on diagnostic imaging of liver and biliary tract; N20.0 Calculus of kidney; K57.30 Diverticulosis of large intestine without perforation or abscess without bleeding; J34.2 Deviated nasal septum; M85.88 Other specified disorders of bone density and structure, other site; J92.9 Pleural plaque without asbestos; J43.8 Other emphysema; Z87.81 Personal history of (healed) traumatic fracture; I51.7 Cardiomegaly; J84.10 Pulmonary fibrosis, unspecified; G93.89 Other specified disorders of brain; I65.23 Occlusion and stenosis of bilateral carotid arteries; Z79.82 Long term (current) use of aspirin; Z79.4 Long term (current) use of insulin; Z79.899 Other long term (current) drug therapy; Z88.8 Allergy status to other drugs, medicaments and biological substances; Z91.030 Bee allergy status
CPT/HCPCS: 36600; 70450; 70486; 71045; 71260; 72125; 73564; 74177; 80047; 80076; 80307; 82550; 82553; 82803; 84443; 84484; 85027; 93005; 99285; G0480; Q9967

== ENCOUNTER → 2019-05-06 | Outpatient (CLI) | payer MEDICARE, MEDICAID ==
[~2019-05-06] MED LIST changes: +HYDR50TA70; -HYDR50TA70 PO; -OMEP1CAP73 PO; +OMEP20CA4 PO; +PRAZ1CAP; -PROV108A INH
== END ==
LOC: M LAB 10:47
PROVIDERS: ATTEND Psychiatry & Neurology Addiction Medicine
DX: F10.99 Alcohol use, unspecified with unspecified alcohol-induced disorder (principal)

== ENCOUNTER 2019-05-11 10:36 | Outpatient (RCR) | payer MEDICARE, MEDICAID | END 2019-05-23 | LOC: M OUTALCOH 10:36 | PROVIDERS: ATTEND Psychiatry & Neurology Psychiatry | DX: F10.20 Alcohol dependence, uncomplicated (principal); F12.10 Cannabis abuse, uncomplicated ==

== ENCOUNTER → 2019-05-21 | Outpatient (REF) | payer MEDICARE, MEDICAID ==
[~2019-05-21] MED LIST changes: +PROV108A INH
[2019-05-21 17:45] LABS: ALBUMIN 3.6 GM/DL (3.2-5.2); ALT/SGPT 100 U/L (12-78); BILIRUBIN,TOTAL 0.2 MG/DL (0.2-1.0); BLOOD UREA NITROGEN 14 MG/DL (7-18); CALCIUM LEVEL 9.4 MG/DL (8.5-10.1); CARBON DIOXIDE LEVEL 31 MEQ/L (21-32); CHLORIDE LEVEL 109 MEQ/L (98-107); CHOLESTEROL LEVEL 134 MG/DL (<200); CHOLESTEROL RISK RATIO 3.435 (<5); CREATININE FOR GFR 0.97 MG/DL (0.70-1.30); GLOMERULAR FILTRATION RATE > 60.0 (>56); GLUCOSE, FASTING 116 MG/DL (70-100); HDL CHOLESTEROL 39 MG/DL (>40); LDL CHOLESTEROL 80 MG/DL (<100); NON-HDL-C 95 MG/DL; POTASSIUM SERUM 4.2 MEQ/L (3.5-5.1); SODIUM LEVEL 143 MEQ/L (136-145); TOTAL PROTEIN 7.4 GM/DL (6.4-8.2); TRIGLYCERIDES LEVEL 74 MG/DL (<150)
[2019-05-21 18:03] LABS: BASO # 0.1 10^3/uL (0.0-0.2); EOS # 0.3 10^3/uL (0.0-0.50); EOS % 3.8 % (0.0-3.0); HEMATOCRIT 41.9 % (42.0-52.0); HEMOGLOBIN 13.5 g/dl (13.5-17.5); MEAN CORPUSCULAR HEMOGLOBIN 31.2 pg (27.0-33.0); MEAN CORPUSCULAR HGB CONC 32.2 g/dl (32.0-36.5); MEAN CORPUSCULAR VOLUME 96.8 fl (80.0-96.0); MONO % 12.9 % (0.0-5.0); NEUTROPHILS # 5.3 10^3/uL (1.8-7.7); PLATELET COUNT, AUTOMATED 205 10^3/uL (150-450); RED BLOOD COUNT 4.33 10^6/uL (4.30-6.10); WHITE BLOOD COUNT 7.7 10^3/uL (4.0-10.0)
[2019-05-21 18:29] LABS: HEMOGLOBIN A1c 5.8 %
== END ==
LOC: M LAB REF 17:01
PROVIDERS: ATTEND Nurse Practitioner Family
DX: E11.9 Type 2 diabetes mellitus without complications (principal); I10 Essential (primary) hypertension

== ENCOUNTER 2019-06-09 11:00 | Outpatient (RCR) | payer MEDICARE, MEDICAID ==
[~2019-06-09 11:00] MED LIST changes: -HYDR50TA70; +HYDR50TA70 PO; -PRAZ1CAP
[2019-06-11] MEDS ORDERED: ZANT150T40 PO (10:07)
[2019-06-11] MEDS ORDERED: IBUP80TA PO (10:07)
[2019-06-11] MEDS ORDERED: ALBU83IN NEB (10:07)
== END 2019-06-22 ==
LOC: M OUTALCOH 11:00
PROVIDERS: ATTEND Psychiatry & Neurology Psychiatry
DX: F10.20 Alcohol dependence, uncomplicated (principal); F12.10 Cannabis abuse, uncomplicated

== ENCOUNTER → 2019-06-12 | Outpatient (CLI) | payer MEDICARE, MEDICAID ==
[~2019-06-12] MED LIST changes: +IBUP80TA PO; +PROHANCE 279.3MG/ML 15ML VIAL (A9576) As Ordered ONE; +PROHANCE 279.3MG/ML 5ML VIAL (A9576) As Ordered ONE; +ZANT150T40 PO
[2019-06-12 08:57] LABS: BLOOD UREA NITROGEN 11 MG/DL (7-18); CREATININE FOR GFR 1.04 MG/DL (0.70-1.30); GLOMERULAR FILTRATION RATE > 60.0 (>56); IRON (FE) 57 UG/DL (65-175); PERCENT SATURATION 13.4 % (19.7-50.0); TOTAL IRON BINDING CAPACITY 426 UG/DL (250-450)
[2019-06-12 09:26] LABS: HEPATITIS B SURFACE ANTIGEN NEGATIVE (NEGATIVE)
[2019-06-12 09:54] LABS: HEPATITIS B CORE ANTIBODY IGM NEGATIVE (NEGATIVE)
[2019-06-12 09:56] LABS: HEPATITIS A ANTIBODY IGM NEGATIVE (NEGATIVE)
[2019-06-12 11:12] LABS: HEPATITIS C VIRUS ABY INDEX > 11.0 INDEX (<0.8)
--- NOTE | 2019-06-12 12:33 | REP ---
MRI ABDOMEN WITH AND WITHOUT CONTRAST: COMPARISON: CT 04/27/2019 as well as other prior exams. Multiple sequences obtained in the axial and coronal planes prior to and following the intravenous administration of 20 mL ProHance. In the left lobe of the liver near the gallbladder fossa, there is a nodule, which is hyperintense on T2-weighted images. On post gadolinium images, there is peripheral nodular enhancement with gradual filling in on the more delayed images consistent with hemangioma. This measures approximately 2.5 cm in maximal diameter. Two or three tiny subcentimeter cysts are also seen in the more anterior aspect in the left lobe of the liver. No other liver abnormality is seen. The gallbladder is unremarkable. There is no biliary dilatation. The spleen is normal in size with no intrinsic abnormality. The adrenals and pancreas are normal as are the visualized kidneys. There is no hydronephrosis. I seen on adenopathy. No free fluid is seen. There is no evidence of abdominal aorta aneurysm. IMPRESSION: The nodule in the left lobe of the liver near the gallbladder fossa seen on the CT of 04/27/2019 is consistent with hemangioma by MRI. There are also two or three subcentimeter cysts in the left lobe of the liver. Electronically Signed by Yrn Claudio MD 06/12/2019 06:49 P
[2019-06-17 14:19] LABS: ANCA-ATYPICAL <1:20 titer (Neg:<1:20); ANTI-MITOCHONDRIAL ANTIBODY <20.0 Units (0.0-20.0); ANTINUCLEAR ANTIBODIES DIRECT Negative (Negative); CYTOPLASMIC NEUTROP AB ANCA-C <1:20 titer (Neg:<1:20); LIVER-KIDNEY MICROSOMAL ABY <20.1 Units (0.0-20.0); PERINUCLEAR AB ANCA-P <1:20 titer (Neg:<1:20)
== END ==
LOC: M RAD 07:59
PROVIDERS: ATTEND Internal Medicine Gastroenterology
DX: D18.03 Hemangioma of intra-abdominal structures (principal); K76.89 Other specified diseases of liver
CPT/HCPCS: 36415; 74183; 82105; 82565; 83550; 84520; 86038; 86255; 86256; 86376; 86705; 86709; 86803; 87340; 87521; A9576

== ENCOUNTER 2019-06-25 10:09 | Day surgery (SDC) | payer MEDICARE, MEDICAID ==
[~2019-06-25] VITALS: Ht 182.9 cm; Wt 120.4 kg
[~2019-06-25 10:09] MED LIST changes: -PROHANCE 279.3MG/ML 15ML VIAL (A9576) As Ordered ONE; -PROHANCE 279.3MG/ML 5ML VIAL (A9576) As Ordered ONE
[2019-06-25] MEDS ORDERED: NS 1,000 ML IV ONE (11:00)
[2019-06-25 11:20] VITALS: BP 200/90
[2019-06-25] MEDS ORDERED: METOPROLOL SUCC *XL* 25MG TAB (TopROL *XL*) PO ONE (12:00)
[2019-06-25] MEDS ORDERED: LEVALBUTEROL 1.25 MG/0.5 ML CONCENTRATE NEB INH ONE (12:00)
[2019-06-25] MEDS ORDERED: LIDOCAINE 2% INJ 100 MG/5 ML SDV (FOR ANES.) As Ordered ONE (12:32)
[2019-06-25] MEDS ORDERED: PROPOFOL 200 MG/20 ML VIAL As Ordered ONE ×2 (12:51→13:18)
--- NOTE | 2019-06-25 12:53 | ROOR ---
Patient Name: Donato Collier Procedure Date: 06/25/2019 12:30 PM Date of : 1965 Age: 53 Room: [facility] Gender: Male Note Status: Finalized Procedure: Upper GI endoscopy Indications: Heartburn Providers: Raul KAY MD Referring MD: Nicole MUÑOZ NP Requesting Provider: Medicines: Monitored Anesthesia Care Complications: No immediate complications. Procedure: Pre-Anesthesia Assessment: - The heart rate, respiratory rate, oxygen saturations, blood pressure, adequacy of pulmonary ventilation, and response to care were monitored throughout the procedure. The Endoscope was introduced through the mouth, and advanced to the second part of duodenum. The upper GI endoscopy was accomplished without difficulty. The patient tolerated the procedure well. Findings: The examined esophagus was normal. Localized mild inflammation characterized by erythema was found in the gastric antrum. This was biopsied with a cold forceps for histology. The exam of the stomach was otherwise normal. Localized mild inflammation characterized by erythema was found in the first portion of the duodenum. Biopsies were taken with a cold forceps for histology. Impression: - Normal esophagus. - Mild antral gastritis. Biopsied. - Mild to moderate duodenitis. Biopsied. Recommendation: - Follow an antireflux regimen. - Continue present medications. - Telephone endoscopist for pathology results in 2 weeks. - Return to referring physician as previously scheduled. Raul Kay MD Raul KAY MD 06/25/2019 12:52:51 PM Electronically signed by Raul KAY MD Number of Addenda: 0 Note Initiated On: 06/25/2019 12:30 PM Estimated Blood Loss: Estimated blood loss: none.
--- NOTE | 2019-06-25 13:10 | ROOR ---
Patient Name: Donato Collier Procedure Date: 06/25/2019 12:31 PM Date of : 1965 Age: 53 Room: [facility] Gender: Male Note Status: Finalized Procedure: Colonoscopy Indications: Screening for colorectal malignant neoplasm Providers: Raul KAY MD Referring MD: Nicole MUÑOZ NP Requesting Provider: Medicines: Monitored Anesthesia Care Complications: No immediate complications. Procedure: Pre-Anesthesia Assessment: - The heart rate, respiratory rate, oxygen saturations, blood pressure, adequacy of pulmonary ventilation, and response to care were monitored throughout the procedure. The Colonoscope was introduced through the anus and advanced to the terminal ileum, with identification of the appendiceal orifice and IC valve. The colonoscopy was performed without difficulty. The patient tolerated the procedure well. The quality of the bowel preparation was unsatisfactory. Findings: The perianal and digital rectal examinations were normal. Three sessile polyps were found in the sigmoid colon and splenic flexure. The polyps were 4 to 5 mm in size. These polyps were removed with a cold snare. Resection and retrieval were complete. Internal hemorrhoids were found during retroflexion. The hemorrhoids were medium-sized. The exam was otherwise without abnormality on direct and retroflexion views. Impression: - Preparation of the colon was unsatisfactory in the left side of the colon. - Three 4 to 5 mm polyps in the sigmoid colon and at the splenic flexure, removed with a cold snare. Resected and retrieved. - Internal hemorrhoids. - The examination was otherwise normal on direct and retroflexion views. Recommendation: - Repeat colonoscopy in 1 year because the bowel preparation was poor. - (Rec alternate colon preparation for next colonoscopy) - Return to referring physician as previously scheduled. Raul Kay MD Raul KAY MD 06/25/2019 1:10:23 PM Electronically signed by Raul KAY MD Number of Addenda: 0 Note Initiated On: 06/25/2019 12:31 PM Estimated Blood Loss: Estimated blood loss: none.
[2019-06-25 13:32] VITALS: BP 162/83
[2019-06-29] MEDS ORDERED: METF-839 PO (13:14)
== END 2019-06-25 13:48 | disposition home or self-care (01) ==
LOC: M OPP 10:09
PROVIDERS: ATTEND Internal Medicine Gastroenterology
DX: Z12.11 Encounter for screening for malignant neoplasm of colon (principal); D12.5 Benign neoplasm of sigmoid colon; D12.3 Benign neoplasm of transverse colon; K64.8 Other hemorrhoids; R12 Heartburn; K31.89 Other diseases of stomach and duodenum; K29.70 Gastritis, unspecified, without bleeding; K29.80 Duodenitis without bleeding; I10 Essential (primary) hypertension; I25.2 Old myocardial infarction; E11.9 Type 2 diabetes mellitus without complications; Z86.19 Personal history of other infectious and parasitic diseases; K21.9 Gastro-esophageal reflux disease without esophagitis; M19.90 Unspecified osteoarthritis, unspecified site; F41.9 Anxiety disorder, unspecified; F32.9 Major depressive disorder, single episode, unspecified; F43.10 Post-traumatic stress disorder, unspecified; R51 Headache; R56.9 Unspecified convulsions; J44.9 Chronic obstructive pulmonary disease, unspecified; R06.83 Snoring; G47.30 Sleep apnea, unspecified; F17.210 Nicotine dependence, cigarettes, uncomplicated; F12.10 Cannabis abuse, uncomplicated; Z91.030 Bee allergy status; Z88.8 Allergy status to other drugs, medicaments and biological substances; Z79.4 Long term (current) use of insulin

== ENCOUNTER 2019-07-02 07:42 | Day surgery (SDC) | payer MEDICARE, MEDICAID ==
[~2019-07-02] VITALS: Ht 182.9 cm; Wt 127.9 kg
[~2019-07-02 07:42] MED LIST changes: +METF-839 PO
[2019-07-02] MEDS ORDERED: EPINEPHrine INJ 1 MG/ML 1ML AMP As Ordered ONE (09:17)
[2019-07-02] MEDS ORDERED: METHYLENE BLUE 0.5% (5MG/ML) 10 ML AMP (PROVAYBLUE)(Q9968 PER 1MG) As Ordered ONE (09:17)
[2019-07-02] MEDS ORDERED: LIDOCAINE W/EPINEPHRINE 1% 20ML VIAL As Ordered ONE (09:17)
[2019-07-02] MEDS ORDERED: EPINEPHrine 1MG/ML INJ 30ML MD-VIAL As Ordered ONE (09:22)
[2019-07-02] MEDS ORDERED: PROPOFOL 200 MG/20 ML VIAL As Ordered ONE (09:54)
[2019-07-02] MEDS ORDERED: fentaNYL 250 MCG/5 ML INJECTION (J3010) As Ordered ONE (09:54)
[2019-07-02] MEDS ORDERED: LIDOCAINE 2% INJ 100 MG/5 ML SDV (FOR ANES.) As Ordered ONE (09:54)
[2019-07-02] MEDS ORDERED: ROCURONIUM BROMIDE 50 MG/5 ML VIAL As Ordered ONE (09:54)
[2019-07-02] MEDS ORDERED: dexameTHASONE 4 MG/ML 1ML VIAL (J1100) As Ordered ONE (09:54)
[2019-07-02] MEDS ORDERED: ONDANSETRON 4MG/2ML VIAL (J2405) As Ordered ONE (09:54)
[2019-07-02] MEDS ORDERED: MIDAZOLAM INJ 2 MG/2 ML VIAL (J2250) As Ordered ONE (09:54)
[2019-07-02] MEDS ORDERED: ALBUTEROL 6.7GM INHALER **FOR ANES. CART/OMNICELL ONLY As Ordered ONE (10:01)
[2019-07-02] MEDS ORDERED: LACRILUBE (AKWA TEARS) OPHTH OINT 3.5 GM As Ordered ONE (10:01)
[2019-07-02] MEDS ORDERED: ACETAMINOPHEN 1000MG 100ML IV BTL (OFIRMEV) (J0131 PER 10MG) As Ordered ONE (10:01)
[2019-07-02] MEDS ORDERED: SUGAMMADEX SODIUM 500 MG/5 ML VIAL (BRIDION) As Ordered ONE (10:02)
[2019-07-02] MEDS ORDERED: PHENYLephrine HCL 500 MCG/5 ML (100MCG/ML) SYRINGE (J2370) As Ordered ONE (10:08)
[2019-07-02] MEDS ORDERED: ALBUTEROL SULFATE 2.5 MG/0.5 ML INH NEB SOLN As Ordered ONE (10:44)
[2019-07-02] MEDS ORDERED: oxyCODONE 5MG TAB PO PRN (11:15)
[2019-07-02] MEDS ORDERED: LR 1,000 ML IV SCH ×2 (11:15→11:30)
[2019-07-02] MEDS ORDERED: METOCLOPRAMIDE INJ 10MG/2ML VIAL (J2765) IV PRN (11:15)
[2019-07-02] MEDS ORDERED: fentaNYL 100 MCG/2 ML INJECTION (J3010) IV PRN (11:15)
[2019-07-02] MEDS ORDERED: ONDANSETRON 4MG/2ML VIAL (J2405) IV PRN (11:15)
[2019-07-02] MEDS ORDERED: MEPERIDINE INJ 25 MG/ML VIAL (J2175) IV PRN (11:15)
[2019-07-02] MEDS ORDERED: ALBUTEROL SULFATE 2.5 MG/0.5 ML INH NEB SOLN INH ONE (11:30)
[2019-07-02] MEDS ORDERED: ACETAMINOPH W/CODEINE #3 TAB UD PO PRN (11:30)
[2019-07-02 13:05] VITALS: BP 160/70
--- NOTE | 2019-07-02 16:14 | RO ---
DATE OF PROCEDURE: 07/02/2019 PREOPERATIVE DIAGNOSES: Nasal septal deviation, nasal deviation. POSTOPERATIVE DIAGNOSES: Nasal septal deviation, nasal deviation. OPERATIVE PROCEDURE: Septoplasty infracture. SURGEON: Dr. Jewel Constantino SYSTEM SAFETY MANAGER: ANESTHESIA: DESCRIPTION OF OPERATION: Under general anesthesia with the patient intubated, the patient was draped in the usual manner. The septum was markedly deviated towards the left side and tip deviated towards right side. I made an incision anterior on the left side. I elevated subperichondrial periosteal plane. I the quadrangular cartilage from the ethmoid plate and then removed portions of ethmoid plate and the vomer which are deviated. I then went inferiorly and removed part of the maxillary crest. Once this was done, the septum was relatively straight. I took out an inferior strip of cartilage anteriorly along the quadrangular cartilage. The anterior nasal spine was towards the left side, so I fractured that and moved it towards the right side. Then, I sutured the septum to the midline anteriorly. I closed the wound with interrupted #4-0 chromic. The patient tolerated the procedure well. Less than 20 mL estimated blood loss. The patient was extubated and transferred to the recovery room in excellent condition.
== END 2019-07-02 15:04 | disposition home or self-care (01) ==
LOC: M SDC 07:42
PROVIDERS: ATTEND Otolaryngology
DX: J34.2 Deviated nasal septum (principal); I10 Essential (primary) hypertension; I25.2 Old myocardial infarction; K21.9 Gastro-esophageal reflux disease without esophagitis; E11.9 Type 2 diabetes mellitus without complications; J44.9 Chronic obstructive pulmonary disease, unspecified; F41.9 Anxiety disorder, unspecified; F32.9 Major depressive disorder, single episode, unspecified; F17.218 Nicotine dependence, cigarettes, with other nicotine-induced disorders; Z91.030 Bee allergy status; Z88.8 Allergy status to other drugs, medicaments and biological substances; F43.10 Post-traumatic stress disorder, unspecified; F12.10 Cannabis abuse, uncomplicated; Z79.84 Long term (current) use of oral hypoglycemic drugs; Z79.51 Long term (current) use of inhaled steroids
CPT/HCPCS: 30520; 30930; 88300; J0131; J1100; J2250; J2370; J2405; J3010; Q9968

== ENCOUNTER 2019-07-16 09:33 | Outpatient (RCR) | payer MEDICARE, MEDICAID | END 2019-07-23 | LOC: M OUTALCOH 09:33 | PROVIDERS: ATTEND Psychiatry & Neurology Psychiatry | DX: F10.20 Alcohol dependence, uncomplicated (principal); F12.10 Cannabis abuse, uncomplicated ==

== ENCOUNTER 2019-08-17 11:00 | Outpatient (RCR) | payer MEDICARE, MEDICAID | END 2019-08-22 | LOC: M OUTALCOH 11:00 | PROVIDERS: ATTEND Psychiatry & Neurology Psychiatry | DX: F10.20 Alcohol dependence, uncomplicated (principal); F12.10 Cannabis abuse, uncomplicated ==

== ENCOUNTER 2019-09-07 07:59 | Outpatient (RCR) | payer MEDICARE, MEDICAID ==
[~2019-09-07 07:59] MED LIST changes: +OMEP-172 PO; -OMEP20CA4 PO
== END 2019-09-22 ==
LOC: M OUTALCOH 07:59
PROVIDERS: ATTEND Psychiatry & Neurology Psychiatry
DX: F10.20 Alcohol dependence, uncomplicated (principal); F12.10 Cannabis abuse, uncomplicated

== ENCOUNTER 2019-09-24 10:16 | Outpatient (RCR) | payer MEDICARE, MEDICAID ==
[~2019-09-24 10:16] MED LIST changes: -OMEP-172 PO; +OMEP1CAP73 PO
[2019-09-24] MEDS ORDERED: ASPI81TA26 PO (17:02)
[2019-09-24] MEDS ORDERED: METF-791 PO (17:02)
[2019-09-24] MEDS ORDERED: FAMO20TA PO (17:02)
== END 2019-10-23 ==
LOC: M OUTALCOH 10:16
PROVIDERS: ATTEND Psychiatry & Neurology Psychiatry
DX: F10.20 Alcohol dependence, uncomplicated (principal); F12.10 Cannabis abuse, uncomplicated

== ENCOUNTER 2019-09-24 11:05 | Inpatient (IN) | payer MEDICARE, MEDICAID ==
[~2019-09-24] VITALS: Ht 182.9 cm; Wt 121.5 kg
[2019-09-24] VITALS (7 sets, daily range): BP systolic 122–182; BP diastolic 68–85
[2019-09-24] MEDS: THIAMINE 100 MG TAB PO SCH ×2 (09:00→20:02)
[~2019-09-24 11:05] MED LIST changes: +OMEP-172 PO; -OMEP1CAP73 PO
[2019-09-24 11:50] LABS: BASO # 0.1 10^3/uL (0.0-0.2); BASO % 0.7 % (0.0-1.0); EOS # 0.1 10^3/uL (0.0-0.5); EOS % 1.5 % (0.0-3.0); HEMATOCRIT 29.5 % (42.0-52.0); HEMOGLOBIN 9.4 g/dl (13.5-17.5); LYMPH # 1.3 10^3/uL (1.5-5.0); MEAN CORPUSCULAR HEMOGLOBIN 27.6 pg (27.0-33.0); MEAN CORPUSCULAR HGB CONC 31.9 g/dl (32.0-36.5); MEAN CORPUSCULAR VOLUME 86.8 fl (80.0-96.0); MONO # 1.1 10^3/uL (0.0-0.8); NEUTROPHILS # 7.1 10^3/uL (1.5-8.5); NEUTROPHILS % 73.4 % (36.0-66.0); PLATELET COUNT, AUTOMATED 227 10^3/uL (150-450); WHITE BLOOD COUNT 9.6 10^3/uL (4.0-10.0)
[2019-09-24] MEDS ORDERED: NS 1,000 ML IV ONE (12:00)
--- NOTE | 2019-09-24 13:51 | REP ---
SUPINE CHEST X-RAY: Single view. HISTORY: Shortness of breath and cough. COMPARISON STUDY: April 27, 2019. FINDINGS: There are old healed rib fractures with some deformity on the left unchanged. The lungs are symmetrically aerated and otherwise clear. Minimal linear fibrosis is seen with some pleural scarring at the left lateral pleural angle. No acute infiltrate is seen. Heart is not enlarged. Pulmonary vasculature is not increased. IMPRESSION: No acute infiltrate seen. Multiple old left-sided rib fractures. Pleuroparenchymal scarring left base. Electronically Signed by Valentino Ogden MD 09/24/2019 02:07 P
--- NOTE | 2019-09-24 13:52 | REP ---
RIGHT KNEE SERIES: Five views. HISTORY: Injury in a fall. Knee pain. COMPARISON STUDY: April 27, 2019. FINDINGS: Five views of the right knee demonstrate overall normal mineralization. Mild vascular calcification is seen. There is mild patellar spurring. Fullness in the region of the suprapatellar bursa is seen on lateral film suggestive of joint effusion. There is a triangular bone fragment posteriorly adjacent to the tibial plateau on the lateral radiograph of uncertain significance. This is a new finding measuring 13 mm in greatest diameter. A posterior tibial plateau chip fracture must be suspected although its margins may be corticated. There is a small benign osteochondroma more caudally positioned in the proximal tibial metaphysis posteriorly. This is unchanged. IMPRESSION: 1. Probable joint effusion. 2. Patellar spurring. 3. 13 mm triangular bone fragment and cortical irregularity at the posterior tibial plateau on lateral radiograph, question chip fracture. Consider CT scanning. 4. Probable joint effusion. Electronically Signed by Valentino Ogden MD 09/24/2019 02:07 P
--- NOTE | 2019-09-24 13:54 | REP ---
Clinical: Fall. Head injury . Comparison: 04/27/2019 . Technique: Axial images from the skull base to the vertex with coronal re-formations. Findings: The ventricles, sulci, and cisterns are normal in position and appearance. Claudio-white differentiation is maintained. No acute intracranial hemorrhage, mass/mass effect, pathology or trauma/injury. No evidence for acute infarction. No extra-axial fluid collection. Calvarium is intact. Paranasal sinuses and mastoid air cells are clear. Impression: Normal noncontrast head CT. No evidence for acute intracranial pathology or trauma/injury. Electronically Signed by Faheem Nassar MD 09/24/2019 01:46 P
[2019-09-24 14:03] LABS: ALBUMIN 3.5 GM/DL (3.2-5.2); ALT/SGPT 53 U/L (12-78); BILIRUBIN,TOTAL 0.2 MG/DL (0.2-1.0); BLOOD UREA NITROGEN 19 MG/DL (7-18); CALCIUM LEVEL 8.6 MG/DL (8.5-10.1); CARBON DIOXIDE LEVEL 20 MEQ/L (21-32); CHLORIDE LEVEL 104 MEQ/L (98-107); CK-MB VALUE MASS 2.8 NG/ML (<3.6); CPK CREATINE PHOSPHOKINASE 110 U/L (39-308); CREATININE FOR GFR 1.52 MG/DL (0.70-1.30); ETHYL ALCOHOL (ETHANOL) < 0.003 % (0.000-0.010); GLOMERULAR FILTRATION RATE 51.1 (>56); GLUCOSE, FASTING 84 MG/DL (70-100); MB/CK RELATIVE INDEX 2.55 (< OR =4); NT-PRO BNP 40 PG/ML (<125); SODIUM LEVEL 134 MEQ/L (136-145); TOTAL PROTEIN 6.7 GM/DL (6.4-8.2); TROPONIN I < 0.02 NG/ML (< 0.10)
[2019-09-24] MEDS ORDERED: NS 2,000 ML in IV 1 EA IV ONE (14:15)
[2019-09-24] MEDS ORDERED: MORPHINE 2 MG/ML 1ML VIAL (J2270) IV ONE (15:30)
[2019-09-24] MEDS ORDERED: IPRATROPIUM 0.5MG/ALBUTEROL 2.5MG INH SOL UD 3ML (DUONEB)(J7620) NEB PRN (16:15)
[2019-09-24] MEDS ORDERED: GLUCOSE 4 GM CHEW TABLET PO PRN (16:15)
[2019-09-24] MEDS ORDERED: LORazepam 2 MG TAB PO PRN (16:15)
[2019-09-24] MEDS ORDERED: GLUCAGON FOR INJ 1 MG VIAL (J1610) SC PRN (16:15)
[2019-09-24] MEDS ORDERED: DEXTROSE 50% 50 ML SYRINGE IV PRN (16:15)
[2019-09-24] MEDS: HumaLOG INSULIN (NovoLOG) PER UNIT SC SCH ×2 (17:00→23:00)
[2019-09-24] MEDS ORDERED: FAMO20TA PO (17:02)
[2019-09-24] MEDS ORDERED: METF-791 PO (17:02)
[2019-09-24] MEDS ORDERED: ASPI81TA26 PO (17:02)
[2019-09-24] MEDS ORDERED: HumaLOG INSULIN (NovoLOG) PER UNIT SC SCH ×2 (17:30→21:00)
[2019-09-24 17:33] LABS: HEMATOCRIT 30.7 % (42.0-52.0); HEMOGLOBIN 9.4 g/dl (13.5-17.5)
--- NOTE | 2019-09-24 18:18 | HPEPDOC ---
[facility] Medical History & Physical Date of Admission Sep 24, 2019 Date of Service: Sep 24, 2019 Attending Physician: LES PÉREZ MD History and Physical CHIEF COMPLAINT: Dizziness/fall HISTORY OF PRESENT ILLNESS: Patient is a 53 year old male who presented to the [facility] ER with complaint of feeling dizzy and falling multiple times while at home. The patient states that he woke up this morning and went to make himself some coffee. While making coffee he felt dizzy/lightheaded. He stated that his legs f elt unsteady and he subsequently fell down. He denies losing consciousness or hitting his head. He stated that he attempted to get up and walk however continued to feel weak in his legs and once again subsequently fell and landed on his right knee. He stated that after the fall he had some pain in his knee. He was able to get up and continued to feel lightheaded and wobbly/weak in his legs. The patient states that for the past month or so he has felt more short of breath then his baseline. He states that yesterday he had cut back from smoking 1 pack per day to smoking only 5 cigarettes as he has been short of breath. He states that he occasionally has a cough but denies any significant sputum production. He denies any nausea or vomiting. He denies any hematemesis or hemoptysis. He denies any bloody or dark tarry stools. He denies any fevers or chills. In the ER the patient was found to be vitally stable. Laboratory examination demonstrated a slight anemia of 9.4. His chemistries demonstrated hyponatremia and an elevated Cr of 1.52. Additionally the patient had a slight lactic acido sis of 2.6. The patient was found to be orthostatic positive and given 2L bolus of NS. He received CT imaging of his head given his history of falls which demonstrated no evidence of acute intracranial pathology. He also received an x- ray of his knee which demonstrated a likely joint effusion, patellar spurring, and a 13mm triangular bone fragment and cortical irregularity at the posterior tibial plateau suggesting possible chip fracture. The patient also received a chest x-ray which demonstrated multiple old left-sided rib fractures and pleuroparenchymal scarring of the left base but no acute infiltrate. Hospitalist service was consulted and the patient was admitted for further evaluation and management PAST MEDICAL HISTORY: 1. Hypertension 2. COPD/Emphysema 3. Chronic Hepatitis C 4. Liver Hemangioma 5. GERD 6. Diastolic Congestive Heart Failure TTE 12/07 demonstrating severe diastolic dysfunction, mild pulmonary hypertension, and normal EF 7. History of Alcohol Abuse 8. History of multiple falls resulting in a traumatic rib fracture, pneumothorax, and diaphragmatic hernia requiring chest tube and hernia repair in 08/06 9. Obstructive Sleep Apnea 10. Poor dentition PAST SURGICAL HISTORY: 1. Bilateral total hip replacement 2. Diaphragmatic Hernia repair in 2013 3. Chest Tube placement in 2013 4. Vasectomy in 1996 5. Appendectomy 6. Tonsillectomy and Adenoidectomy 7. 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 He was part of the [facility] ([facility]) during 06/03. He states that he has had a problem with alcohol in the past however currently only drinks occasionally. He denies IV drug use although IV drug abuse has been documented in his medical record in the past. He is a current smoker and started smoking at the age of 15. He smoked about 1 ppd until recently when he has cut down to 5-10 as he feels short of breath. FAMILY HISTORY: Patients father in a car accident. The patients mother had from lung cancer. He has one sister who has depression ALLERGIES: Please see below. REVIEW OF SYSTEMS: CONSTITUTIONAL: Denies fevers, chills, or unintentional weight loss. Admits to an episode of night sweats several nights ago. HEENT: Denies dysphagia. Admits to dry mouth. Denies pain on swallowing. Denies lymphadenopathy. Admits to voice hoarseness CARDIOVASCULAR: Denies chest pain or pressure. Denies palpitations or feelings of the heart racing RESPIRATORY: Admits to shortness of breath worsened with exertion. Admits to occasional cough. Denies sputum production. Denies hemoptysis GASTROINTESTINAL: Denies abdominal pain, diarrhea, constipation, nausea, or vomiting. He denies bloody or dark tarry stools. He denies hematemesis GENITOURINARY: Denies dysuria, increased frequency or urgency SKIN: Denies rashes or lesions MUSCULOSKELETAL: Admits to bilateral knee and hip arthritis. Admits to right knee pain worsened after his fall. NEUROLOGICAL: Admits to feeling wobbly/weak in his legs. Denies changes in his speech PSYCHIATRIC: Admits to history of anxiety, depression, and PTSD ENDOCRINE: Denies heat intolerance or cold intolerance HEMATOLOGIC/LYMPHATIC: Denies any history of easy bruising or bleeding. Denies history of DVT or PE. HOME MEDICATIONS: Please see below. PHYSICAL EXAMINATION: VITAL SIGNS: Temperature 98.0, pulse 78, respiratory rate 18, blood pressure 153/81, pulse oximetry 95% on room air. GENERAL APPEARANCE: Patient is awake, alert, and oriented. He is lying in stretcher. He does not appear to be in any acute distress. HEENT: Atraumatic, normocephalic. Eyes are nonicteric. He has a red psoriatic- like rash on his forehead. His trachea is midline. Mucous membranes are dry. There is dried blood and mucous in his is mouth. He has poor dentition and is missing several teeth CARDIOVASCULAR: He has distant heart sounds. Normal S1, S2. Regular rate and rhythm. No clicks rubs or murmurs LUNGS: He has scattered wheezing throughout with some bronchial breath sounds greater on the right. Good respiratory effort with symmetric chest expansion. ABDOMEN: Obese. Soft, nondistended. Nontender. No rebound tenderness or guarding. Normoactive bowel sounds throughout MUSCULOSKELETAL: Right knee examination demonstrated some tenderness of patella however, normal motion in flexion, extension, varus and valgus testing. EXTREMITIES: 1+ pitting edema in bilateral lower extremities. Full and equal pulses in bilateral upper and lower extremities NEUROLOGICAL: No focal neurological deficits PSYCHIATRIC: Mood and affect appear appropriate LABORATORY DATA: See below. IMAGING: RIGHT KNEE SERIES: Five views. HISTORY: Injury in a fall. Knee pain. COMPARISON STUDY: April 27, 2019. FINDINGS: Five views of the right knee demonstrate overall normal mineralization. Mild vascular calcification is seen. There is mild patellar spurring. Fullness in the region of the suprapatellar bursa is seen on lateral film suggestive of joint effusion. There is a triangular bone fragment posteriorly adjacent to the tibial plateau on the lateral radiograph of uncertain significance. This is a new finding measuring 13 mm in greatest diameter. A posterior tibial plateau chip fracture must be suspected although its margins may be corticated. There is a small benign osteochondroma more caudally positioned in the proximal tibial metaphysis posteriorly. This is unchanged. IMPRESSION: 1. Probable joint effusion. 2. Patellar spurring. 3. 13 mm triangular bone fragment and cortical irregularity at the posterior tibial plateau on lateral radiograph, question chip fracture. Consider CT scanning. 4. Probable joint effusion. Electronically Signed by Valentino Ogden MD 09/24/2019 02:07 P Clinical: Fall. Head injury . Comparison: 04/27/2019 . Technique: Axial images from the skull base to the vertex with coronal re-formations. Findings: The ventricles, sulci, and cisterns are normal in position and appearance. Claudio-white differentiation is maintained. No acute intracranial hemorrhage, mass/mass effect, pathology or trauma/injury. No evidence for acute infarction. No extra-axial fluid collection. Calvarium is intact. Paranasal sinuses and mastoid air cells are clear. Impression: Normal noncontrast head CT. No evidence for acute intracranial pathology or trauma/injury. Electronically Signed by Faheem Nassar MD 09/24/2019 01:46 P DD: Faheem Nassar MD 09/24/19 1345 DT: Gómez 09/24/19 1346 DS: VALERIO 09/24/19 1346 09/24/19 1346 SUPINE CHEST X-RAY: Single view. HISTORY: Shortness of breath and cough. COMPARISON STUDY: April 27, 2019. FINDINGS: There are old healed rib fractures with some deformity on the left unchanged. The lungs are symmetrically aerated and otherwise clear. Minimal linear fibrosis is seen with some pleural scarring at the left lateral pleural angle. No acute infiltrate is seen. Heart is not enlarged. Pulmonary vasculature is not increased. IMPRESSION: No acute infiltrate seen. Multiple old left-sided rib fractures. Pleuroparenchymal scarring left base. Electronically Signed by Valentino Ogden MD 09/24/2019 02:07 P MICROBIOLOGY: Please see below. ASSESSMENT: Patient is a 53 year old male who presented to the [facility] ER with complaint of fall and was found to have positive orthostatic vital signs and anemia . PLAN: 1. Symptomatic Anemia 2/2 to possible GI bleed -Patient presented with a complaint of feeling dizzy/lightheaded. On present ation to the ED he was orthostatic positive. He has been given 2L IV fluid. He is also anemic with a Hgb of 9.4. His baseline is around 13-14. -He does not report any bloody stools or hematemesis. He has been taking NSAIDs for management of his arthritis. -Will trend Hgb/HCT q6h. -Type and Screen. Will transfuse if Hbg decreases to between 7-8 or remains symptomatic. -NPO with exception to meds. No emergent need for EGD/colonoscopy. Patient did have a trace positive Fecal occult. Will trend hemoglobin however he will likely need to follow-up outpatient for an EGD/colonoscopy -Orthostatic Vital Signs q4h until negative -Protonix BID 2. Acute Kidney Injury secondary to dehydration and acute blood loss anemia -Baseline Cr of 1.0 -Patient is currently receiving IV fluids. Will trend Cr. -Avoiding Nephrotoxic agents. Patient was on NSAIDs, Metformin, and Lisinopril outpatient. Will hold his home medications 3. History of Diastolic Congestive Heart Failure -Currently stable. Patient will be continued on home medication including Metoprolol and Lasix, -Patient is receiving IVF. Will watch for fluid overload 4. HTN -Patient has a history of HTN. He normally takes lisinopril and Metroprolol. -Patients lisinopril is on hold. Will give one time dose of Norvasc tonight 5. Shortness of Breath -Patient states he has shortness of breath. This could be multifactorial and likely related to his anemia however he is also a smoker and may have a degree of COPD which has not been formerly diagnosed -Will place patient on Duonebs 6. History of Alcoholism -Patient is a former alcoholic. He does state that he drinks occasionally now. Will place patient on CIWA protocol with multivitamin, folic acid, and thiamine 7. Prediabetes -Patient states that he is diabetic. He takes metformin outpatient. Currently on q6H fingersticks as he is NPO. SLiding scale coverage 8. Chronic Back Pain -Continuing patients home Gabapentin 9. Depression/Anxiety/PTSD -Will continue patients Seroquel 10. Insomnia -Will continue Rozerem 11. DVT Prophylaxis -Patient presented with acute blood loss anemia. Will place on TEDs and Sequentials Vital Signs Vital Signs Date Time Temp Pulse Resp B/P (MAP) Pulse Ox O2 Delivery O2 Flow Rate FiO2 09/24/19 15:45 17 09/24/19 15:20 77 95 09/24/19 15:15 136/65 (88) 09/24/19 11:22 97.3 Room Air Laboratory Data Labs 24H Laboratory Tests 2 09/24/19 11:39: Immature Granulocyte % (Auto) 0.4, Neutrophils (%) (Auto) 73.4H, Lymphocytes (%) (Auto) 13.0L, Monocytes (%) (Auto) 11.0H, Eosinophils (%) (Auto) 1.5, Basophils (%) (Auto) 0.7, Neutrophils # (Auto) 7.1, Lymphocytes # (Auto) 1.3L, Monocytes # (Auto) 1.1H, Eosinophils # (Auto) 0.1, Basophils # (Auto) 0.1, Nucleated Red Blood Cells % (auto) 0.0 09/24/19 13:12: Anion Gap 10, Glomerular Filtration Rate 51.1L, Lactic Acid Level 2.6*H, Calcium Level 8.6, Total Bilirubin 0.2, Aspartate Amino Transf (AST/SGOT) 27, Alanine Aminotransferase (ALT/SGPT) 53, Alkaline Phosphatase 82, Total Creatine Kinase 110, Creatine Kinase MB 2.8, Creatine Kinase MB Relative Index 2.55, Troponin I < 0.02, [id number]-[id number]-Type Natriuretic Peptide 40, Total Protein 6.7, Albumin 3.5, Albumin/Globulin Ratio 1.09, Ethyl Alcohol Level < 0.003 CBC/BMP Laboratory Tests 09/24/19 11:39 09/24/19 13:12 Microbiology Microbiology 09/24/19 Blood Culture, Received Pending 09/24/19 Blood Culture, Received Pending Home Medications Scheduled Aspirin (Aspirin EC) 81 Mg Tablet.dr, 81 MG PO DAILY Famotidine (Famotidine) 20 Mg Tablet, 20 MG PO BID Fluticasone Propion/Salmeterol (Advair Hfa 230-21 Mcg Inhaler) 1 Aer Aer, 2 PUFF INH BID Furosemide (Furosemide) 20 Mg Tab, 20 MG PO BID Gabapentin (Gabapentin) 400 Mg Cap, 400 MG PO BID Lisinopril (Lisinopril) 10 Mg Tab, 10 MG PO DAILY Metformin HCl (Metformin HCl ER) 500 Mg Tab.er.24h, 500 MG PO DAILY Metoprolol Succinate (Metoprolol Succinate) 25 Mg Tab, 25 MG PO QHS Prazosin Hcl (Prazosin HCl) 1 Mg Capsule, 1 MG PO QHS Quetiapine Fumarate (Seroquel) 400 Mg Tab, 400 MG PO QHS Ramelteon (Rozerem) 8 Mg Tab, 8 MG PO QHS Venlafaxine HCl (Venlafaxine HCl ER) 150 Mg Cap, 300 MG PO DAILY Scheduled PRN Albuterol Sulf (Albuterol Sulfate) 2.5 Mg/3 Ml Vial.neb, 1 VIAL NEB Q4HP PRN for wheezing Albuterol Sulfate (Proventil Hfa) 108 Mcg/Act Aer, 2 PUFFS INH Q4H PRN for SHORTNESS OF BREATH Hydroxyzine HCl (Hydroxyzine HCl) 50 Mg Tablet, 50 MG PO TID PRN for ANXIETY Ibuprofen (Ibuprofen) 800 Mg Tablet, 800 MG PO Q6H PRN for PAIN Allergies Coded Allergies: bee venom protein (honey bee) (Verified Allergy, Severe, ANAPHYLAXIS, 06/11/19) fluconazole (Verified Allergy, Mild, RASH/REDNESS, 06/11/19) A-FIB/CHADSVASC A-FIB History Current/History of A-Fib/PAF?: No GME ATTESTATION GME ATTESTATION My faculty preceptor for this patient encounter was physically present during the encounter and was fully available. All aspects of the patient interview, examination, medical decision making process, and medical care plan development were reviewed and approved by the faculty preceptor. The faculty preceptor is aware and concurs with the plan as stated in the body of this note and will attest to such by his/her cosignature. ATTENDING NOTE I, Les Pérez, have independently examined this patient and performed my own physical exam, as well as reviewed the documentation and edited where necessary. I have discussed in detail with the resident / student the findings and plan of treatment as documented by the resident / student and edited their note. I agree with their findings and treatment plan and have edited their documentation. I will continue to follow the patient during this hospital stay. MILTON GREEN DO Sep 24, 2019 17:27 LES PÉREZ MD Sep 24, 2019 18:40
[2019-09-24] MEDS: MULTIVITAMINS/MINERALS THERAP 1 TAB PO SCH (18:28)
[2019-09-24] MEDS: PANTOPRAZOLE 40MG INJ (PROTONIX) (C9113) IV SCH (18:28)
[2019-09-24] MEDS: FOLIC ACID 1 MG TAB PO SCH (18:28)
[2019-09-24] MEDS: NS 1,000 ML IV SCH (18:29)
[2019-09-24] MEDS ORDERED: amLODIPine 5 MG TAB PO ONE (19:00)
[2019-09-24] MEDS: METOPROLOL SUCC *XL* 25MG TAB (TopROL *XL*) PO SCH (20:02)
[2019-09-24] MEDS: GABAPENTIN 400 MG CAP PO SCH (20:02)
[2019-09-24] MEDS: FUROSEMIDE 20 MG TAB PO SCH (20:03)
[2019-09-24] MEDS: ADVAIR HFA 230/21MCG INHALER INH SCH (20:38)
[2019-09-24] MEDS ORDERED: QUEtiapine FUMARATE 200 MG TAB PO SCH (21:00)
[2019-09-24] MEDS ORDERED: RAMELTEON 8 MG TAB (ROZEREM) PO SCH (21:00)
[2019-09-24] MEDS: ACETAMINOPHEN TAB 650MG DOSE (2X325MG) PO PRN (21:39)
[2019-09-24 23:05] LABS: HEMATOCRIT 29.5 % (42.0-52.0); HEMOGLOBIN 9.2 g/dl (13.5-17.5)
[2019-09-24 23:33] LABS: ABG BASE EXCESS -1.4 (-2.0-2.0); ABG HCO3 23.6 MEQ/L (22.0-26.0); ABG O2 SATURATION 95.1 % (95.0-99.0); ABG PARTIAL PRESSURE CO2 40.6 mmHg (35.0-45.0); ABG PARTIAL PRESSURE O2 78.8 mmHg (75.0-100.0); ABG STANDARD HCO3 23.3 MEQ/L (22.0-26.0); ABG TOTAL CO2 24.8 MEQ/L (22.0-29.0); ABG pH (ARTERIAL) 7.382 UNITS (7.350-7.450)
[2019-09-25] VITALS (14 sets, daily range): BP systolic 99–148; BP diastolic 58–84
[2019-09-25] MEDS: NS 1,000 ML IV SCH (03:37)
[2019-09-25 05:11] LABS: HEMATOCRIT 29.8 % (42.0-52.0); HEMOGLOBIN 9.3 g/dl (13.5-17.5); MEAN CORPUSCULAR HEMOGLOBIN 27.1 pg (27.0-33.0); MEAN CORPUSCULAR HGB CONC 31.2 g/dl (32.0-36.5); MEAN CORPUSCULAR VOLUME 86.9 fl (80.0-96.0); PLATELET COUNT, AUTOMATED 215 10^3/uL (150-450); RED BLOOD COUNT 3.43 10^6/uL (4.30-6.10); WHITE BLOOD COUNT 4.7 10^3/uL (4.0-10.0)
[2019-09-25 05:30] LABS: BLOOD UREA NITROGEN 12 MG/DL (7-18); CARBON DIOXIDE LEVEL 24 MEQ/L (21-32); CHLORIDE LEVEL 114 MEQ/L (98-107); CREATININE FOR GFR 0.88 MG/DL (0.70-1.30); GLOMERULAR FILTRATION RATE > 60.0 (>56); GLUCOSE, FASTING 104 MG/DL (70-100); SODIUM LEVEL 143 MEQ/L (136-145)
[2019-09-25] MEDS: PANTOPRAZOLE 40MG INJ (PROTONIX) (C9113) IV SCH ×2 (05:40→17:06)
[2019-09-25] MEDS: HumaLOG INSULIN (NovoLOG) PER UNIT SC SCH ×3 (05:41→17:06)
[2019-09-25] MEDS: ADVAIR HFA 230/21MCG INHALER INH SCH ×2 (07:15→19:47)
--- NOTE | 2019-09-25 07:55 | REP ---
Clinical: Hypoxia. Comparison: 09/24/2019. Findings: Mediastinum and cardiac silhouette are stable and mild cardiomegaly cannot be excluded. The lung roland demonstrate chronic-appearing changes although mild lower lobe atelectasis (left greater than right) cannot be excluded. No obvious effusion. No pneumothorax. Skeletal structures intact. Old rib fractures again noted. Impression: Mild basilar atelectasis cannot be excluded. Electronically Signed by Faheem Nassar MD 09/25/2019 07:47 A
[2019-09-25] MEDS: MULTIVITAMINS/MINERALS THERAP 1 TAB PO SCH (08:40)
[2019-09-25] MEDS: THIAMINE 100 MG TAB PO SCH ×2 (08:40→20:30)
[2019-09-25] MEDS: FUROSEMIDE 20 MG TAB PO SCH ×2 (08:40→20:31)
[2019-09-25] MEDS: FOLIC ACID 1 MG TAB PO SCH (08:40)
[2019-09-25] MEDS: GABAPENTIN 400 MG CAP PO SCH ×2 (10:04→20:31)
[2019-09-25] MEDS: VENLAFAXINE **XR** 75MG CAPSULE PO SCH (10:05)
--- NOTE | 2019-09-25 10:05 | REP ---
Clinical: Recent trauma with possible fracture. Technique: Axial noncontrast images through the knee with coronal and sagittal re-formations. Findings: There is evidence for small peripheral fractures along the posterior aspect of the medial tibial plateau as well as smaller fracture fragments along the anterior aspect of the medial tibial plateau. There is a moderate to significant surrounding joint effusion and post traumatic inflammatory stranding for. The visualized portions of the fibula, femur, and patella appear intact. Impression: Subtle peripheral fractures involving the medial tibial plateau. Electronically Signed by Faheem Nassar MD 09/25/2019 09:57 A
--- NOTE | 2019-09-25 10:40 | IPNPDOC ---
Date Seen The patient was seen on 09/25/19. Progress Note SUBJECTIVE: Patient was seen and examined this morning. Overnight the patient had desaturation in his oxygenation requiring high flow nasal cannula. The patient had received an ABG which was essentially normal. The patient was transferred to the Intensive Care Unit for closer monitoring. His oxygen desaturations were likely secondary to a combination of polypharmacy and underlying Obstructive sleep apnea. This morning the patient states that he feels well. He has stayed normotensive and orthostatic negative. His Hbg has remained stable. The patient does still complain of some pain in his right knee. He otherwise denies shortness of breath or chest pain OBJECTIVE PHYSICAL EXAMINATION: VITAL SIGNS: Please see below. GENERAL: Awake, alert, and oriented. Appears in no acute distress. Lying comfortably in bed. HEENT: Atraumatic, normocephalic. Eyes are nonicteric. Trachea is midline. Dentition is poor. Mucous membranes are pink and moist. Duran neck CARDIOVASCULAR: Normal S1, S2. Regular rate and rhythm. No clicks, rubs, or murmurs RESPIRATORY: Clear vesicular breath sounds bilaterally. Good respiratory effort. No wheezes, rhonchi, or rales. Symmetric chest expansion ABDOMINAL: Obese. Soft, nondistended. Nontender. No rebound tenderness or guarding. EXTREMITIES: No edema. Examination of patients right knee reveals no joint line tenderness. Normal range of motion in flexion, extension. Normal Varus and valgus testing. Negative daphne. Negative anterior and posterior drawer test. NEUROLOGICAL: No focal neurological deficits PSYCHOLOGICAL: Mood and affect appear appropriate LABORATORY DATA, IMAGING STUDIES, MICROBIOLOGY: Please see below: DVT prophylaxis ordered?: Mechanical ASSESSMENT AND PLAN: Patient is a 53 year old male who presented to the [facility] ER for lightheadedness and fall at home and found to have symptomatic anemia. He was admitted with serial H&H and remained stable PROBLEMS: 1. 1. Symptomatic Anemia 2/2 to possible GI bleed -Patient presented with a complaint of feeling dizzy/lightheaded. On presentation to the ED he was orthostatic positive. He has been given 2L IV fluid. He is also anemic with a Hgb of 9.4. His baseline is around 13-14. -Patients Hgb has remained stable overnight. Currently no signs of bleeding. -Patient is orthostatic negative today -Will remain on Protonix BID. Given his NSAID use he is at risk for upper GI bleed however there is no current sign of bleeding. Patient denies any epigastric pain -Will advance diet today 2. Hypoxia 2/2 Polypharmacy and EUGENIA -Patient had an episode of hypoxia last night requiring high flow nasal cannula. This was likely secondary to receiving Seroquel, Rozerem, and 2 of ativan per CIWA. Given the patients EUGENIA this was likely the cause of his hypoxia. ABG and chest x-ray are essentially normal. The patient is currently on room air. 3. 2. Acute Kidney Injury secondary to dehydration and acute blood loss anemia -Baseline Cr of 1.0 -Patient Cr has improved. He is currently tolerating PO. Will stop IVF. -Avoiding Nephrotoxic agents. Patient was on NSAIDs, Metformin, and Lisinopril outpatient. Will hold his home medications 4. Right Knee Pain -Patient had presented with right knee pain. He had fallen on his knee. Knee X-ray in the ED demonstated a 13 mm triangular bone fragment and cortical irregularity at the posterior tibial plateau -CT scan of right knee today demonstrates a subtle peripheral fractures involving the medial tibial plateau. Patient will be placed in a knee brace. He will need to follow-up with orthopedic surgery as an outpatient 5. History of Diastolic Congestive Heart Failure -Currently stable. Patient will be continued on home medication including Metoprolol and Lasix, 6. HTN -Patient has a history of HTN. He normally takes lisinopril and Metroprolol. -Patients lisinopril is on hold. 7. Shortness of Breath -Patient states he has shortness of breath. This could be multifactorial and likely related to his anemia however he is also a smoker and may have a degree of COPD which has not been formerly diagnosed -Will place patient on Duonebs 8. History of Alcoholism -Patient is a former alcoholic. He does state that he drinks occasionally now. Will place patient on [facility] protocol with multivitamin, folic acid, and thiamine 9. Prediabetes -Patient states that he is diabetic. He takes metformin outpatient. Currently on q6H fingersticks as he is NPO. SLiding scale coverage 10. Chronic Back Pain -Continuing patients home Gabapentin 11. Depression/Anxiety/PTSD -Will hold seroquel given patients recent episode of hypoxia 2/2 EUGENIA 12. Insomnia -Will hold Rozerem given patients recent episode of hypoxia 13. DVT Prophylaxis -Patient presented with acute blood loss anemia. Will place on TEDs and Sequentials DISPOSITION: Will trend H&H and advance diet. PT clearance pending. Likely discharge in 24-48 hours VS, I&O, 24H, Silveriobone Vital Signs/I&O Vital Signs Date Time Temp Pulse Resp B/P (MAP) Pulse Ox O2 Delivery O2 Flow Rate FiO2 09/25/19 08:15 76 16 148/79 (102) 96 Room Air 09/25/19 04:00 97.5 3.0 24 I&O- Last 24 Hours up to 6 AM 09/25/19 06:00 Intake Total 3600 ml Output Total 3025 ml Balance 575 ml Laboratory Data 24H LABS Laboratory Tests 2 09/24/19 11:39: Immature Granulocyte % (Auto) 0.4, Neutrophils (%) (Auto) 73.4H, Lymphocytes (%) (Auto) 13.0L, Monocytes (%) (Auto) 11.0H, Eosinophils (%) (Auto) 1.5, Basophils (%) (Auto) 0.7, Neutrophils # (Auto) 7.1, Lymphocytes # (Auto) 1.3L, Monocytes # (Auto) 1.1H, Eosinophils # (Auto) 0.1, Basophils # (Auto) 0.1, Nucleated Red Blood Cells % (auto) 0.0 09/24/19 13:12: Anion Gap 10, Glomerular Filtration Rate 51.1L, Lactic Acid Level 2.6*H, Calcium Level 8.6, Total Bilirubin 0.2, Aspartate Amino Transf (AST/SGOT) 27, Alanine Aminotransferase (ALT/SGPT) 53, Alkaline Phosphatase 82, Total Creatine Kinase 110, Creatine Kinase MB 2.8, Creatine Kinase MB Relative Index 2.55, Troponin I < 0.02, KM-Sso-S-Type Natriuretic Peptide 40, Total Protein 6.7, Albumin 3.5, Albumin/Globulin Ratio 1.09, Ethyl Alcohol Level < 0.003 09/24/19 17:42: Bedside Glucose (Misc Panel) 88 09/24/19 17:56: Lactic Acid Followup at 4 Hours 1.3 09/24/19 22:57: Bedside Glucose (Misc Panel) 113H 09/24/19 23:23: Blood Gas Bicarbonate Standard 23.3, Arterial Blood pH 7.382, Arterial Blood Partial Pressure CO2 40.6, Arterial Blood Partial Pressure O2 78.8, Arterial Blood Total CO2 24.8, Arterial Blood HCO3 23.6, Arterial Blood Base Excess -1.4, Arterial Blood Oxygen Saturation 95.1 09/25/19 04:52: Nucleated Red Blood Cells % (auto) 0.0, Anion Gap 5L, Glomerular Filtration Rate > 60.0, Calcium Level 8.0L CBC/BMP Laboratory Tests 09/24/19 11:39 09/24/19 13:12 09/24/19 17:18 09/24/19 22:52 09/25/19 04:52 Microbiology Microbiology 09/24/19 Blood Culture, Received Pending 09/24/19 Blood Culture, Received Pending GME ATTESTATION GME ATTESTATION My faculty preceptor for this patient encounter was physically present during the encounter and was fully available. All aspects of the patient interview, examination, medical decision making process, and medical care plan development were reviewed and approved by the faculty preceptor. The faculty preceptor is aware and concurs with the plan as stated in the body of this note and will attest to such by his/her cosignature. ATTENDING NOTE I, Les Shepherd, have independently examined this patient and performed my own physical exam, as well as reviewed the documentation and edited where necessary. I have discussed in detail with the resident / student the findings and plan of treatment as documented by the resident / student and edited their note. I agree with their findings and treatment plan and have edited their documentation. I will continue to follow the patient during this hospital stay. MILTON GREEN DO Sep 25, 2019 10:40 LES SHEPHERD MD Sep 25, 2019 16:17
[2019-09-25 11:09] LABS: HEMATOCRIT 31.4 % (42.0-52.0); HEMOGLOBIN 9.9 g/dl (13.5-17.5)
--- NOTE | 2019-09-25 14:41 | ECGEPIP ---
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
[2019-09-25] MEDS: ACETAMINOPHEN TAB 650MG DOSE (2X325MG) PO PRN (15:37)
[2019-09-25] MEDS: METOPROLOL SUCC *XL* 25MG TAB (TopROL *XL*) PO SCH (20:31)
[2019-09-25] MEDS ORDERED: PRAZOSIN 1 MG CAP PO SCH (21:00)
[2019-09-25] MEDS ORDERED: HumaLOG INSULIN (NovoLOG) PER UNIT SC SCH (21:00)
[2019-09-25] MEDS ORDERED: RAMELTEON 8 MG TAB (ROZEREM) PO SCH (21:00)
[2019-09-26 02:00] VITALS: BP 135/74
[2019-09-26] MEDS: PANTOPRAZOLE 40MG INJ (PROTONIX) (C9113) IV SCH (05:43)
[2019-09-26 06:00] VITALS: BP_SYST 143; BP_SYST 160; BP_DIAS 83; BP_DIAS 86
[2019-09-26] MEDS: ADVAIR HFA 230/21MCG INHALER INH SCH (08:54)
[2019-09-26] MEDS: VENLAFAXINE **XR** 75MG CAPSULE PO SCH (09:19)
[2019-09-26] MEDS: FUROSEMIDE 20 MG TAB PO SCH (09:19)
[2019-09-26] MEDS: THIAMINE 100 MG TAB PO SCH (09:19)
[2019-09-26] MEDS: FOLIC ACID 1 MG TAB PO SCH (09:20)
[2019-09-26] MEDS: HumaLOG INSULIN (NovoLOG) PER UNIT SC SCH ×2 (09:20→12:00)
[2019-09-26] MEDS: MULTIVITAMINS/MINERALS THERAP 1 TAB PO SCH (09:20)
[2019-09-26] MEDS: GABAPENTIN 400 MG CAP PO SCH (09:20)
[2019-09-26 09:30] VITALS: BP 155/77
[2019-09-26 10:00] VITALS: BP 155/87
--- NOTE | 2019-09-26 12:36 | DS.PDOC ---
Discharge Summary General Date of Admission Sep 24, 2019 at 16:22 Date of Discharge 09/26/19 Attending Physician: LES PÉREZ MD Discharge Summary PROCEDURES PERFORMED DURING STAY: [None]. ADMITTING DIAGNOSES: 1. Symptomatic Anemia 2. Acute Kidney Injury 2/2 dehydration and acute blood loss anemia DISCHARGE DIAGNOSES: 1. Symptomatic Anemia 2. Acute Kidney Injury 2/2 dehydration and acute blood loss anemia COMPLICATIONS/CHIEF COMPLAINT: Orthostasis,Symptomatic Anemia. HISTORY OF PRESENT ILLNESS: Patient is a 53 year old male who presented to the [facility] ER with complaint of feeling dizzy and falling multiple times while at home. The patient stated that he woke up this morning and went to make himself some coffee. While making coffee he felt dizzy/lightheaded. He stated that his legs felt unsteady and he subsequently fell down. He denied losing consciousness or hitting his head. He stated that he attempted to get up and walk however continued to feel weak in his legs and once again subsequently fell and landed on his right knee. He stated that after the fall he had some pain in his knee. He was able to get up and continued to feel lightheaded and wobbly/weak in his legs. The patient stated that for the past month or so he has felt more short of breath then his baseline. He stated that yesterday he had cut back from smoking 1 pack per day to smoking only 5 cigarettes as he has been short of breath. He stated that he occasionally has a cough but denies any significant sputum production. He denied any nausea or vomiting. He denied any hematemesis or hemoptysis. He denied any bloody or dark tarry stools. He denied any fevers or chills. In the ER the patient was found to be vitally stable. Laboratory examination demonstrated a slight anemia of 9.4. His chemistries demonstrated hyponatremia and an elevated Cr of 1.52. Additionally the patient had a slight lactic acidosis of 2.6. The patient was found to be orthostatic positive and given 2L bolus of NS. He received CT imaging of his head given his history of falls which demonstrated no evidence of acute intracranial pathology. He also received an x-ray of his knee which demonstrated a likely joint effusion, patellar spurring, and a 13mm triangular bone fragment and cortical irregularity at the posterior tibial plateau suggesting possible chip fracture. The patient also received a chest x-ray which demonstrated multiple old left-sided rib fractures and pl europarenchymal scarring of the left base but no acute infiltrate. Hospitalist service was consulted and the patient was admitted for further evaluation and management HOSPITAL COURSE: On admission the patient remained vitally stable. He received orthostatic vital signs which remained negative. Overnight the patient was found to be hypoxic. He had been transferred to the ICU for closer monitoring and was placed on high flow nasal cannula. The patients ABG was essentially normal. The likely boone of the patients desaturations was polypharmacy and obstructive sleep apnea. The patients ramelteon and Seroquel were discontinued. During the day the patient was on room air. He was transferred to med/surg. His hemoglobin remained stable. His diet was advanced. No further events were reported during the patients hospitalization. Regarding his patellar fracture the patient was instructed to wear a knee brace and follow-up with his primary care physician as an outpatient. The patient was evaluated by physical therapy and found safe for discharge. DISCHARGE MEDICATIONS: Please see below. ALLERGIES: Please see below. PHYSICAL EXAMINATION ON DISCHARGE: VITAL SIGNS: Please see below. GENERAL: Awake, alert, and oriented. Lying in bed comfortably. Appears in no acute distress. HEENT: Atraumatic, normocephalic. Eyes are nonicteric. Trachea is midline. Neck is machado NECK: No palpable cervical, axillary, or supraclavicular lymphadenopathy CARDIOVASCULAR EXAMINATION: Normal S1, S2. Regular rate and rhythm. No clicks rubs or murmurs RESPIRATORY EXAMINATION: Clear vesicular breath sounds bilaterally. Prolonged expiratory phase. Good respiratory effort. No wheezes, rhonchi, or rales ABDOMINAL EXAMINATION: Obese. Soft. Nondistended. Nontender. No rebound tenderness or guarding. Normoactive bowel sounds EXTREMITIES: No edema. Full and equal pulses in bilateral upper and lower extremities SKIN: Continued small healing circular lesions resembling insect bites consistent with patients history of bedbugs NEUROLOGICAL EXAMINATION: No focal neurological deficits PSYCHIATRIC EXAMINATION: Mood and affect appear appropriate for situation LABORATORY DATA: Please see below. IMAGING: RIGHT KNEE SERIES: Five views. HISTORY: Injury in a fall. Knee pain. COMPARISON STUDY: April 27, 2019. FINDINGS: Five views of the right knee demonstrate overall normal mineralization. Mild vascular calcification is seen. There is mild patellar spurring. Fullness in the region of the suprapatellar bursa is seen on lateral film suggestive of joint effusion. There is a triangular bone fragment posteriorly adjacent to the tibial plateau on the lateral radiograph of un certain significance. This is a new finding measuring 13 mm in greatest diameter. A posterior tibial plateau chip fracture must be suspected although its margins may be corticated. There is a small benign osteochondroma more caudally positioned in the proximal tibial metaphysis posteriorly. This is unchanged. IMPRESSION: 1. Probable joint effusion. 2. Patellar spurring. 3. 13 mm triangular bone fragment and cortical irregularity at the posterior tibial plateau on lateral radiograph, question chip fracture. Consider CT scanning. 4. Probable joint effusion. Electronically Signed by Valentino Ogden MD 09/24/2019 02:07 P Clinical: Fall. Head injury . Comparison: 04/27/2019 . Technique: Axial images from the skull base to the vertex with coronal re-formations. Findings: The ventricles, sulci, and cisterns are normal in position and appearance. Claudio-white differentiation is maintained. No acute intracranial hemorrhage, mass/mass effect, pathology or trauma/injury. No evidence for acute infarction. No extra-axial fluid collection. Calvarium is intact. Paranasal sinuses and mastoid air cells are clear. Impression: Normal noncontrast head CT. No evidence for acute intracranial pathology or trauma/injury. Electronically Signed by Faheem Nassar MD 09/24/2019 01:46 P SUPINE CHEST X-RAY: Single view. HISTORY: Shortness of breath and cough. COMPARISON STUDY: April 27, 2019. FINDINGS: There are old healed rib fractures with some deformity on the left unchanged. The lungs are symmetrically aerated and otherwise clear. Minimal linear fibrosis is seen with some pleural scarring at the left lateral pleural angle. No acute infiltrate is seen. Heart is not enlarged. Pulmonary vasculature is not increased. IMPRESSION: No acute infiltrate seen. Multiple old left-sided rib fractures. Pleuroparenchymal scarring left base. Electronically Signed by Valentino Ogden MD 09/24/2019 02:07 P Clinical: Hypoxia. Comparison: 09/24/2019. Findings: Mediastinum and cardiac silhouette are stable and mild cardiomegaly cannot be excluded. The lung roland demonstrate chronic-appearing changes although mild lower lobe atelectasis (left greater than right) cannot be excluded. No obvious effusion. No pneumothorax. Skeletal structures intact. Old rib fractures again noted. Impression: Mild basilar atelectasis cannot be excluded. Electronically Signed by Faheem Nassar MD 09/25/2019 07:47 A Clinical: Recent trauma with possible fracture. Technique: Axial noncontrast images through the knee with coronal and sagittal re-formations. Findings: There is evidence for small peripheral fractures along the posterior aspect of the medial tibial plateau as well as smaller fracture fragments along the anterior aspect of the medial tibial plateau. There is a moderate to significant surrounding joint effusion and post traumatic inflammatory stranding for. The visualized portions of the fibula, femur, and patella appear intact. Impression: Subtle peripheral fractures involving the medial tibial plateau. Electronically Signed by Faheem Nassar MD 09/25/2019 09:57 A PROGNOSIS: Fair ACTIVITY: [As tolerated]. DIET: As tolerated DISCHARGE PLAN: Patient is to be discharged home with follow-up with his PCP within 7-10 days. He is to keep his knee brace on. He is to return to the ER if his symptoms return or worsen DISCHARGE CONDITION: [Stable]. TIME SPENT ON DISCHARGE: Greater than 40 minutes. Vital Signs/I&Os Vital Signs Date Time Temp Pulse Resp B/P (MAP) Pulse Ox O2 Delivery O2 Flow Rate FiO2 09/26/19 06:00 97.4 69 20 160/86 (110) 98 Room Air 09/25/19 04:00 3.0 24 I&O- Last 24 Hours up to 6 AM 09/26/19 06:00 Intake Total 2020 ml Output Total 3150 ml Balance -1130 ml Laboratory Data Labs 24H Laboratory Tests 2 09/25/19 12:04: Bedside Glucose (Misc Panel) 185H 09/25/19 16:51: Bedside Glucose (Misc Panel) 128H 09/25/19 20:27: Bedside Glucose (Misc Panel) 133H 09/26/19 08:04: Bedside Glucose (Misc Panel) 194H FSBS Laboratory Tests Test 09/25/19 12:04 09/25/19 16:51 09/25/19 20:27 09/26/19 08:04 Range/Units Bedside Glucose (Misc Panel) 185 128 133 194 70-105 MG/DL Microbiology Microbiology 09/24/19 Blood Culture - Preliminary, Resulted No growth after 24 hours . All specim... 09/24/19 Blood Culture - Preliminary, Resulted No growth after 24 hours . All specim... Discharge Medications Scheduled Famotidine (Famotidine) 20 Mg Tablet, 20 MG PO BID, (Reported) Fluticasone Propion/Salmeterol (Advair Hfa 230-21 Mcg Inhaler) 1 Aer Aer, 2 PUFF INH BID, (Reported) Furosemide (Furosemide) 20 Mg Tab, 20 MG PO BID, (Reported) Gabapentin (Gabapentin) 400 Mg Cap, 400 MG PO BID, (Reported) Lisinopril (Lisinopril) 10 Mg Tab, 10 MG PO DAILY, (Reported) Metformin HCl (Metformin HCl ER) 500 Mg Tab.er.24h, 500 MG PO DAILY, (Reported) Metoprolol Succinate (Metoprolol Succinate) 25 Mg Tab, 25 MG PO QHS, (Reported) Prazosin Hcl (Prazosin HCl) 1 Mg Capsule, 1 MG PO QHS, (Reported) Quetiapine Fumarate (Seroquel) 400 Mg Tab, 400 MG PO QHS, (Reported) Ramelteon (Rozerem) 8 Mg Tab, 8 MG PO QHS, (Reported) Venlafaxine HCl (Venlafaxine HCl ER) 150 Mg Cap, 300 MG PO DAILY, (Reported) Scheduled PRN Albuterol Sulf (Albuterol Sulfate) 2.5 Mg/3 Ml Vial.neb, 1 VIAL NEB Q4HP PRN for wheezing, (Reported) Albuterol Sulfate (Proventil Hfa) 108 Mcg/Act Aer, 2 PUFFS INH Q4H PRN for SHORTNESS OF BREATH, (Reported) Hydroxyzine HCl (Hydroxyzine HCl) 50 Mg Tablet, 50 MG PO TID PRN for ANXIETY, (Reported) Allergies Coded Allergies: bee venom protein (honey bee) (Verified Allergy, Severe, ANAPHYLAXIS, 06/11/19) fluconazole (Verified Allergy, Mild, RASH/REDNESS, 06/11/19) GME ATTESTATION GME ATTESTATION My faculty preceptor for this patient encounter was physically present during the encounter and was fully available. All aspects of the patient interview, examination, medical decision making process, and medical care plan development were reviewed and approved by the faculty preceptor. The faculty preceptor is aware and concurs with the plan as stated in the body of this note and will attest to such by his/her cosignature. ATTENDING NOTE I, Les Pérez, have independently examined this patient and performed my own physical exam, as well as reviewed the documentation and edited where necessary. I have discussed in detail with the resident / student the findings and plan of treatment as documented by the resident / student and edited their note. I agree with their findings and treatment plan and have edited their documentation. I will continue to follow the patient during this hospital stay. Time spent on discharge 35 minutes MILTON GREEN DO Sep 26, 2019 11:58 LES PÉREZ MD Sep 26, 2019 13:23
== END 2019-09-26 14:15 | disposition home or self-care (01) | DRG 812 ==
LOC: EDBD 11:05 → M ED 11:05 → M ED INP 16:22 → ENRESERVDT 16:40 → ENRESERVTM 16:40 → M PCU 17:08 → M ICU 09-25 00:01 → M MS5PR 09-25 10:22
PROVIDERS: ADMIT Internal Medicine; ATTEND Internal Medicine
DX: D62 Acute posthemorrhagic anemia (principal); N17.9 Acute kidney failure, unspecified; I50.32 Chronic diastolic (congestive) heart failure; E87.2 Acidosis; E87.1 Hypo-osmolality and hyponatremia; M25.461 Effusion, right knee; E86.0 Dehydration; F17.210 Nicotine dependence, cigarettes, uncomplicated; Z79.899 Other long term (current) drug therapy; Z88.8 Allergy status to other drugs, medicaments and biological substances; Z91.030 Bee allergy status; J43.9 Emphysema, unspecified; B18.2 Chronic viral hepatitis C; R29.6 Repeated falls; K21.9 Gastro-esophageal reflux disease without esophagitis; I27.20 Pulmonary hypertension, unspecified; G47.33 Obstructive sleep apnea (adult) (pediatric); Z96.641 Presence of right artificial hip joint; Z96.642 Presence of left artificial hip joint; F10.20 Alcohol dependence, uncomplicated; M54.5 Low back pain; F41.9 Anxiety disorder, unspecified; F32.9 Major depressive disorder, single episode, unspecified; Z79.82 Long term (current) use of aspirin; R73.03 Prediabetes